=== PATIENT | female | born 1965 | race Caucasian/White ===

== ENCOUNTER → 2017-07-26 20:17 | Outpatient (CLI) | payer MEDICARE, SELFPAY | PROVIDERS: Family Provider Internal Medicine; PCP Internal Medicine; Visit Provider Nurse Practitioner Acute Care | DX: G47.19 Other hypersomnia (principal) | CPT/HCPCS: 95810 ==

== ENCOUNTER → 2017-08-07 10:35 | Outpatient (CLI) | payer MEDICARE, SELFPAY ==
[2017-08-07 11:36] LABS: ALB/GLOB Ratio 0.7 RATIO (0.9-2.4); AST(SGOT) 30 U/L (15-37); Alanine Aminotransfer ALT/SGPT 23 U/L (13-56); Albumin, Serum 3.3 g/dL (3.2-5.0); Alkaline Phosphatase 70 U/L (45-117); Anion Gap 7 (5-15); BUN 11 mg/dL (7-18); BUN/Creat Ratio 18.2 RATIO (10-20); Calcium,Total 9.3 mg/dL (8.5-10.1); Chloride 94 mmol/L (98-107); Cholesterol 180 mg/dL (200); EST Glomerular Filtration Rate 110 mL/min (>60); Est Glom Filt Rate - Afr Amer 133 mL/min (>60); Globulin 4.5 g/dL (2.2-4.2); Glucose 159 mg/dL (74-106); High Density Lipoprotein 34 mg/dL; Magnesium 1.2 mg/dL (1.6-2.6); Protein, Total 7.8 g/dL (6.4-8.2); Sodium Level 130 mmol/L (136-145); Thyroid Stim Hormone (TSH) 2.69 uIU/mL (0.358-3.74); Triglycerides 200 mg/dL; Very Low Density Lipoprotein 40 mg/dL (5-40)
== END ==
PROVIDERS: Family Provider Internal Medicine; PCP Internal Medicine; Visit Provider Internal Medicine Endocrinology, Diabetes & Metabolism
DX: E11.65 Type 2 diabetes mellitus with hyperglycemia (principal)
CPT/HCPCS: 36415; 80053; 80061; 83036; 83735; 84443

== ENCOUNTER → 2017-08-09 22:20 | Outpatient (CLI) | payer MEDICARE, SELFPAY | PROVIDERS: Family Provider Internal Medicine; PCP Internal Medicine; Visit Provider Nurse Practitioner Acute Care | DX: G47.33 Obstructive sleep apnea (adult) (pediatric) (principal) | CPT/HCPCS: 95811 ==

== ENCOUNTER 2017-11-23 13:46 | Inpatient (IN) | payer MEDICARE, SELFPAY ==
[2017-11-23] VITALS (23 sets, daily range): BP systolic 97–129; BP diastolic 38–88; PULSE 80–98; RESP 12–36; TEMP 36.3–36.6; O2SAT 68–100; BMI 29.7; BMI 29.9
--- NOTE | 2017-11-23 13:55 | ED.RN ---
pt placed on nonrebreather to increase o2. 77 on 6 liters nasal cannula. on nonrebreather was able to get o2 level up. dropped back to a 50 venti mask
--- NOTE | 2017-11-23 14:11 | EKG12_ITS ---
Test Reason : SOB Blood Pressure : / mmHG Vent. Rate : 079 BPM Atrial Rate : 079 BPM P-R Int : 174 ms QRS Dur : 098 ms QT Int : 376 ms P-R-T Axes : 065 047 -29 degrees QTc Int : 431 ms Normal sinus rhythm ST & T wave abnormality, consider anterolateral ischemia Abnormal ECG Confirmed by FEI WOODARD ([id number]), editorial manager YAZMIN AYON ([id number]) on 12/04/2017 6:29:25 PM Referred By: NEERAJ/FRANK Confirmed By:FEI WOODARD
[2017-11-23] MEDS: Ipratropium/Albuterol Sulfate 3 ML AMPUL.NEB INHALATION ×2 (14:19→19:10)
[2017-11-23] MEDS: Albuterol 2.5 MG/3 ML VIAL.NEB. INHALATION ×2 (14:19→14:29)
[2017-11-23 14:30] LABS: Absolute Lymphocyte Count 1.42 X10^3/ul (0.83-4.51); Absolute Neutrophil Count 12.2 X10^3/uL (2.0-7.7); Basophil# 0.02 X10^3/uL; Basophil% 0.1 % (0-1); Eosinophil# 0.12 X10^3/uL; Eosinophils% 0.8 % (0-5); Hematocrit 37.9 % (37-47); Hemoglobin 12.3 g/dl (12.0-15.0); Lymphocyte # 1.42 X10^3/ul (4.0); Lymphocyte % 9.7 % (19-41); Mean Corp Hgb Conc 32.5 g/gl (32-36); Mean Corpuscular Hgb 25.6 pg (27.0-32.0); Mean Corpuscular Volume 78.8 fL (81-99); Mean Platelet Vol. 10.5 fl (6.2-12.0); Monocyte# 0.83 X10^3/uL; Monocyte% 5.7 % (0-10); Neutrophil # 12.22 X10^3/uL (2.7-7.7); Neutrophil % 83.3 % (47-70); Platelet Count 175 K/mm3 (150-450); RBC Distribution Width CV 18.6 % (11.6-14.6); RBC Distribution Width SD 53.4 fl (35.1-43.9); Red Blood Count 4.81 M/mm3 (4.2-5.4); White Blood Count 14.7 K/mm3 (4.4-11.0)
--- NOTE | 2017-11-23 14:30 | RAD_ITS ---
STUDY: X-RAY CHEST REASON FOR EXAM: Female, 52 years old. Shortness of breath. Difficulty breathing. TECHNIQUE: Single AP portable view of the chest. COMPARISON: Comparison is made with prior study dated May 01, 2017. FINDINGS: EKG electrodes are seen. There is evidence of diffuse bilateral airspace disease suggestive of pulmonary edema. There is no demonstrated pleural abnormality. Sternal cerclage wires are present from a prior sternotomy. Normal mediastinum and mirna. Normal visualized pulmonary arteries. Normal visualized aortic arch and descending thoracic aorta. Normal visualized thoracic spine. Normal visualized ribs, clavicles, and shoulders. There is no demonstrated abnormality of the visualized soft tissue structures of the upper abdomen. RAD/Chest 1 View (Portable) IMPRESSION: Diffuse bilateral airspace disease suggestive of pulmonary edema. Electronically Signed: Yousuf Vila MD at 15:19 EDT Tel [phone], Service support ,
[2017-11-23 14:31] LABS: POSITIVE COUNT NO; POSITIVE DIFFERENTIAL NO; POSITIVE MORPHOLOGY NO
[2017-11-23 14:39] LABS: D-Dimer Quantitative (DVT/PE) 1.12 FEU/ug/m (0.27-0.49)
--- NOTE | 2017-11-23 14:39 | CT_ITS ---
STUDY: CTA CHEST REASON FOR EXAM: Female, 52 years old. Elevated d-dimer. Elevated white count and increasing shortness of breath. RADIATION DOSAGE (If Supplied By Facility): CTDIvol = ( 19.83 ) mGy, DLP = ( 654.24 ) mGycm TECHNIQUE: The examination was performed with the intravenous administration of 75ml ml of Isovue 370 contrast material. Post-processing of the angiographic images was performed, with multiplanar reformation and 3D reconstruction. Individualized dose optimization techniques were used for this CT. COMPARISON: Comparison is made with prior CT scan of the chest dated February 09, 2017 and prior chest radiograph done earlier in the day. FINDINGS: Normal enhancement of the main pulmonary artery and right and left pulmonary arteries. Normal enhancement of the bilateral peripheral pulmonary arteries. There is no demonstrated pulmonary embolism. Normal thoracic aorta and visualized great vessels. 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 There is no demonstrated aortic dissection. There are calcifications of the coronary arteries. There are visualized mediastinal lymph nodes, which are within normal size limits, and with normal morphology. Normal hilar regions. Normal visualized trachea and bronchi. The lungs are well expanded. Diffuse bilateral alveolar space disease. Increased interstitial markings with areas of confluence this is suggestive of either is bilateral pulmonary edema or pneumonitis. Normal pleura. Normal chest wall structures. There are degenerative changes of thoracic spine. Normal visualized upper abdomen. CT/CTA Chest W/WO Contrast IMPRESSION: Diffuse bilateral airspace disease. There is no evidence of pulmonary embolism. Electronically Signed: Yousuf Vila MD at 15:57 EDT Tel [phone], Service support ,
--- NOTE | 2017-11-23 14:40 | ED.VISSUMM ---
- ER Visit Summary Date of Service: 11/23/17 Chief Complaint: Shortness of breath History of Present Illness: The patient is a 52 F presenting with shortness of breath. She states it started yesterday and worsened gradually throughout the day. She has had temperatures up to 99.6 at home. She has had nonproductive cough. She has nausea with no vomiting. She denies chest pain. She states her daughter has factor V Leiden, no other PE/DVT risk factors. On arrival to the ED she was 68% on room air. Physical Examination: Vitals are stable. Patient is afebrile. Alert no acute distress. HEENT exam is unremarkable. Neck is supple. Lungs are diminished bilaterally with expiratory wheezing bilaterally Heart is regular rate and rhythm. Abdomen is soft nontender nondistended. Extremities are unremarkable. Skin is warm and dry. No focal neurologic deficit. Remainder of exam is unremarkable. Emergency Department Course and Treatment: On arrival to the ED pulse oximetry was 68% on room air. She was put on nonrebreather and transitioned to a Ventimask. She was given albuterol and Atrovent aerosols. She continues to be hypoxic and was put on BiPAP. She had improvement while on BiPAP. CBC showed a white count of 14.7. Chemistry shows sodium 130, potassium 3.3, glucose 171. Troponin is negative. D-dimer is 1.12. Due to elevated d-dimer, CTA chest was obtained and shows diffuse bilateral airspace disease with no PE. Patient is improved on BiPAP. Discussed with Dr. Patterson who will admit the patient. Disposition: Admission Impression: Respiratory failure, pulmonary edema This note was generated with [employer] dictation software. It may contain incorrect words, spelling, and punctuation that were not noted in review of the chart prior to signing ED Disposition - Plan for ED Patient: Chief Complaint: Shortness of Breath Referrals: Sanjuana Mckeon DO [Primary Care Provider] -
[2017-11-23 14:43] LABS: Anion Gap 9 (5-15); BUN 11 mg/dL (7-18); BUN/Creat Ratio 16.2 RATIO (10-20); Calcium,Total 9.4 mg/dL (8.5-10.1); Chloride 95 mmol/L (98-107); Creatinine, Serum 0.68 mg/dL (0.55-1.02); EST Glomerular Filtration Rate 96 mL/min (>60); Est Glom Filt Rate - Afr Amer 116 mL/min (>60); Estimated Creatinine Clearance 86.09 ml/min; Glucose 171 mg/dL (74-106); Potassium 3.3 mmol/L (3.5-5.1); Sodium Level 130 mmol/L (136-145)
[2017-11-23 16:46] LABS: Allen Test POS; Base Excess -2 mmol/L (-2 to +2); Bicarbonate 22.1 mmol/L (22-26); Blood Gas Specimen Type ART; EPAP 8; FI02 70; IPAP 12; PO2 92 mmHG (75-100); RR 12; SITE R Radial; SO2 98 % (95-99); Time Given 1635; Total Carbon Dioxide 23 mmol/L; pCO2 32.7 mmHg (35-45); pH 7.44 (7.35-7.45)
--- NOTE | 2017-11-23 17:15 | PCM.HP.STD ---
Problem List (1) Coronary artery disease Status: Chronic Comment: Status post stents. 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 Neela Crum (7) Cardiomyopathy, ischemic Status: Chronic Comment: 40% EF in 2016 (8) HLD (hyperlipidemia) Status: Chronic History of Present Illness Date of Admission: 11/23/17 Chief Complaint: Shortness of breath. The patient is a 52 year old F with past medical history as mentioned above presented to the medicine because of shortness of breath. Her illness started around 3 days ago with shortness of breath on minimal exertion, progressive, became even at rest since yesterday, aggravated by activity, not relieved by rest, associated with dry cough without sputum production. She denied associated fever or chills. She denied chest pain, palpitation, dizziness or lightheadedness. She denied leg edema, PND or orthopnea. History of sleep apnea and she has been on CPAP at home and she has been compliant with it. She has a history of CAD status post stents and CABG. She had a history of type 2 diabetes mellitus and she has been on insulin, his hemoglobin A1c was 8 on July,. She has a history of ischemic cardiomyopathy and she had 2D echocardiogram in December, that showed ejection fraction 50%. In the emergency room, patient was dyspneic and tachypneic. She was afebrile, blood pressure and heart rate are stable. Reportedly, pulse ox went down to 60% on room air. Her routine blood work is remarkable for leukocytosis, sodium of 130 and potassium 3.3. ABG revealed pH of 7.44, PCO2 of 32 and PO2 of 92. Troponin is negative. EKG revealed sinus rhythm without evidence of acute ischemic changes. Chest x-ray showed bilateral alveolar space disease with probable acute pulmonary edema. D-dimer was elevated for which CTA chest done and revealed no evidence of PE or dissection. She is being admitted for acute hypoxic respiratory failure due to probable acute pulmonary edema, pneumonia or pneumonitis cannot be ruled out. Past Medical History Past Medical History (Chronic Problems): Chronic Problems (Last Updated 11/23/17 @ 17:15 by Kimberly Patterson MD) Coronary artery disease (Chronic) Status post stents. 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 Neela Crum Cardiomyopathy, ischemic (Chronic) 40% EF in 2016 HLD (hyperlipidemia) (Chronic) Diabetic neuropathy (Chronic) Medical History: Medical History (Last Updated 11/23/17 @ 17:15 by Kimberly Patterson MD) Atherosclerosis of coronary artery bypass graft without angina pectoris (Chronic) I25.810 Atherosclerosis of coronary artery of [place] heart without angina pectoris (Chronic) I25.[address] (Chronic) R93.8 Tobacco abuse (Chronic) Z72.0 HTN (hypertension) (Chronic) I10 Depression with anxiety (Chronic) Diabetes mellitus, type II (Chronic) E11.9 Harper disease (Chronic) E27.1 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 BUT, 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 Chronic back pain (Chronic) M54.9, G89.29 History of GI bleed (Chronic) Z87.19 Cardiomyopathy, ischemic (Chronic) I25.5 40% EF in 2016 HLD (hyperlipidemia) (Chronic) E78.5 Diabetic neuropathy (Chronic) E11.40 Allergies Mdvmpaa-Nkx-Ndk Reductase Inhibitor Adverse Reaction (Severe, Verified 11/23/17 13:57) Elevated liver enzymes, also Muscle cramps/pain Home Medications: Ambulatory Orders Medication Instructions Recorded Aspirin 325 mg PO QHS 08/12/14 Ergocalciferol [Vitamin D] 50,000 unit PO FR 08/12/14 Lisinopril [Zestril] 2.5 mg PO QHS 08/12/14 Venlafaxine XR [Effexor Xr] 150 mg PO DAILY 08/12/14 buPROPion XL [Wellbutrin Xl] 300 mg PO DAILY 08/12/14 Pregabalin [Lyrica] 300 mg PO BID 07/24/15 Amitriptyline HCl 25 mg PO BID 12/26/16 Carvedilol 25 mg PO BID 12/26/16 Clopidogrel Bisulfate [Plavix] 75 mg PO DAILY 12/26/16 Eplerenone [Inspra] 25 mg PO DAILY 12/26/16 Gemfibrozil [Lopid] 1,200 mg PO QHS 12/26/16 Insulin Basal Pump (Pt's Own) 0 unit SC UD 12/26/16 [Pump, Basal] Meclizine HCl [Antivert] 25 mg PO TID PRN PRN 12/26/16 Niacin [Niacin ER] 2,000 mg PO QHS 12/26/16 Ondansetron [Zofran Odt] 4 mg PO Q8H PRN PRN 12/26/16 Oxycodone [Oxyir] 10 mg PO Q6H PRN PRN 12/26/16 Perphenazine 4 mg PO BID 12/26/16 Albuterol IH (ProAir) [Proair Hfa] 1 - 2 puff INHALATION Q4H PRN PRN 12/30/16 #1 inhaler levoFLOXacin tablet [Levaquin 750 mg PO DAILY@0600 #2 tab 12/30/16 tablet] magnesium oxide 400 mg tablet 400 mg PO TID tab 10/16/17 Furosemide [Lasix] 40 mg PO BID@1000,1800 11/23/17 Omeprazole 20 mg PO BID 11/23/17 Surgical History: Surgical History (Last Updated 11/23/17 @ 17:15 by Kimberly Patterson MD) S/P CABG x 5 (Chronic) Onset Date: ~11/14/07 Z95.1 HINTON-LAD, SVG-D1, SVG-OM1, SVG-OM 2, SVG-PDA 11/16/2007 @ [facility] per Dr. 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 Denies: Anorexia, Chills, Fever Eyes: Denies: Blurred vision, Double vision, Drainage, Redness HEENT: Denies: Difficulty Hearing, Ear Pain, Eye Pain, Nasal Congestion, Sore Throat Cardiovascular: Denies: Chest Pain, Chest Pressure, Chest Tightness, Heaviness, Light Headedness, Palpitations, Syncope Respiratory: Reports: Cough, Shortness of Breath, Shortness of breath at rest, Shortness of breath upon exertion. Denies: Pleuritic Pain, Sputum production, Wheezing Gastrointestinal: Denies: Abdominal Pain, Constipation, Diarrhea, Nausea, Vomiting Genitourinary: Denies: Dysuria, Frequency, Hematuria Musculoskeletal: Denies: Arm Pain, Back Pain, Foot Pain Skin: Denies: Dryness, Rash Neurological: Denies: Balance problems, Double vision, Change in Speech, Slurred speech, Confusion, Headaches, Incoordination, Numbness Psychiatric: Reports: Anxiety, Depression Endocrine: Denies: Change in Body Habitus, Polydipsia VTE Information - Inpt Only VTE Present on Admission: No VTE Mechan Device Prophylaxis: None VTE Pharm Prophylaxis ordered?: Yes - Physical Exam General: Alert, Oriented x3, Cooperative, - - Moderately short of breath, on BiPAP. HEENT: Atraumatic, PERRLA, EOMI Oral: Moist Mucosa, No Gingival or Mucosal Lesions/ Ulcerations Neck: Supple, No JVD, Negative Carotid Bruits, Trachea Midline, Thyroid Normal Size and Texture Lungs: No wheeze, Diminished, Rales, Rhonchi, Short of Breath, - - Decreased breath sounds bilateral, more at the bases with basal crackles. Cardiovascular: Regular rate, Regular Rhythm, Normal S1, Normal S2, PMI Normal Abdomen: Bowel Sounds Present, Soft, Non Tender, Non-Distended, No Hepato-splenomegaly Extremities: No clubbing, No cyanosis, No edema Skin: No rashes, No breakdown Lymphatic: No Cervical, Supraclavicular, or Inguinal Adenopathy Neurological: Cranial nerves II-XII grossly intact, Motor Exam 5/5 strength throughout Psych/Mental Status: Normal Affect, Appropriate, Alert and oriented to time, place, person, mood and affect Vital Signs Temp Pulse Resp BP Pulse Ox 98 F 84 22 H 112/88 H 96 11/23/17 13:53 11/23/17 16:32 11/23/17 16:32 11/23/17 16:32 11/23/17 16:32 Laboratory Tests Past 24 Hrs 11/23/17 16:42 Specimen Type ART Sample Site R Radial pH 7.44 Bicarbonate Actual 22.1 POC Total CO2 23 Base Excess -2 O2 Saturation 98 O2 % 70 ABG pCO2 32.7 L ABG pO2 92 Marko Test POS Respiration Rate 12 O2 Delivery Device Bi / C PAP EPAP 8 IPAP 12 Blood Gas Notified Whom ED Blood Gas Notified Time 1635 Laboratory Tests 11/23/17 11/23/17 11/23/17 Range/Units 16:42 14:00 14:00 WBC (4.4-11.0) K/mm3 RBC (4.2-5.4) M/mm3 Hgb (12.0-15.0) g/dl Hct (37-47) % MCV (81-99) fL MCH (27.0-32.0) pg MCHC (32-36) g/gl RDW (11.6-14.6) % RDW Differential (35.1-43.9) fl Plt Count (150-450) K/mm3 MPV (6.2-12.0) fl Immature Gran % (Auto) (0.0-0.9) % Neut % (Auto) (47-70) % Lymph % (Auto) (19-41) % [place] % (Auto) (0-10) % Eos % (Auto) (0-5) % Baso % (Auto) (0-1) % Absolute Neuts (auto) (2.0-7.7) X10^3/uL Absolute Lymphs (auto) (0.83-4.51) X10^3/ul Total Counted D-Dimer Quant (PE/DVT) 1.12 H* (0.27-0.49) FEU/ug/m Specimen Type ART Sample Site R Radial pH 7.44 (7.35-7.45) Bicarbonate Actual 22.1 (22-26) mmol/L POC Total CO2 23 mmol/L Base Excess -2 (-2 to +2) mmol/L O2 Saturation 98 (95-99) % O2 % 70 ABG pCO2 32.7 L (35-45) mmHg ABG pO2 92 (75-100) mmHG Marko Test POS Respiration Rate 12 O2 Delivery Device Bi / C PAP EPAP 8 IPAP 12 Blood Gas Notified Whom ED Blood Gas Notified Time 1635 Sodium 130 L (136-145) mmol/L Potassium 3.3 L (3.5-5.1) mmol/L Chloride 95 L (98-107) mmol/L Carbon Dioxide 26.0 (21.0-32.0) mmol/L Anion Gap 9 (5-15) BUN 11 (7-18) mg/dL Creatinine 0.68 (0.55-1.02) mg/dL Estim Creat Clear Calc 86.09 ml/min Est GFR (MDRD) Af Amer 116 (>60) mL/min Est GFR (MDRD) Non-Af 96 (>60) mL/min BUN/Creatinine Ratio 16.2 (10-20) RATIO Glucose 171 H (74-106) mg/dL Calcium 9.4 (8.5-10.1) mg/dL Troponin I < 0.015 (<0.045) ng/mL 11/23/17 Range/Units 14:00 WBC 14.7 H (4.4-11.0) K/mm3 RBC 4.81 (4.2-5.4) M/mm3 Hgb 12.3 (12.0-15.0) g/dl Hct 37.9 (37-47) % MCV 78.8 L (81-99) fL MCH 25.6 L (27.0-32.0) pg MCHC 32.5 (32-36) g/gl RDW 18.6 H (11.6-14.6) % RDW Differential 53.4 H (35.1-43.9) fl Plt Count 175 (150-450) K/mm3 MPV 10.5 (6.2-12.0) fl Immature Gran % (Auto) 0.400 (0.0-0.9) % Neut % (Auto) 83.3 H (47-70) % Lymph % (Auto) 9.7 L (19-41) % [place] % (Auto) 5.7 (0-10) % Eos % (Auto) 0.8 (0-5) % Baso % (Auto) 0.1 (0-1) % Absolute Neuts (auto) 12.2 H (2.0-7.7) X10^3/uL Absolute Lymphs (auto) 1.42 (0.83-4.51) X10^3/ul Total Counted Not Reportable D-Dimer Quant (PE/DVT) (0.27-0.49) FEU/ug/m Specimen Type Sample Site pH (7.35-7.45) Bicarbonate Actual (22-26) mmol/L POC Total CO2 mmol/L Base Excess (-2 to +2) mmol/L O2 Saturation (95-99) % O2 % ABG pCO2 (35-45) mmHg ABG pO2 (75-100) mmHG Marko Test Respiration Rate O2 Delivery Device EPAP IPAP Blood Gas Notified Whom Blood Gas Notified Time Sodium (136-145) mmol/L Potassium (3.5-5.1) mmol/L Chloride (98-107) mmol/L Carbon Dioxide (21.0-32.0) mmol/L Anion Gap (5-15) BUN (7-18) mg/dL Creatinine (0.55-1.02) mg/dL Estim Creat Clear Calc ml/min Est GFR (MDRD) Af Amer (>60) mL/min Est GFR (MDRD) Non-Af (>60) mL/min BUN/Creatinine Ratio (10-20) RATIO Glucose (74-106) mg/dL Calcium (8.5-10.1) mg/dL Troponin I (<0.045) ng/mL Clinical Impression(s) from Imaging Studies Chest X-Ray 11/23/17 14:30 IMPRESSION: Diffuse bilateral airspace disease suggestive of pulmonary edema. Electronically Signed: Yousuf Vila MD at 15:19 EDT Tel [phone], Service support , Chest CTA 11/23/17 14:39 IMPRESSION: Diffuse bilateral airspace disease. There is no evidence of pulmonary embolism. Electronically Signed: Yousuf Vila MD at 15:57 EDT Tel [phone], Service support , Assessment/Plan All Active Problems (Last Updated 11/23/17 @ 17:15 by Kimberly Patterson MD) Chest discomfort (Resolved) Chronic normocytic anemia (Resolved) This is a 52 year-old presented to the emergency room because of shortness of breath and she was found to have bilateral pleural space disease in both lungs consistent with probable acute pulmonary edema complicated by acute hypoxic respiratory failure. #1 acute hypoxic respiratory failure: Probably multifactorial secondary to pulmonary edema, pneumonitis or pneumonia. She does have leukocytosis. Reportedly, pulse ox was 60% on room air. ABG revealed pH of 7.44, PCO2 of 32 and PO2 of 92. Chest x-ray reviewed, revealed bilateral airspace disease consistent with acute pulmonary edema. She does have history of ischemic cardiomyopathy and she has been on diuretics. Also, she has a history of obstructive sleep apnea and she is on CPAP. Plan: Admit to PCU, cardiac monitoring, serial cardiac enzymes, continue BiPAP, start IV Lasix for diuresis, DuoNeb every 6 hours, albuterol as needed, start empiric IV Levaquin, blood culture, urine culture, pulmonology consult, repeat CBC and BMP tomorrow morning, PT OT evaluation and treatment. #2 probable acute pulmonary edema/acute on chronic diastolic and systolic CHF: Echocardiogram from December, revealed ejection fraction of 50%. EKG reviewed, revealed sinus rhythm without evidence of acute changes. Troponin is negative. Plan: Cardiac monitoring, serial cardiac enzymes, 2D echocardiogram, IV Lasix for diuresis, check BNP, continue Coreg and eplerenone and lisinopril. #3 CAD status post stents and CABG: Reviewed, no acute changes, troponin is negative. Continue aspirin, Coreg, Plavix, lisinopril. #4 type 2 diabetes mellitus: ADA diet, Accu-Cheks, insulin sliding scale. #5 hypertension: Blood pressure stable, continue Coreg, eplerenone and lisinopril. #6 hyperlipidemia: Continue niacin. #7 obstructive sleep apnea: She is on CPAP at home. At this time, she is on BiPAP. #8 chronic back pain: Continue OxyIR as needed for pain as well as Lyrica. #9 DVT prophylaxis: Subcu Lovenox. This note was generated with [employer] software. It may contain incorrect words, spelling, and punctuation that were not noted in checking the note before signing. Code Visit Inpatient E&M: 15470 Init Hosp L3
--- NOTE | 2017-11-23 17:23 | HP.PCM_ITS ---
Problem List (1) Coronary artery disease Status: Chronic Comment: Status post stents. 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 Neela Crum (7) Cardiomyopathy, ischemic Status: Chronic Comment: 40% EF in 2016 (8) HLD (hyperlipidemia) Status: Chronic History of Present Illness Date of Admission: 11/23/17 Chief Complaint: Shortness of breath. The patient is a 52 year old F with past medical history as mentioned above presented to the medicine because of shortness of breath. Her illness started around 3 days ago with shortness of breath on minimal exertion, progressive, became even at rest since yesterday, aggravated by activity, not relieved by rest, associated with dry cough without sputum production. She denied associated fever or chills. She denied chest pain, palpitation, dizziness or lightheadedness. She denied leg edema, PND or orthopnea. History of sleep apnea and she has been on CPAP at home and she has been compliant with it. She has a history of CAD status post stents and CABG. She had a history of type 2 diabetes mellitus and she has been on insulin, his hemoglobin A1c was 8 on July,. She has a history of ischemic cardiomyopathy and she had 2D echocardiogram in December, that showed ejection fraction 50%. In the emergency room, patient was dyspneic and tachypneic. She was afebrile, blood pressure and heart rate are stable. Reportedly, pulse ox went down to 60% on room air. Her routine blood work is remarkable for leukocytosis, sodium of 130 and potassium 3.3. ABG revealed pH of 7.44, PCO2 of 32 and PO2 of 92. Troponin is negative. EKG revealed sinus rhythm without evidence of acute ischemic changes. Chest x-ray showed bilateral alveolar space disease with probable acute pulmonary edema. D-dimer was elevated for which CTA chest done and revealed no evidence of PE or dissection. She is being admitted for acute hypoxic respiratory failure due to probable acute pulmonary edema, pneumonia or pneumonitis cannot be ruled out. Past Medical History Past Medical History (Chronic Problems): Chronic Problems (Last Updated 11/23/17 @ 17:15 by Kimberly Patterson MD) Coronary artery disease (Chronic) Status post stents. 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 Neela Crum Cardiomyopathy, ischemic (Chronic) 40% EF in 2016 HLD (hyperlipidemia) (Chronic) Diabetic neuropathy (Chronic) Medical History: Medical History (Last Updated 11/23/17 @ 17:15 by Kimberly Patterson MD) Atherosclerosis of coronary artery bypass graft without angina pectoris (Chronic ) I25.810 Atherosclerosis of coronary artery of [place] heart without angina pectoris ( Chronic) I25.[address] (Chronic) R93.8 Tobacco abuse (Chronic) Z72.0 HTN (hypertension) (Chronic) I10 Depression with anxiety (Chronic) Diabetes mellitus, type II (Chronic) E11.9 Fayette disease (Chronic) E27.1 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, 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 Chronic back pain (Chronic) M54.9, G89.29 History of GI bleed (Chronic) Z87.19 Cardiomyopathy, ischemic (Chronic) I25.5 40% EF in 2016 HLD (hyperlipidemia) (Chronic) E78.5 Diabetic neuropathy (Chronic) E11.40 Allergies Smqhpfy-Tfi-Yhn Reductase Inhibitor Adverse Reaction (Severe, Verified 11/23/17 13:57) Elevated liver enzymes, also Muscle cramps/pain Home Medications: Ambulatory Orders Medication Instructions Recorded Aspirin 325 mg PO QHS 08/12/14 Ergocalciferol [Vitamin D] 50,000 unit PO FR 08/12/14 Lisinopril [Zestril] 2.5 mg PO QHS 08/12/14 Venlafaxine XR [Effexor Xr] 150 mg PO DAILY 08/12/14 buPROPion XL [Wellbutrin Xl] 300 mg PO DAILY 08/12/14 Pregabalin [Lyrica] 300 mg PO BID 07/24/15 Amitriptyline HCl 25 mg PO BID 12/26/16 Carvedilol 25 mg PO BID 12/26/16 Clopidogrel Bisulfate [Plavix] 75 mg PO DAILY 12/26/16 Eplerenone [Inspra] 25 mg PO DAILY 12/26/16 Gemfibrozil [Lopid] 1,200 mg PO QHS 12/26/16 Insulin Basal Pump (Pt's Own) 0 unit SC UD 12/26/16 [Pump, Basal] Meclizine HCl [Antivert] 25 mg PO TID PRN PRN 12/26/16 Niacin [Niacin ER] 2,000 mg PO QHS 12/26/16 Ondansetron [Zofran Odt] 4 mg PO Q8H PRN PRN 12/26/16 Oxycodone [Oxyir] 10 mg PO Q6H PRN PRN 12/26/16 Perphenazine 4 mg PO BID 12/26/16 Albuterol IH (ProAir) [Proair Hfa] 1 - 2 puff INHALATION Q4H PRN PRN 12/30/16 #1 inhaler levoFLOXacin tablet [Levaquin 750 mg PO DAILY@0600 #2 tab 12/30/16 tablet] magnesium oxide 400 mg tablet 400 mg PO TID tab 10/16/17 Furosemide [Lasix] 40 mg PO BID@1000,1800 11/23/17 Omeprazole 20 mg PO BID 11/23/17 Surgical History: Surgical History (Last Updated 11/23/17 @ 17:15 by Kimberly Patterson MD) S/P CABG x 5 (Chronic) Onset Date: ~11/14/07 Z95.1 HINTON-LAD, SVG-D1, SVG-OM1, SVG-OM 2, SVG-PDA 11/16/2007 @ [facility] per Dr. Neela Crum Surgical History: angioplasty, cholecystectomy, coronary bypass surgery Psychiatric History: Anxiety, Depression [employer] History: No pertinent [employer] history Lives: With Family Smoking Status: Current every day smoker Tobacco Use: Cigarettes - *Family History Maternal Family History: Family History (Last Reviewed 10/16/17 @ 10:50 by Izabela Adam) Father Hypertension Mother Hyperlipidemia History Items: Diabetes, Hypertension Paternal Family History: Family History (Last Reviewed 10/16/17 @ 10:50 by Izabela Adam) Father Hypertension Mother Hyperlipidemia History Items: Hypertension Review of Systems Constitutional: Reports: Weakness. Denies: Anorexia, Chills, Fever Eyes: Denies: Blurred vision, Double vision, Drainage, Redness HEENT: Denies: Difficulty Hearing, Ear Pain, Eye Pain, Nasal Congestion, Sore Throat Cardiovascular: Denies: Chest Pain, Chest Pressure, Chest Tightness, Heaviness, Light Headedness, Palpitations, Syncope Respiratory: Reports: Cough, Shortness of Breath, Shortness of breath at rest, Shortness of breath upon exertion. Denies: Pleuritic Pain, Sputum production, Wheezing Gastrointestinal: Denies: Abdominal Pain, Constipation, Diarrhea, Nausea, Vomiting Genitourinary: Denies: Dysuria, Frequency, Hematuria Musculoskeletal: Denies: Arm Pain, Back Pain, Foot Pain Skin: Denies: Dryness, Rash Neurological: Denies: Balance problems, Double vision, Change in Speech, Slurred speech, Confusion, Headaches, Incoordination, Numbness Psychiatric: Reports: Anxiety, Depression Endocrine: Denies: Change in Body Habitus, Polydipsia VTE Information - Inpt Only VTE Present on Admission: No VTE Mechan Device Prophylaxis: None VTE Pharm Prophylaxis ordered?: Yes - Physical Exam General: Alert, Oriented x3, Cooperative, - - Moderately short of breath, on BiPAP. HEENT: Atraumatic, PERRLA, EOMI Oral: Moist Mucosa, No Gingival or Mucosal Lesions/ Ulcerations Neck: Supple, No JVD, Negative Carotid Bruits, Trachea Midline, Thyroid Normal Size and Texture Lungs: No wheeze, Diminished, Rales, Rhonchi, Short of Breath, - - Decreased breath sounds bilateral, more at the bases with basal crackles. Cardiovascular: Regular rate, Regular Rhythm, Normal S1, Normal S2, PMI Normal Abdomen: Bowel Sounds Present, Soft, Non Tender, Non-Distended, No Hepato- splenomegaly Extremities: No clubbing, No cyanosis, No edema Skin: No rashes, No breakdown Lymphatic: No Cervical, Supraclavicular, or Inguinal Adenopathy Neurological: Cranial nerves II-XII grossly intact, Motor Exam 5/5 strength throughout Psych/Mental Status: Normal Affect, Appropriate, Alert and oriented to time, place, person, mood and affect Vital Signs Temp Pulse Resp BP Pulse Ox 98 F 84 22 H 112/88 H 96 11/23/17 13:53 11/23/17 16:32 11/23/17 16:32 11/23/17 16:32 11/23/17 16:32 Laboratory Tests Past 24 Hrs 11/23/17 16:42 Specimen Type ART Sample Site R Radial pH 7.44 Bicarbonate Actual 22.1 POC Total CO2 23 Base Excess -2 O2 Saturation 98 O2 % 70 ABG pCO2 32.7 L ABG pO2 92 Marko Test POS Respiration Rate 12 O2 Delivery Device Bi / C PAP EPAP 8 IPAP 12 Blood Gas Notified Whom ED Blood Gas Notified Time 1635 Laboratory Tests 3 11/23/17 11/23/17 11/23/17 Range/Units 16:42 14:00 14:00 WBC (4.4-11.0) K/mm3 RBC (4.2-5.4) M/mm3 Hgb (12.0-15.0) g/dl Hct (37-47) % MCV (81-99) fL MCH (27.0-32.0) pg MCHC (32-36) g/gl RDW (11.6-14.6) % RDW Differential (35.1-43.9) fl Plt Count (150-450) K/mm3 MPV (6.2-12.0) fl Immature Gran % (Auto) (0.0-0.9) % Neut % (Auto) (47-70) % Lymph % (Auto) (19-41) % Irwin % (Auto) (0-10) % Eos % (Auto) (0-5) % Baso % (Auto) (0-1) % Absolute Neuts (auto) (2.0-7.7) X10^3/uL Absolute Lymphs (auto) (0.83-4.51) X10^3/ul Total Counted D-Dimer Quant (PE/DVT) 1.12 H* (0.27-0.49) FEU/ug/m Specimen Type ART Sample Site R Radial pH 7.44 (7.35-7.45) Bicarbonate Actual 22.1 (22-26) mmol/L POC Total CO2 23 mmol/L Base Excess -2 (-2 to +2) mmol/L O2 Saturation 98 (95-99) % O2 % 70 ABG pCO2 32.7 L (35-45) mmHg ABG pO2 92 (75-100) mmHG Marko Test POS Respiration Rate 12 O2 Delivery Device Bi / C PAP EPAP 8 IPAP 12 Blood Gas Notified Whom ED Blood Gas Notified Time 1635 Sodium 130 L (136-145) mmol/L Potassium 3.3 L (3.5-5.1) mmol/L Chloride 95 L (98-107) mmol/L Carbon Dioxide 26.0 (21.0-32.0) mmol/L Anion Gap 9 (5-15) BUN 11 (7-18) mg/dL Creatinine 0.68 (0.55-1.02) mg/dL Estim Creat Clear Calc 86.09 ml/min Est GFR (MDRD) Af Amer 116 (>60) mL/min Est GFR (MDRD) Non-Af 96 (>60) mL/min BUN/Creatinine Ratio 16.2 (10-20) RATIO Glucose 171 H (74-106) mg/dL Calcium 9.4 (8.5-10.1) mg/dL Troponin I < 0.015 (<0.045) ng/mL 3 11/23/17 Range/Units 14:00 WBC 14.7 H (4.4-11.0) K/mm3 RBC 4.81 (4.2-5.4) M/mm3 Hgb 12.3 (12.0-15.0) g/dl Hct 37.9 (37-47) % MCV 78.8 L (81-99) fL MCH 25.6 L (27.0-32.0) pg MCHC 32.5 (32-36) g/gl RDW 18.6 H (11.6-14.6) % RDW Differential 53.4 H (35.1-43.9) fl Plt Count 175 (150-450) K/mm3 MPV 10.5 (6.2-12.0) fl Immature Gran % (Auto) 0.400 (0.0-0.9) % Neut % (Auto) 83.3 H (47-70) % Lymph % (Auto) 9.7 L (19-41) % Irwin % (Auto) 5.7 (0-10) % Eos % (Auto) 0.8 (0-5) % Baso % (Auto) 0.1 (0-1) % Absolute Neuts (auto) 12.2 H (2.0-7.7) X10^3/uL Absolute Lymphs (auto) 1.42 (0.83-4.51) X10^3/ul Total Counted Not Reportable D-Dimer Quant (PE/DVT) (0.27-0.49) FEU/ug/m Specimen Type Sample Site pH (7.35-7.45) Bicarbonate Actual (22-26) mmol/L POC Total CO2 mmol/L Base Excess (-2 to +2) mmol/L O2 Saturation (95-99) % O2 % ABG pCO2 (35-45) mmHg ABG pO2 (75-100) mmHG Marko Test Respiration Rate O2 Delivery Device EPAP IPAP Blood Gas Notified Whom Blood Gas Notified Time Sodium (136-145) mmol/L Potassium (3.5-5.1) mmol/L Chloride (98-107) mmol/L Carbon Dioxide (21.0-32.0) mmol/L Anion Gap (5-15) BUN (7-18) mg/dL Creatinine (0.55-1.02) mg/dL Estim Creat Clear Calc ml/min Est GFR (MDRD) Af Amer (>60) mL/min Est GFR (MDRD) Non-Af (>60) mL/min BUN/Creatinine Ratio (10-20) RATIO Glucose (74-106) mg/dL Calcium (8.5-10.1) mg/dL Troponin I (<0.045) ng/mL Clinical Impression(s) from Imaging Studies Chest X-Ray 11/23/17 14:30 IMPRESSION: Diffuse bilateral airspace disease suggestive of pulmonary edema. Electronically Signed: Yousuf Vila MD at 15:19 EDT Tel [phone], Service support , Chest CTA 11/23/17 14:39 IMPRESSION: Diffuse bilateral airspace disease. There is no evidence of pulmonary embolism. Electronically Signed: Yousuf Vila MD at 15:57 EDT Tel [phone], Service support , Assessment/Plan All Active Problems (Last Updated 11/23/17 @ 17:15 by Kimberly Patterson MD) Chest discomfort (Resolved) Chronic normocytic anemia (Resolved) This is a 52 year-old presented to the emergency room because of shortness of breath and she was found to have bilateral pleural space disease in both lungs consistent with probable acute pulmonary edema complicated by acute hypoxic respiratory failure. #1 acute hypoxic respiratory failure: Probably multifactorial secondary to pulmonary edema, pneumonitis or pneumonia. She does have leukocytosis. Reportedly, pulse ox was 60% on room air. ABG revealed pH of 7.44, PCO2 of 32 and PO2 of 92. Chest x-ray reviewed, revealed bilateral airspace disease consistent with acute pulmonary edema. She does have history of ischemic cardiomyopathy and she has been on diuretics. Also, she has a history of obstructive sleep apnea and she is on CPAP. Plan: Admit to PCU, cardiac monitoring, serial cardiac enzymes, continue BiPAP, start IV Lasix for diuresis , DuoNeb every 6 hours, albuterol as needed, start empiric IV Levaquin, blood culture, urine culture, pulmonology consult, repeat CBC and BMP tomorrow morning , PT OT evaluation and treatment. #2 probable acute pulmonary edema/acute on chronic diastolic and systolic CHF: Echocardiogram from December, revealed ejection fraction of 50%. EKG reviewed, revealed sinus rhythm without evidence of acute changes. Troponin is negative. Plan: Cardiac monitoring, serial cardiac enzymes, 2D echocardiogram, IV Lasix for diuresis, check BNP, continue Coreg and eplerenone and lisinopril. #3 CAD status post stents and CABG: Reviewed, no acute changes, troponin is negative. Continue aspirin, Coreg, Plavix, lisinopril. #4 type 2 diabetes mellitus: ADA diet, Accu-Cheks, insulin sliding scale. #5 hypertension: Blood pressure stable, continue Coreg, eplerenone and lisinopril. #6 hyperlipidemia: Continue niacin. #7 obstructive sleep apnea: She is on CPAP at home. At this time, she is on BiPAP. #8 chronic back pain: Continue OxyIR as needed for pain as well as Lyrica. #9 DVT prophylaxis: Subcu Lovenox. This note was generated with [employer] dictation software. It may contain incorrect words, spelling, and punctuation that were not noted in checking the note before signing. Code Visit Inpatient E&M: 81427 Init Hosp L3
--- NOTE | 2017-11-23 18:15 | ECHOD_ITS ---
Reason For Study: CHF Procedure This was a 2D Doppler, Color Flow transthoracic echocardiogram. Contrast injection was performed. The study was technically difficult. Exam performed portable in ICU/CCU. Left Ventricle Normal size and thickness. The estimated ejection fraction is 50 %. Normal diastology for age. There are regional wall motion abnormalities as specified. Mid-Anterior : Mildly hypokinetic. Infero-Basal: Mildly hypokinetic. Right Ventricle Normal size and thickness. Normal systolic function. Atria Normal left atrium. Normal right atrium. Normal atrial septum. Mitral Valve The mitral valve is structurally normal. No prolapse or stenosis seen. Tricuspid Valve Normal tricuspid valve. Unable to estimate RV systolic pressure/pulmonary artery pressure due to technically difficult study. Aortic Valve Normal aortic valve. Trisinus/trileaflet aortic valve. Pulmonic Valve Normal pulmonic valve. Trivial pulmonic valve insufficiency. Great Vessels Normal aortic root. Normal arch. Normal inferior vena cava. Inferior vena cava collapse with sniff. Pericardium/Pleural No pericardial effusion. Small left pleural effusion. Medication Diluted definity 2ml given slow IV push to enhance endocardial definition. MMode/2D Measurements & Calculations LVIDd: 4.5 cm IVSd: 1.1 cm Ao root diam: 2.7 cm LVIDs: 3.3 cm LVPWd: 1.0 cm LA dimension: 4.2 cm RVDd: 3.2 cm FS: 25.3 % LAV(MOD-sp2): 52.3 ml LA A4 area: 14.0 cm2 RA A4 area: 11.8 cm2 Doppler Measurements & Calculations MV E max carmelo: 81.6 cm/sec Lat Peak E' Carmelo: 10.0 cm/sec Med Peak E' Carmelo: 4.3 cm/sec MV A max carmelo: 55.1 cm/sec E/E' lat: 8.2 E/E' med: 18.8 MV E/A: 1.5 Ao V2 max: 144.8 cm/sec LV V1 max: 111.0 cm/sec PA V2 max: 145.2 cm/sec Ao max P.4 mmHg LV V1 max P.9 mmHg Interpretation Summary The estimated ejection fraction is 50 %. Normal diastology for age. There are regional wall motion abnormalities as specified. Unable to estimate RV systolic pressure/pulmonary artery pressure due to technically difficult study. Possible small left pleural effusion. Compared to echo report dated 08/13/2014, LV function has improved from 40% to 50%. Ordering Physician: Kimberly Patterson Referring Physician: HIPOLITO PATEL Performed By: Angeli Merino RDCS, RVT
[2017-11-23 18:55] LABS: Bedside Glucose 252 mg/dL (70-110)
[2017-11-23] MEDS: Furosemide 40 MG/4 ML Vial IV (20:38)
[2017-11-23] MEDS: levoFLOXacin IV 750 MG/150 ML BAG 100 MG IV (20:38)
[2017-11-23] MEDS: oxyCODONE 5 MG Tablet 10 MG PO (20:38)
[2017-11-23] MEDS: 0.9% NaCl Peripheral Flush Adult/Peds IV (20:39)
[2017-11-23 20:48] LABS: Magnesium 1.2 mg/dL (1.6-2.6)
[2017-11-23 21:02] LABS: BNP,B-Type NATRIURETIC PEPTIDE 68.8 pg/mL (0-100)
[2017-11-23 21:52] LABS: M R Staph aureus DNA By PCR Negative (Negative); Probe Check PASS; Specimen Processing Control PASS
[2017-11-23] MEDS: Insulin Lispro 100 UNIT/ML INSULN.PEN SC (22:45)
[2017-11-23] MEDS: Gemfibrozil 600 MG Tablet 1200 MG PO (22:46)
[2017-11-23] MEDS: Carvedilol 25 MG Tablet PO (22:46)
[2017-11-23] MEDS: Aspirin 325 MG Tablet PO (22:46)
[2017-11-23] MEDS: Amitriptyline 25 MG Tablet PO (22:46)
[2017-11-23] MEDS: Magnesium Oxide 400 MG Tablet PO (22:46)
[2017-11-23] MEDS: Lisinopril 2.5 MG Tablet PO (22:47)
[2017-11-23] MEDS: Pregabalin 75 MG Capsule 300 MG PO (22:47)
[2017-11-23 23:14] LABS: Bacteria 0 SEEN /hpf (None Seen); Mucous, Urine 0 SEEN /hpf (<or=2+); Red Blood Cells-Urine 0 SEEN /hpf (0-5); White Blood Cells 0 SEEN /hpf (0-5)
[2017-11-23 23:16] LABS: Color, Urine Straw (Yellow); Glucose, Dipstick Normal (Normal); Ketone-Dipstick Negative (Negative); Leukocyte Esterase-Dipstick Negative /ul (Negative); Nitrite-Dipstick Negative (Negative); Occult Blood-Urine Negative /ul (Negative); Protein-Dipstick Negative (Negative); Urine Bilirubin Dipstick Negative (Negative); Urine Clarity Clear (Clear); Urine Urobilinogen Normal (Normal)
[2017-11-23 23:31] LABS: Squamous Epithelial Cells - UA 0-5 SEEN /hpf (5-10)
[2017-11-24] VITALS (37 sets, daily range): BP systolic 73–111; BP diastolic 14–51; PULSE 75–91; RESP 12–33; TEMP 36.1–36.9; O2SAT 85–98
--- NOTE | 2017-11-24 00:15 | CPS ---
FiO2 decreased to 50%
[2017-11-24 00:25] LABS: Bedside Glucose 298 mg/dL (70-110)
[2017-11-24 03:10] LABS: Absolute Lymphocyte Count 1.33 X10^3/ul (0.83-4.51); Basophil# 0.01 X10^3/uL; Basophil% 0.1 % (0-1); Eosinophil# 0.09 X10^3/uL; Eosinophils% 0.7 % (0-5); Hematocrit 32.6 % (37-47); Hemoglobin 10.6 g/dl (12.0-15.0); Lymphocyte # 1.33 X10^3/ul (4.0); Mean Corp Hgb Conc 32.5 g/gl (32-36); Mean Corpuscular Hgb 25.4 pg (27.0-32.0); Mean Corpuscular Volume 78.2 fL (81-99); Mean Platelet Vol. 10.1 fl (6.2-12.0); Monocyte# 0.77 X10^3/uL; Monocyte% 5.8 % (0-10); Neutrophil # 11.03 X10^3/uL (2.7-7.7); Neutrophil % 82.9 % (47-70); Platelet Count 150 K/mm3 (150-450); RBC Distribution Width CV 18.4 % (11.6-14.6); RBC Distribution Width SD 52.4 fl (35.1-43.9); Red Blood Count 4.17 M/mm3 (4.2-5.4); White Blood Count 13.3 K/mm3 (4.4-11.0)
[2017-11-24 03:19] LABS: POSITIVE COUNT NO; POSITIVE DIFFERENTIAL NO; POSITIVE MORPHOLOGY NO
[2017-11-24 03:22] LABS: Anion Gap 12 (5-15); BUN 12 mg/dL (7-18); BUN/Creat Ratio 16.2 RATIO (10-20); Calcium,Total 8.6 mg/dL (8.5-10.1); Chloride 98 mmol/L (98-107); Creatinine, Serum 0.74 mg/dL (0.55-1.02); EST Glomerular Filtration Rate 87 mL/min (>60); Est Glom Filt Rate - Afr Amer 105 mL/min (>60); Estimated Creatinine Clearance 79.11 ml/min; Glucose 236 mg/dL (74-106); Potassium 3.5 mmol/L (3.5-5.1); Sodium Level 136 mmol/L (136-145)
--- NOTE | 2017-11-24 03:31 | CPS ---
decreased FIO2 to 45%
[2017-11-24] MEDS: Magnesium Oxide 400 MG Tablet PO ×3 (05:46→22:21)
[2017-11-24] MEDS: Enoxaparin 40 MG/0.4 ML Syringe SC (05:47)
[2017-11-24] MEDS: 0.9% NaCl Peripheral Flush Adult/Peds IV ×5 (05:47→22:21)
[2017-11-24] MEDS: Ondansetron 4 MG/2 ML Vial IV ×2 (06:38→16:59)
[2017-11-24 06:50] LABS: Bedside Glucose 276 mg/dL (70-110)
[2017-11-24] MEDS: Ipratropium/Albuterol Sulfate 3 ML AMPUL.NEB INHALATION ×3 (06:53→18:52)
--- NOTE | 2017-11-24 07:27 | PCM.CON.CC ---
Problem List (1) Atherosclerosis of coronary artery bypass graft without angina pectoris Status: Chronic Qualifiers: [place] vs. transplanted heart: [place] heart Qualified Code(s): I25.810 - Atherosclerosis of coronary artery bypass graft(s) without angina pectoris (2) Atherosclerosis of coronary artery of [place] heart without angina pectoris Status: Chronic Qualifiers: Coronary Disease-Associated Artery/Lesion type: [place] artery Qualified Code(s): I25.10 - Atherosclerotic heart disease of [place] coronary artery without angina pectoris (3) Tobacco abuse Status: Chronic (4) HTN (hypertension) Status: Chronic Qualifiers: Hypertension type: essential hypertension Qualified Code(s): I10 - Essential (primary) hypertension (5) Depression with anxiety Status: Chronic (6) Diabetes mellitus, type II Status: Chronic (7) Butch disease Status: Chronic Comment: she states she has [place]'s disease BUT, 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 (8) S/P CABG x 5 Status: Chronic Comment: HINTON-LAD, SVG-D1, SVG-OM1, SVG-OM 2, SVG-PDA 11/16/2007 @ [facility] per Dr. Neela Crum (9) HLD (hyperlipidemia) Status: Chronic (10) Diabetic neuropathy Status: Chronic Qualifiers: Diabetes mellitus type: type 2 Reason for Consult Date of Consultation: 11/24/17 Reason for Consultation: Acute hypoxic respiratory failure History of Present Illness: The patient is a 52 year old F, with past medical history listed below, who presented to [facility] on 11/23/2017 secondary to shortness of breath. Patient reports 2-3 days of progressive shortness of breath and a nonproductive cough. Patient has had some nausea with no vomiting. Patient denies any fevers recently. Patient does report some chest heaviness that led her to the emergency room for evaluation. On presentation to the emergency room, patient was noted to be 68% on room air. Patient does not use supplemental oxygen at baseline. Patient was attempted on Ventimask, but ultimately required BiPAP therapy. Patient did have a leukocytosis on presentation, but no hypotension. A CTA of the chest showed no PE, but diffuse bilateral airspace disease. Patient was given Lasix and then admitted to the intensive care unit. After being in the intensive care unit, patient diuresed over 1 L and oxygenation went from 70% to 50%. Patient reports subjective improvement compared to yesterday, but still having shortness of breath. Patient has been developing hypotension over the last 5-6 hours. Patient reports some lightheadedness, but no chest pain, change in vision or other neurologic findings. Patient does report a history of [place]'s disease, but is not on any baseline medications. Patient denies any recent lower extremity swelling. Patient denies any excessive salt intake. Patient does report that she has smoked a significant amount in the past, but takes only albuterol at baseline. Patient does follow with Dr. Fragoso as an outpatient. Past Medical History Past Medical History (Chronic Problems): Chronic Problems (Last Updated 11/23/17 @ 17:15 by Kimberly Patterson MD) Coronary artery disease (Chronic) Status post stents. Atherosclerosis of coronary artery bypass graft without angina pectoris (Chronic) Atherosclerosis of coronary artery of [place] heart without angina pectoris (Chronic) Abnormal chest CT (Chronic) Tobacco abuse (Chronic) HTN (hypertension) (Chronic) Depression with anxiety (Chronic) Diabetes mellitus, type II (Chronic) Butch disease (Chronic) she states she has [place]'s disease BUT, 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 Chronic back pain (Chronic) History of GI bleed (Chronic) S/P CABG x 5 (Chronic ~11/14/07) HINTON-LAD, SVG-D1, SVG-OM1, SVG-OM 2, SVG-PDA 11/16/2007 @ [facility] per Dr. Neela Crum Cardiomyopathy, ischemic (Chronic) 40% EF in 2016 HLD (hyperlipidemia) (Chronic) Diabetic neuropathy (Chronic) Medical History: Medical History (Last Updated 11/23/17 @ 17:15 by Kimberly Patterson MD) Atherosclerosis of coronary artery bypass graft without angina pectoris (Chronic) I25.810 Atherosclerosis of coronary artery of [place] heart without angina pectoris (Chronic) I25.[address] (Chronic) R93.8 Tobacco abuse (Chronic) Z72.0 HTN (hypertension) (Chronic) I10 Depression with anxiety (Chronic) Diabetes mellitus, type II (Chronic) E11.9 [place] disease (Chronic) E27.1 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, 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 Chronic back pain (Chronic) M54.9, G89.29 History of GI bleed (Chronic) Z87.19 Cardiomyopathy, ischemic (Chronic) I25.5 40% EF in 2016 HLD (hyperlipidemia) (Chronic) E78.5 Diabetic neuropathy (Chronic) E11.40 Allergies Sqgdftx-Sqx-Hol Reductase Inhibitor Adverse Reaction (Severe, Verified 11/23/17 13:57) Elevated liver enzymes, also Muscle cramps/pain Home Medications: Ambulatory Orders Medication Instructions Recorded Aspirin 325 mg PO QHS 08/12/14 Ergocalciferol [Vitamin D] 50,000 unit PO FR 08/12/14 Lisinopril [Zestril] 2.5 mg PO QHS 08/12/14 Venlafaxine XR [Effexor Xr] 150 mg PO DAILY 08/12/14 buPROPion XL [Wellbutrin Xl] 300 mg PO DAILY 08/12/14 Pregabalin [Lyrica] 300 mg PO BID 07/24/15 Amitriptyline HCl 25 mg PO BID 12/26/16 Carvedilol 25 mg PO BID 12/26/16 Clopidogrel Bisulfate [Plavix] 75 mg PO DAILY 12/26/16 Eplerenone [Inspra] 25 mg PO DAILY 12/26/16 Gemfibrozil [Lopid] 1,200 mg PO QHS 12/26/16 Insulin Basal Pump (Pt's Own) 0 unit SC UD 12/26/16 [Pump, Basal] Meclizine HCl [Antivert] 25 mg PO TID PRN PRN 12/26/16 Niacin [Niacin ER] 2,000 mg PO QHS 12/26/16 Ondansetron [Zofran Odt] 4 mg PO Q8H PRN PRN 12/26/16 Oxycodone [Oxyir] 10 mg PO Q6H PRN PRN 12/26/16 Perphenazine 4 mg PO BID 12/26/16 Albuterol IH (ProAir) [Proair Hfa] 1 - 2 puff INHALATION Q4H PRN PRN 12/30/16 #1 inhaler levoFLOXacin tablet [Levaquin 750 mg PO DAILY@0600 #2 tab 12/30/16 tablet] magnesium oxide 400 mg tablet 400 mg PO TID tab 10/16/17 Furosemide [Lasix] 40 mg PO BID@1000,1800 11/23/17 Omeprazole 20 mg PO BID 11/23/17 Surgical History: Surgical History (Last Updated 11/23/17 @ 17:15 by Kimberly Patterson MD) S/P CABG x 5 (Chronic) Onset Date: ~11/14/07 Z95.1 HINTON-LAD, SVG-D1, SVG-OM1, SVG-OM 2, SVG-PDA 11/16/2007 @ [facility] per Dr. 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 Objective: Imaging was personally reviewed. CT scan of the chest does show bilateral infiltrates without pulmonary embolism. There are some emphysematous changes noted. Pulmonary function tests from 04/20/2017 showing mild restrictive ventilatory defect with reduction diffusing capacity out of proportion (FVC 65%, FEV1 67%, TLC 77%, DLCO 29%). Last echocardiogram completed in 2014 showed an EF of 40% with mild to moderate segmental systolic dysfunction, left atrial enlargement and mild valvular findings. - Physical Exam General: Alert, Oriented x3, Cooperative, No apparent distress, - - Good BiPAP synchrony. Able to localize to the BiPAP. HEENT: Atraumatic, PERRLA, EOMI, Normocephalic, - - No scleral icterus or injection noted. Oral: Moist Mucosa, No Gingival or Mucosal Lesions/ Ulcerations Neck: Supple, No JVD, No Nodes, Trachea Midline Lungs: No rhonchi, No wheeze, Diminished, Rales - Bilateral bases, - - Expansion. No dullness to percussion. Cardiovascular: Regular rate, Regular Rhythm, Normal S1, Normal S2, No murmurs, No rub noted, No Gallop Abdomen: Bowel Sounds Present, Soft, Non Tender, Non-Distended Extremities: No clubbing, No cyanosis, No edema, Capillary Refill Less than 3 Seconds Skin: No rashes, No breakdown Musculoskeletal: No Tenderness to Palpation of Joints or Extremities, No Muscle Wasting Lymphatic: No Cervical, Supraclavicular, or Inguinal Adenopathy Neurological: Cranial nerves II-XII grossly intact, Neuro grossly intact, Motor Exam 5/5 strength throughout Psych/Mental Status: Alert and oriented to time, place, person, mood and affect Vital Signs Temp Pulse Resp BP Pulse Ox 36.6 C 80 23 H 94/42 L 91 11/24/17 06:00 11/24/17 06:53 11/24/17 06:53 11/24/17 06:00 11/24/17 06:53 Oxygen Delivery Method Venturi Mask Weight: 76.6 kg Body Mass Index (BMI) 29.9 Intake and Output for Last 24 Hours 11/22/17 11/23/17 11/24/17 23:59 23:59 23:59 Intake Total 300 / 300 Output Total 850 / 850 2150 / 2150 Balance -850 / -850 -1850 / -1850 Laboratory Tests Past 24 Hrs 11/23/17 11/23/17 11/23/17 16:42 20:25 20:25 WBC RBC Hgb Hct MCV MCH MCHC RDW RDW Differential Plt Count MPV Immature Gran % (Auto) Neut % (Auto) Lymph % (Auto) [place] % (Auto) Eos % (Auto) Baso % (Auto) Absolute Neuts (auto) Absolute Lymphs (auto) Total Counted Specimen Type ART Sample Site R Radial pH 7.44 Bicarbonate Actual 22.1 POC Total CO2 23 Base Excess -2 O2 Saturation 98 O2 % 70 ABG pCO2 32.7 L ABG pO2 92 Marko Test POS Respiration Rate 12 O2 Delivery Device Bi / C PAP EPAP 8 IPAP 12 Blood Gas Notified Whom ED Blood Gas Notified Time 1635 Sodium Potassium Chloride Carbon Dioxide Anion Gap BUN Creatinine Estim Creat Clear Calc Est GFR (MDRD) Af Amer Est GFR (MDRD) Non-Af BUN/Creatinine Ratio Glucose Calcium Magnesium 1.2 L Troponin I B-Natriuretic Peptide 68.8 Urine Color Urine Clarity Urine pH Ur Specific [place] Urine Protein Urine Glucose (UA) Urine Ketones Urine Occult Blood Urine Nitrite Urine Bilirubin Urine Urobilinogen Ur Leukocyte Esterase Urine RBC Urine WBC Ur Squamous Epith Cells Urine Bacteria Urine Mucus MRSA (PCR) 05/31/18 05/31/18 05/31/18 20:25 20:25 23:00 WBC RBC Hgb Hct MCV MCH MCHC RDW RDW Differential Plt Count MPV Immature Gran % (Auto) Neut % (Auto) Lymph % (Auto) [place] % (Auto) Eos % (Auto) Baso % (Auto) Absolute Neuts (auto) Absolute Lymphs (auto) Total Counted Specimen Type Sample Site pH Bicarbonate Actual POC Total CO2 Base Excess O2 Saturation O2 % ABG pCO2 ABG pO2 Marko Test Respiration Rate O2 Delivery Device EPAP IPAP Blood Gas Notified Whom Blood Gas Notified Time Sodium Potassium Chloride Carbon Dioxide Anion Gap BUN Creatinine Estim Creat Clear Calc Est GFR (MDRD) Af Amer Est GFR (MDRD) Non-Af BUN/Creatinine Ratio Glucose Calcium Magnesium Troponin I < 0.015 B-Natriuretic Peptide Urine Color Straw Urine Clarity Clear Urine pH 7.0 Ur Specific [place] 1.010 Urine Protein Negative Urine Glucose (UA) Normal Urine Ketones Negative Urine Occult Blood Negative Urine Nitrite Negative Urine Bilirubin Negative Urine Urobilinogen Normal Ur Leukocyte Esterase Negative Urine RBC 0 SEEN Urine WBC 0 SEEN Ur Squamous Epith Cells 0-5 SEEN Urine Bacteria 0 SEEN Urine Mucus 0 SEEN MRSA (PCR) Negative 11/23/17 11/24/17 11/24/17 23:50 03:00 03:00 WBC 13.3 H RBC 4.17 L Hgb 10.6 L Hct 32.6 L MCV 78.2 L MCH 25.4 L MCHC 32.5 RDW 18.4 H RDW Differential 52.4 H Plt Count 150 MPV 10.1 Immature Gran % (Auto) 0.500 Neut % (Auto) 82.9 H Lymph % (Auto) 10.0 L [place] % (Auto) 5.8 Eos % (Auto) 0.7 Baso % (Auto) 0.1 Absolute Neuts (auto) 11.0 H Absolute Lymphs (auto) 1.33 Total Counted Not Reportable Specimen Type Sample Site pH Bicarbonate Actual POC Total CO2 Base Excess O2 Saturation O2 % ABG pCO2 ABG pO2 Marko Test Respiration Rate O2 Delivery Device EPAP IPAP Blood Gas Notified Whom Blood Gas Notified Time Sodium 136 Potassium 3.5 Chloride 98 Carbon Dioxide 26.0 Anion Gap 12 BUN 12 Creatinine 0.74 Estim Creat Clear Calc 79.11 Est GFR (MDRD) Af Amer 105 Est GFR (MDRD) Non-Af 87 BUN/Creatinine Ratio 16.2 Glucose 236 H Calcium 8.6 Magnesium Troponin I < 0.015 B-Natriuretic Peptide Urine Color Urine Clarity Urine pH Ur Specific [place] Urine Protein Urine Glucose (UA) Urine Ketones Urine Occult Blood Urine Nitrite Urine Bilirubin Urine Urobilinogen Ur Leukocyte Esterase Urine RBC Urine WBC Ur Squamous Epith Cells Urine Bacteria Urine Mucus MRSA (PCR) 11/24/17 03:00 WBC RBC Hgb Hct MCV MCH MCHC RDW RDW Differential Plt Count MPV Immature Gran % (Auto) Neut % (Auto) Lymph % (Auto) [place] % (Auto) Eos % (Auto) Baso % (Auto) Absolute Neuts (auto) Absolute Lymphs (auto) Total Counted Specimen Type Sample Site pH Bicarbonate Actual POC Total CO2 Base Excess O2 Saturation O2 % ABG pCO2 ABG pO2 Marko Test Respiration Rate O2 Delivery Device EPAP IPAP Blood Gas Notified Whom Blood Gas Notified Time Sodium Potassium Chloride Carbon Dioxide Anion Gap BUN Creatinine Estim Creat Clear Calc Est GFR (MDRD) Af Amer Est GFR (MDRD) Non-Af BUN/Creatinine Ratio Glucose Calcium Magnesium Troponin I < 0.015 B-Natriuretic Peptide Urine Color Urine Clarity Urine pH Ur Specific [place] Urine Protein Urine Glucose (UA) Urine Ketones Urine Occult Blood Urine Nitrite Urine Bilirubin Urine Urobilinogen Ur Leukocyte Esterase Urine RBC Urine WBC Ur Squamous Epith Cells Urine Bacteria Urine Mucus MRSA (PCR) POC Glucose 11/24/17 11/23/17 11/23/17 06:44 22:44 18:49 POC Glucose 276 H 298 H 252 H Clinical Impression(s) from Imaging Studies Chest X-Ray 11/23/17 14:30 IMPRESSION: Diffuse bilateral airspace disease suggestive of pulmonary edema. Electronically Signed: Yousuf Vila MD at 15:19 EDT Tel [phone], Service support , Chest CTA 11/23/17 14:39 IMPRESSION: Diffuse bilateral airspace disease. There is no evidence of pulmonary embolism. Electronically Signed: Yousuf Vila MD at 15:57 EDT Tel [phone], Service support , Assessment/Plan RECOMMENDATIONS: 1. Initiate stress dose steroids immediately 2. Monitor blood sugars closely 3. Agree with diuresis 4. BiPAP breaks as tolerated. Continue BiPAP with sleep 5. Wean oxygen as tolerated. IMPRESSIONS: 1. Acute hypoxic respiratory failure secondary to flash pulmonary edema High clinical suspicion for congestive heart failure leading to respiratory failure. Patient did not have significant prodromal symptoms such as fever, productive cough or reports of wheezing. Patient does have a history of systolic congestive heart failure in the past. Patient responded initially to Lasix therapy with improvement in saturations. No fever overnight. Low clinical suspicion for acute infection at this time. Patient does have some emphysematous changes noted on CT scan. 2. Hypotension secondary to possible addisonian crisis Patient has been progressing in hypotension over the last 4-6 hours. Patient should be placed on stress dose steroids at this time. Will follow blood sugars closely. 3. Acute on chronic combined congestive heart failure Patient with echocardiogram showing EF 40 this 50%. Patient is in normal sinus rhythm at this time. Serial cardiac enzymes are not consistent with a non-ST elevation PA. Echocardiogram has been ordered. Would continue with IV Lasix despite normal BNP. May need to hold lisinopril to allow for blood pressure. 4. Type 2 diabetes mellitus Patient n.p.o. now secondary to respiratory status. Monitor with every 6 blood sugars for now. 5. Obstructive sleep apnea/chronic pain syndrome/hypertension/hyperlipidemia Complicates care, management, recovery and prognosis. Will hold antihypertensives at this time. TIME: 40 minutes of critical care time spent addressing patient's acute hypoxic respiratory failure, hypotension, congestive heart failure, review of all data and collaboration with care team. (5:30 AM to 8 AM) Code Visit 9xxxx: [id number] Critical care first hour
[2017-11-24] MEDS: Hydrocortisone Sod Succinate 100 MG/2 ML Vial IV ×3 (07:42→22:21)
--- NOTE | 2017-11-24 07:46 | CON.PCM_ITS ---
Problem List (1) Atherosclerosis of coronary artery bypass graft without angina pectoris Status: Chronic Qualifiers: [place] vs. transplanted heart: [place] heart Qualified Code(s): I25.810 - Atherosclerosis of coronary artery bypass graft(s) without angina pectoris (2) Atherosclerosis of coronary artery of [place] heart without angina pectoris Status: Chronic Qualifiers: Coronary Disease-Associated Artery/Lesion type: [place] artery Qualified Code(s): I25.10 - Atherosclerotic heart disease of t[place] coronary artery without angina pectoris (3) Tobacco abuse Status: Chronic (4) HTN (hypertension) Status: Chronic Qualifiers: Hypertension type: essential hypertension Qualified Code(s): I10 - Essential (primary) hypertension (5) Depression with anxiety Status: Chronic (6) Diabetes mellitus, type II Status: Chronic (7) Butch disease Status: Chronic Comment: she states she has [place]'s disease BUT, 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 (8) S/P CABG x 5 Status: Chronic Comment: HINTON-LAD, SVG-D1, SVG-OM1, SVG-OM 2, SVG-PDA 2007 @ [facility] per Dr. Neela Crum (9) HLD (hyperlipidemia) Status: Chronic (10) Diabetic neuropathy Status: Chronic Qualifiers: Diabetes mellitus type: type 2 Reason for Consult Date of Consultation: 11/24/17 Reason for Consultation: Acute hypoxic respiratory failure History of Present Illness: The patient is a 52 year old F, with past medical history listed below, who presented to [facility] on 11/23/2017 secondary to shortness of breath. Patient reports 2-3 days of progressive shortness of breath and a nonproductive cough. Patient has had some nausea with no vomiting. Patient denies any fevers recently. Patient does report some chest heaviness that led her to the emergency room for evaluation. On presentation to the emergency room, patient was noted to be 68% on room air. Patient does not use supplemental oxygen at baseline. Patient was attempted on Ventimask, but ultimately required BiPAP therapy. Patient did have a leukocytosis on presentation, but no hypotension. A CTA of the chest showed no PE, but diffuse bilateral airspace disease. Patient was given Lasix and then admitted to the intensive care unit. After being in the intensive care unit, patient diuresed over 1 L and oxygenation went from 70% to 50%. Patient reports subjective improvement compared to yesterday, but still having shortness of breath. Patient has been developing hypotension over the last 5-6 hours. Patient reports some lightheadedness, but no chest pain, change in vision or other neurologic findings. Patient does report a history of U[place]'s disease, but is not on any baseline medications. Patient denies any recent lower extremity swelling. Patient denies any excessive salt intake. Patient does report that she has smoked a significant amount in the past, but takes only albuterol at baseline. Patient does follow with Dr. Fragoso as an outpatient. Past Medical History Past Medical History (Chronic Problems): Chronic Problems (Last Updated 11/23/17 @ 17:15 by Kimberly Patterson MD) Coronary artery disease (Chronic) Status post stents. Atherosclerosis of coronary artery bypass graft without angina pectoris (Chronic ) Atherosclerosis of coronary artery of [place] heart without angina pectoris ( Chronic) Abnormal chest CT (Chronic) Tobacco abuse (Chronic) HTN (hypertension) (Chronic) Depression with anxiety (Chronic) Diabetes mellitus, type II (Chronic) [place] disease (Chronic) 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, 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 Chronic back pain (Chronic) History of GI bleed (Chronic) S/P CABG x 5 (Chronic ~11/14/07) HINTON-LAD, SVG-D1, SVG-OM1, SVG-OM 2, SVG-PDA 11/16/2007 @ [facility] per Dr. Neela Crum Cardiomyopathy, ischemic (Chronic) 40% EF in 2016 HLD (hyperlipidemia) (Chronic) Diabetic neuropathy (Chronic) Medical History: Medical History (Last Updated 11/23/17 @ 17:15 by Kimberly Patterson MD) Atherosclerosis of coronary artery bypass graft without angina pectoris (Chronic ) I25.810 Atherosclerosis of coronary artery of [place] heart without angina pectoris ( Chronic) I25.[address] (Chronic) R93.8 Tobacco abuse (Chronic) Z72.0 HTN (hypertension) (Chronic) I10 Depression with anxiety (Chronic) Diabetes mellitus, type II (Chronic) E11.9 Butch disease (Chronic) E27.1 she states she has [place]'s disease BUT, 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 Chronic back pain (Chronic) M54.9, G89.29 History of GI bleed (Chronic) Z87.19 Cardiomyopathy, ischemic (Chronic) I25.5 40% EF in 2016 HLD (hyperlipidemia) (Chronic) E78.5 Diabetic neuropathy (Chronic) E11.40 Allergies Jxrumjl-Wds-Syx Reductase Inhibitor Adverse Reaction (Severe, Verified 11/23/17 13:57) Elevated liver enzymes, also Muscle cramps/pain Home Medications: Ambulatory Orders Medication Instructions Recorded Aspirin 325 mg PO QHS 08/12/14 Ergocalciferol [Vitamin D] 50,000 unit PO FR 08/12/14 Lisinopril [Zestril] 2.5 mg PO QHS 08/12/14 Venlafaxine XR [Effexor Xr] 150 mg PO DAILY 08/12/14 buPROPion XL [Wellbutrin Xl] 300 mg PO DAILY 08/12/14 Pregabalin [Lyrica] 300 mg PO BID 07/24/15 Amitriptyline HCl 25 mg PO BID 12/26/16 Carvedilol 25 mg PO BID 12/26/16 Clopidogrel Bisulfate [Plavix] 75 mg PO DAILY 12/26/16 Eplerenone [Inspra] 25 mg PO DAILY 12/26/16 Gemfibrozil [Lopid] 1,200 mg PO QHS 12/26/16 Insulin Basal Pump (Pt's Own) 0 unit SC UD 12/26/16 [Pump, Basal] Meclizine HCl [Antivert] 25 mg PO TID PRN PRN 12/26/16 Niacin [Niacin ER] 2,000 mg PO QHS 12/26/16 Ondansetron [Zofran Odt] 4 mg PO Q8H PRN PRN 12/26/16 Oxycodone [Oxyir] 10 mg PO Q6H PRN PRN 12/26/16 Perphenazine 4 mg PO BID 12/26/16 Albuterol IH (ProAir) [Proair Hfa] 1 - 2 puff INHALATION Q4H PRN PRN 12/30/16 #1 inhaler levoFLOXacin tablet [Levaquin 750 mg PO DAILY@0600 #2 tab 12/30/16 tablet] magnesium oxide 400 mg tablet 400 mg PO TID tab 10/16/17 Furosemide [Lasix] 40 mg PO BID@1000,1800 11/23/17 Omeprazole 20 mg PO BID 11/23/17 Surgical History: Surgical History (Last Updated 11/23/17 @ 17:15 by Kimberly Patterson MD) S/P CABG x 5 (Chronic) Onset Date: ~11/14/07 Z95.1 HINTON-LAD, SVG-D1, SVG-OM1, SVG-OM 2, SVG-PDA 11/16/2007 @ [facility] per Dr. Neela Crum Surgical History: angioplasty, cholecystectomy, coronary bypass surgery Psychiatric History: Anxiety, Depression CRISIS THERAPIST History: No pertinent CRISIS THERAPIST history Lives: With Family Smoking Status: Current every day smoker Tobacco Use: Cigarettes - *Family History Maternal Family History: Family History (Last Reviewed 10/16/17 @ 10:50 by Izabela Adam) Father Hypertension Mother Hyperlipidemia History Items: Diabetes, Hypertension Paternal Family History: Family History (Last Reviewed 10/16/17 @ 10:50 by Izabela Adam) Father Hypertension Mother Hyperlipidemia History Items: Hypertension Review of Systems Comment: See HPI, otherwise negative ?10 systems. Objective: Imaging was personally reviewed. CT scan of the chest does show bilateral infiltrates without pulmonary embolism. There are some emphysematous changes noted. Pulmonary function tests from 04/20/2017 showing mild restrictive ventilatory defect with reduction diffusing capacity out of proportion (FVC 65%, FEV1 67%, TLC 77%, DLCO 29%). Last echocardiogram completed in 2014 showed an EF of 40% with mild to moderate segmental systolic dysfunction, left atrial enlargement and mild valvular findings. - Physical Exam General: Alert, Oriented x3, Cooperative, No apparent distress, - - Good BiPAP synchrony. Able to localize to the BiPAP. HEENT: Atraumatic, PERRLA, EOMI, Normocephalic, - - No scleral icterus or injection noted. Oral: Moist Mucosa, No Gingival or Mucosal Lesions/ Ulcerations Neck: Supple, No JVD, No Nodes, Trachea Midline Lungs: No rhonchi, No wheeze, Diminished, Rales - Bilateral bases, - - Expansion. No dullness to percussion. Cardiovascular: Regular rate, Regular Rhythm, Normal S1, Normal S2, No murmurs, No rub noted, No Gallop Abdomen: Bowel Sounds Present, Soft, Non Tender, Non-Distended Extremities: No clubbing, No cyanosis, No edema, Capillary Refill Less than 3 Seconds Skin: No rashes, No breakdown Musculoskeletal: No Tenderness to Palpation of Joints or Extremities, No Muscle Wasting Lymphatic: No Cervical, Supraclavicular, or Inguinal Adenopathy Neurological: Cranial nerves II-XII grossly intact, Neuro grossly intact, Motor Exam 5/5 strength throughout Psych/Mental Status: Alert and oriented to time, place, person, mood and affect Vital Signs Temp Pulse Resp BP Pulse Ox 36.6 C 80 23 H 94/42 L 91 11/24/17 06:00 11/24/17 06:53 11/24/17 06:53 11/24/17 06:00 11/24/17 06:53 Oxygen Delivery Method Venturi Mask Weight: 76.6 kg Body Mass Index (BMI) 29.9 Intake and Output for Last 24 Hours 11/22/17 11/23/17 11/24/17 23:59 23:59 23:59 Intake Total 300 / 300 Output Total 850 / 850 2150 / 2150 Balance -850 / -850 -1850 / -1850 Laboratory Tests Past 24 Hrs 11/23/17 11/23/17 11/23/17 16:42 20:25 20:25 WBC RBC Hgb Hct MCV MCH MCHC RDW RDW Differential Plt Count MPV Immature Gran % (Auto) Neut % (Auto) Lymph % (Auto) [place] % (Auto) Eos % (Auto) Baso % (Auto) Absolute Neuts (auto) Absolute Lymphs (auto) Total Counted Specimen Type ART Sample Site R Radial pH 7.44 Bicarbonate Actual 22.1 POC Total CO2 23 Base Excess -2 O2 Saturation 98 O2 % 70 ABG pCO2 32.7 L ABG pO2 92 Marko Test POS Respiration Rate 12 O2 Delivery Device Bi / C PAP EPAP 8 IPAP 12 Blood Gas Notified Whom ED Blood Gas Notified Time 1635 Sodium Potassium Chloride Carbon Dioxide Anion Gap BUN Creatinine Estim Creat Clear Calc Est GFR (MDRD) Af Amer Est GFR (MDRD) Non-Af BUN/Creatinine Ratio Glucose Calcium Magnesium 1.2 L Troponin I B-Natriuretic Peptide 68.8 Urine Color Urine Clarity Urine pH Ur Specific [place] Urine Protein Urine Glucose (UA) Urine Ketones Urine Occult Blood Urine Nitrite Urine Bilirubin Urine Urobilinogen Ur Leukocyte Esterase Urine RBC Urine WBC Ur Squamous Epith Cells Urine Bacteria Urine Mucus MRSA (PCR) 05/31/18 05/31/18 05/31/18 20:25 20:25 23:00 WBC RBC Hgb Hct MCV MCH MCHC RDW RDW Differential Plt Count MPV Immature Gran % (Auto) Neut % (Auto) Lymph % (Auto) [place] % (Auto) Eos % (Auto) Baso % (Auto) Absolute Neuts (auto) Absolute Lymphs (auto) Total Counted Specimen Type Sample Site pH Bicarbonate Actual POC Total CO2 Base Excess O2 Saturation O2 % ABG pCO2 ABG pO2 Marko Test Respiration Rate O2 Delivery Device EPAP IPAP Blood Gas Notified Whom Blood Gas Notified Time Sodium Potassium Chloride Carbon Dioxide Anion Gap BUN Creatinine Estim Creat Clear Calc Est GFR (MDRD) Af Amer Est GFR (MDRD) Non-Af BUN/Creatinine Ratio Glucose Calcium Magnesium Troponin I < 0.015 B-Natriuretic Peptide Urine Color Straw Urine Clarity Clear Urine pH 7.0 Ur Specific [place] 1.010 Urine Protein Negative Urine Glucose (UA) Normal Urine Ketones Negative Urine Occult Blood Negative Urine Nitrite Negative Urine Bilirubin Negative Urine Urobilinogen Normal Ur Leukocyte Esterase Negative Urine RBC 0 SEEN Urine WBC 0 SEEN Ur Squamous Epith Cells 0-5 SEEN Urine Bacteria 0 SEEN Urine Mucus 0 SEEN MRSA (PCR) Negative 11/23/17 11/24/17 11/24/17 23:50 03:00 03:00 WBC 13.3 H RBC 4.17 L Hgb 10.6 L Hct 32.6 L MCV 78.2 L MCH 25.4 L MCHC 32.5 RDW 18.4 H RDW Differential 52.4 H Plt Count 150 MPV 10.1 Immature Gran % (Auto) 0.500 Neut % (Auto) 82.9 H Lymph % (Auto) 10.0 L [place] % (Auto) 5.8 Eos % (Auto) 0.7 Baso % (Auto) 0.1 Absolute Neuts (auto) 11.0 H Absolute Lymphs (auto) 1.33 Total Counted Not Reportable Specimen Type Sample Site pH Bicarbonate Actual POC Total CO2 Base Excess O2 Saturation O2 % ABG pCO2 ABG pO2 Marko Test Respiration Rate O2 Delivery Device EPAP IPAP Blood Gas Notified Whom Blood Gas Notified Time Sodium 136 Potassium 3.5 Chloride 98 Carbon Dioxide 26.0 Anion Gap 12 BUN 12 Creatinine 0.74 Estim Creat Clear Calc 79.11 Est GFR (MDRD) Af Amer 105 Est GFR (MDRD) Non-Af 87 BUN/Creatinine Ratio 16.2 Glucose 236 H Calcium 8.6 Magnesium Troponin I < 0.015 B-Natriuretic Peptide Urine Color Urine Clarity Urine pH Ur Specific [place] Urine Protein Urine Glucose (UA) Urine Ketones Urine Occult Blood Urine Nitrite Urine Bilirubin Urine Urobilinogen Ur Leukocyte Esterase Urine RBC Urine WBC Ur Squamous Epith Cells Urine Bacteria Urine Mucus MRSA (PCR) 11/24/17 03:00 WBC RBC Hgb Hct MCV MCH MCHC RDW RDW Differential Plt Count MPV Immature Gran % (Auto) Neut % (Auto) Lymph % (Auto) [place] % (Auto) Eos % (Auto) Baso % (Auto) Absolute Neuts (auto) Absolute Lymphs (auto) Total Counted Specimen Type Sample Site pH Bicarbonate Actual POC Total CO2 Base Excess O2 Saturation O2 % ABG pCO2 ABG pO2 Marko Test Respiration Rate O2 Delivery Device EPAP IPAP Blood Gas Notified Whom Blood Gas Notified Time Sodium Potassium Chloride Carbon Dioxide Anion Gap BUN Creatinine Estim Creat Clear Calc Est GFR (MDRD) Af Amer Est GFR (MDRD) Non-Af BUN/Creatinine Ratio Glucose Calcium Magnesium Troponin I < 0.015 B-Natriuretic Peptide Urine Color Urine Clarity Urine pH Ur Specific [place] Urine Protein Urine Glucose (UA) Urine Ketones Urine Occult Blood Urine Nitrite Urine Bilirubin Urine Urobilinogen Ur Leukocyte Esterase Urine RBC Urine WBC Ur Squamous Epith Cells Urine Bacteria Urine Mucus MRSA (PCR) POC Glucose 11/24/17 11/23/17 11/23/17 06:44 22:44 18:49 POC Glucose 276 H 298 H 252 H Clinical Impression(s) from Imaging Studies Chest X-Ray 11/23/17 14:30 IMPRESSION: Diffuse bilateral airspace disease suggestive of pulmonary edema. Electronically Signed: Yousuf Vila MD at 15:19 EDT Tel [phone], Service support , Chest CTA 11/23/17 14:39 IMPRESSION: Diffuse bilateral airspace disease. There is no evidence of pulmonary embolism. Electronically Signed: Yousuf Vila MD at 15:57 EDT Tel [phone], Service support , Assessment/Plan RECOMMENDATIONS: 1. Initiate stress dose steroids immediately 2. Monitor blood sugars closely 3. Agree with diuresis 4. BiPAP breaks as tolerated. Continue BiPAP with sleep 5. Wean oxygen as tolerated. IMPRESSIONS: 1. Acute hypoxic respiratory failure secondary to flash pulmonary edema High clinical suspicion for congestive heart failure leading to respiratory failure. Patient did not have significant prodromal symptoms such as fever, productive cough or reports of wheezing. Patient does have a history of systolic congestive heart failure in the past. Patient responded initially to Lasix therapy with improvement in saturations. No fever overnight. Low clinical suspicion for acute infection at this time. Patient does have some emphysematous changes noted on CT scan. 2. Hypotension secondary to possible addisonian crisis Patient has been progressing in hypotension over the last 4-6 hours. Patient should be placed on stress dose steroids at this time. Will follow blood sugars closely. 3. Acute on chronic combined congestive heart failure Patient with echocardiogram showing EF 40 this 50%. Patient is in normal sinus rhythm at this time. Serial cardiac enzymes are not consistent with a non -ST elevation LA. Echocardiogram has been ordered. Would continue with IV Lasix despite normal BNP. May need to hold lisinopril to allow for blood pressure. 4. Type 2 diabetes mellitus Patient n.p.o. now secondary to respiratory status. Monitor with every 6 blood sugars for now. 5. Obstructive sleep apnea/chronic pain syndrome/hypertension/hyperlipidemia Complicates care, management, recovery and prognosis. Will hold antihypertensives at this time. TIME: 40 minutes of critical care time spent addressing patient's acute hypoxic respiratory failure, hypotension, congestive heart failure, review of all data and collaboration with care team. (5:30 AM to 8 AM) Code Visit [id number]: [id number] Critical care first hour
[2017-11-24] MEDS: Insulin Lispro 100 UNIT/ML INSULN.PEN SC ×4 (09:10→22:23)
[2017-11-24] MEDS: Pantoprazole Sodium 20 MG Tablet PO ×2 (09:12→22:21)
[2017-11-24] MEDS: Clopidogrel Bisulfate 75 MG Tablet PO (09:13)
[2017-11-24] MEDS: buPROPion (XL) 300 MG TABLET.XL PO (09:15)
[2017-11-24] MEDS: Venlafaxine XR 150 MG Capsule PO (09:16)
[2017-11-24] MEDS: Amitriptyline 25 MG Tablet PO ×2 (09:16→22:21)
[2017-11-24] MEDS: Furosemide 40 MG/4 ML Vial IV ×2 (09:16→16:55)
[2017-11-24] MEDS: Pregabalin 75 MG Capsule 300 MG PO ×2 (09:20→22:22)
[2017-11-24] MEDS: levoFLOXacin IV 750 MG/150 ML BAG 100 MG IV (09:20)
[2017-11-24] MEDS: oxyCODONE 5 MG Tablet 10 MG PO ×2 (09:20→16:02)
[2017-11-24 11:11] LABS: Bedside Glucose 413 mg/dL (70-110)
--- NOTE | 2017-11-24 13:18 | CASEMGMT ---
RN CM Assessment Link. DC PLAN: undetermined -Pt unable to participate in dc planning @ this time due to medical condition. Continues in ICU on bipap. PT/OT evaluation deferred. CM will continue to follow and assist with dc planning needs. Asher VILLAGRANN RN ACM
--- NOTE | 2017-11-24 13:43 | CHAPLAIN ---
Type of Pastoral Visit _x__ Initial Visit ___ Follow-up Visit ___ On-call Visit ___ General Patient Visit ___ Spiritual Assessment ___ Family Conference ___ Bereavement ___ Rapid Response ___ Code Blue ___ Other (describe below) Pastoral Care Referral From _x__ Patient ___ Family ___ Nurse ___ Physician ___ Steam Service Inspector ___ District Wire Chief ___ Other (describe below) Sacrament/Intervention ___ Active listening ___ Anointing ___ Nondenominational ___ Bereavement ___ Communion ___ Brenda exploration ___ ___ Life review _x__ Prayer ___ Reconciliation ___ Sacrament of Sick _x__ Supportive presence ___ Wedding ___ Other (describe below) Pastoral Comments
--- NOTE | 2017-11-24 16:10 | PCM.PN.HOSP ---
Subjective: CC: Shortness of breath. Objective: He presented with progressive dyspnea and found to have congestive heart failure, she has improved with IV Lasix. She denies any chest pain, fever, chills or purulent sputum production. Vitals/I&O's: Vital Signs Temp Pulse Resp BP Pulse Ox 97.9 F 75 20 H 90/40 L 93 11/24/17 12:00 11/24/17 15:20 11/24/17 15:20 11/24/17 13:00 11/24/17 15:20 Oxygen Delivery Method Bi-pap Weight: 76.6 kg Body Mass Index (BMI) 29.9 Intake and Output for Last 24 Hours 11/22/17 11/23/17 11/24/17 23:59 23:59 23:59 Intake Total 450 / 450 Output Total 850 / 850 2700 / 2700 Balance -850 / -850 -2250 / -2250 Microbiology Past 72 Hours 11/23/17 23:00 Urine, Catheterized Urine Culture - Preliminary Culture exhibits no growth. Laboratory Results 11/23/17 16:42: Specimen Type ART, Sample Site R Radial, pH 7.44, Bicarbonate Actual 22.1, POC Total CO2 23, Base Excess -2, O2 Saturation 98, O2 % 70, ABG pCO2 32.7 L, ABG pO2 92, Marko Test POS, Respiration Rate 12, O2 Delivery Device Bi / C PAP, EPAP 8, IPAP 12, Blood Gas Notified Whom ED , Blood Gas Notified Time 1635 11/23/17 18:49: POC Glucose 252 H 11/23/17 20:25: Magnesium 1.2 L 11/23/17 20:25: B-Natriuretic Peptide 68.8 11/23/17 20:25: MRSA (PCR) Negative 11/23/17 20:25: Troponin I < 0.015 11/23/17 22:44: POC Glucose 298 H 11/23/17 23:00: Urine Color Straw, Urine Clarity Clear, Urine pH 7.0, Ur Specific [place] 1.010, Urine Protein Negative, Urine Glucose (UA) Normal, Urine Ketones Negative, Urine Occult Blood Negative, Urine Nitrite Negative, Urine Bilirubin Negative, Urine Urobilinogen Normal, Ur Leukocyte Esterase Negative, Urine RBC 0 SEEN, Urine WBC 0 SEEN, Ur Squamous Epith Cells 0-5 SEEN, Urine Bacteria 0 SEEN, Urine Mucus 0 SEEN 11/23/17 23:50: Troponin I < 0.015 11/24/17 03:00: WBC 13.3 H, RBC 4.17 L, Hgb 10.6 L, Hct 32.6 L, MCV 78.2 L, MCH 25.4 L, MCHC 32.5, RDW 18.4 H, RDW Differential 52.4 H, Plt Count 150, MPV 10.1, Immature Gran % (Auto) 0.500, Neut % (Auto) 82.9 H, Lymph % (Auto) 10.0 L, [place] % (Auto) 5.8, Eos % (Auto) 0.7, Baso % (Auto) 0.1, Absolute Neuts (auto) 11.0 H, Absolute Lymphs (auto) 1.33, Total Counted Not Reportable 11/24/17 03:00: Sodium 136, Potassium 3.5, Chloride 98, Carbon Dioxide 26.0, Anion Gap 12, BUN 12, Creatinine 0.74, Estim Creat Clear Calc 79.11, Est GFR (MDRD) Af Amer 105, Est GFR (MDRD) Non-Af 87, BUN/Creatinine Ratio 16.2, Glucose 236 H, Calcium 8.6 11/24/17 03:00: Troponin I < 0.015 11/24/17 06:44: POC Glucose 276 H 11/24/17 11:04: POC Glucose 413 H Current Medications Albuterol Sulfate (Ventolin Aerosols) 2.5 mg INHALATION Q2H PRN PRN PRN Reason: Shortness of breath, wheezing Albuterol/Ipratropium (Duoneb) 3 ml INHALATION Q6H.RT [facility] Last Admin: 11/24/17 13:07 Dose: 3 ml Amitriptyline HCl (Elavil) 25 mg PO BID [facility] Last Admin: 11/24/17 09:16 Dose: 25 mg Aspirin (Aspirin) 325 mg PO QHS [facility] Last Admin: 11/23/17 22:46 Dose: 325 mg Bupropion HCl (Wellbutrin Xl) 300 mg PO DAILY [facility] Last Admin: 11/24/17 09:15 Dose: 300 mg Clopidogrel Bisulfate (Plavix) 75 mg PO DAILY [facility] Last Admin: 11/24/17 09:13 Dose: 75 mg Enoxaparin Sodium (Lovenox) 40 mg SC DAILY@0600 [facility] Last Admin: 11/24/17 05:47 Dose: 40 mg Eplerenone (Inspra) 25 mg PO DAILY [facility] Last Admin: 11/24/17 09:28 Dose: Not Given Furosemide (Lasix) 40 mg IV BID@1000,1800 [facility] Last Admin: 11/24/17 09:16 Dose: 40 mg Gemfibrozil (Lopid) 1,200 mg PO QHS [facility] Last Admin: 11/23/17 22:46 Dose: 1,200 mg Hydrocortisone Sodium Succinate (Solu-Cortef) 100 mg IV Q8 [facility] Last Admin: 11/24/17 14:44 Dose: 100 mg Levofloxacin (Levaquin Iv) 750 mg in 150 mls @ 100 mls/hr IV Q24 [facility] Last Admin: 11/24/17 09:20 Dose: 100 mls/hr Insulin Human Lispro (Humalog Kwikpen (Bkc)) 0 unit SC ACHS [facility] PRN Reason: Protocol Last Admin: 11/24/17 11:35 Dose: 7 u Magnesium Hydroxide (Milk Of Magnesia) 30 ml PO DAILY PRN PRN Reason: Constipation Magnesium Oxide (Mag-Ox 400) 400 mg PO TID [facility] Last Admin: 11/24/17 14:45 Dose: 400 mg Niacin (Niaspan) 2,000 mg PO QHS [facility] Last Admin: 11/23/17 22:46 Dose: 2,000 mg Ondansetron HCl (Zofran) 4 mg IV Q6H PRN PRN PRN Reason: NAUSEA/VOMITING Last Admin: 11/24/17 06:38 Dose: 4 mg Oxycodone HCl (Oxyir) 10 mg PO Q6H PRN PRN PRN Reason: PAIN Last Admin: 11/24/17 16:02 Dose: 10 mg Pantoprazole Sodium (Protonix) 20 mg PO BID [facility] Last Admin: 11/24/17 09:12 Dose: 20 [facility] Admin: 11/24/17 16:04 Dose: 4 mg Potassium Chloride (K-Dur) 20 meq PO BIDCM [facility] Last Admin: 11/24/17 16:03 Dose: 20 meq Pregabalin (Lyrica) 300 mg PO BID [facility] Last Admin: 11/24/17 09:20 Dose: 300 mg Sodium Chloride () 5 - 30 ml IV UD PRN PRN Reason: SALINE FLUSH Last Admin: 11/24/17 07:43 Dose: 10 ml Venlafaxine HCl (Effexor Xr) 150 mg PO DAILY [facility] Last Admin: 11/24/17 09:16 Dose: 150 mg Medical Necessity - Tobacco Use Smoking Status: Current every day smoker Tobacco Use: Cigarettes Assessment/Plan All Active Problems (Last Updated 11/23/17 @ 17:15 by Kimberly Patterson MD) Chest discomfort (Resolved) Chronic normocytic anemia (Resolved) 1 acute hypoxic respiratory failure acute pulmonary edema; we will continue on BiPAP and wean as tolerated. 2 acute pulmonary edema from acute on chronic diastolic and systolic CHF; on IV diuresis. 3 CAD status post stents and CABG; serial cardiac enzymes are normal. 4 type 2 diabetes mellitus; we will continue on current insulin regimen. 5 hypertension; she is on Coreg, eplerenone and lisinopril. 6 hyperlipidemia; she is on Niacin. 7 obstructive sleep apnea; she is currently on BiPAP. 8 chronic back pain syndrome; she is on OxyIR . 9. DVT prophylaxis with Lovenox.
--- NOTE | 2017-11-24 16:13 | PN_ITS ---
Subjective: CC: Shortness of breath. Objective: He presented with progressive dyspnea and found to have congestive heart failure , she has improved with IV Lasix. She denies any chest pain, fever, chills or purulent sputum production. Vitals/I&O's: Vital Signs Temp Pulse Resp BP Pulse Ox 97.9 F 75 20 H 90/40 L 93 11/24/17 12:00 11/24/17 15:20 11/24/17 15:20 11/24/17 13:00 11/24/17 15:20 Oxygen Delivery Method Bi-pap Weight: 76.6 kg Body Mass Index (BMI) 29.9 Intake and Output for Last 24 Hours 11/22/17 11/23/17 11/24/17 23:59 23:59 23:59 Intake Total 450 / 450 Output Total 850 / 850 2700 / 2700 Balance -850 / -850 -2250 / -2250 Microbiology Past 72 Hours 11/23/17 23:00 Urine, Catheterized Urine Culture - Preliminary Culture exhibits no growth. Laboratory Results 11/23/17 16:42: Specimen Type ART, Sample Site R Radial, pH 7.44, Bicarbonate Actual 22.1, POC Total CO2 23, Base Excess -2, O2 Saturation 98, O2 % 70, ABG pCO2 32.7 L, ABG pO2 92, Marko Test POS, Respiration Rate 12, O2 Delivery Device Bi / C PAP, EPAP 8, IPAP 12, Blood Gas Notified Whom ED , Blood Gas Notified Time 1635 11/23/17 18:49: POC Glucose 252 H 11/23/17 20:25: Magnesium 1.2 L 11/23/17 20:25: B-Natriuretic Peptide 68.8 11/23/17 20:25: MRSA (PCR) Negative 11/23/17 20:25: Troponin I < 0.015 11/23/17 22:44: POC Glucose 298 H 11/23/17 23:00: Urine Color Straw, Urine Clarity Clear, Urine pH 7.0, Ur Specific [place] 1.010, Urine Protein Negative, Urine Glucose (UA) Normal, Urine Ketones Negative, Urine Occult Blood Negative, Urine Nitrite Negative, Urine Bilirubin Negative, Urine Urobilinogen Normal, Ur Leukocyte Esterase Negative, Urine RBC 0 SEEN, Urine WBC 0 SEEN, Ur Squamous Epith Cells 0-5 SEEN, Urine Bacteria 0 SEEN, Urine Mucus 0 SEEN 11/23/17 23:50: Troponin I < 0.015 11/24/17 03:00: WBC 13.3 H, RBC 4.17 L, Hgb 10.6 L, Hct 32.6 L, MCV 78.2 L, MCH 25.4 L, MCHC 32.5, RDW 18.4 H, RDW Differential 52.4 H, Plt Count 150, MPV 10.1 , Immature Gran % (Auto) 0.500, Neut % (Auto) 82.9 H, Lymph % (Auto) 10.0 L, Bureau % (Auto) 5.8, Eos % (Auto) 0.7, Baso % (Auto) 0.1, Absolute Neuts (auto) 11.0 H, Absolute Lymphs (auto) 1.33, Total Counted Not Reportable 11/24/17 03:00: Sodium 136, Potassium 3.5, Chloride 98, Carbon Dioxide 26.0, Anion Gap 12, BUN 12, Creatinine 0.74, Estim Creat Clear Calc 79.11, Est GFR ( MDRD) Af Amer 105, Est GFR (MDRD) Non-Af 87, BUN/Creatinine Ratio 16.2, Glucose 236 H, Calcium 8.6 11/24/17 03:00: Troponin I < 0.015 11/24/17 06:44: POC Glucose 276 H 11/24/17 11:04: POC Glucose 413 H Current Medications Albuterol Sulfate (Ventolin Aerosols) 2.5 mg INHALATION Q2H PRN PRN PRN Reason: Shortness of breath, wheezing Albuterol/Ipratropium (Duoneb) 3 ml INHALATION Q6H.RT [facility] Last Admin: 11/24/17 13:07 Dose: 3 ml Amitriptyline HCl (Elavil) 25 mg PO BID [facility] Last Admin: 11/24/17 09:16 Dose: 25 mg Aspirin (Aspirin) 325 mg PO QHS [facility] Last Admin: 11/23/17 22:46 Dose: 325 mg Bupropion HCl (Wellbutrin Xl) 300 mg PO DAILY [facility] Last Admin: 11/24/17 09:15 Dose: 300 mg Clopidogrel Bisulfate (Plavix) 75 mg PO DAILY [facility] Last Admin: 11/24/17 09:13 Dose: 75 mg Enoxaparin Sodium (Lovenox) 40 mg SC DAILY@0600 [facility] Last Admin: 11/24/17 05:47 Dose: 40 mg Eplerenone (Inspra) 25 mg PO DAILY [facility] Last Admin: 11/24/17 09:28 Dose: Not Given Furosemide (Lasix) 40 mg IV BID@1000,1800 [facility] Last Admin: 11/24/17 09:16 Dose: 40 mg Gemfibrozil (Lopid) 1,200 mg PO QHS [facility] Last Admin: 11/23/17 22:46 Dose: 1,200 mg Hydrocortisone Sodium Succinate (Solu-Cortef) 100 mg IV Q8 [facility] Last Admin: 11/24/17 14:44 Dose: 100 mg Levofloxacin (Levaquin Iv) 750 mg in 150 mls @ 100 mls/hr IV Q24 [facility] Last Admin: 11/24/17 09:20 Dose: 100 mls/hr Insulin Human Lispro (Humalog Kwikpen (Bkc)) 0 unit SC ACHS [facility] PRN Reason: Protocol Last Admin: 11/24/17 11:35 Dose: 7 u Magnesium Hydroxide (Milk Of Magnesia) 30 ml PO DAILY PRN PRN Reason: Constipation Magnesium Oxide (Mag-Ox 400) 400 mg PO TID [facility] Last Admin: 11/24/17 14:45 Dose: 400 mg Niacin (Niaspan) 2,000 mg PO QHS [facility] Last Admin: 11/23/17 22:46 Dose: 2,000 mg Ondansetron HCl (Zofran) 4 mg IV Q6H PRN PRN PRN Reason: NAUSEA/VOMITING Last Admin: 11/24/17 06:38 Dose: 4 mg Oxycodone HCl (Oxyir) 10 mg PO Q6H PRN PRN PRN Reason: PAIN Last Admin: 11/24/17 16:02 Dose: 10 mg Pantoprazole Sodium (Protonix) 20 mg PO BID [facility] Last Admin: 11/24/17 09:12 Dose: 20 [facility] Last Admin: 11/24/17 16:04 Dose: 4 mg Potassium Chloride (K-Dur) 20 meq PO BIDCM [facility] Last Admin: 11/24/17 16:03 Dose: 20 meq Pregabalin (Lyrica) 300 mg PO BID [facility] Last Admin: 11/24/17 09:20 Dose: 300 mg Sodium Chloride () 5 - 30 ml IV UD PRN PRN Reason: SALINE FLUSH Last Admin: 11/24/17 07:43 Dose: 10 ml Venlafaxine HCl (Effexor Xr) 150 mg PO DAILY PEG Last Admin: 11/24/17 09:16 Dose: 150 mg Medical Necessity - Tobacco Use Smoking Status: Current every day smoker Tobacco Use: Cigarettes Assessment/Plan All Active Problems (Last Updated 11/23/17 @ 17:15 by Kimberly Patterson MD) Chest discomfort (Resolved) Chronic normocytic anemia (Resolved) 1 acute hypoxic respiratory failure acute pulmonary edema; we will continue on BiPAP and wean as tolerated. 2 acute pulmonary edema from acute on chronic diastolic and systolic CHF; on IV diuresis. 3 CAD status post stents and CABG; serial cardiac enzymes are normal. 4 type 2 diabetes mellitus; we will continue on current insulin regimen. 5 hypertension; she is on Coreg, eplerenone and lisinopril. 6 hyperlipidemia; she is on Niacin. 7 obstructive sleep apnea; she is currently on BiPAP. 8 chronic back pain syndrome; she is on OxyIR . 9. DVT prophylaxis with Lovenox.
[2017-11-24 17:27] LABS: Bedside Glucose 360 mg/dL (70-110)
[2017-11-24] MEDS: Aspirin 325 MG Tablet PO (22:22)
[2017-11-24] MEDS: Gemfibrozil 600 MG Tablet 1200 MG PO (22:22)
[2017-11-24 22:40] LABS: Bedside Glucose 334 mg/dL (70-110)
[2017-11-25] VITALS (42 sets, daily range): BP systolic 88–134; BP diastolic 39–70; PULSE 73–89; RESP 12–27; TEMP 36.2–36.8; O2SAT 83–100
[2017-11-25] MEDS: Ipratropium/Albuterol Sulfate 3 ML AMPUL.NEB INHALATION ×4 (01:27→18:48)
[2017-11-25] MEDS: oxyCODONE 5 MG Tablet 10 MG PO ×3 (03:14→17:04)
[2017-11-25] MEDS: Magnesium Oxide 400 MG Tablet PO ×3 (05:16→22:05)
[2017-11-25] MEDS: 0.9% NaCl Peripheral Flush Adult/Peds IV ×4 (05:16→22:14)
[2017-11-25] MEDS: Enoxaparin 40 MG/0.4 ML Syringe SC (05:16)
[2017-11-25] MEDS: Hydrocortisone Sod Succinate 100 MG/2 ML Vial IV ×3 (05:16→22:08)
[2017-11-25 05:36] LABS: Absolute Lymphocyte Count 1.15 X10^3/ul (0.83-4.51); Absolute Neutrophil Count 13.4 X10^3/uL (2.0-7.7); Basophil# 0.02 X10^3/uL; Basophil% 0.1 % (0-1); Eosinophil# 0.02 X10^3/uL; Eosinophils% 0.1 % (0-5); Hematocrit 31.6 % (37-47); Hemoglobin 10.2 g/dl (12.0-15.0); Lymphocyte # 1.15 X10^3/ul (4.0); Lymphocyte % 7.3 % (19-41); Mean Corp Hgb Conc 32.3 g/gl (32-36); Mean Corpuscular Volume 80.6 fL (81-99); Mean Platelet Vol. 10.8 fl (6.2-12.0); Monocyte# 0.94 X10^3/uL; Monocyte% 5.9 % (0-10); Neutrophil # 13.42 X10^3/uL (2.7-7.7); Neutrophil % 84.8 % (47-70); POSITIVE COUNT NO; POSITIVE DIFFERENTIAL NO; POSITIVE MORPHOLOGY NO; Platelet Count 187 K/mm3 (150-450); RBC Distribution Width CV 18.7 % (11.6-14.6); RBC Distribution Width SD 53.5 fl (35.1-43.9); Red Blood Count 3.92 M/mm3 (4.2-5.4); White Blood Count 15.8 K/mm3 (4.4-11.0)
[2017-11-25 06:03] LABS: Anion Gap 11 (5-15); BUN 31 mg/dL (7-18); BUN/Creat Ratio 22.1 RATIO (10-20); Calcium,Total 8.8 mg/dL (8.5-10.1); Chloride 101 mmol/L (98-107); EST Glomerular Filtration Rate 42 mL/min (>60); Est Glom Filt Rate - Afr Amer 51 mL/min (>60); Estimated Creatinine Clearance 41.82 ml/min; Glucose 380 mg/dL (74-106); Potassium 4.8 mmol/L (3.5-5.1); Sodium Level 137 mmol/L (136-145)
--- NOTE | 2017-11-25 06:46 | PCM.PN.INT ---
Subjective: The patient was seen and examined at the bedside this morning. Events from the last 24 hours have been reviewed. The patient is currently afebrile, hemodynamically stable and maintaining appropriate oxygen saturations on BiPAP 14/10 with an FiO2 requirement of 40%. The patient was diuresed 2.5 L yesterday. Her weight is down accordingly. However, her creatinine increased to 1.4 this morning. Despite the aforementioned, the patient does report interval improvement her breathing quality since being started on BiPAP. 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 The patient relocated to [place] and was seen by a specialist at [facility]. 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 The patient does not utilize supplemental oxygen in her home environment. She does not currently utilize any inhalers. She has an approximate [id number] smoking history and continues to smoke 0.5 packs per day. Objective: The patient's most recent lab work, culture data and imaging studies have all been personally reviewed. Urine cultures and blood cultures have shown no growth to date. Surface echocardiogram completed on November 24 revealed normal LV size and thickness with an ejection fraction of 50%. Pulmonary function testing completed in March 2017 revealed evidence of a mild restrictive ventilatory defect with a disproportionate severe reduction in diffusing capacity. General: Alert, Oriented x3, Cooperative, No apparent distress, - - Currently tolerating BiPAP without issue HEENT: Atraumatic, PERRLA, Normocephalic Oral: No Gingival or Mucosal Lesions/ Ulcerations Neck: Supple, No Nodes, Trachea Midline Lungs: No rhonchi, No wheeze, No rales, Diminished Cardiovascular: Regular rate, Regular Rhythm, Normal S1, Normal S2, No murmurs Abdomen: Bowel Sounds Present, Soft, Non Tender, Non-Distended Extremities: No clubbing, No cyanosis, No edema Skin: No rashes, No breakdown Musculoskeletal: No Tenderness to Palpation of Joints or Extremities Lymphatic: No Cervical, Supraclavicular, or Inguinal Adenopathy Neurological: Neuro grossly intact Psych/Mental Status: Alert and oriented to time, place, person, mood and affect Vital Signs Temp Pulse Resp BP Pulse Ox 98.3 F 82 22 H 100/62 92 11/25/17 06:00 11/25/17 06:11/25/17 06:00 11/25/17 06:00 11/25/17 06:00 Oxygen Delivery Method Bi-pap Weight: 165 lb 9.074 oz Body Mass Index (BMI) 29.9 Intake and Output for Last 24 Hours 11/23/17 11/24/17 11/25/17 23:59 23:59 23:59 Intake Total 570 / 570 360 / 360 Output Total 850 / 850 3100 / 3100 350 / 350 Balance -850 / -850 -2530 / -2530 Labs (Last 48 Hours) 11/23/17 11/23/17 11/23/17 16:42 18:49 20:25 WBC RBC Hgb Hct MCV MCH MCHC RDW RDW Differential Plt Count MPV Immature Gran % (Auto) Neut % (Auto) Lymph % (Auto) Johnson % (Auto) Eos % (Auto) Baso % (Auto) Absolute Neuts (auto) Absolute Lymphs (auto) Total Counted Specimen Type ART Sample Site R Radial pH 7.44 Bicarbonate Actual 22.1 POC Total CO2 23 Base Excess -2 O2 Saturation 98 O2 % 70 ABG pCO2 32.7 L ABG pO2 92 Marko Test POS Respiration Rate 12 O2 Delivery Device Bi / C PAP EPAP 8 IPAP 12 Blood Gas Notified Whom ED Blood Gas Notified Time 1635 Sodium Potassium Chloride Carbon Dioxide Anion Gap BUN Creatinine Estim Creat Clear Calc Est GFR (MDRD) Af Amer Est GFR (MDRD) Non-Af BUN/Creatinine Ratio Glucose Calcium Magnesium 1.2 L Troponin I B-Natriuretic Peptide Urine Color Urine Clarity Urine pH Ur Specific [place] Urine Protein Urine Glucose (UA) Urine Ketones Urine Occult Blood Urine Nitrite Urine Bilirubin Urine Urobilinogen Ur Leukocyte Esterase Urine RBC Urine WBC Ur Squamous Epith Cells Urine Bacteria Urine Mucus MRSA (PCR) POC Glucose 252 H 11/23/17 11/23/17 11/23/17 20:25 20:25 20:25 WBC RBC Hgb Hct MCV MCH MCHC RDW RDW Differential Plt Count MPV Immature Gran % (Auto) Neut % (Auto) Lymph % (Auto) Johnson % (Auto) Eos % (Auto) Baso % (Auto) Absolute Neuts (auto) Absolute Lymphs (auto) Total Counted Specimen Type Sample Site pH Bicarbonate Actual POC Total CO2 Base Excess O2 Saturation O2 % ABG pCO2 ABG pO2 Marko Test Respiration Rate O2 Delivery Device EPAP IPAP Blood Gas Notified Whom Blood Gas Notified Time Sodium Potassium Chloride Carbon Dioxide Anion Gap BUN Creatinine Estim Creat Clear Calc Est GFR (MDRD) Af Amer Est GFR (MDRD) Non-Af BUN/Creatinine Ratio Glucose Calcium Magnesium Troponin I < 0.015 B-Natriuretic Peptide 68.8 Urine Color Urine Clarity Urine pH Ur Specific [place] Urine Protein Urine Glucose (UA) Urine Ketones Urine Occult Blood Urine Nitrite Urine Bilirubin Urine Urobilinogen Ur Leukocyte Esterase Urine RBC Urine WBC Ur Squamous Epith Cells Urine Bacteria Urine Mucus MRSA (PCR) Negative POC Glucose 11/23/17 11/23/17 11/23/17 22:44 23:00 23:50 WBC RBC Hgb Hct MCV MCH MCHC RDW RDW Differential Plt Count MPV Immature Gran % (Auto) Neut % (Auto) Lymph % (Auto) Johnson % (Auto) Eos % (Auto) Baso % (Auto) Absolute Neuts (auto) Absolute Lymphs (auto) Total Counted Specimen Type Sample Site pH Bicarbonate Actual POC Total CO2 Base Excess O2 Saturation O2 % ABG pCO2 ABG pO2 Marko Test Respiration Rate O2 Delivery Device EPA IPAP Blood Gas Notified Whom Blood Gas Notified Time Sodium Potassium Chloride Carbon Dioxide Anion Gap BUN Creatinine Estim Creat Clear Calc Est GFR (MDRD) Af Amer Est GFR (MDRD) Non-Af BUN/Creatinine Ratio Glucose Calcium Magnesium Troponin I < 0.015 B-Natriuretic Peptide Urine Color Straw Urine Clarity Clear Urine pH 7.0 Ur Specific [place] 1.010 Urine Protein Negative Urine Glucose (UA) Normal Urine Ketones Negative Urine Occult Blood Negative Urine Nitrite Negative Urine Bilirubin Negative Urine Urobilinogen Normal Ur Leukocyte Esterase Negative Urine RBC 0 SEEN Urine WBC 0 SEEN Ur Squamous Epith Cells 0-5 SEEN Urine Bacteria 0 SEEN Urine Mucus 0 SEEN MRSA (PCR) POC Glucose 298 H 11/24/17 11/24/17 11/24/17 03:00 03:00 03:00 WBC 13.3 H RBC 4.17 L Hgb 10.6 L Hct 32.6 L MCV 78.2 L MCH 25.4 L MCHC 32.5 RDW 18.4 H RDW Differential 52.4 H Plt Count 150 MPV 10.1 Immature Gran % (Auto) 0.500 Neut % (Auto) 82.9 H Lymph % (Auto) 10.0 L Johnson % (Auto) 5.8 Eos % (Auto) 0.7 Baso % (Auto) 0.1 Absolute Neuts (auto) 11.0 H Absolute Lymphs (auto) 1.33 Total Counted Not Reportable Specimen Type Sample Site pH Bicarbonate Actual POC Total CO2 Base Excess O2 Saturation O2 % ABG pCO2 ABG pO2 Marko Test Respiration Rate O2 Delivery Device EPAP IPAP Blood Gas Notified Whom Blood Gas Notified Time Sodium 136 Potassium 3.5 Chloride 98 Carbon Dioxide 26.0 Anion Gap 12 BUN 12 Creatinine 0.74 Estim Creat Clear Calc 79.11 Est GFR (MDRD) Af Amer 105 Est GFR (MDRD) Non-Af 87 BUN/Creatinine Ratio 16.2 Glucose 236 H Calcium 8.6 Magnesium Troponin I < 0.015 B-Natriuretic Peptide Urine Color Urine Clarity Urine pH Ur Specific [place] Urine Protein Urine Glucose (UA) Urine Ketones Urine Occult Blood Urine Nitrite Urine Bilirubin Urine Urobilinogen Ur Leukocyte Esterase Urine RBC Urine WBC Ur Squamous Epith Cells Urine Bacteria Urine Mucus MRSA (PCR) POC Glucose 11/24/17 11/24/17 11/24/17 06:44 11:04 16:25 WBC RBC Hgb Hct MCV MCH MCHC RDW RDW Differential Plt Count MPV Immature Gran % (Auto) Neut % (Auto) Lymph % (Auto) Johnson % (Auto) Eos % (Auto) Baso % (Auto) Absolute Neuts (auto) Absolute Lymphs (auto) Total Counted Specimen Type Sample Site pH Bicarbonate Actual POC Total CO2 Base Excess O2 Saturation O2 % ABG pCO2 ABG pO2 Marko Test Respiration Rate O2 Delivery Device EPAP IPAP Blood Gas Notified Whom Blood Gas Notified Time Sodium Potassium Chloride Carbon Dioxide Anion Gap BUN Creatinine Estim Creat Clear Calc Est GFR (MDRD) Af Amer Est GFR (MDRD) Non-Af BUN/Creatinine Ratio Glucose Calcium Magnesium Troponin I B-Natriuretic Peptide Urine Color Urine Clarity Urine pH Ur Specific [place] Urine Protein Urine Glucose (UA) Urine Ketones Urine Occult Blood Urine Nitrite Urine Bilirubin Urine Urobilinogen Ur Leukocyte Esterase Urine RBC Urine WBC Ur Squamous Epith Cells Urine Bacteria Urine Mucus MRSA (PCR) POC Glucose 276 H 413 H 360 H 11/24/17 11/25/17 11/25/17 22:19 05:25 05:25 WBC 15.8 H RBC 3.92 L Hgb 10.2 L Hct 31.6 L MCV 80.6 L MCH 26.0 L MCHC 32.3 RDW 18.7 H RDW Differential 53.5 H Plt Count 187 MPV 10.8 Immature Gran % (Auto) 1.800 H Neut % (Auto) 84.8 H Lymph % (Auto) 7.3 L Johnson % (Auto) 5.9 Eos % (Auto) 0.1 Baso % (Auto) 0.1 Absolute Neuts (auto) 13.4 H Absolute Lymphs (auto) 1.15 Total Counted Not Reportable Specimen Type Sample Site pH Bicarbonate Actual POC Total CO2 Base Excess O2 Saturation O2 % ABG pCO2 ABG pO2 Marko Test Respiration Rate O2 Delivery Device EPAP IPAP Blood Gas Notified Whom Blood Gas Notified Time Sodium 137 Potassium 4.8 Chloride 101 Carbon Dioxide 25.0 Anion Gap 11 BUN 31 H Creatinine 1.40 H Estim Creat Clear Calc 41.82 Est GFR (MDRD) Af Amer 51 L Est GFR (MDRD) Non-Af 42 L BUN/Creatinine Ratio 22.1 H Glucose 380 H Calcium 8.8 Magnesium 2.0 Troponin I B-Natriuretic Peptide Urine Color Urine Clarity Urine pH Ur Specific [place] Urine Protein Urine Glucose (UA) Urine Ketones Urine Occult Blood Urine Nitrite Urine Bilirubin Urine Urobilinogen Ur Leukocyte Esterase Urine RBC Urine WBC Ur Squamous Epith Cells Urine Bacteria Urine Mucus MRSA (PCR) POC Glucose 334 H Microbiology 11/23/17 23:00 Urine, Catheterized Urine Culture - Preliminary Culture exhibits no growth. Clinical Impression(s) from Imaging Studies Chest X-Ray 11/23/17 14:30 IMPRESSION: Diffuse bilateral airspace disease suggestive of pulmonary edema. Electronically Signed: Yousuf Vila MD at 15:19 EDT Tel [phone], Service support , Chest CTA 11/23/17 14:39 IMPRESSION: Diffuse bilateral airspace disease. There is no evidence of pulmonary embolism. Electronically Signed: Yousuf Vila MD at 15:57 EDT Tel [phone], Service support , Medical Necessity - Tobacco Use Smoking Status: Current every day smoker Tobacco Use: Cigarettes Assessment/Plan All Active Problems (Last Updated 11/23/17 @ 17:15 by Kimberly Patterson MD) Chest discomfort (Resolved) Chronic normocytic anemia (Resolved) RECOMMENDATIONS: 1. Discontinue Lasix, given interval development of acute kidney injury. 2. Continue antibiotics. 3. Check strep and urine Legionella antigens, along with respiratory viral panel. 4. Increase intensity of sliding-scale coverage. 5. Wean supplemental oxygen to maintain saturations at or above 90%. 6. Obtain repeat plain film chest x-ray 7. Continue appropriate ICU prophylaxis IMPRESSIONS: 1. Acute hypoxemic respiratory failure Upon presentation, the patient was initially thought to be experiencing flash pulmonary edema. However, the patient's BNP was within normal limits. Her last echocardiogram revealed intact systolic function. She was diuresed over 2 L and subsequently developed acute kidney injury. Therefore, the patient's diuretics will be placed on hold. Empiric antibiotics will be continued. Infectious workup will be undertaken. From my perspective, the patient's aerosol treatments can be discontinued, has she has no evidence of an obstructive ventilatory impairment on her PFTs. Wean FiO2 to maintain oxygen saturations at or above 90%. Give patient breaks from BiPAP as tolerated. Obtain repeat plain film chest x-ray this morning. 2. 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 However, this may also have been secondary to active diuresis in the setting of Lasix administration. We will plan to hold diuretics at this time. Continue stress dose steroids today with plans to wean tomorrow, if the patient remains hemodynamically stable. The patient's increasing white blood cell count is also likely a consequence of her steroid use. 3. Obstructive sleep apnea with superimposed central events The patient is currently prescribed nocturnal CPAP therapy with a pressure support of 9 cm of water. 4. Acute kidney injury Likely secondary to prerenal azotemia that developed as a consequent of overdiuresis in the last 24 hours. Diuretics are currently on hold. We will continue to monitor urine output closely. No indication for renal replacement therapy at this time. 5. Tobacco dependence/coronary artery disease status post CABG/hypertension/hyperlipidemia/depression/anxiety Complicates care, management, recovery and prognosis. Continue to hold antihypertensives/nephrotoxic medications. The patient will require physical therapy evaluation once medically stabilized. Smoking cessation is advisable. Nicotine replacement therapy can be offered to the patient while admitted to the hospital. TIME: 35 minutes of critical care time, independent of procedures, was spent addressing the patient's acute hypoxemic respiratory failure, hypotension, obstructive sleep apnea, acute kidney injury, review of all data and collaboration with the care team. ([id number]) Code Visit [id number]: [id number] Critical care first hour
--- NOTE | 2017-11-25 06:56 | PN_ITS ---
Subjective: The patient was seen and examined at the bedside this morning. Events from the last 24 hours have been reviewed. The patient is currently afebrile, hemodynamically stable and maintaining appropriate oxygen saturations on BiPAP 14/10 with an FiO2 requirement of 40%. The patient was diuresed 2.5 L yesterday. Her weight is down accordingly. However, her creatinine increased to 1.4 this morning. Despite the aforementioned, the patient does report interval improvement her breathing quality since being started on BiPAP. 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 The patient relocated to [place] and was seen by a specialist at [facility]. 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 The patient does not utilize supplemental oxygen in her home environment. She does not currently utilize any inhalers. She has an approximate [id number] smoking history and continues to smoke 0.5 packs per day. Objective: The patient's most recent lab work, culture data and imaging studies have all been personally reviewed. Urine cultures and blood cultures have shown no growth to date. Surface echocardiogram completed on November 24 revealed normal LV size and thickness with an ejection fraction of 50%. Pulmonary function testing completed in March 2017 revealed evidence of a mild restrictive ventilatory defect with a disproportionate severe reduction in diffusing capacity. General: Alert, Oriented x3, Cooperative, No apparent distress, - - Currently tolerating BiPAP without issue HEENT: Atraumatic, PERRLA, Normocephalic Oral: No Gingival or Mucosal Lesions/ Ulcerations Neck: Supple, No Nodes, Trachea Midline Lungs: No rhonchi, No wheeze, No rales, Diminished Cardiovascular: Regular rate, Regular Rhythm, Normal S1, Normal S2, No murmurs Abdomen: Bowel Sounds Present, Soft, Non Tender, Non-Distended Extremities: No clubbing, No cyanosis, No edema Skin: No rashes, No breakdown Musculoskeletal: No Tenderness to Palpation of Joints or Extremities Lymphatic: No Cervical, Supraclavicular, or Inguinal Adenopathy Neurological: Neuro grossly intact Psych/Mental Status: Alert and oriented to time, place, person, mood and affect Vital Signs Temp Pulse Resp BP Pulse Ox 98.3 F 82 22 H 100/62 92 11/25/17 06:00 11/25/17 06:11/25/17 06:00 11/25/17 06:00 11/25/17 06:00 Oxygen Delivery Method Bi-pap Weight: 165 lb 9.074 oz Body Mass Index (BMI) 29.9 Intake and Output for Last 24 Hours 11/23/17 11/24/17 11/25/17 23:59 23:59 23:59 Intake Total 570 / 570 360 / 360 Output Total 850 / 850 3100 / 3100 350 / 350 Balance -850 / -850 -2530 / -2530 Labs (Last 48 Hours) 11/23/17 11/23/17 11/23/17 16:42 18:49 20:25 WBC RBC Hgb Hct MCV MCH MCHC RDW RDW Differential Plt Count MPV Immature Gran % (Auto) Neut % (Auto) Lymph % (Auto) [place] % (Auto) Eos % (Auto) Baso % (Auto) Absolute Neuts (auto) Absolute Lymphs (auto) Total Counted Specimen Type ART Sample Site R Radial pH 7.44 Bicarbonate Actual 22.1 POC Total CO2 23 Base Excess -2 O2 Saturation 98 O2 % 70 ABG pCO2 32.7 L ABG pO2 92 Marko Test POS Respiration Rate 12 O2 Delivery Device Bi / C PAP EPAP 8 IPAP 12 Blood Gas Notified Whom ED Blood Gas Notified Time 1635 Sodium Potassium Chloride Carbon Dioxide Anion Gap BUN Creatinine Estim Creat Clear Calc Est GFR (MDRD) Af Amer Est GFR (MDRD) Non-Af BUN/Creatinine Ratio Glucose Calcium Magnesium 1.2 L Troponin I B-Natriuretic Peptide Urine Color Urine Clarity Urine pH Ur Specific [place] Urine Protein Urine Glucose (UA) Urine Ketones Urine Occult Blood Urine Nitrite Urine Bilirubin Urine Urobilinogen Ur Leukocyte Esterase Urine RBC Urine WBC Ur Squamous Epith Cells Urine Bacteria Urine Mucus MRSA (PCR) POC Glucose 252 H 11/23/17 11/23/17 11/23/17 20:25 20:25 20:25 WBC RBC Hgb Hct MCV MCH MCHC RDW RDW Differential Plt Count MPV Immature Gran % (Auto) Neut % (Auto) Lymph % (Auto) [place] % (Auto) Eos % (Auto) Baso % (Auto) Absolute Neuts (auto) Absolute Lymphs (auto) Total Counted Specimen Type Sample Site pH Bicarbonate Actual POC Total CO2 Base Excess O2 Saturation O2 % ABG pCO2 ABG pO2 Marko Test Respiration Rate O2 Delivery Device EPAP IPAP Blood Gas Notified Whom Blood Gas Notified Time Sodium Potassium Chloride Carbon Dioxide Anion Gap BUN Creatinine Estim Creat Clear Calc Est GFR (MDRD) Af Amer Est GFR (MDRD) Non-Af BUN/Creatinine Ratio Glucose Calcium Magnesium Troponin I < 0.015 B-Natriuretic Peptide 68.8 Urine Color Urine Clarity Urine pH Ur Specific [place] Urine Protein Urine Glucose (UA) Urine Ketones Urine Occult Blood Urine Nitrite Urine Bilirubin Urine Urobilinogen Ur Leukocyte Esterase Urine RBC Urine WBC Ur Squamous Epith Cells Urine Bacteria Urine Mucus MRSA (PCR) Negative POC Glucose 11/23/17 11/23/17 11/23/17 22:44 23:00 23:50 WBC RBC Hgb Hct MCV MCH MCHC RDW RDW Differential Plt Count MPV Immature Gran % (Auto) Neut % (Auto) Lymph % (Auto) [place] % (Auto) Eos % (Auto) Baso % (Auto) Absolute Neuts (auto) Absolute Lymphs (auto) Total Counted Specimen Type Sample Site pH Bicarbonate Actual POC Total CO2 Base Excess O2 Saturation O2 % ABG pCO2 ABG pO2 Marko Test Respiration Rate O2 Delivery Device EPA IPAP Blood Gas Notified Whom Blood Gas Notified Time Sodium Potassium Chloride Carbon Dioxide Anion Gap BUN Creatinine Estim Creat Clear Calc Est GFR (MDRD) Af Amer Est GFR (MDRD) Non-Af BUN/Creatinine Ratio Glucose Calcium Magnesium Troponin I < 0.015 B-Natriuretic Peptide Urine Color Straw Urine Clarity Clear Urine pH 7.0 Ur Specific [place] 1.010 Urine Protein Negative Urine Glucose (UA) Normal Urine Ketones Negative Urine Occult Blood Negative Urine Nitrite Negative Urine Bilirubin Negative Urine Urobilinogen Normal Ur Leukocyte Esterase Negative Urine RBC 0 SEEN Urine WBC 0 SEEN Ur Squamous Epith Cells 0-5 SEEN Urine Bacteria 0 SEEN Urine Mucus 0 SEEN MRSA (PCR) POC Glucose 298 H 11/24/17 11/24/17 11/24/17 03:00 03:00 03:00 WBC 13.3 H RBC 4.17 L Hgb 10.6 L Hct 32.6 L MCV 78.2 L MCH 25.4 L MCHC 32.5 RDW 18.4 H RDW Differential 52.4 H Plt Count 150 MPV 10.1 Immature Gran % (Auto) 0.500 Neut % (Auto) 82.9 H Lymph % (Auto) 10.0 L [place] % (Auto) 5.8 Eos % (Auto) 0.7 Baso % (Auto) 0.1 Absolute Neuts (auto) 11.0 H Absolute Lymphs (auto) 1.33 Total Counted Not Reportable Specimen Type Sample Site pH Bicarbonate Actual POC Total CO2 Base Excess O2 Saturation O2 % ABG pCO2 ABG pO2 Marko Test Respiration Rate O2 Delivery Device EPAP IPAP Blood Gas Notified Whom Blood Gas Notified Time Sodium 136 Potassium 3.5 Chloride 98 Carbon Dioxide 26.0 Anion Gap 12 BUN 12 Creatinine 0.74 Estim Creat Clear Calc 79.11 Est GFR (MDRD) Af Amer 105 Est GFR (MDRD) Non-Af 87 BUN/Creatinine Ratio 16.2 Glucose 236 H Calcium 8.6 Magnesium Troponin I < 0.015 B-Natriuretic Peptide Urine Color Urine Clarity Urine pH Ur Specific [place] Urine Protein Urine Glucose (UA) Urine Ketones Urine Occult Blood Urine Nitrite Urine Bilirubin Urine Urobilinogen Ur Leukocyte Esterase Urine RBC Urine WBC Ur Squamous Epith Cells Urine Bacteria Urine Mucus MRSA (PCR) POC Glucose 11/24/17 11/24/17 11/24/17 06:44 11:04 16:25 WBC RBC Hgb Hct MCV MCH MCHC RDW RDW Differential Plt Count MPV Immature Gran % (Auto) Neut % (Auto) Lymph % (Auto) [place] % (Auto) Eos % (Auto) Baso % (Auto) Absolute Neuts (auto) Absolute Lymphs (auto) Total Counted Specimen Type Sample Site pH Bicarbonate Actual POC Total CO2 Base Excess O2 Saturation O2 % ABG pCO2 ABG pO2 Marko Test Respiration Rate O2 Delivery Device EPAP IPAP Blood Gas Notified Whom Blood Gas Notified Time Sodium Potassium Chloride Carbon Dioxide Anion Gap BUN Creatinine Estim Creat Clear Calc Est GFR (MDRD) Af Amer Est GFR (MDRD) Non-Af BUN/Creatinine Ratio Glucose Calcium Magnesium Troponin I B-Natriuretic Peptide Urine Color Urine Clarity Urine pH Ur Specific [place] Urine Protein Urine Glucose (UA) Urine Ketones Urine Occult Blood Urine Nitrite Urine Bilirubin Urine Urobilinogen Ur Leukocyte Esterase Urine RBC Urine WBC Ur Squamous Epith Cells Urine Bacteria Urine Mucus MRSA (PCR) POC Glucose 276 H 413 H 360 H 11/24/17 11/25/17 11/25/17 22:19 05:25 05:25 WBC 15.8 H RBC 3.92 L Hgb 10.2 L Hct 31.6 L MCV 80.6 L MCH 26.0 L MCHC 32.3 RDW 18.7 H RDW Differential 53.5 H Plt Count 187 MPV 10.8 Immature Gran % (Auto) 1.800 H Neut % (Auto) 84.8 H Lymph % (Auto) 7.3 L [place] % (Auto) 5.9 Eos % (Auto) 0.1 Baso % (Auto) 0.1 Absolute Neuts (auto) 13.4 H Absolute Lymphs (auto) 1.15 Total Counted Not Reportable Specimen Type Sample Site pH Bicarbonate Actual POC Total CO2 Base Excess O2 Saturation O2 % ABG pCO2 ABG pO2 Marko Test Respiration Rate O2 Delivery Device EPAP IPAP Blood Gas Notified Whom Blood Gas Notified Time Sodium 137 Potassium 4.8 Chloride 101 Carbon Dioxide 25.0 Anion Gap 11 BUN 31 H Creatinine 1.40 H Estim Creat Clear Calc 41.82 Est GFR (MDRD) Af Amer 51 L Est GFR (MDRD) Non-Af 42 L BUN/Creatinine Ratio 22.1 H Glucose 380 H Calcium 8.8 Magnesium 2.0 Troponin I B-Natriuretic Peptide Urine Color Urine Clarity Urine pH Ur Specific [place] Urine Protein Urine Glucose (UA) Urine Ketones Urine Occult Blood Urine Nitrite Urine Bilirubin Urine Urobilinogen Ur Leukocyte Esterase Urine RBC Urine WBC Ur Squamous Epith Cells Urine Bacteria Urine Mucus MRSA (PCR) POC Glucose 334 H Microbiology 11/23/17 23:00 Urine, Catheterized Urine Culture - Preliminary Culture exhibits no growth. Clinical Impression(s) from Imaging Studies Chest X-Ray 11/23/17 14:30 IMPRESSION: Diffuse bilateral airspace disease suggestive of pulmonary edema. Electronically Signed: Yousuf Vila MD at 15:19 EDT Tel [phone], Service support , Chest CTA 11/23/17 14:39 IMPRESSION: Diffuse bilateral airspace disease. There is no evidence of pulmonary embolism. Electronically Signed: Yousuf Vila MD at 15:57 EDT Tel [phone], Service support , Medical Necessity - Tobacco Use Smoking Status: Current every day smoker Tobacco Use: Cigarettes Assessment/Plan All Active Problems (Last Updated 11/23/17 @ 17:15 by Kimberly Patterson MD) Chest discomfort (Resolved) Chronic normocytic anemia (Resolved) RECOMMENDATIONS: 1. Discontinue Lasix, given interval development of acute kidney injury. 2. Continue antibiotics. 3. Check strep and urine Legionella antigens, along with respiratory viral panel. 4. Increase intensity of sliding-scale coverage. 5. Wean supplemental oxygen to maintain saturations at or above 90%. 6. Obtain repeat plain film chest x-ray 7. Continue appropriate ICU prophylaxis IMPRESSIONS: 1. Acute hypoxemic respiratory failure Upon presentation, the patient was initially thought to be experiencing flash pulmonary edema. However, the patient's BNP was within normal limits. Her last echocardiogram revealed intact systolic function. She was diuresed over 2 L and subsequently developed acute kidney injury. Therefore, the patient's diuretics will be placed on hold. Empiric antibiotics will be continued. Infectious workup will be undertaken. From my perspective, the patient's aerosol treatments can be discontinued, has she has no evidence of an obstructive ventilatory impairment on her PFTs. Wean FiO2 to maintain oxygen saturations at or above 90%. Give patient breaks from BiPAP as tolerated. Obtain repeat plain film chest x-ray this morning. 2. 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 However, this may also have been secondary to active diuresis in the setting of Lasix administration. We will plan to hold diuretics at this time. Continue stress dose steroids today with plans to wean tomorrow, if the patient remains hemodynamically stable. The patient's increasing white blood cell count is also likely a consequence of her steroid use. 3. Obstructive sleep apnea with superimposed central events The patient is currently prescribed nocturnal CPAP therapy with a pressure support of 9 cm of water. 4. Acute kidney injury Likely secondary to prerenal azotemia that developed as a consequent of overdiuresis in the last 24 hours. Diuretics are currently on hold. We will continue to monitor urine output closely. No indication for renal replacement therapy at this time. 5. Tobacco dependence/coronary artery disease status post CABG/hypertension/ hyperlipidemia/depression/anxiety Complicates care, management, recovery and prognosis. Continue to hold antihypertensives/nephrotoxic medications. The patient will require physical therapy evaluation once medically stabilized. Smoking cessation is advisable. Nicotine replacement therapy can be offered to the patient while admitted to the hospital. TIME: 35 minutes of critical care time, independent of procedures, was spent addressing the patient's acute hypoxemic respiratory failure, hypotension, obstructive sleep apnea, acute kidney injury, review of all data and collaboration with the care team. ([id number]) Code Visit 9xxxx: [id number] Critical care first hour
--- NOTE | 2017-11-25 07:10 | RAD_ITS ---
STUDY: X-RAY CHEST REASON FOR EXAM: Female, 52 years old. Shortness of breath, dyspnea TECHNIQUE: Single AP portable view of the chest. COMPARISON: 11/23/2017. FINDINGS: The lungs are expanded. Mild improved aeration with continued pulmonary edema/congestion. There is no demonstrated pleural abnormality. Normal size heart. Normal mediastinum and mirna. Normal visualized pulmonary arteries. Normal visualized aortic arch and descending thoracic aorta. Normal visualized thoracic spine. Normal visualized ribs, clavicles, and shoulders. There is no demonstrated abnormality of the visualized soft tissue structures of the upper abdomen. RAD/Chest 1 View (Portable) IMPRESSION: Mild improved aeration. Mild pulmonary edema/congestion. Electronically Signed: Gareth Streeter DO at 7:50 EDT , Service support ,
[2017-11-25 07:21] LABS: Bedside Glucose 392 mg/dL (70-110)
--- NOTE | 2017-11-25 07:48 | CPS ---
PEP in room, not started, patient on BiPAP
[2017-11-25] MEDS: Insulin Lispro 100 UNIT/ML INSULN.PEN SC ×3 (08:37→22:28)
[2017-11-25] MEDS: Amitriptyline 25 MG Tablet PO ×2 (09:56→22:36)
[2017-11-25] MEDS: Venlafaxine XR 150 MG Capsule PO (09:56)
[2017-11-25] MEDS: buPROPion (XL) 300 MG TABLET.XL PO (09:57)
[2017-11-25] MEDS: Clopidogrel Bisulfate 75 MG Tablet PO (09:57)
[2017-11-25] MEDS: Pantoprazole Sodium 20 MG Tablet PO ×2 (09:58→22:05)
[2017-11-25] MEDS: Pregabalin 75 MG Capsule 300 MG PO ×2 (10:00→22:11)
[2017-11-25] MEDS: levoFLOXacin IV 750 MG/150 ML BAG 100 MG IV (10:00)
--- NOTE | 2017-11-25 11:02 | PCM.PN.HOSP ---
Subjective: Cc: Dyspnea Objective: She reports improved dyspnea since her admission. She is tolerating BiPAP. She denies any chest pain, fever, chills or purulent sputum production. Vitals/I&O's: Vital Signs Temp Pulse Resp BP Pulse Ox 97.3 F L 88 24 H 107/48 L 90 11/25/17 10:00 11/25/17 10:00 11/25/17 10:00 11/25/17 10:00 11/25/17 10:00 Oxygen Flow Rate (L/min) 6 Oxygen Delivery Method Venturi Mask Weight: 75.1 kg Body Mass Index (BMI) 29.9 Intake and Output for Last 24 Hours 11/23/17 11/24/17 11/25/17 23:59 23:59 23:59 Intake Total 570 / 570 360 / 360 Output Total 850 / 850 3100 / 3100 350 / 350 Balance -850 / -850 -2530 / -2530 10 General: Alert, Oriented x3 Oral: Moist Mucosa Neck: Supple, No JVD Lungs: No wheeze Cardiovascular: Regular rate Abdomen: Bowel Sounds Present, Soft, Non Tender Extremities: No edema Microbiology Past 72 Hours 11/25/17 08:25 Urine Catheter - Catheter Streptococcus pneumoniae Antigen (M - Final 11/25/17 08:25 Urine Catheter - Catheter Legionella Antigen - Final 11/23/17 23:00 Urine, Catheterized Urine Culture - Preliminary Culture exhibits no growth. Laboratory Results 11/24/17 11:04: POC Glucose 413 H 11/24/17 16:25: POC Glucose 360 H 11/24/17 22:19: POC Glucose 334 H 11/25/17 05:25: WBC 15.8 H, RBC 3.92 L, Hgb 10.2 L, Hct 31.6 L, MCV 80.6 L, MCH 26.0 L, MCHC 32.3, RDW 18.7 H, RDW Differential 53.5 H, Plt Count 187, MPV 10.8, Immature Gran % (Auto) 1.800 H, Neut % (Auto) 84.8 H, Lymph % (Auto) 7.3 L, [place] % (Auto) 5.9, Eos % (Auto) 0.1, Baso % (Auto) 0.1, Absolute Neuts (auto) 13.4 H, Absolute Lymphs (auto) 1.15, Total Counted Not Reportable 11/25/17 05:25: Sodium 137, Potassium 4.8, Chloride 101, Carbon Dioxide 25.0, Anion Gap 11, BUN 31 H, Creatinine 1.40 H, Estim Creat Clear Calc 41.82, Est GFR (MDRD) Af Amer 51 L, Est GFR (MDRD) Non-Af 42 L, BUN/Creatinine Ratio 22.1 H, Glucose 380 H, Calcium 8.8, Magnesium 2.0 11/25/17 07:17: POC Glucose 392 H Current Medications Albuterol Sulfate (Ventolin Aerosols) 2.5 mg INHALATION Q2H PRN PRN PRN Reason: Shortness of breath, wheezing Albuterol/Ipratropium (Duoneb) 3 ml INHALATION Q6H.RT [facility] Last Admin: 11/25/17 06:47 Dose: 3 ml Amitriptyline HCl (Elavil) 25 mg PO BID [facility] Last Admin: 11/25/17 09:56 Dose: 25 mg Aspirin (Aspirin) 325 mg PO QHS [facility] Last Admin: 11/24/17 22:22 Dose: 325 mg Bupropion HCl (Wellbutrin Xl) 300 mg PO DAILY [facility] Last Admin: 11/25/17 09:57 Dose: 300 mg Clopidogrel Bisulfate (Plavix) 75 mg PO DAILY [facility] Last Admin: 11/25/17 09:57 Dose: 75 mg Enoxaparin Sodium (Lovenox) 40 mg SC DAILY@0600 [facility] Last Admin: 11/25/17 05:16 Dose: 40 mg Eplerenone (Inspra) 25 mg PO DAILY [facility] Last Admin: 11/25/17 09:57 Dose: Not Given Gemfibrozil (Lopid) 1,200 mg PO QHS [facility] Last Admin: 11/24/17 22:22 Dose: 1,200 mg Hydrocortisone Sodium Succinate (Solu-Cortef) 100 mg IV Q8 [facility] Last Admin: 11/25/17 05:16 Dose: 100 mg Levofloxacin (Levaquin Iv) 750 mg in 150 mls @ 100 mls/hr IV Q24 [facility] Last Admin: 11/25/17 10:00 Dose: 100 mls/hr Insulin Human Lispro (Humalog Kwikpen (Bkc)) 0 unit SC ACHS [facility] PRN Reason: Protocol Last Admin: 11/25/17 08:37 Dose: 10 u Magnesium Hydroxide (Milk Of Magnesia) 30 ml PO DAILY PRN PRN Reason: Constipation Magnesium Oxide (Mag-Ox 400) 400 mg PO TID [facility] Last Admin: 11/25/17 05:16 Dose: 400 mg Niacin (Niaspan) 2,000 mg PO QHS [facility] Last Admin: 11/24/17 22:21 Dose: 2,000 mg Ondansetron HCl (Zofran) 4 mg IV Q6H PRN PRN PRN Reason: NAUSEA/VOMITING Last Admin: 11/24/17 16:59 Dose: 4 mg Oxycodone HCl (Oxyir) 10 mg PO Q6H PRN PRN PRN Reason: PAIN Last Admin: 11/25/17 10:43 Dose: 10 mg Pantoprazole Sodium (Protonix) 20 mg PO BID [facility] Last Admin: 11/25/17 09:58 Dose: 20 mg Perphenazine (Perphenazine) 4 mg PO BIDCM [facility] Last Admin: 11/25/17 09:56 Dose: 4 mg [facility] Admin: 11/25/17 09:55 Dose: 20 meq Pregabalin (Lyrica) 300 mg PO BID [facility] Last Admin: 11/25/17 10:00 Dose: 300 mg Sodium Chloride () 5 - 30 ml IV UD PRN PRN Reason: SALINE FLUSH Last Admin: 11/25/17 10:00 Dose: 10 ml Venlafaxine HCl (Effexor Xr) 150 mg PO DAILY [facility] Last Admin: 11/25/17 09:56 Dose: 150 mg Medical Necessity - Tobacco Use Smoking Status: Current every day smoker Tobacco Use: Cigarettes Assessment/Plan All Active Problems (Last Updated 11/23/17 @ 17:15 by Kimberly Patterson MD) Chest discomfort (Resolved) Chronic normocytic anemia (Resolved) 1 acute hypoxic respiratory failure due to acute pulmonary edema; she remains on BiPAP. 2 acute pulmonary edema from acute on chronic diastolic CHF; discontinued due to RAF 3 CAD status post stents and CABG; serial cardiac enzymes are normal. 4 type 2 diabetes mellitus glycemia worsened by steroids, will start her on a long-acting insulin. 5 hypertension; she is on Coreg, eplerenone 6 hyperlipidemia; she is on Niacin. 7 obstructive sleep apnea; she is currently on BiPAP. 8 chronic back pain syndrome; she is on OxyIR . 9. RAF: Prerenal, will back off on potential nephrotoxic agents. 10. DVT prophylaxis with Lovenox. Code Visit Inpatient E&M: 49146 Subs Hosp L2
--- NOTE | 2017-11-25 11:06 | PN_ITS ---
Subjective: Cc: Dyspnea Objective: She reports improved dyspnea since her admission. She is tolerating BiPAP. She denies any chest pain, fever, chills or purulent sputum production. Vitals/I&O's: Vital Signs Temp Pulse Resp BP Pulse Ox 97.3 F L 88 24 H 107/48 L 90 11/25/17 10:00 11/25/17 10:00 11/25/17 10:00 11/25/17 10:00 11/25/17 10:00 Oxygen Flow Rate (L/min) 6 Oxygen Delivery Method Venturi Mask Weight: 75.1 kg Body Mass Index (BMI) 29.9 Intake and Output for Last 24 Hours 11/23/17 11/24/17 11/25/17 23:59 23:59 23:59 Intake Total 570 / 570 360 / 360 Output Total 850 / 850 3100 / 3100 350 / 350 Balance -850 / -850 -2530 / -2530 10 General: Alert, Oriented x3 Oral: Moist Mucosa Neck: Supple, No JVD Lungs: No wheeze Cardiovascular: Regular rate Abdomen: Bowel Sounds Present, Soft, Non Tender Extremities: No edema Microbiology Past 72 Hours 11/25/17 08:25 Urine Catheter - Catheter Streptococcus pneumoniae Antigen ( M - Final 11/25/17 08:25 Urine Catheter - Catheter Legionella Antigen - Final 11/23/17 23:00 Urine, Catheterized Urine Culture - Preliminary Culture exhibits no growth. Laboratory Results 11/24/17 11:04: POC Glucose 413 H 11/24/17 16:25: POC Glucose 360 H 11/24/17 22:19: POC Glucose 334 H 11/25/17 05:25: WBC 15.8 H, RBC 3.92 L, Hgb 10.2 L, Hct 31.6 L, MCV 80.6 L, MCH 26.0 L, MCHC 32.3, RDW 18.7 H, RDW Differential 53.5 H, Plt Count 187, MPV 10.8 , Immature Gran % (Auto) 1.800 H, Neut % (Auto) 84.8 H, Lymph % (Auto) 7.3 L, [place] % (Auto) 5.9, Eos % (Auto) 0.1, Baso % (Auto) 0.1, Absolute Neuts (auto) 13.4 H, Absolute Lymphs (auto) 1.15, Total Counted Not Reportable 11/25/17 05:25: Sodium 137, Potassium 4.8, Chloride 101, Carbon Dioxide 25.0, Anion Gap 11, BUN 31 H, Creatinine 1.40 H, Estim Creat Clear Calc 41.82, Est GFR (MDRD) Af Amer 51 L, Est GFR (MDRD) Non-Af 42 L, BUN/Creatinine Ratio 22.1 H , Glucose 380 H, Calcium 8.8, Magnesium 2.0 11/25/17 07:17: POC Glucose 392 H Current Medications Albuterol Sulfate (Ventolin Aerosols) 2.5 mg INHALATION Q2H PRN PRN PRN Reason: Shortness of breath, wheezing Albuterol/Ipratropium (Duoneb) 3 ml INHALATION Q6H.RT [facility] Last Admin: 11/25/17 06:47 Dose: 3 ml Amitriptyline HCl (Elavil) 25 mg PO BID [facility] Last Admin: 11/25/17 09:56 Dose: 25 mg Aspirin (Aspirin) 325 mg PO QHS [facility] Last Admin: 11/24/17 22:22 Dose: 325 mg Bupropion HCl (Wellbutrin Xl) 300 mg PO DAILY [facility] Last Admin: 11/25/17 09:57 Dose: 300 mg Clopidogrel Bisulfate (Plavix) 75 mg PO DAILY [facility] Last Admin: 11/25/17 09:57 Dose: 75 mg Enoxaparin Sodium (Lovenox) 40 mg SC DAILY@0600 [facility] Last Admin: 11/25/17 05:16 Dose: 40 mg Eplerenone (Inspra) 25 mg PO DAILY [facility] Last Admin: 11/25/17 09:57 Dose: Not Given Gemfibrozil (Lopid) 1,200 mg PO QHS [facility] Last Admin: 11/24/17 22:22 Dose: 1,200 mg Hydrocortisone Sodium Succinate (Solu-Cortef) 100 mg IV Q8 [facility] Last Admin: 11/25/17 05:16 Dose: 100 mg Levofloxacin (Levaquin Iv) 750 mg in 150 mls @ 100 mls/hr IV Q24 [facility] Last Admin: 11/25/17 10:00 Dose: 100 mls/hr Insulin Human Lispro (Humalog Kwikpen (Bkc)) 0 unit SC ACHS [facility] PRN Reason: Protocol Last Admin: 11/25/17 08:37 Dose: 10 u Magnesium Hydroxide (Milk Of Magnesia) 30 ml PO DAILY PRN PRN Reason: Constipation Magnesium Oxide (Mag-Ox 400) 400 mg PO TID [facility] Last Admin: 11/25/17 05:16 Dose: 400 mg Niacin (Niaspan) 2,000 mg PO QHS [facility] Last Admin: 11/24/17 22:21 Dose: 2,000 mg Ondansetron HCl (Zofran) 4 mg IV Q6H PRN PRN PRN Reason: NAUSEA/VOMITING Last Admin: 11/24/17 16:59 Dose: 4 mg Oxycodone HCl (Oxyir) 10 mg PO Q6H PRN PRN PRN Reason: PAIN Last Admin: 11/25/17 10:43 Dose: 10 mg Pantoprazole Sodium (Protonix) 20 mg PO BID [facility] Last Admin: 11/25/17 09:58 Dose: 20 mg Perphenazine (Perphenazine) 4 mg PO BIDCM [facility] Last Admin: 11/25/17 09:56 Dose: 4 mg [facility]assium [facility] Last Admin: 11/25/17 09:55 Dose: 20 meq Pregabalin (Lyrica) 300 mg PO BID [facility] Last Admin: 11/25/17 10:00 Dose: 300 mg Sodium Chloride () 5 - 30 ml IV UD PRN PRN Reason: SALINE FLUSH Last Admin: 11/25/17 10:00 Dose: 10 ml Venlafaxine HCl (Effexor Xr) 150 mg PO DAILY [facility] Last Admin: 11/25/17 09:56 Dose: 150 mg Medical Necessity - Tobacco Use Smoking Status: Current every day smoker Tobacco Use: Cigarettes Assessment/Plan All Active Problems (Last Updated 11/23/17 @ 17:15 by Kimberly Patterson MD) Chest discomfort (Resolved) Chronic normocytic anemia (Resolved) 1 acute hypoxic respiratory failure due to acute pulmonary edema; she remains on BiPAP. 2 acute pulmonary edema from acute on chronic diastolic CHF; discontinued due to RAF 3 CAD status post stents and CABG; serial cardiac enzymes are normal. 4 type 2 diabetes mellitus glycemia worsened by steroids, will start her on a long-acting insulin. 5 hypertension; she is on Coreg, eplerenone 6 hyperlipidemia; she is on Niacin. 7 obstructive sleep apnea; she is currently on BiPAP. 8 chronic back pain syndrome; she is on OxyIR . 9. RAF: Prerenal, will back off on potential nephrotoxic agents. 10. DVT prophylaxis with Lovenox. Code Visit Inpatient E&M: 97643 Subs Hosp L2
[2017-11-25 12:00] LABS: Bedside Glucose > 500 mg/dL (70-110)
[2017-11-25] MEDS: Insulin Lispro 100 UNIT/ML INSULN.PEN 14 UNIT SC (12:24)
--- NOTE | 2017-11-25 14:38 | CPS ---
PEP at bedside, discussed with patient. Did not start on PEP therapy, patient on NRB, sats drop rapidly when off.
[2017-11-25 16:20] LABS: Bedside Glucose 426 mg/dL (70-110)
[2017-11-25] MEDS: Aspirin 325 MG Tablet PO (22:06)
[2017-11-25] MEDS: Gemfibrozil 600 MG Tablet 1200 MG PO (22:07)
[2017-11-25 22:35] LABS: Bedside Glucose 299 mg/dL (70-110)
[2017-11-26] VITALS (36 sets, daily range): BP systolic 89–141; BP diastolic 41–94; PULSE 24–91; RESP 10–82; TEMP 36.4–36.7; O2SAT 89–100
[2017-11-26] MEDS: Ipratropium/Albuterol Sulfate 3 ML AMPUL.NEB INHALATION ×4 (01:28→19:22)
[2017-11-26] MEDS: Ondansetron 4 MG/2 ML Vial IV (05:04)
[2017-11-26] MEDS: Magnesium Oxide 400 MG Tablet PO ×3 (05:04→21:12)
[2017-11-26] MEDS: Enoxaparin 40 MG/0.4 ML Syringe SC (05:04)
[2017-11-26] MEDS: Hydrocortisone Sod Succinate 100 MG/2 ML Vial IV ×3 (05:05→21:12)
[2017-11-26] MEDS: oxyCODONE 5 MG Tablet 10 MG PO ×3 (05:08→17:46)
--- NOTE | 2017-11-26 07:05 | PCM.PN.INT ---
Subjective: The patient was seen and examined at the bedside this morning. Events from the last 24 hours have been reviewed. The patient is currently afebrile, hemodynamically stable and maintaining appropriate oxygen saturations on a nonrebreather. The patient does endorse the presence of a mild degree of pleuritic type chest discomfort. The patient was overall net +389 mL's yesterday. Objective: The patient's most recent lab work, culture data and imaging studies have all been personally reviewed. Urine culture is positive for possible enterococcus. Blood cultures have shown no growth to date. Strep and urine Legionella antigens were both negative. Respiratory viral panel was negative. Surface echocardiogram completed on November 24 revealed normal LV size and thickness with an ejection fraction of 50%. Pulmonary function testing completed in March 2017 revealed evidence of a mild restrictive ventilatory defect with a disproportionate severe reduction in diffusing capacity. General: Alert, Cooperative, No apparent distress HEENT: Atraumatic, PERRLA, Normocephalic Oral: No Gingival or Mucosal Lesions/ Ulcerations Neck: Supple, No Nodes, Trachea Midline Lungs: No rhonchi, No wheeze, No rales, Diminished Cardiovascular: Regular rate, Regular Rhythm, Normal S1, Normal S2, No murmurs Abdomen: Bowel Sounds Present, Soft, Non Tender Extremities: No clubbing, No cyanosis, No edema Skin: No rashes, No breakdown Musculoskeletal: No Tenderness to Palpation of Joints or Extremities Lymphatic: No Cervical, Supraclavicular, or Inguinal Adenopathy Neurological: Neuro grossly intact Psych/Mental Status: Normal Affect, Appropriate Vital Signs Temp Pulse Resp BP Pulse Ox 97.6 F L 82 19 H 125/56 H 94 11/26/17 03:00 11/26/17 06:00 11/26/17 06:00 11/26/17 06:00 11/26/17 06:00 Oxygen Flow Rate (L/min) 10 Oxygen Delivery Method Non-Rebreather Weight: 164 lb 10.965 oz Body Mass Index (BMI) 29.9 Intake and Output for Last 24 Hours 11/24/17 11/25/17 11/26/17 23:59 23:59 23:59 Intake Total 570 / 570 1564 / 1564 525 / 525 Output Total 3100 / 3100 1175 / 1175 900 / 900 Balance -2530 / -2530 389 / 389 -375 / -375 Labs (Last 48 Hours) 11/24/17 11/24/17 11/24/17 11:04 16:25 22:19 WBC RBC Hgb Hct MCV MCH MCHC RDW RDW Differential Plt Count MPV Immature Gran % (Auto) Neut % (Auto) Lymph % (Auto) [place] % (Auto) Eos % (Auto) Baso % (Auto) Absolute Neuts (auto) Absolute Lymphs (auto) Total Counted Sodium Potassium Chloride Carbon Dioxide Anion Gap BUN Creatinine Estim Creat Clear Calc Est GFR (MDRD) Af Amer Est GFR (MDRD) Non-Af BUN/Creatinine Ratio Glucose Calcium Magnesium POC Glucose 413 H 360 H 334 H 11/25/17 11/25/17 11/25/17 05:25 05:25 07:17 WBC 15.8 H RBC 3.92 L Hgb 10.2 L Hct 31.6 L MCV 80.6 L MCH 26.0 L MCHC 32.3 RDW 18.7 H RDW Differential 53.5 H Plt Count 187 MPV 10.8 Immature Gran % (Auto) 1.800 H Neut % (Auto) 84.8 H Lymph % (Auto) 7.3 L [place] % (Auto) 5.9 Eos % (Auto) 0.1 Baso % (Auto) 0.1 Absolute Neuts (auto) 13.4 H Absolute Lymphs (auto) 1.15 Total Counted Not Reportable Sodium 137 Potassium 4.8 Chloride 101 Carbon Dioxide 25.0 Anion Gap 11 BUN 31 H Creatinine 1.40 H Estim Creat Clear Calc 41.82 Est GFR (MDRD) Af Amer 51 L Est GFR (MDRD) Non-Af 42 L BUN/Creatinine Ratio 22.1 H Glucose 380 H Calcium 8.8 Magnesium 2.0 POC Glucose 392 H 11/25/17 11/25/17 11/25/17 11:50 16:04 22:28 WBC RBC Hgb Hct MCV MCH MCHC RDW RDW Differential Plt Count MPV Immature Gran % (Auto) Neut % (Auto) Lymph % (Auto) [place] % (Auto) Eos % (Auto) Baso % (Auto) Absolute Neuts (auto) Absolute Lymphs (auto) Total Counted Sodium Potassium Chloride Carbon Dioxide Anion Gap BUN Creatinine Estim Creat Clear Calc Est GFR (MDRD) Af Amer Est GFR (MDRD) Non-Af BUN/Creatinine Ratio Glucose Calcium Magnesium POC Glucose > 500 H* 426 H 299 H Microbiology 11/25/17 08:50 Mucosa - Nasopharyngeal Respiratory Panel (PCR) - Final 11/23/17 23:00 Urine, Catheterized Urine Culture - Preliminary GPC Poss Enterococcus sp 11/25/17 08:25 Urine Catheter - Catheter Streptococcus pneumoniae Antigen (M - Final 11/25/17 08:25 Urine Catheter - Catheter Legionella Antigen - Final Clinical Impression(s) from Imaging Studies Chest X-Ray 11/23/17 14:30 IMPRESSION: Diffuse bilateral airspace disease suggestive of pulmonary edema. Electronically Signed: Yousuf Vila MD at 15:19 EDT Tel [phone], Service support , Chest CTA 11/23/17 14:39 IMPRESSION: Diffuse bilateral airspace disease. There is no evidence of pulmonary embolism. Electronically Signed: Yousuf Vila MD at 15:57 EDT Tel [phone], Service support , Chest X-Ray 11/25/17 07:10 IMPRESSION: Mild improved aeration. Mild pulmonary edema/congestion. Electronically Signed: Gareth Streeter DO at 7:50 EDT , Service support , Medical Necessity - Tobacco Use Smoking Status: Current every day smoker Tobacco Use: Cigarettes Assessment/Plan All Active Problems (Last Updated 11/23/17 @ 17:15 by Kimberly Patterson MD) Chest discomfort (Resolved) Chronic normocytic anemia (Resolved) RECOMMENDATIONS: 1. Continue antibiotics. 2. Continue sliding scale insulin coverage. 3. Wean supplemental oxygen to maintain saturations at or above 90%. 4. Continue appropriate ICU prophylaxis 5. Start IPPB IMPRESSIONS: 1. Acute hypoxemic respiratory failure Upon presentation, the patient was initially thought to be experiencing flash pulmonary edema. However, the patient's BNP was within normal limits. Her last echocardiogram revealed intact systolic function. She was diuresed over 2 L and subsequently developed acute kidney injury. Therefore, the patient's diuretics were held and her acute kidney injury resolved. She will be continued on empiric antibiotics, pending infectious workup. We will plan to start IPPB today. Wean FiO2 to maintain oxygen saturations at or above 90%. Continue to utilize BiPAP as needed. Encourage incentive spirometer use and mobilize patient as tolerated. 2. Hypotension/questionable history of [place]'s disease The patient was initially placed on stress dose steroids over concerns for adrenal insufficiency. However, this may also have been secondary to active diuresis in the setting of Lasix administration. We will plan to hold diuretics at this time. Continue stress dose steroids today with plans to wean tomorrow, if the patient remains hemodynamically stable. The patient's increasing white blood cell count is also likely a consequence of her steroid use. 3. Obstructive sleep apnea with superimposed central events The patient is currently prescribed nocturnal CPAP therapy with a pressure support of 9 cm of water. 4. Acute kidney injury Resolved. Likely secondary to prerenal azotemia that developed as a consequent of overdiuresis. Diuretics are currently on hold. We will continue to monitor urine output closely. No indication for renal replacement therapy at this time. 5. Tobacco dependence/coronary artery disease status post CABG/hypertension/hyperlipidemia/depression/anxiety Complicates care, management, recovery and prognosis. Continue to hold antihypertensives/nephrotoxic medications. The patient will require physical therapy evaluation once medically stabilized. Smoking cessation is advisable. Nicotine replacement therapy can be offered to the patient while admitted to the hospital. This note was generated with [employer] dictation software. It may contain incorrect words, spelling, and punctuation that were not noted in checking the note before signing. Code Visit Inpatient E&M: 32368 [facility] Hosp L3
--- NOTE | 2017-11-26 07:08 | PN_ITS ---
Subjective: The patient was seen and examined at the bedside this morning. Events from the last 24 hours have been reviewed. The patient is currently afebrile, hemodynamically stable and maintaining appropriate oxygen saturations on a nonrebreather. The patient does endorse the presence of a mild degree of pleuritic type chest discomfort. The patient was overall net +389 mL's yesterday. Objective: The patient's most recent lab work, culture data and imaging studies have all been personally reviewed. Urine culture is positive for possible enterococcus. Blood cultures have shown no growth to date. Strep and urine Legionella antigens were both negative. Respiratory viral panel was negative. Surface echocardiogram completed on November 24 revealed normal LV size and thickness with an ejection fraction of 50%. Pulmonary function testing completed in March 2017 revealed evidence of a mild restrictive ventilatory defect with a disproportionate severe reduction in diffusing capacity. General: Alert, Cooperative, No apparent distress HEENT: Atraumatic, PERRLA, Normocephalic Oral: No Gingival or Mucosal Lesions/ Ulcerations Neck: Supple, No Nodes, Trachea Midline Lungs: No rhonchi, No wheeze, No rales, Diminished Cardiovascular: Regular rate, Regular Rhythm, Normal S1, Normal S2, No murmurs Abdomen: Bowel Sounds Present, Soft, Non Tender Extremities: No clubbing, No cyanosis, No edema Skin: No rashes, No breakdown Musculoskeletal: No Tenderness to Palpation of Joints or Extremities Lymphatic: No Cervical, Supraclavicular, or Inguinal Adenopathy Neurological: Neuro grossly intact Psych/Mental Status: Normal Affect, Appropriate Vital Signs Temp Pulse Resp BP Pulse Ox 97.6 F L 82 19 H 125/56 H 94 11/26/17 03:00 11/26/17 06:00 11/26/17 06:00 11/26/17 06:00 11/26/17 06:00 Oxygen Flow Rate (L/min) 10 Oxygen Delivery Method Non-Rebreather Weight: 164 lb 10.965 oz Body Mass Index (BMI) 29.9 Intake and Output for Last 24 Hours 11/24/17 11/25/17 11/26/17 23:59 23:59 23:59 Intake Total 570 / 570 1564 / 1564 525 / 525 Output Total 3100 / 3100 1175 / 1175 900 / 900 Balance -2530 / -2530 389 / 389 -375 / -375 Labs (Last 48 Hours) 11/24/17 11/24/17 11/24/17 11:04 16:25 22:19 WBC RBC Hgb Hct MCV MCH MCHC RDW RDW Differential Plt Count MPV Immature Gran % (Auto) Neut % (Auto) Lymph % (Auto) [place] % (Auto) Eos % (Auto) Baso % (Auto) Absolute Neuts (auto) Absolute Lymphs (auto) Total Counted Sodium Potassium Chloride Carbon Dioxide Anion Gap BUN Creatinine Estim Creat Clear Calc Est GFR (MDRD) Af Amer Est GFR (MDRD) Non-Af BUN/Creatinine Ratio Glucose Calcium Magnesium POC Glucose 413 H 360 H 334 H 11/25/17 11/25/17 11/25/17 05:25 05:25 07:17 WBC 15.8 H RBC 3.92 L Hgb 10.2 L Hct 31.6 L MCV 80.6 L MCH 26.0 L MCHC 32.3 RDW 18.7 H RDW Differential 53.5 H Plt Count 187 MPV 10.8 Immature Gran % (Auto) 1.800 H Neut % (Auto) 84.8 H Lymph % (Auto) 7.3 L [place] % (Auto) 5.9 Eos % (Auto) 0.1 Baso % (Auto) 0.1 Absolute Neuts (auto) 13.4 H Absolute Lymphs (auto) 1.15 Total Counted Not Reportable Sodium 137 Potassium 4.8 Chloride 101 Carbon Dioxide 25.0 Anion Gap 11 BUN 31 H Creatinine 1.40 H Estim Creat Clear Calc 41.82 Est GFR (MDRD) Af Amer 51 L Est GFR (MDRD) Non-Af 42 L BUN/Creatinine Ratio 22.1 H Glucose 380 H Calcium 8.8 Magnesium 2.0 POC Glucose 392 H 11/25/17 11/25/17 11/25/17 11:50 16:04 22:28 WBC RBC Hgb Hct MCV MCH MCHC RDW RDW Differential Plt Count MPV Immature Gran % (Auto) Neut % (Auto) Lymph % (Auto) [place] % (Auto) Eos % (Auto) Baso % (Auto) Absolute Neuts (auto) Absolute Lymphs (auto) Total Counted Sodium Potassium Chloride Carbon Dioxide Anion Gap BUN Creatinine Estim Creat Clear Calc Est GFR (MDRD) Af Amer Est GFR (MDRD) Non-Af BUN/Creatinine Ratio Glucose Calcium Magnesium POC Glucose > 500 H* 426 H 299 H Microbiology 11/25/17 08:50 Mucosa - Nasopharyngeal Respiratory Panel (PCR) - Final 11/23/17 23:00 Urine, Catheterized Urine Culture - Preliminary GPC Poss Enterococcus sp 11/25/17 08:25 Urine Catheter - Catheter Streptococcus pneumoniae Antigen ( M - Final 11/25/17 08:25 Urine Catheter - Catheter Legionella Antigen - Final Clinical Impression(s) from Imaging Studies Chest X-Ray 11/23/17 14:30 IMPRESSION: Diffuse bilateral airspace disease suggestive of pulmonary edema. Electronically Signed: Yousuf Vila MD at 15:19 EDT Tel [phone], Service support , Chest CTA 11/23/17 14:39 IMPRESSION: Diffuse bilateral airspace disease. There is no evidence of pulmonary embolism. Electronically Signed: Yousuf Vila MD at 15:57 EDT Tel [phone], Service support , Chest X-Ray 11/25/17 07:10 IMPRESSION: Mild improved aeration. Mild pulmonary edema/congestion. Electronically Signed: Gareth Streeter DO at 7:50 EDT , Service support , Medical Necessity - Tobacco Use Smoking Status: Current every day smoker Tobacco Use: Cigarettes Assessment/Plan All Active Problems (Last Updated 11/23/17 @ 17:15 by Kimberly Patterson MD) Chest discomfort (Resolved) Chronic normocytic anemia (Resolved) RECOMMENDATIONS: 1. Continue antibiotics. 2. Continue sliding scale insulin coverage. 3. Wean supplemental oxygen to maintain saturations at or above 90%. 4. Continue appropriate ICU prophylaxis 5. Start IPPB IMPRESSIONS: 1. Acute hypoxemic respiratory failure Upon presentation, the patient was initially thought to be experiencing flash pulmonary edema. However, the patient's BNP was within normal limits. Her last echocardiogram revealed intact systolic function. She was diuresed over 2 L and subsequently developed acute kidney injury. Therefore, the patient's diuretics were held and her acute kidney injury resolved. She will be continued on empiric antibiotics, pending infectious workup. We will plan to start IPPB today. Wean FiO2 to maintain oxygen saturations at or above 90%. Continue to utilize BiPAP as needed. Encourage incentive spirometer use and mobilize patient as tolerated. 2. Hypotension/questionable history of [place]'s disease The patient was initially placed on stress dose steroids over concerns for adrenal insufficiency. However, this may also have been secondary to active diuresis in the setting of Lasix administration. We will plan to hold diuretics at this time. Continue stress dose steroids today with plans to wean tomorrow, if the patient remains hemodynamically stable. The patient's increasing white blood cell count is also likely a consequence of her steroid use. 3. Obstructive sleep apnea with superimposed central events The patient is currently prescribed nocturnal CPAP therapy with a pressure support of 9 cm of water. 4. Acute kidney injury Resolved. Likely secondary to prerenal azotemia that developed as a consequent of overdiuresis. Diuretics are currently on hold. We will continue to monitor urine output closely. No indication for renal replacement therapy at this time. 5. Tobacco dependence/coronary artery disease status post CABG/hypertension/ hyperlipidemia/depression/anxiety Complicates care, management, recovery and prognosis. Continue to hold antihypertensives/nephrotoxic medications. The patient will require physical therapy evaluation once medically stabilized. Smoking cessation is advisable. Nicotine replacement therapy can be offered to the patient while admitted to the hospital. This note was generated with [employer] dictation software. It may contain incorrect words, spelling, and punctuation that were not noted in checking the note before signing. Code Visit Inpatient E&M: 06140 [facility] Hosp L3
[2017-11-26 07:11] LABS: Bedside Glucose 357 mg/dL (70-110)
[2017-11-26 07:45] LABS: Absolute Lymphocyte Count 1.09 X10^3/ul (0.83-4.51); Basophil# 0.02 X10^3/uL; Basophil% 0.2 % (0-1); Eosinophil# 0.07 X10^3/uL; Eosinophils% 0.5 % (0-5); Hematocrit 33.1 % (37-47); Hemoglobin 10.4 g/dl (12.0-15.0); Lymphocyte # 1.09 X10^3/ul (4.0); Lymphocyte % 8.3 % (19-41); Mean Corp Hgb Conc 31.4 g/gl (32-36); Mean Corpuscular Hgb 25.2 pg (27.0-32.0); Mean Corpuscular Volume 80.3 fL (81-99); Monocyte# 0.85 X10^3/uL; Monocyte% 6.4 % (0-10); Neutrophil # 10.98 X10^3/uL (2.7-7.7); Neutrophil % 83.2 % (47-70); Platelet Count 155 K/mm3 (150-450); RBC Distribution Width CV 18.5 % (11.6-14.6); RBC Distribution Width SD 53.9 fl (35.1-43.9); Red Blood Count 4.12 M/mm3 (4.2-5.4); White Blood Count 13.2 K/mm3 (4.4-11.0)
[2017-11-26 07:46] LABS: POSITIVE COUNT NO; POSITIVE DIFFERENTIAL NO; POSITIVE MORPHOLOGY NO
[2017-11-26 07:57] LABS: BUN 23 mg/dL (7-18); Creatinine, Serum 0.83 mg/dL (0.55-1.02); Glucose 356 mg/dL (74-106)
[2017-11-26 07:58] LABS: Anion Gap 10 (5-15); BUN/Creat Ratio 27.7 RATIO (10-20); Calcium,Total 9.4 mg/dL (8.5-10.1); Chloride 101 mmol/L (98-107); EST Glomerular Filtration Rate 76 mL/min (>60); Est Glom Filt Rate - Afr Amer 92 mL/min (>60); Estimated Creatinine Clearance 70.53 ml/min; Potassium 4.5 mmol/L (3.5-5.1); Sodium Level 134 mmol/L (136-145)
[2017-11-26] MEDS: levoFLOXacin IV 750 MG/150 ML BAG 100 MG IV (09:33)
[2017-11-26] MEDS: Insulin Lispro 100 UNIT/ML INSULN.PEN SC ×3 (09:35→17:43)
[2017-11-26] MEDS: Pantoprazole Sodium 20 MG Tablet PO ×2 (09:39→21:12)
[2017-11-26] MEDS: buPROPion (XL) 300 MG TABLET.XL PO (09:40)
[2017-11-26] MEDS: Amitriptyline 25 MG Tablet PO ×2 (09:41→21:12)
[2017-11-26] MEDS: Venlafaxine XR 150 MG Capsule PO (09:41)
[2017-11-26] MEDS: Clopidogrel Bisulfate 75 MG Tablet PO (09:43)
[2017-11-26] MEDS: Pregabalin 75 MG Capsule 300 MG PO ×2 (09:45→21:21)
[2017-11-26] MEDS: Albuterol 2.5 MG/3 ML VIAL.NEB. INHALATION (11:27)
[2017-11-26 11:30] LABS: Bedside Glucose 410 mg/dL (70-110)
--- NOTE | 2017-11-26 12:10 | PCM.PN.HOSP ---
Subjective: Shortness of breath Objective: The patient reports improved breathing she is now on supplemental oxygen per NRB mask. Overall she is feeling much better, she is up in a chair with therapy. He reports no chest pain, fever, chills, dizziness or palpitations. Vitals/I&O's: Vital Signs Temp Pulse Resp BP Pulse Ox 97.9 F 88 18 113/59 L 100 11/26/17 08:00 11/26/17 11:27 11/26/17 11:27 11/26/17 08:00 11/26/17 08:00 Oxygen Flow Rate (L/min) 10 Oxygen Delivery Method Non-Rebreather Weight: 74.7 kg Body Mass Index (BMI) 29.9 Intake and Output for Last 24 Hours 11/24/17 11/25/17 11/26/17 23:59 23:59 23:59 Intake Total 570 / 570 1564 / 1564 525 / 525 Output Total 3100 / 3100 1175 / 1175 900 / 900 Balance -2530 / -2530 389 / 389 -375 / -375 General: Alert, Oriented x3 Oral: Moist Mucosa Neck: Supple Cardiovascular: Regular rate, Normal S1, Normal S2 Abdomen: Bowel Sounds Present, Soft, Non Tender, Non-Distended Extremities: No edema Neurological: Cranial nerves II-XII grossly intact, Neuro grossly intact, Motor Exam 5/5 strength throughout Microbiology Past 72 Hours 11/23/17 23:00 Urine, Catheterized Urine Culture - Preliminary GPC Poss Enterococcus sp Alpha hemolytic organism 11/25/17 08:50 Mucosa - Nasopharyngeal Respiratory Panel (PCR) - Final 11/25/17 08:25 Urine Catheter - Catheter Streptococcus pneumoniae Antigen (M - Final 11/25/17 08:25 Urine Catheter - Catheter Legionella Antigen - Final Laboratory Results 11/25/17 16:04: POC Glucose 426 H 11/25/17 22:28: POC Glucose 299 H 11/26/17 07:06: POC Glucose 357 H 11/26/17 07:35: WBC 13.2 H, RBC 4.12 L, Hgb 10.4 L, Hct 33.1 L, MCV 80.3 L, MCH 25.2 L, MCHC 31.4 L, RDW 18.5 H, RDW Differential 53.9 H, Plt Count 155, MPV 10.0, Immature Gran % (Auto) 1.400 H, Neut % (Auto) 83.2 H, Lymph % (Auto) 8.3 L, Avery % (Auto) 6.4, Eos % (Auto) 0.5, Baso % (Auto) 0.2, Absolute Neuts (auto) 11.0 H, Absolute Lymphs (auto) 1.09, Total Counted Not Reportable 11/26/17 07:35: Sodium 134 L, Potassium 4.5, Chloride 101, Carbon Dioxide 23.0, Anion Gap 10, BUN 23 H, Creatinine 0.83, Estim Creat Clear Calc 70.53, Est GFR (MDRD) Af Amer 92, Est GFR (MDRD) Non-Af 76, BUN/Creatinine Ratio 27.7 H, Glucose 356 H, Calcium 9.4 11/26/17 11:26: POC Glucose 410 H Current Medications Albuterol Sulfate (Ventolin Aerosols) 2.5 mg INHALATION Q2H PRN PRN PRN Reason: Shortness of breath, wheezing Last Admin: 11/26/17 11:27 Dose: 2.5 mg Albuterol/Ipratropium (Duoneb) 3 ml INHALATION Q6H.RT [facility] Last Admin: 11/26/17 06:35 Dose: 3 ml Amitriptyline HCl (Elavil) 25 mg PO BID [facility] Last Admin: 11/26/17 09:41 Dose: 25 mg Aspirin (Aspirin) 325 mg PO QHS [facility] Last Admin: 11/25/17 22:06 Dose: 325 mg Bupropion HCl (Wellbutrin Xl) 300 mg PO DAILY [facility] Last Admin: 11/26/17 09:40 Dose: 300 mg Clopidogrel Bisulfate (Plavix) 75 mg PO DAILY [facility] Last Admin: 11/26/17 09:43 Dose: 75 mg Enoxaparin Sodium (Lovenox) 40 mg SC DAILY@0600 [facility] Last Admin: 11/26/17 05:04 Dose: 40 mg Eplerenone (Inspra) 25 mg PO DAILY [facility] Last Admin: 11/26/17 09:40 Dose: Not Given Gemfibrozil (Lopid) 1,200 mg PO QHS [facility] Last Admin: 11/25/17 22:07 Dose: 1,200 mg Hydrocortisone Sodium Succinate (Solu-Cortef) 100 mg IV Q8 [facility] Last Admin: 11/26/17 05:05 Dose: 100 mg Ampicillin Sodium/Sulbactam (Sodium 3 gm/ Sodium Chloride) 112 mls @ 150 mls/hr IV Q8 [facility] Insulin Detemir (Levemir (Bkc)) 15 units SC QHS [facility] Last Admin: 11/25/17 22:09 Dose: 15 units Insulin Human Lispro (Humalog Kwikpen (Bkc)) 0 unit SC ACHS PEG PRN Reason: Protocol Last Admin: 11/26/17 11:54 Dose: 11 u Magnesium Hydroxide (Milk Of Magnesia) 30 ml PO DAILY PRN PRN Reason: Constipation Magnesium Oxide (Mag-Ox 400) 400 mg PO TID [facility] Last Admin: 11/26/17 05:04 Dose: 400 mg Niacin (Niaspan) 2,000 mg PO QHS [facility] Last Admin: 11/25/17 22:07 Dose: 2,000 mg Ondansetron HCl (Zofran) 4 mg IV Q6H PRN PRN PRN Reason: NAUSEA/VOMITING Last Admin: 11/26/17 05:04 Dose: 4 mg Oxycodone HCl (Oxyir) 10 mg PO Q6H PRN PRN PRN Reason: PAIN Last Admin: 11/26/17 11:53 Dose: 10 mg Pantoprazole Sodium (Protonix) 20 mg PO BID [facility] Last Admin: 11/26/17 09:39 Dose: 20 [facility] Last Admin: 11/26/17 09:39 Dose: 4 mg Potassium Chloride (K-Dur) [facility] Last Admin: 11/26/17 09:35 Dose: 20 meq Pregabalin (Lyrica) 300 mg PO BID [facility] Last Admin: 11/26/17 09:45 Dose: 300 mg Sodium Chloride () 5 - 30 ml IV UD PRN PRN Reason: SALINE FLUSH Last Admin: 11/25/17 22:14 Dose: 10 ml Venlafaxine HCl (Effexor Xr) 150 mg PO DAILY [facility] Last Admin: 11/26/17 09:41 Dose: 150 mg Medical Necessity - Tobacco Use Smoking Status: Current every day smoker Tobacco Use: Cigarettes Assessment/Plan All Active Problems (Last Updated 11/23/17 @ 17:15 by Kimberly Patterson MD) Chest discomfort (Resolved) Chronic normocytic anemia (Resolved) This is a 52 year-old female who presented to the Ed due to progressive dyspnea and was found to have acute hypoxic respiratory failure from bilateral airspace disease consistent with pulmonary edema, she was placed on BiPAP and IV Lasix. She developed prerenal RAF and her diuretic was discontinued. Overall her clinical condition is improving. 1 acute hypoxic respiratory failure due to ? acute pulmonary edema /lower respiratory tract infection; prn BiPAP, supplemental oxygen, we will continue on antibiotics and bronchodilator therapy. 2 CAD status post stents and CABG; serial cardiac enzymes were normal, her echocardiogram on 11/24 showed an EF of 50% with regional wall motion abnormalities, she would benefit from ischemic workup once her pulmonary status improves. 3 questionable history of adrenal insufficiency; the patient is currently on IV hydrocortisone, this will be be weaned down. 4 type 2 diabetes mellitus glycemia worsened by steroids, started on a long-acting insulin will continue on regular insulin sliding scale for glycemic spikes. 5 leukocytosis; infection versus steroids, will check daily CBC 6 Acute cystitis; urine culture is growing enterococcus, she reports urinary symptoms , we will change antibiotic to Unasyn. 7 obstructive sleep apnea; she is prescribed CPAP at home but currently on BiPAP. 8 chronic pain syndrome; she is on OxyIR . 9. RAF; from diuretic therapy, her renal parameters have improved. 10. DVT prophylaxis with Lovenox. Code Visit Inpatient E&M: 40480 [facility] Hosp L3
--- NOTE | 2017-11-26 12:20 | PN_ITS ---
Subjective: Shortness of breath Objective: The patient reports improved breathing she is now on supplemental oxygen per NRB mask. Overall she is feeling much better, she is up in a chair with therapy. He reports no chest pain, fever, chills, dizziness or palpitations. Vitals/I&O's: Vital Signs Temp Pulse Resp BP Pulse Ox 97.9 F 88 18 113/59 L 100 11/26/17 08:00 11/26/17 11:27 11/26/17 11:27 11/26/17 08:00 11/26/17 08:00 Oxygen Flow Rate (L/min) 10 Oxygen Delivery Method Non-Rebreather Weight: 74.7 kg Body Mass Index (BMI) 29.9 Intake and Output for Last 24 Hours 11/24/17 11/25/17 11/26/17 23:59 23:59 23:59 Intake Total 570 / 570 1564 / 1564 525 / 525 Output Total 3100 / 3100 1175 / 1175 900 / 900 Balance -2530 / -2530 389 / 389 -375 / -375 General: Alert, Oriented x3 Oral: Moist Mucosa Neck: Supple Cardiovascular: Regular rate, Normal S1, Normal S2 Abdomen: Bowel Sounds Present, Soft, Non Tender, Non-Distended Extremities: No edema Neurological: Cranial nerves II-XII grossly intact, Neuro grossly intact, Motor Exam 5/5 strength throughout Microbiology Past 72 Hours 11/23/17 23:00 Urine, Catheterized Urine Culture - Preliminary [facility] Poss Enterococcus sp Alpha hemolytic organism 11/25/17 08:50 Mucosa - Nasopharyngeal Respiratory Panel (PCR) - Final 11/25/17 08:25 Urine Catheter - Catheter Streptococcus pneumoniae Antigen ( M - Final 11/25/17 08:25 Urine Catheter - Catheter Legionella Antigen - Final Laboratory Results 11/25/17 16:04: POC Glucose 426 H 11/25/17 22:28: POC Glucose 299 H 11/26/17 07:06: POC Glucose 357 H 11/26/17 07:35: WBC 13.2 H, RBC 4.12 L, Hgb 10.4 L, Hct 33.1 L, MCV 80.3 L, MCH 25.2 L, MCHC 31.4 L, RDW 18.5 H, RDW Differential 53.9 H, Plt Count 155, MPV 10.0, Immature Gran % (Auto) 1.400 H, Neut % (Auto) 83.2 H, Lymph % (Auto) 8.3 L , Summers % (Auto) 6.4, Eos % (Auto) 0.5, Baso % (Auto) 0.2, Absolute Neuts (auto) 11.0 H, Absolute Lymphs (auto) 1.09, Total Counted Not Reportable 11/26/17 07:35: Sodium 134 L, Potassium 4.5, Chloride 101, Carbon Dioxide 23.0, Anion Gap 10, BUN 23 H, Creatinine 0.83, Estim Creat Clear Calc 70.53, Est GFR ( MDRD) Af Amer 92, Est GFR (MDRD) Non-Af 76, BUN/Creatinine Ratio 27.7 H, Glucose 356 H, Calcium 9.4 11/26/17 11:26: POC Glucose 410 H Current Medications Albuterol Sulfate (Ventolin Aerosols) 2.5 mg INHALATION Q2H PRN PRN PRN Reason: Shortness of breath, wheezing Last Admin: 11/26/17 11:27 Dose: 2.5 mg Albuterol/Ipratropium (Duoneb) 3 ml INHALATION Q6H.RT [facility] Last Admin: 11/26/17 06:35 Dose: 3 ml Amitriptyline HCl (Elavil) 25 mg PO BID [facility] Last Admin: 11/26/17 09:41 Dose: 25 mg Aspirin (Aspirin) 325 mg PO QHS [facility] Last Admin: 11/25/17 22:06 Dose: 325 mg Bupropion HCl (Wellbutrin Xl) 300 mg PO DAILY [facility] Last Admin: 11/26/17 09:40 Dose: 300 mg Clopidogrel Bisulfate (Plavix) 75 mg PO DAILY [facility] Last Admin: 11/26/17 09:43 Dose: 75 mg Enoxaparin Sodium (Lovenox) 40 mg SC DAILY@0600 [facility] Last Admin: 11/26/17 05:04 Dose: 40 mg Eplerenone (Inspra) 25 mg PO DAILY [facility] Last Admin: 11/26/17 09:40 Dose: Not Given Gemfibrozil (Lopid) 1,200 mg PO QHS [facility] Last Admin: 11/25/17 22:07 Dose: 1,200 mg Hydrocortisone Sodium Succinate (Solu-Cortef) 100 mg IV Q8 [facility] Last Admin: 11/26/17 05:05 Dose: 100 mg Ampicillin Sodium/Sulbactam (Sodium 3 gm/ Sodium Chloride) 112 mls @ 150 mls/ hr IV Q8 [facility] Insulin Detemir (Levemir (Bkc)) 15 units SC QHS [facility] Last Admin: 11/25/17 22:09 Dose: 15 units Insulin Human Lispro (Humalog Kwikpen (Bkc)) 0 unit SC ACHS PEG PRN Reason: Protocol Last Admin: 11/26/17 11:54 Dose: 11 u Magnesium Hydroxide (Milk Of Magnesia) 30 ml PO DAILY PRN PRN Reason: Constipation Magnesium Oxide (Mag-Ox 400) 400 mg PO TID [facility] Last Admin: 11/26/17 05:04 Dose: 400 mg Niacin (Niaspan) 2,000 mg PO QHS [facility] Last Admin: 11/25/17 22:07 Dose: 2,000 mg Ondansetron HCl (Zofran) 4 mg IV Q6H PRN PRN PRN Reason: NAUSEA/VOMITING Last Admin: 11/26/17 05:04 Dose: 4 mg Oxycodone HCl (Oxyir) 10 mg PO Q6H PRN PRN PRN Reason: PAIN Last Admin: 11/26/17 11:53 Dose: 10 mg Pantoprazole Sodium (Protonix) 20 mg PO BID [facility] Last Admin: 11/26/17 09:39 Dose: 20 [facility] Last Admin: 11/26/17 09:39 Dose: 4 mg Potassium Chloride (K-Dur) [facility] Last Admin: 11/26/17 09:35 Dose: 20 meq Pregabalin (Lyrica) 300 mg PO BID [facility] Last Admin: 11/26/17 09:45 Dose: 300 mg Sodium Chloride () 5 - 30 ml IV UD PRN PRN Reason: SALINE FLUSH Last Admin: 11/25/17 22:14 Dose: 10 ml Venlafaxine HCl (Effexor Xr) 150 mg PO DAILY [facility] Last Admin: 11/26/17 09:41 Dose: 150 mg Medical Necessity - Tobacco Use Smoking Status: Current every day smoker Tobacco Use: Cigarettes Assessment/Plan All Active Problems (Last Updated 11/23/17 @ 17:15 by Kimberly Patterson MD) Chest discomfort (Resolved) Chronic normocytic anemia (Resolved) This is a 52 year-old female who presented to the Ed due to progressive dyspnea and was found to have acute hypoxic respiratory failure from bilateral airspace disease consistent with pulmonary edema, she was placed on BiPAP and IV Lasix. She developed prerenal RAF and her diuretic was discontinued. Overall her clinical condition is improving. 1 acute hypoxic respiratory failure due to ? acute pulmonary edema /lower respiratory tract infection; prn BiPAP, supplemental oxygen, we will continue on antibiotics and bronchodilator therapy. 2 CAD status post stents and CABG; serial cardiac enzymes were normal, her echocardiogram on 11/24 showed an EF of 50% with regional wall motion abnormalities, she would benefit from ischemic workup once her pulmonary status improves. 3 questionable history of adrenal insufficiency; the patient is currently on IV hydrocortisone, this will be be weaned down. 4 type 2 diabetes mellitus glycemia worsened by steroids, started on a long- acting insulin will continue on regular insulin sliding scale for glycemic spikes. 5 leukocytosis; infection versus steroids, will check daily CBC 6 Acute cystitis; urine culture is growing enterococcus, she reports urinary symptoms , we will change antibiotic to Unasyn. 7 obstructive sleep apnea; she is prescribed CPAP at home but currently on BiPAP. 8 chronic pain syndrome; she is on OxyIR . 9. RAF; from diuretic therapy, her renal parameters have improved. 10. DVT prophylaxis with Lovenox. Code Visit Inpatient E&M: [id number] [facility] Hosp L3
[2017-11-26 17:41] LABS: Bedside Glucose 376 mg/dL (70-110)
[2017-11-26] MEDS: Aspirin 325 MG Tablet PO (21:12)
[2017-11-26] MEDS: Gemfibrozil 600 MG Tablet 1200 MG PO (21:12)
[2017-11-26] MEDS: 0.9% NaCl Peripheral Flush Adult/Peds IV (21:19)
[2017-11-26 21:31] LABS: Bedside Glucose > 500 mg/dL (70-110)
[2017-11-26] MEDS: Insulin Lispro 100 UNIT/ML INSULN.PEN 15 UNIT SC (21:46)
[2017-11-27] VITALS (10 sets, daily range): BP systolic 89–133; BP diastolic 31–61; PULSE 73–79; RESP 12–22; TEMP 36.4–36.5; O2SAT 88–98
[2017-11-27] MEDS: Ipratropium/Albuterol Sulfate 3 ML AMPUL.NEB INHALATION (01:04)
--- NOTE | 2017-11-27 01:05 | CPS ---
decreased fio2 to 40% nurse aware
[2017-11-27] MEDS: oxyCODONE 5 MG Tablet 10 MG PO (03:39)
[2017-11-27] MEDS: 0.9% NaCl Peripheral Flush Adult/Peds IV (03:55)
--- NOTE | 2017-11-28 08:15 | RAD_ITS ---
STUDY: X-RAY CHEST REASON FOR EXAM: Female, 52 years old. Respiratory failure. TECHNIQUE: Single frontal view of the chest. COMPARISON: November 25, 2017 FINDINGS: There is low volume inspiration with a diffuse mild interstitial pattern, unchanged. There is no demonstrated pleural abnormality. There is borderline cardiomegaly with sternotomy wires unchanged. Normal mediastinum and minra. Normal visualized pulmonary arteries. Normal visualized aortic arch and descending thoracic aorta. Normal visualized thoracic spine. Normal visualized ribs, clavicles, and shoulders. There is no demonstrated abnormality of the visualized soft tissue structures of the upper abdomen. RAD/Chest 1 View (Portable) IMPRESSION: Stable borderline cardiomegaly with low volume inspiration and diffuse interstitial pattern. No significant new or acute pathology. Electronically Signed: Ede Tomas MD at 11:49 EDT , Service support ,
--- NOTE | 2017-11-29 10:30 | CT_ITS ---
STUDY: CTA CHEST REASON FOR EXAM: Female, 52 years old. Dyspnea RADIATION DOSAGE (If Supplied By Facility): CTDIvol = ( 16.58 ) mGy, DLP = ( 609.01 ) mGycm TECHNIQUE: The examination was performed with the intravenous administration of 75ml ml of Isovue 370 contrast material. Post-processing of the angiographic images was performed, with multiplanar reformation and 3D reconstruction. Individualized dose optimization techniques were used for this CT. COMPARISON: 11/23/2017 FINDINGS: Normal enhancement of the main pulmonary artery and right and left pulmonary arteries. Normal enhancement of the bilateral peripheral pulmonary arteries. There is no demonstrated pulmonary embolism. Normal thoracic aorta and visualized great vessels. There is no demonstrated aortic dissection. Sternal cerclage wires and vascular clips are present from a prior sternotomy and coronary artery bypass graft procedure (CABG). Normal mediastinum. Normal hilar regions. Normal visualized trachea and bronchi. The lungs are well expanded. Diffuse groundglass opacities and airspace opacities are seen in both lungs more prominent in lung bases are worse since the previous study may represent bilateral pneumonia or ARDS. Normal pleura. Normal chest wall structures. There are degenerative changes of thoracic spine. Normal visualized upper abdomen. CT/CTA Chest W/WO Contrast IMPRESSION: No demonstrated pulmonary embolism or arterial dissection. Diffuse groundglass opacities and airspace opacities are seen in both lungs more prominent in lung bases are worse since the previous study may represent bilateral pneumonia or ARDS. Electronically Signed: Pancho Soliz MD at 7:05 EDT Tel , Service support ,
[2017-11-30 11:48] LABS: Glucose 436 mg/dL (74-106)
[2017-11-30 17:04] LABS: Eosinophils% 0.4 % (0-5); Hematocrit 33.6 % (37-47); Hemoglobin 10.7 g/dl (12.0-15.0); Lymphocyte % 7.4 % (19-41); Mean Corp Hgb Conc 31.8 g/gl (32-36); Mean Corpuscular Volume 81.6 fL (81-99); Mean Platelet Vol. 10.6 fl (6.2-12.0); Monocyte% 6.8 % (0-10); Neutrophil % 82.6 % (47-70); POSITIVE COUNT YES; POSITIVE DIFFERENTIAL NO; POSITIVE MORPHOLOGY YES; Platelet Count 157 K/mm3 (150-450); RBC Distribution Width CV 18.7 % (11.6-14.6); RBC Distribution Width SD 53.5 fl (35.1-43.9); Red Blood Count 4.12 M/mm3 (4.2-5.4); White Blood Count 10.9 K/mm3 (4.4-11.0)
[2017-11-30 17:05] LABS: Absolute Lymphocyte Count 0.81 X10^3/ul (0.83-4.51); Basophil# 0.02 X10^3/uL; Basophil% 0.2 % (0-1); Eosinophil# 0.04 X10^3/uL; Lymphocyte # 0.81 X10^3/ul (4.0); Monocyte# 0.74 X10^3/uL; Pathologist Review May foll
--- NOTE | 2017-12-01 10:20 | VDUE_ITS ---
Left Proximal Left jugular vein is spontaneous, widely patent, phasic, with no intraluminal echogenicity noted. Left subclavian vein is spontaneous, widely patent, phasic, with no intraluminal echogenicity noted. Left Arm Left axillary vein is spontaneous, patent, phasic, competent, compressible and demonstrates augmentation. Left brachial vein is compressible. Left cephalic vein is compressible. Left basilic vein is compressible. Left Lower Arm Left radial vein is compressible. Left ulnar vein is compressible. < Interpretation Summary Deep veins of the left upper extremity are patent and compressible segmentally. There is no evidence of deep vein thrombosis. The superficial veins of the left upper extremity, the basilic and cephalic veins, are patent and compressible. There is no evidence of left upper extremity superficial thrombophlebitis involving the veins imaged. Ordering Physician: Riley Fragoso Performed By: Leroy Mike RVT ??? < Interpretation Summary Ordering Physician: Riley Fragoso Performed By: Leroy Mike RVT
[2017-12-02 06:56] LABS: BUN 9 mg/dL (7-18); BUN/Creat Ratio 15.8 RATIO (10-20); Calcium,Total 8.6 mg/dL (8.5-10.1); Creatinine, Serum 0.57 mg/dL (0.55-1.02); EST Glomerular Filtration Rate 118 mL/min (>60); Est Glom Filt Rate - Afr Amer 143 mL/min (>60); Estimated Creatinine Clearance 102.71 ml/min; Glucose 228 mg/dL (74-106); Magnesium 1.5 mg/dL (1.6-2.6)
[2017-12-02 06:57] LABS: Anion Gap 7 (5-15); Chloride 106 mmol/L (98-107); Sodium Level 140 mmol/L (136-145)
[2017-12-02 11:17] LABS: BUN 12 mg/dL (7-18); Creatinine, Serum 0.63 mg/dL (0.55-1.02); EST Glomerular Filtration Rate 105 mL/min (>60); Est Glom Filt Rate - Afr Amer 127 mL/min (>60); Estimated Creatinine Clearance 92.93 ml/min; Glucose 349 mg/dL (74-106)
[2017-12-02 11:18] LABS: CPK Total, Creatine Kinase 18 U/L (26-192); Phosphorus 1.9 mg/dL (2.5-4.9)
[2017-12-02 11:19] LABS: Anion Gap 8 (5-15); Chloride 104 mmol/L (98-107); Sodium Level 139 mmol/L (136-145)
[2017-12-02 11:21] LABS: Glucose 471 mg/dL (74-106)
[2017-12-03 09:11] LABS: Hematocrit 31.9 % (37-47); Hemoglobin 10.3 g/dl (12.0-15.0); Mean Corp Hgb Conc 32.3 g/gl (32-36); Mean Corpuscular Hgb 26.1 pg (27.0-32.0); Mean Corpuscular Volume 80.8 fL (81-99); Mean Platelet Vol. 9.9 fl (6.2-12.0); Platelet Count 184 K/mm3 (150-450); RBC Distribution Width CV 19.3 % (11.6-14.6); Red Blood Count 3.95 M/mm3 (4.2-5.4); Scan Indicated on CBC? Y/N NO; White Blood Count 10.4 K/mm3 (4.4-11.0)
[2017-12-03 18:35] LABS: Magnesium 1.2 mg/dL (1.6-2.6)
[2017-12-04] VITALS (13 sets, daily range): BP systolic 104–121; BP diastolic 50–59; PULSE 78–92; RESP 16–24; TEMP 36.3–36.7; O2SAT 93–99
[2017-12-04 03:49] LABS: Anion Gap 9 (5-15); BUN 9 mg/dL (7-18); BUN/Creat Ratio 19.6 RATIO (10-20); Calcium,Total 8.5 mg/dL (8.5-10.1); Chloride 107 mmol/L (98-107); Creatinine, Serum 0.46 mg/dL (0.55-1.02); EST Glomerular Filtration Rate 151 mL/min (>60); Est Glom Filt Rate - Afr Amer 183 mL/min (>60); Estimated Creatinine Clearance 127.27 ml/min; Glucose 182 mg/dL (74-106); Magnesium 1.6 mg/dL (1.6-2.6); Potassium 4.4 mmol/L (3.5-5.1); Sodium Level 141 mmol/L (136-145)
[2017-12-04 06:15] LABS: Hemoglobin 10.2 g/dl (12.0-15.0); Mean Corp Hgb Conc 31.9 g/gl (32-36); Mean Corpuscular Hgb 26.2 pg (27.0-32.0); Mean Corpuscular Volume 82.1 fL (81-99); Mean Platelet Vol. 10.3 fl (6.2-12.0); Platelet Count 213 K/mm3 (150-450); RBC Distribution Width CV 19.8 % (11.6-14.6); RBC Distribution Width SD 57.7 fl (35.1-43.9)
[2017-12-04 06:43] LABS: Scan Indicated on CBC? Y/N NO
[2017-12-04] MEDS: Magnesium Oxide 400 MG Tablet PO ×3 (06:45→21:33)
[2017-12-04] MEDS: Piperacil/Tazobactam 3.375 GM Q8 PREMIX IV ×3 (06:45→21:28)
[2017-12-04] MEDS: Enoxaparin 40 MG/0.4 ML Syringe SC (06:45)
[2017-12-04 06:56] LABS: Anion Gap 10 (5-15); BUN 6 mg/dL (7-18); BUN/Creat Ratio 12.7 RATIO (10-20); Calcium,Total 8.6 mg/dL (8.5-10.1); Chloride 108 mmol/L (98-107); Creatinine, Serum 0.47 mg/dL (0.55-1.02); EST Glomerular Filtration Rate 146 mL/min (>60); Est Glom Filt Rate - Afr Amer 177 mL/min (>60); Estimated Creatinine Clearance 124.56 ml/min; Glucose 155 mg/dL (74-106); Potassium 4.3 mmol/L (3.5-5.1); Sodium Level 142 mmol/L (136-145)
[2017-12-04] MEDS: Ipratropium/Albuterol Sulfate 3 ML AMPUL.NEB INHALATION ×3 (09:25→19:35)
[2017-12-04] MEDS: Amitriptyline 25 MG Tablet PO ×2 (10:56→21:33)
[2017-12-04] MEDS: oxyCODONE 5 MG Tablet PO ×2 (10:56→17:09)
[2017-12-04] MEDS: Clopidogrel Bisulfate 75 MG Tablet PO (10:57)
[2017-12-04] MEDS: buPROPion (XL) 300 MG TABLET.XL PO (10:57)
[2017-12-04] MEDS: Venlafaxine XR 150 MG Capsule PO (10:57)
[2017-12-04 11:20] LABS: Allen Test POS; Base Excess -2 mmol/L (-2 to +2); Bicarbonate 22.5 mmol/L (22-26); Blood Gas Specimen Type ART; O2 Delivery Device Nasal Can; PO2 53 mmHG (75-100); SITE R Radial; SO2 88 % (95-99); Time Given 820; Total Carbon Dioxide 24 mmol/L; pCO2 35.3 mmHg (35-45); pH 7.41 (7.35-7.45)
[2017-12-04] MEDS: Insulin Lispro 100 UNIT/ML INSULN.PEN SC ×3 (12:26→21:42)
[2017-12-04 12:40] LABS: Bedside Glucose 294 mg/dL (70-110)
--- NOTE | 2017-12-04 12:49 | CHAPLAIN ---
Type of Pastoral Visit ___ Initial Visit _x__ Follow-up Visit ___ On-call Visit ___ General Patient Visit ___ Spiritual Assessment ___ Family Conference ___ Bereavement ___ Rapid Response ___ Code Blue ___ Other (describe below) Pastoral Care Referral From _x__ Patient ___ Family ___ Nurse ___ Physician ___ Entry Level Receptionist ___ Computer Systems Integrator ___ Other (describe below) Sacrament/Intervention _x__ Active listening ___ Anointing ___ Anabaptist ___ Bereavement ___ Communion _x__ Brenda exploration ___ _x__ Life review _x__ Prayer ___ Reconciliation ___ Sacrament of Sick ___ Supportive presence ___ Wedding ___ Other (describe below) Pastoral Comments patient recounts how many times she has come to near and survived; pt considers herself a miracle; pt states that she does not fear nor have these past experiences frightened her due to the brenda she has in God; pt has no new requests but to give thanks to God
--- NOTE | 2017-12-04 12:55 | PCM.PROGNOTE ---
Subjective: Patient was seen and examined. Reports overall breathing quality is better. She just feels fatigued. Denies any cough or sputum production. Still having some dyspnea on exertion. Also complains of some intermittent, mild nausea. Objective: Recent lab and culture data reviewed. No leukocytosis, hemoglobin is stable. Vital signs reviewed, stable. Patient remains afebrile. Clinical Impression(s) from Imaging Studies Chest X-Ray 11/23/17 14:30 IMPRESSION: Diffuse bilateral airspace disease suggestive of pulmonary edema. Electronically Signed: Yousuf Vila MD at 15:19 EDT Tel [phone], Service support , Chest CTA 11/23/17 14:39 IMPRESSION: Diffuse bilateral airspace disease. There is no evidence of pulmonary embolism. Electronically Signed: Yousuf Vila MD at 15:57 EDT Tel [phone], Service support , Chest X-Ray 11/25/17 07:10 IMPRESSION: Mild improved aeration. Mild pulmonary edema/congestion. Electronically Signed: Gareth Streeter DO at 7:50 EDT , Service support , Chest X-Ray 11/28/17 08:15 IMPRESSION: Stable borderline cardiomegaly with low volume inspiration and diffuse interstitial pattern. No significant new or acute pathology. Electronically Signed: Ede Tomas MD at 11:49 EDT , Service support , Chest CTA 11/29/17 10:30 IMPRESSION: No demonstrated pulmonary embolism or arterial dissection. Diffuse groundglass opacities and airspace opacities are seen in both lungs more prominent in lung bases are worse since the previous study may represent bilateral pneumonia or ARDS. Electronically Signed: Pancho Soliz MD at 7:05 EDT Tel , Service support , - Physical Exam General: Alert, Oriented x3, Cooperative, No apparent distress, Well developed, Well nourished, - - Obese HEENT: Atraumatic, Normocephalic Oral: Moist Mucosa, No Gingival or Mucosal Lesions/ Ulcerations Neck: Supple, No JVD, No Nodes, Trachea Midline Lungs: No rhonchi, No wheeze, No rales, Diminished, - - Check expansion, no dullness to percussion Cardiovascular: Regular rate, Regular Rhythm, Normal S1, Normal S2, No murmurs, No rub noted, No Gallop Abdomen: Bowel Sounds Present, Soft, Non Tender, Non-Distended, Passing Flatus, Obese Extremities: No clubbing, No cyanosis, No edema Skin: No rashes, No breakdown Musculoskeletal: No Tenderness to Palpation of Joints or Extremities Lymphatic: No Cervical, Supraclavicular, or Inguinal Adenopathy Neurological: Cranial nerves II-XII grossly intact, Neuro grossly intact, Motor Exam 5/5 strength throughout Psych/Mental Status: Alert and oriented to time, place, person, mood and affect Vital Signs Temp Pulse Resp BP Pulse Ox 98.0 F 88 20 H 120/51 L 96 12/04/17 10:21 12/04/17 10:21 12/04/17 10:21 12/04/17 10:21 12/04/17 10:21 Oxygen Flow Rate (L/min) 8 Oxygen Delivery Method Nasal Cannula Weight: 164 lb 10.965 oz Body Mass Index (BMI) 29.9 Laboratory Tests Past 24 Hrs 11/28/17 11/28/17 11/30/17 04:30 08:25 04:30 WBC RBC Hgb Hct MCV MCH MCHC RDW RDW Differential Plt Count MPV Specimen Type ART Sample Site R Radial pH 7.41 Bicarbonate Actual 22.5 POC Total CO2 24 Base Excess -2 O2 Saturation 88 L ABG pCO2 35.3 ABG pO2 53 L Marko Test POS O2 Delivery Device Nasal Can Liter Flow 12.0 Blood Gas Notified Whom ICU MD Blood Gas Notified Time 820 Sodium 141 Potassium 4.4 Chloride 107 Carbon Dioxide 25.0 Anion Gap 9 BUN 9 Creatinine 0.46 L Estim Creat Clear Calc 127.27 Est GFR (MDRD) Af Amer 183 Est GFR (MDRD) Non-Af 151 BUN/Creatinine Ratio 19.6 Glucose 182 H Calcium 8.5 Phosphorus Magnesium 1.2 L 1.6 Cortisol 12/01/17 12/01/17 12/04/17 05:00 08:30 05:35 WBC 10.0 RBC 3.90 L Hgb 10.2 L Hct 32.0 L MCV 82.1 MCH 26.2 L MCHC 31.9 L RDW 19.8 H RDW Differential 57.7 H Plt Count 213 MPV 10.3 Specimen Type Sample Site pH Bicarbonate Actual POC Total CO2 Base Excess O2 Saturation ABG pCO2 ABG pO2 Marko Test O2 Delivery Device Liter Flow Blood Gas Notified Whom Blood Gas Notified Time Sodium Pending Potassium Pending Chloride Pending Carbon Dioxide Pending Anion Gap Pending BUN Pending Creatinine Pending Estim Creat Clear Calc Est GFR (MDRD) Af Amer Pending Est GFR (MDRD) Non-Af Pending BUN/Creatinine Ratio Pending Glucose Pending Calcium Pending Phosphorus Pending Magnesium Pending Cortisol Pending 12/04/17 05:35 WBC RBC Hgb Hct MCV MCH MCHC RDW RDW Differential Plt Count MPV Specimen Type Sample Site pH Bicarbonate Actual POC Total CO2 Base Excess O2 Saturation ABG pCO2 ABG pO2 Marko Test O2 Delivery Device Liter Flow Blood Gas Notified Whom Blood Gas Notified Time Sodium 142 Potassium 4.3 Chloride 108 H Carbon Dioxide 24.0 Anion Gap 10 BUN 6 L Creatinine 0.47 L Estim Creat Clear Calc 124.56 Est GFR (MDRD) Af Amer 177 Est GFR (MDRD) Non-Af 146 BUN/Creatinine Ratio 12.7 Glucose 155 H Calcium 8.6 Phosphorus Magnesium Cortisol POC Glucose 12/04/17 12:20 POC Glucose 294 H Medical Necessity - Tobacco Use Smoking Status: Current every day smoker Tobacco Use: Cigarettes Assessment/Plan All Active Problems (Last Updated 11/23/17 @ 17:15 by Kimberly Patterson MD) Chest discomfort (Resolved) Chronic normocytic anemia (Resolved) RECOMMENDATIONS 1. Wean oxygen supplementation to keep sats greater than 88%, please try to decrease from 8 L today 2. Encourage incentive spirometer/Acapella 3. Increase activity as tolerated, continue PT 4. Continue aerosols, antibiotics, steroids. Lasix has been discontinued, patient appears to be euvolemic 5. Continue CPAP at night and PRN during the day 6. Ambulatory pulse ox prior to discharge 7. Follow-up in the pulmonary clinic 2 weeks from discharge with [employer] IMPRESSIONS 1. Acute hypoxic respiratory failure secondary to multilobar pneumonia and edema Slowly improving. Continue antibiotics, aerosols. Patient still requiring high flow oxygen at 7-8 L, please continue to wean oxygen supplementation to keep saturations greater than 88%. Patient has been desaturating with activity. Continue aggressive pulmonary toileting and increase activity as tolerated. Patient should also wear her CPAP with all sleep, can utilize as needed if indicated. 2. Type 2 diabetes mellitus Anticipate blood sugars improving after discontinuation of steroids. Continue to adjust insulin as indicated. 3. Tobacco abuse/hypertension/depression/anxiety/chronic back pain/CAD/hyperlipidemia [facility] care, management, recovery, and prognosis. Continue home medications per hospitalist recommendations. Would avoid oversedation. Continue to encourage smoking cessation. This note was generated with [employer] dictation software. It may contain incorrect words, spelling, and punctuation that were not noted in checking the note before signing.
--- NOTE | 2017-12-04 13:10 | PN_ITS ---
Subjective: Patient was seen and examined. Reports overall breathing quality is better. She just feels fatigued. Denies any cough or sputum production. Still having some dyspnea on exertion. Also complains of some intermittent, mild nausea. Objective: Recent lab and culture data reviewed. No leukocytosis, hemoglobin is stable. Vital signs reviewed, stable. Patient remains afebrile. Clinical Impression(s) from Imaging Studies Chest X-Ray 11/23/17 14:30 IMPRESSION: Diffuse bilateral airspace disease suggestive of pulmonary edema. Electronically Signed: Yousuf Vila MD at 15:19 EDT Tel [phone], Service support , Chest CTA 11/23/17 14:39 IMPRESSION: Diffuse bilateral airspace disease. There is no evidence of pulmonary embolism. Electronically Signed: Yousuf Vila MD at 15:57 EDT Tel [phone], Service support , Chest X-Ray 11/25/17 07:10 IMPRESSION: Mild improved aeration. Mild pulmonary edema/congestion. Electronically Signed: Gareth Streeter DO at 7:50 EDT , Service support , Chest X-Ray 11/28/17 08:15 IMPRESSION: Stable borderline cardiomegaly with low volume inspiration and diffuse interstitial pattern. No significant new or acute pathology. Electronically Signed: Ede Tomas MD at 11:49 EDT , Service support , Chest CTA 11/29/17 10:30 IMPRESSION: No demonstrated pulmonary embolism or arterial dissection. Diffuse groundglass opacities and airspace opacities are seen in both lungs more prominent in lung bases are worse since the previous study may represent bilateral pneumonia or ARDS. Electronically Signed: Pancho Soliz MD at 7:05 EDT Tel , Service support , - Physical Exam General: Alert, Oriented x3, Cooperative, No apparent distress, Well developed, Well nourished, - - Obese HEENT: Atraumatic, Normocephalic Oral: Moist Mucosa, No Gingival or Mucosal Lesions/ Ulcerations Neck: Supple, No JVD, No Nodes, Trachea Midline Lungs: No rhonchi, No wheeze, No rales, Diminished, - - Check expansion, no dullness to percussion Cardiovascular: Regular rate, Regular Rhythm, Normal S1, Normal S2, No murmurs, No rub noted, No Gallop Abdomen: Bowel Sounds Present, Soft, Non Tender, Non-Distended, Passing Flatus, Obese Extremities: No clubbing, No cyanosis, No edema Skin: No rashes, No breakdown Musculoskeletal: No Tenderness to Palpation of Joints or Extremities Lymphatic: No Cervical, Supraclavicular, or Inguinal Adenopathy Neurological: Cranial nerves II-XII grossly intact, Neuro grossly intact, Motor Exam 5/5 strength throughout Psych/Mental Status: Alert and oriented to time, place, person, mood and affect Vital Signs Temp Pulse Resp BP Pulse Ox 98.0 F 88 20 H 120/51 L 96 12/04/17 10:21 12/04/17 10:21 12/04/17 10:21 12/04/17 10:21 12/04/17 10:21 Oxygen Flow Rate (L/min) 8 Oxygen Delivery Method Nasal Cannula Weight: 164 lb 10.965 oz Body Mass Index (BMI) 29.9 Laboratory Tests Past 24 Hrs 11/28/17 11/28/17 11/30/17 04:30 08:25 04:30 WBC RBC Hgb Hct MCV MCH MCHC RDW RDW Differential Plt Count MPV Specimen Type ART Sample Site R Radial pH 7.41 Bicarbonate Actual 22.5 POC Total CO2 24 Base Excess -2 O2 Saturation 88 L ABG pCO2 35.3 ABG pO2 53 L Marko Test POS O2 Delivery Device Nasal Can Liter Flow 12.0 Blood Gas Notified Whom ICU MD Blood Gas Notified Time 820 Sodium 141 Potassium 4.4 Chloride 107 Carbon Dioxide 25.0 Anion Gap 9 BUN 9 Creatinine 0.46 L Estim Creat Clear Calc 127.27 Est GFR (MDRD) Af Amer 183 Est GFR (MDRD) Non-Af 151 BUN/Creatinine Ratio 19.6 Glucose 182 H Calcium 8.5 Phosphorus Magnesium 1.2 L 1.6 Cortisol 12/01/17 12/01/17 12/04/17 05:00 08:30 05:35 WBC 10.0 RBC 3.90 L Hgb 10.2 L Hct 32.0 L MCV 82.1 MCH 26.2 L MCHC 31.9 L RDW 19.8 H RDW Differential 57.7 H Plt Count 213 MPV 10.3 Specimen Type Sample Site pH Bicarbonate Actual POC Total CO2 Base Excess O2 Saturation ABG pCO2 ABG pO2 Marko Test O2 Delivery Device Liter Flow Blood Gas Notified Whom Blood Gas Notified Time Sodium Pending Potassium Pending Chloride Pending Carbon Dioxide Pending Anion Gap Pending BUN Pending Creatinine Pending Estim Creat Clear Calc Est GFR (MDRD) Af Amer Pending Est GFR (MDRD) Non-Af Pending BUN/Creatinine Ratio Pending Glucose Pending Calcium Pending Phosphorus Pending Magnesium Pending Cortisol Pending 12/04/17 05:35 WBC RBC Hgb Hct MCV MCH MCHC RDW RDW Differential Plt Count MPV Specimen Type Sample Site pH Bicarbonate Actual POC Total CO2 Base Excess O2 Saturation ABG pCO2 ABG pO2 Marko Test O2 Delivery Device Liter Flow Blood Gas Notified Whom Blood Gas Notified Time Sodium 142 Potassium 4.3 Chloride 108 H Carbon Dioxide 24.0 Anion Gap 10 BUN 6 L Creatinine 0.47 L Estim Creat Clear Calc 124.56 Est GFR (MDRD) Af Amer 177 Est GFR (MDRD) Non-Af 146 BUN/Creatinine Ratio 12.7 Glucose 155 H Calcium 8.6 Phosphorus Magnesium Cortisol POC Glucose 12/04/17 12:20 POC Glucose 294 H Medical Necessity - Tobacco Use Smoking Status: Current every day smoker Tobacco Use: Cigarettes Assessment/Plan All Active Problems (Last Updated 11/23/17 @ 17:15 by Kimberly Patterson MD) Chest discomfort (Resolved) Chronic normocytic anemia (Resolved) RECOMMENDATIONS 1. Wean oxygen supplementation to keep sats greater than 88%, please try to decrease from 8 L today 2. Encourage incentive spirometer/Acapella 3. Increase activity as tolerated, continue PT 4. Continue aerosols, antibiotics, steroids. Lasix has been discontinued, patient appears to be euvolemic 5. Continue CPAP at night and PRN during the day 6. Ambulatory pulse ox prior to discharge 7. Follow-up in the pulmonary clinic 2 weeks from discharge with [employer] IMPRESSIONS 1. Acute hypoxic respiratory failure secondary to multilobar pneumonia and edema Slowly improving. Continue antibiotics, aerosols. Patient still requiring high flow oxygen at 7-8 L, please continue to wean oxygen supplementation to keep saturations greater than 88%. Patient has been desaturating with activity. Continue aggressive pulmonary toileting and increase activity as tolerated. Patient should also wear her CPAP with all sleep, can utilize as needed if indicated. 2. Type 2 diabetes mellitus Anticipate blood sugars improving after discontinuation of steroids. Continue to adjust insulin as indicated. 3. Tobacco abuse/hypertension/depression/anxiety/chronic back pain/CAD/ hyperlipidemia [facility] care, management, recovery, and prognosis. Continue home medications per hospitalist recommendations. Would avoid oversedation. Continue to encourage smoking cessation. This note was generated with [employer] dictation software. It may contain incorrect words, spelling, and punctuation that were not noted in checking the note before signing.
[2017-12-04] MEDS: 0.9% NaCl Peripheral Flush Adult/Peds IV (13:12)
[2017-12-04] MEDS: Pregabalin 75 MG Capsule 300 MG PO ×2 (14:15→21:40)
--- NOTE | 2017-12-04 14:56 | PCM.PROGNOTE ---
<Delphine Howard - Last Filed: 12/04/17 15:15> Subjective: Patient seen and examined. Drowsy this morning. Denies shortness of breath. Denies cough, fever, chills. She has not been out of bed yet this morning. Encouraged getting into chair for breakfast and ambulation throughout today. - Physical Exam General: Oriented x3, Cooperative, - - Drowsy HEENT: Atraumatic, PERRLA, EOMI, Normocephalic Neck: Supple, No JVD, Negative Carotid Bruits Lungs: Clear to auscultation, Diminished Cardiovascular: Regular rate, Regular Rhythm, Normal S1, Normal S2, No murmurs Abdomen: Bowel Sounds Present, Soft, Non Tender, Non-Distended, Obese Extremities: No clubbing, No cyanosis, No edema, Capillary Refill Less than 3 Seconds Skin: No rashes, No breakdown Musculoskeletal: No Tenderness to Palpation of Joints or Extremities Neurological: Cranial nerves II-XII grossly intact, Neuro grossly intact Psych/Mental Status: Normal Affect, Appropriate Vital Signs Temp Pulse Resp BP Pulse Ox 98.0 F 86 20 H 120/51 L 98 12/04/17 10:21 12/04/17 13:38 12/04/17 13:38 12/04/17 10:21 12/04/17 13:14 Oxygen Flow Rate (L/min) 7 Oxygen Delivery Method Nasal Cannula Weight: 74.7 kg Body Mass Index (BMI) 29.9 Laboratory Tests Past 24 Hrs 11/28/17 11/28/17 11/30/17 04:30 08:25 04:30 WBC RBC Hgb Hct MCV MCH MCHC RDW RDW Differential Plt Count MPV Specimen Type ART Sample Site R Radial pH 7.41 Bicarbonate Actual 22.5 POC Total CO2 24 Base Excess -2 O2 Saturation 88 L ABG pCO2 35.3 ABG pO2 53 L Marko Test POS O2 Delivery Device Nasal Can Liter Flow 12.0 Blood Gas Notified Whom ICU Blood Gas Notified Time 820 Sodium 141 Potassium 4.4 Chloride 107 Carbon Dioxide 25.0 Anion Gap 9 BUN 9 Creatinine 0.46 L Estim Creat Clear Calc 127.27 Est GFR (MDRD) Af Amer 183 Est GFR (MDRD) Non-Af 151 BUN/Creatinine Ratio 19.6 Glucose 182 H Calcium 8.5 Phosphorus Magnesium 1.2 L 1.6 Cortisol 12/01/17 12/01/17 12/04/17 05:00 08:30 05:35 WBC 10.0 RBC 3.90 L Hgb 10.2 L Hct 32.0 L MCV 82.1 MCH 26.2 L MCHC 31.9 L RDW 19.8 H RDW Differential 57.7 H Plt Count 213 MPV 10.3 Specimen Type Sample Site pH Bicarbonate Actual POC Total CO2 Base Excess O2 Saturation ABG pCO2 ABG pO2 Marko Test O2 Delivery Device Liter Flow Blood Gas Notified Whom Blood Gas Notified Time Sodium Pending Potassium Pending Chloride Pending Carbon Dioxide Pending Anion Gap Pending BUN Pending Creatinine Pending Estim Creat Clear Calc Est GFR (MDRD) Af Amer Pending Est GFR (MDRD) Non-Af Pending BUN/Creatinine Ratio Pending Glucose Pending Calcium Pending Phosphorus Pending Magnesium Pending Cortisol Pending 12/04/17 05:35 WBC RBC Hgb Hct MCV MCH MCHC RDW RDW Differential Plt Count MPV Specimen Type Sample Site pH Bicarbonate Actual POC Total CO2 Base Excess O2 Saturation ABG pCO2 ABG pO2 Marko Test O2 Delivery Device Liter Flow Blood Gas Notified Whom Blood Gas Notified Time Sodium 142 Potassium 4.3 Chloride 108 H Carbon Dioxide 24.0 Anion Gap 10 BUN 6 L Creatinine 0.47 L Estim Creat Clear Calc 124.56 Est GFR (MDRD) Af Amer 177 Est GFR (MDRD) Non-Af 146 BUN/Creatinine Ratio 12.7 Glucose 155 H Calcium 8.6 Phosphorus Magnesium Cortisol POC Glucose 12/04/17 12:20 POC Glucose 294 H Medical Necessity - Tobacco Use Smoking Status: Current every day smoker Tobacco Use: Cigarettes Assessment/Plan All Active Problems (Last Updated 11/23/17 @ 17:15 by Kimberly Patterson MD) Chest discomfort (Resolved) Chronic normocytic anemia (Resolved) Patient is a 52-year-old female admitted 11/23/2017 due to shortness of breath. She has a history of CAD status post CABG and stents, type 2 diabetes mellitus, ischemic cardiomyopathy, hypertension, hyperlipidemia, Monmouth's disease, depression, anxiety, tobacco abuse, obstructive sleep apnea, chronic back pain. 1. Acute hypoxic respiratory failure-secondary to multilobar pneumonia and acute on chronic diastolic and systolic CHF. Continue IV vancomycin and IV Zosyn. ID following. Antibiotics can be discontinued at discharge per ID. Continue supplemental oxygen to maintain O2 at or above 90%. Encourage ambulation and incentive spirometry. CPAP at bedtime and with naps. 2. Multilobar community-acquired pneumonia-see above. 3. Acute on chronic diastolic CHF-echocardiogram December 2016 showed an ejection fraction of 50%. Repeat echocardiogram this admission shows an EF of 50%. IV Lasix has been discontinued. Continue Coreg, lisinopril, eplerenone. 4. CAD status post CABG and stents-troponin negative, EKG negative. Continue aspirin, Plavix, Coreg, lisinopril. 5. Type 2 diabetes [id number] before meals at bedtime with sliding scale insulin. Patient has insulin pump. 6. Hypertension-stable. 7. Hyperlipidemia- continue statin. 8. Obstructive sleep apnea-continue sleep 9. Chronic back pain-continue oxyir PRN and lyrica. 10. Depression/anxiety-continue home regimen. 12. Tobacco dependence-encourage smoking cessation. DC [id number] pending to TCU. Stable for discharge tomorrow if able to wean oxygen. DVT prophylaxis-Lovenox subcu. This patient was seen by DALJIT Knutson under the supervision of Dr. Gates. <Rod Gates - Last Filed: 12/04/17 16:27> Subjective: Seen and examined. Agree with the above documentation - Physical Exam Lungs: Diminished, - - On 6 L of oxygen Vital Signs Temp Pulse Resp BP Pulse Ox 98.1 F 78 16 121/59 H 99 12/04/17 15:31 12/04/17 15:31 12/04/17 15:31 12/04/17 15:31 12/04/17 15:31 Oxygen Flow Rate (L/min) 7 Oxygen Delivery Method Nasal Cannula Weight: 164 lb 10.965 oz Body Mass Index (BMI) 29.9 Laboratory Tests Past 24 Hrs 11/28/17 11/28/17 11/30/17 04:30 08:25 04:30 WBC RBC Hgb Hct MCV MCH MCHC RDW RDW Differential Plt Count MPV Specimen Type ART Sample Site R Radial pH 7.41 Bicarbonate Actual 22.5 POC Total CO2 24 Base Excess -2 O2 Saturation 88 L ABG pCO2 35.3 ABG pO2 53 L Marko Test POS O2 Delivery Device Nasal Can Liter Flow 12.0 Blood Gas Notified Whom ICU MD Blood Gas Notified Time 820 Sodium 141 Potassium 4.4 Chloride 107 Carbon Dioxide 25.0 Anion Gap 9 BUN 9 Creatinine 0.46 L Estim Creat Clear Calc 127.27 Est GFR (MDRD) Af Amer 183 Est GFR (MDRD) Non-Af 151 BUN/Creatinine Ratio 19.6 Glucose 182 H Calcium 8.5 Phosphorus Magnesium 1.2 L 1.6 Cortisol 11/30/17 12/01/17 12/01/17 08:21 05:00 08:30 WBC RBC Hgb Hct MCV MCH MCHC RDW RDW Differential Plt Count MPV Specimen Type GURJIT Sample Site R Radial pH 7.40 Bicarbonate Actual 21.9 L POC Total CO2 23 Base Excess -3 L O2 Saturation 96 ABG pCO2 35.2 ABG pO2 79 Marko Test NA O2 Delivery Device NRB Mask Liter Flow 15.0 Blood Gas Notified Whom ICU MD Blood Gas Notified Time 820 Sodium Pending Potassium Pending Chloride Pending Carbon Dioxide Pending Anion Gap Pending BUN Pending Creatinine Pending Estim Creat Clear Calc Est GFR (MDRD) Af Amer Pending Est GFR (MDRD) Non-Af Pending BUN/Creatinine Ratio Pending Glucose Pending Calcium Pending Phosphorus Pending Magnesium Pending Cortisol Pending 12/04/17 12/04/17 05:35 05:35 WBC 10.0 RBC 3.90 L Hgb 10.2 L Hct 32.0 L MCV 82.1 MCH 26.2 L MCHC 31.9 L RDW 19.8 H RDW Differential 57.7 H Plt Count 213 MPV 10.3 Specimen Type Sample Site pH Bicarbonate Actual POC Total CO2 Base Excess O2 Saturation ABG pCO2 ABG pO2 Marko Test O2 Delivery Device Liter Flow Blood Gas Notified Whom Blood Gas Notified Time Sodium 142 Potassium 4.3 Chloride 108 H Carbon Dioxide 24.0 Anion Gap 10 BUN 6 L Creatinine 0.47 L Estim Creat Clear Calc 124.56 Est GFR (MDRD) Af Amer 177 Est GFR (MDRD) Non-Af 146 BUN/Creatinine Ratio 12.7 Glucose 155 H Calcium 8.6 Phosphorus Magnesium Cortisol POC Glucose 12/04/17 12:20 POC Glucose 294 H Assessment/Plan This patient was seen in conjunction with SUPERINTENDENT SYSTEM OPERATIONDelphine. I have independently interviewed and examined the patient and reviewed pertinent history, examination findings, laboratory and plan of management. I have reviewed the note and agree with the documented findings with the few additional points. In brief, patient is admitted for acute hypoxic respiratory failure secondary to multifocal/multilobar pneumonia with acute on chronic diastolic and systolic heart failure. ID advised to discontinue antibiotic as she completed antibiotic treatment. Waiting for precertification for discharge to TCU I have discussed my assessment with Delphine BANKS and orders have been reviewed. Code Visit Inpatient E&M: 29780 Subs Hosp L3
[2017-12-04 15:00] LABS: Base Excess -3 mmol/L (-2 to +2); Bicarbonate 21.9 mmol/L (22-26); Blood Gas Specimen Type ALINE; O2 Delivery Device NRB Mask; PO2 79 mmHG (75-100); SITE R Radial; SO2 96 % (95-99); Time Given 820; Total Carbon Dioxide 23 mmol/L; pCO2 35.2 mmHg (35-45)
[2017-12-04 17:13] LABS: Hematocrit 29.1 % (37-47); Hemoglobin 9.3 g/dl (12.0-15.0); Mean Corpuscular Hgb 25.8 pg (27.0-32.0); Mean Corpuscular Volume 80.8 fL (81-99); Platelet Count 146 K/mm3 (150-450); RBC Distribution Width CV 19.5 % (11.6-14.6); RBC Distribution Width SD 56.5 fl (35.1-43.9); Scan Indicated on CBC? Y/N NO; White Blood Count 11.3 K/mm3 (4.4-11.0)
[2017-12-04 17:30] LABS: Bedside Glucose 192 mg/dL (70-110)
[2017-12-04 21:08] LABS: CORTISOL SERUM 20.58 ug/dL (3.09-22.40)
[2017-12-04] MEDS: Aspirin 325 MG Tablet PO (21:33)
[2017-12-04] MEDS: Gemfibrozil 600 MG Tablet 1200 MG PO (21:33)
[2017-12-04] MEDS: Pantoprazole Sodium 20 MG Tablet PO (21:35)
[2017-12-04 22:46] LABS: Anion Gap 7 (5-15); BUN 8 mg/dL (7-18); BUN/Creat Ratio 20.5 RATIO (10-20); Calcium,Total 8.3 mg/dL (8.5-10.1); Chloride 110 mmol/L (98-107); Creatinine, Serum 0.39 mg/dL (0.55-1.02); EST Glomerular Filtration Rate 183 mL/min (>60); Est Glom Filt Rate - Afr Amer 222 mL/min (>60); Estimated Creatinine Clearance 150.11 ml/min; Glucose 82 mg/dL (74-106); Magnesium 1.6 mg/dL (1.6-2.6); Phosphorus 3.1 mg/dL (2.5-4.9); Sodium Level 143 mmol/L (136-145)
[2017-12-04 23:00] LABS: Bedside Glucose 248 mg/dL (70-110)
[2017-12-05] VITALS (7 sets, daily range): BP systolic 118–120; BP diastolic 61–70; PULSE 78–93; RESP 14–18; TEMP 36.3–36.7; O2SAT 89–100
[2017-12-05] MEDS: Ipratropium/Albuterol Sulfate 3 ML AMPUL.NEB INHALATION (01:34)
--- NOTE | 2017-12-05 04:34 | CPS ---
decreased Fio2 to 40%
[2017-12-05] MEDS: Piperacil/Tazobactam 3.375 GM Q8 PREMIX IV (05:09)
[2017-12-05] MEDS: Magnesium Oxide 400 MG Tablet PO (05:11)
[2017-12-05] MEDS: Enoxaparin 40 MG/0.4 ML Syringe SC (05:11)
[2017-12-05] MEDS: oxyCODONE 5 MG Tablet PO ×2 (05:18→11:25)
[2017-12-05 07:00] LABS: Bedside Glucose 302 mg/dL (70-110)
--- NOTE | 2017-12-05 08:18 | PCM.PROGNOTE ---
Patient Problems: Active and Suspected Problems (Last Updated 11/23/17 @ 17:15 by Kimberly Patterson MD) Acute on chronic respiratory failure with hypoxia (Acute) Bilateral pneumonia (Acute) Subjective: The patient was seen and examined. She is sitting up in the chair in no acute distress, reports significant subjective improvement today. Nausea has resolved. She has been weaned from 8 L to2 L per nasal cannula and saturating at 90-91%. Dyspnea has improved. She has been up ambulating in the room and in the halls. Objective: Recent lab and culture data reviewed. VSS, afebrile and hemodynamically stable. Has been weaned to 2L and saturating low 90's. Urine culture showed enterococcus faecalis, alpha hemolytic organism. Blood culture showing no growth in 5 days. Urine strep/Legionella antigens were negative. Viral respiratory panel negative. Echocardiogram 11/24/17: The estimated ejection fraction is 50 %. Normal diastology for age. There are regional wall motion abnormalities as specified. Unable to estimate RVSP due to technically difficult study. Possible small left pleural effusion. Compared to echo report dated 08/13/2014, LV function has improved from 40% to 50%. - Physical Exam General: Alert, Oriented x3, Cooperative, No apparent distress, Well developed, Well nourished HEENT: Atraumatic, Normocephalic Oral: Moist Mucosa Neck: Supple, No Nodes, Trachea Midline Lungs: No rhonchi, No wheeze, No rales, Diminished, - - Symmetric expansion, no dullness to percussion Cardiovascular: Regular rate, Regular Rhythm, Normal S1, Normal S2, No murmurs, No rub noted, No Gallop Abdomen: Bowel Sounds Present, Soft, Non Tender, Non-Distended, Obese Extremities: No clubbing, No cyanosis, No edema Skin: No rashes, No breakdown Musculoskeletal: No Tenderness to Palpation of Joints or Extremities Neurological: Cranial nerves II-XII grossly intact, Neuro grossly intact, Motor Exam 5/5 strength throughout Psych/Mental Status: Alert and oriented to time, place, person, mood and affect Vital Signs Temp Pulse Resp BP Pulse Ox 97.3 F L 85 15 120/70 98 12/05/17 02:20 12/05/17 08:00 12/05/17 04:18 12/05/17 02:20 12/05/17 07:44 Oxygen Flow Rate (L/min) 4 Oxygen Delivery Method Nasal Cannula Weight: 170 lb 10.205 oz Body Mass Index (BMI) 29.9 Intake and Output for Last 24 Hours 12/03/17 12/04/17 12/05/17 23:59 23:59 23:59 Intake Total 2885 / 2885 1072 / 1072 Output Total 1550 / 1550 2150 / 2150 Balance 1335 / 1335 -1078 / -1078 Laboratory Tests Past 24 Hrs 11/28/17 11/30/17 12/01/17 08:25 08:21 05:00 WBC RBC Hgb Hct MCV MCH MCHC RDW RDW Differential Plt Count MPV Specimen Type ART [place] Sample Site R Radial R Radial pH 7.41 7.40 Bicarbonate Actual 22.5 21.9 L POC Total CO2 24 23 Base Excess -2 -3 L O2 Saturation 88 L 96 ABG pCO2 35.3 35.2 ABG pO2 53 L 79 Marko Test POS NA O2 Delivery Device Nasal Can NRB Mask Liter Flow 12.0 15.0 Blood Gas Notified Whom ICU MD ICU MD Blood Gas Notified Time 820 820 Sodium 143 Potassium 4.0 Chloride 110 H Carbon Dioxide 26.0 Anion Gap 7 BUN 8 Creatinine 0.39 L Estim Creat Clear Calc 150.11 Est GFR (MDRD) Af Amer 222 Est GFR (MDRD) Non-Af 183 BUN/Creatinine Ratio 20.5 H Glucose 82 Calcium 8.3 L Phosphorus 3.1 Magnesium 1.6 Cortisol 12/01/17 12/01/17 08:30 Unknown WBC 11.3 H RBC 3.60 L Hgb 9.3 L Hct 29.1 L MCV 80.8 L MCH 25.8 L MCHC 32.0 RDW 19.5 H RDW Differential 56.5 H Plt Count 146 L MPV 10.0 Specimen Type Sample Site pH Bicarbonate Actual POC Total CO2 Base Excess O2 Saturation ABG pCO2 ABG pO2 Marko Test O2 Delivery Device Liter Flow Blood Gas Notified Whom Blood Gas Notified Time Sodium Potassium Chloride Carbon Dioxide Anion Gap BUN Creatinine Estim Creat Clear Calc Est GFR (MDRD) Af Amer Est GFR (MDRD) Non-Af BUN/Creatinine Ratio Glucose Calcium Phosphorus Magnesium Cortisol 20.58 POC Glucose 12/05/17 12/04/17 12/04/17 06:47 21:22 17:08 POC Glucose 302 H 248 H 192 H 12/04/17 12:20 POC Glucose 294 H Medical Necessity - Tobacco Use Smoking Status: Current every day smoker Tobacco Use: Cigarettes Assessment/Plan All Active Problems (Last Updated 11/23/17 @ 17:15 by Kimberly Patterson MD) Acute on chronic respiratory failure with hypoxia (Acute) Bilateral pneumonia (Acute) Chest discomfort (Resolved) Chronic normocytic anemia (Resolved) RECOMMENDATIONS 1. Wean oxygen supplementation to keep saturations greater than 88% 2. Encourage aggressive incentive spirometer/Acapella 3. Increase activity as tolerated, continue PT and encourage ambulation 4. Continue aerosols, antibiotics 5. Continue CPAP at night and PRN during the day 6. Ambulatory pulse ox prior to discharge, ok to discharge patient if saturations can be maintained on 6L or less 7. Follow-up in the pulmonary clinic 2 weeks from discharge with BACK SEWER IMPRESSIONS 1. Acute hypoxic respiratory failure secondary to multilobar pneumonia and edema Slowly improving. Continue antibiotics, aerosols. Weaned 12/05 from 8L to 2L at rest. Continue to wean oxygen supplementation to keep saturations greater than 88%. Patient has been desaturating with activity, will check ambulatory pulse oximetry. Continue aggressive pulmonary toileting and increase activity as tolerated. Patient should also wear her CPAP with all sleep, can utilize as needed if indicated. Likely untreated sleep apnea with desaturations, last sleep study 08/09/17 but issues with noncompliance? 2. Type 2 diabetes mellitus Anticipate blood sugars improving after discontinuation of steroids. Continue to adjust insulin as indicated. 3. Tobacco abuse/hypertension/depression/anxiety/chronic back pain/CAD/hyperlipidemia Complicates care, management, recovery, and prognosis. Continue home medications per hospitalist recommendations. Would avoid oversedation. Continue to encourage smoking cessation. Plan for rehab at TCU upon d/c when medically stable, okay to d/c from pulmonary perspective at this time. This note was generated with [employer] dictation software. It may contain incorrect words, spelling, and punctuation that were not noted in checking the note before signing.
[2017-12-05] MEDS: Insulin Lispro 100 UNIT/ML INSULN.PEN SC ×2 (08:20→11:27)
[2017-12-05] MEDS: buPROPion (XL) 300 MG TABLET.XL PO (08:21)
[2017-12-05] MEDS: Clopidogrel Bisulfate 75 MG Tablet PO (08:22)
[2017-12-05] MEDS: Senna Tablet 1 TABLET PO (08:22)
[2017-12-05] MEDS: Amitriptyline 25 MG Tablet PO (08:23)
[2017-12-05] MEDS: Venlafaxine XR 150 MG Capsule PO (08:23)
--- NOTE | 2017-12-05 08:25 | PN_ITS ---
Patient Problems: Active and Suspected Problems (Last Updated 11/23/17 @ 17:15 by Kimberly Patterson MD) Acute on chronic respiratory failure with hypoxia (Acute) Bilateral pneumonia (Acute) Subjective: The patient was seen and examined. She is sitting up in the chair in no acute distress, reports significant subjective improvement today. Nausea has resolved. She has been weaned from 8 L to2 L per nasal cannula and saturating at 90-91%. Dyspnea has improved. She has been up ambulating in the room and in the halls. Objective: Recent lab and culture data reviewed. VSS, afebrile and hemodynamically stable. Has been weaned to 2L and saturating low 90's. Urine culture showed enterococcus faecalis, alpha hemolytic organism. Blood culture showing no growth in 5 days. Urine strep/Legionella antigens were negative. Viral respiratory panel negative. Echocardiogram 11/24/17: The estimated ejection fraction is 50 %. Normal diastology for age. There are regional wall motion abnormalities as specified. Unable to estimate RVSP due to technically difficult study. Possible small left pleural effusion. Compared to echo report dated 08/13/2014, LV function has improved from 40% to 50 %. - Physical Exam General: Alert, Oriented x3, Cooperative, No apparent distress, Well developed, Well nourished HEENT: Atraumatic, Normocephalic Oral: Moist Mucosa Neck: Supple, No Nodes, Trachea Midline Lungs: No rhonchi, No wheeze, No rales, Diminished, - - Symmetric expansion, no dullness to percussion Cardiovascular: Regular rate, Regular Rhythm, Normal S1, Normal S2, No murmurs, No rub noted, No Gallop Abdomen: Bowel Sounds Present, Soft, Non Tender, Non-Distended, Obese Extremities: No clubbing, No cyanosis, No edema Skin: No rashes, No breakdown Musculoskeletal: No Tenderness to Palpation of Joints or Extremities Neurological: Cranial nerves II-XII grossly intact, Neuro grossly intact, Motor Exam 5/5 strength throughout Psych/Mental Status: Alert and oriented to time, place, person, mood and affect Vital Signs Temp Pulse Resp BP Pulse Ox 97.3 F L 85 15 120/70 98 12/05/17 02:20 12/05/17 08:00 12/05/17 04:18 12/05/17 02:20 12/05/17 07:44 Oxygen Flow Rate (L/min) 4 Oxygen Delivery Method Nasal Cannula Weight: 170 lb 10.205 oz Body Mass Index (BMI) 29.9 Intake and Output for Last 24 Hours 12/03/17 12/04/17 12/05/17 23:59 23:59 23:59 Intake Total 2885 / 2885 1072 / 1072 Output Total 1550 / 1550 2150 / 2150 Balance 1335 / 1335 -1078 / -1078 Laboratory Tests Past 24 Hrs 11/28/17 11/30/17 12/01/17 08:25 08:21 05:00 WBC RBC Hgb Hct MCV MCH MCHC RDW RDW Differential Plt Count MPV Specimen Type ART [place] Sample Site R Radial R Radial pH 7.41 7.40 Bicarbonate Actual 22.5 21.9 L POC Total CO2 24 23 Base Excess -2 -3 L O2 Saturation 88 L 96 ABG pCO2 35.3 35.2 ABG pO2 53 L 79 Marko Test POS NA O2 Delivery Device Nasal Can NRB Mask Liter Flow 12.0 15.0 Blood Gas Notified Whom ICU MD ICU MD Blood Gas Notified Time 820 820 Sodium 143 Potassium 4.0 Chloride 110 H Carbon Dioxide 26.0 Anion Gap 7 BUN 8 Creatinine 0.39 L Estim Creat Clear Calc 150.11 Est GFR (MDRD) Af Amer 222 Est GFR (MDRD) Non-Af 183 BUN/Creatinine Ratio 20.5 H Glucose 82 Calcium 8.3 L Phosphorus 3.1 Magnesium 1.6 Cortisol 12/01/17 12/01/17 08:30 Unknown WBC 11.3 H RBC 3.60 L Hgb 9.3 L Hct 29.1 L MCV 80.8 L MCH 25.8 L MCHC 32.0 RDW 19.5 H RDW Differential 56.5 H Plt Count 146 L MPV 10.0 Specimen Type Sample Site pH Bicarbonate Actual POC Total CO2 Base Excess O2 Saturation ABG pCO2 ABG pO2 Marko Test O2 Delivery Device Liter Flow Blood Gas Notified Whom Blood Gas Notified Time Sodium Potassium Chloride Carbon Dioxide Anion Gap BUN Creatinine Estim Creat Clear Calc Est GFR (MDRD) Af Amer Est GFR (MDRD) Non-Af BUN/Creatinine Ratio Glucose Calcium Phosphorus Magnesium Cortisol 20.58 POC Glucose 12/05/17 12/04/17 12/04/17 06:47 21:22 17:08 POC Glucose 302 H 248 H 192 H 12/04/17 12:20 POC Glucose 294 H Medical Necessity - Tobacco Use Smoking Status: Current every day smoker Tobacco Use: Cigarettes Assessment/Plan All Active Problems (Last Updated 11/23/17 @ 17:15 by Kimberly Patterson MD) Acute on chronic respiratory failure with hypoxia (Acute) Bilateral pneumonia (Acute) Chest discomfort (Resolved) Chronic normocytic anemia (Resolved) RECOMMENDATIONS 1. Wean oxygen supplementation to keep saturations greater than 88% 2. Encourage aggressive incentive spirometer/Acapella 3. Increase activity as tolerated, continue PT and encourage ambulation 4. Continue aerosols, antibiotics 5. Continue CPAP at night and PRN during the day 6. Ambulatory pulse ox prior to discharge, ok to discharge patient if saturations can be maintained on 6L or less 7. Follow-up in the pulmonary clinic 2 weeks from discharge with DESIGN ENGINEERING TECHNICIAN IMPRESSIONS 1. Acute hypoxic respiratory failure secondary to multilobar pneumonia and edema Slowly improving. Continue antibiotics, aerosols. Weaned 12/05 from 8L to 2L at rest. Continue to wean oxygen supplementation to keep saturations greater than 88%. Patient has been desaturating with activity, will check ambulatory pulse oximetry. Continue aggressive pulmonary toileting and increase activity as tolerated. Patient should also wear her CPAP with all sleep, can utilize as needed if indicated. Likely untreated sleep apnea with desaturations, last sleep study 08/09/17 but issues with noncompliance? 2. Type 2 diabetes mellitus Anticipate blood sugars improving after discontinuation of steroids. Continue to adjust insulin as indicated. 3. Tobacco abuse/hypertension/depression/anxiety/chronic back pain/CAD/ hyperlipidemia Complicates care, management, recovery, and prognosis. Continue home medications per hospitalist recommendations. Would avoid oversedation. Continue to encourage smoking cessation. Plan for rehab at TCU upon d/c when medically stable, okay to d/c from pulmonary perspective at this time. This note was generated with [employer] dictation software. It may contain incorrect words, spelling, and punctuation that were not noted in checking the note before signing.
[2017-12-05] MEDS: Pantoprazole Sodium 20 MG Tablet PO (09:00)
[2017-12-05] MEDS: Pregabalin 75 MG Capsule 300 MG PO (10:05)
[2017-12-05 10:12] LABS: Anion Gap 9 (5-15); BUN 7 mg/dL (7-18); BUN/Creat Ratio 14.6 RATIO (10-20); Calcium,Total 8.8 mg/dL (8.5-10.1); Chloride 107 mmol/L (98-107); Creatinine, Serum 0.48 mg/dL (0.55-1.02); EST Glomerular Filtration Rate 144 mL/min (>60); Est Glom Filt Rate - Afr Amer 175 mL/min (>60); Estimated Creatinine Clearance 121.97 ml/min; Glucose 49 mg/dL (74-106); Potassium 3.6 mmol/L (3.5-5.1); Sodium Level 141 mmol/L (136-145)
--- NOTE | 2017-12-05 10:43 | PCM.EXTCARCO ---
- Diet 1800 calorie, ADA diet - Routine Orders/Code Status Enema Type: Fleetz Enema Frequency: Daily PRN Suppository Type: Dulcolax 10mg Suppository Frequency: Daily PRN O2 Liters per Minute: 2-6 O2 Frequency: Continuous Keep PO Greater than or Equal to (%): 90 Routine Lab Work: BMP, - - Q Week Code Status: Full Code - Suggestions for Active Care Change Position every (hours): 2 Times a day to sit in chair: 3 - Therapies Weight Bearing: Full weight bearing Physical Therapy: Eval and Treat Occupational Therapy: Eval and Treat - Allergies/Procedures Done in Hospital Allergies/Adverse Reactions: Allergies Udiwihx-Krz-Dzn Reductase Inhibitor Adverse Reaction (Severe, Verified 11/23/17 13:57) Elevated liver enzymes, also Muscle cramps/pain Procedures: 2-D Echocardiogram - Type of Care/Length of Stay Estimated LOS: Convalescent Care Less Than 30 days Type of Care Needed: Skilled Rehab Potential: Good Prognosis: Good - Additional Orders/Day of Discharge H&P will serve as current which was dated: 11/23/17 Day of Discharge: 12/05/17 - Dietary and Speech Recommendations Dietitian Recommendations/Changes: Suggest diet change to 1800 calorie, carbohydrate-controlled, cardiac, low sodium. - Follow Up Care Primary Care Physician: Sanjuana Mckeon DO [Primary Care Provider] - Please follow up with your Primary Care Physician in: 1 Week Please Follow Up With: Daly Webster NP-C When: 2 Weeks
--- NOTE | 2017-12-05 10:47 | PCM.DC.SUM ---
<Delphine Howard - Last Filed: 12/05/17 11:06> Discharge Date and Diagnosis Date of Admission: 11/23/17 Date of Discharge: 12/05/17 - Primary Discharge Diagnosis Active and Suspected Problems (Last Updated 12/05/17 @ 09:17 by Keyla Kapoor DIRECTOR OF RESPIRATORY THERAPY-C) 1. Acute hypoxic respiratory failure secondary to multilobar community-acquired pneumonia and acute on chronic diastolic CHF 2. Multilobar community-acquired pneumonia 3. Acute on chronic diastolic CHF - Secondary Discharge Diagnosis Chronic Problems (Last Updated 12/05/17 @ 09:17 by Keyla Kapoor DIRECTOR OF RESPIRATORY THERAPY-C) Coronary artery disease (Chronic) Status post stents. Atherosclerosis of coronary artery bypass graft without angina pectoris (Chronic) Atherosclerosis of coronary artery of [place] heart without angina pectoris (Chronic) Abnormal chest CT (Chronic) Tobacco abuse (Chronic) HTN (hypertension) (Chronic) Depression with anxiety (Chronic) Diabetes mellitus, type II (Chronic) [place] disease (Chronic) she states she has [place]'s disease BUT, 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 Chronic back pain (Chronic) History of GI bleed (Chronic) S/P CABG x 5 (Chronic ~11/14/07) HINTON-LAD, SVG-D1, SVG-OM1, SVG-OM 2, SVG-PDA 11/16/2007 @ [facility] per Dr. Neela Crum Cardiomyopathy, ischemic (Chronic) 40% EF in 2016 HLD (hyperlipidemia) (Chronic) Diabetic neuropathy (Chronic) Hospital Course and Treatment Imaging Results: Diagnostic Data Chest X-Ray 11/28/17 08:15 IMPRESSION: Stable borderline cardiomegaly with low volume inspiration and diffuse interstitial pattern. No significant new or acute pathology. Electronically Signed: Ede Tomas MD at 11:49 EDT , Service support , Chest CTA 11/29/17 10:30 IMPRESSION: No demonstrated pulmonary embolism or arterial dissection. Diffuse groundglass opacities and airspace opacities are seen in both lungs more prominent in lung bases are worse since the previous study may represent bilateral pneumonia or ARDS. Electronically Signed: Pancho Soliz MD at 7:05 EDT Tel , Service support , Dr. Mayers- Pulmonary Medicine Dr. Bradley- ID Operations: None Procedures: 2-D Echocardiogram Summary of Care Provided: Patient is a 52-year-old female admitted 11/23/2017 due to shortness of breath. She has a history of CAD status post CABG and stents, type 2 diabetes mellitus, ischemic cardiomyopathy, hypertension, hyperlipidemia, [place]'s disease, depression, anxiety, tobacco abuse, obstructive sleep apnea, chronic back pain. 1. Acute hypoxic respiratory failure-secondary to multilobar pneumonia and acute on chronic diastolic and systolic CHF. Patient received IV vancomycin and IV Zosyn. ID following. Antibiotics can be discontinued at discharge per ID. Continue supplemental oxygen to maintain O2 at or above 90%. Encourage ambulation and incentive spirometry. CPAP at bedtime and with naps. Patient remains on supplemental oxygen. She will need walking pulse ox and possible home supplemental oxygen at time of discharge from TCU. Follow-up with pulmonary medicine in 2 weeks. 2. Multilobar community-acquired pneumonia-see above. 3. Acute on chronic diastolic CHF-echocardiogram December 2016 showed an ejection fraction of 50%. Repeat echocardiogram this admission shows an EF of 50%. IV Lasix has been discontinued. Continue Coreg, lisinopril, eplerenone, and home Lasix regimen. 4. CAD status post CABG and stents-troponin negative, EKG negative. Continue aspirin, Plavix, Coreg, lisinopril. 5. Type 2 diabetes [id number] before meals at bedtime with sliding scale insulin. Patient has insulin pump which she states she is not currently using. Patient is to bring in the supplies and begin using home insulin pump. At that time, Levemir and sliding scale regimen can be discontinued at transitional care unit. 6. Hypertension-stable. 7. Hyperlipidemia- continue statin. 8. Obstructive sleep apnea-continue CPAP 9. Chronic back pain-continue home oxyir PRN and lyrica. 10. Depression/anxiety-continue home regimen. 12. Tobacco dependence-encourage smoking cessation. General: Oriented x3, Cooperative HEENT: Atraumatic, PERRLA, EOMI, Normocephalic Neck: Supple, No JVD, Negative Carotid Bruits Lungs: Clear to auscultation, Diminished Cardiovascular: Regular rate, Regular Rhythm, Normal S1, Normal S2, No murmurs Abdomen: Bowel Sounds Present, Soft, Non Tender, Non-Distended, Obese Extremities: No clubbing, No cyanosis, No edema, Capillary Refill Less than 3 Seconds Skin: No rashes, No breakdown Musculoskeletal: No Tenderness to Palpation of Joints or Extremities Neurological: Cranial nerves II-XII grossly intact, Neuro grossly intact Psych/Mental Status: Normal Affect, Appropriate Patient seen and examined prior to discharge. Physical assessment as noted above. Patient stable for discharge to TCU for further rehab. Follow-up with primary care physician in 1 week and pulmonary medicine in 2 weeks. This patient was seen by DALJIT Knutson under the supervision of Dr. Gatse. Home Medications: Medications to take at Discharge Aspirin 325 mg PO QHS 08/12/14 Ergocalciferol [Vitamin D] 50,000 unit PO FR 08/12/14 Lisinopril [Zestril] 2.5 mg PO QHS 08/12/14 Venlafaxine XR [Effexor Xr] 150 mg PO DAILY 08/12/14 buPROPion XL [Wellbutrin Xl] 300 mg PO DAILY 08/12/14 Pregabalin [Lyrica] 300 mg PO BID 07/24/15 Amitriptyline HCl 25 mg PO BID 12/26/16 Carvedilol 25 mg PO BID 12/26/16 Clopidogrel Bisulfate [Plavix] 75 mg PO DAILY 12/26/16 Eplerenone [Inspra] 25 mg PO DAILY 12/26/16 Gemfibrozil [Lopid] 1,200 mg PO QHS 12/26/16 Meclizine HCl [Antivert] 25 mg PO TID PRN PRN 12/26/16 Niacin [Niacin ER] 2,000 mg PO QHS 12/26/16 Ondansetron [Zofran Odt] 4 mg PO Q8H PRN PRN 12/26/16 Oxycodone [Oxyir] 10 mg PO Q6H PRN PRN 12/26/16 Perphenazine 4 mg PO BID 12/26/16 magnesium oxide 400 mg tablet 400 mg PO TID tab 10/16/17 Furosemide [Lasix] 40 mg PO BID@1000,1800 11/23/17 Omeprazole 20 mg PO BID 11/23/17 Albuterol Aerosols [Ventolin Aerosols] 2.5 mg INHALATION Q2H PRN PRN vial.neb. 12/05/17 Albuterol IH (ProAir) [Proair Hfa (SP)Vent Pts] 1 - 2 puff INHALATION Q4H PRN PRN 12/05/17 Insulin Detemir [Levemir FlexPen] 30 units SC BID 12/05/17 Insulin Lispro [Humalog KwikPen] 0 unit SC ACHS 12/05/17 Ipratropium/Albuterol Sulfate [Duoneb] 3 ml INHALATION Q6H.RT 12/05/17 Potassium Chloride [K-Dur] 20 meq PO DAILY 12/05/17 levoFLOXacin tablet [Levaquin tablet] 750 mg PO DAILY 12/05/17 Primary Care Physician: Sanjuana Mckeon DO [Primary Care Provider] - Please follow up with your Primary Care Physician in: 1 Week Please Follow Up With: Daly Webster NP-C When: 2 Weeks [facility] Minutes spent on discharge:: 35 Patient Condition:: Stable Medical Necessity - Tobacco Use Smoking Status: Current every day smoker Tobacco Use: Cigarettes Meaningful Use Info Meaningful Use Diagnoses (Choose all that apply): CHF - CHF MIKO/ARB ordered at discharge?: Yes Documented LVEF (%): 50 <Rod Gates - Last Filed: 12/05/17 16:23> Discharge Date and Diagnosis - Secondary Discharge Diagnosis Chronic Problems (Last Updated 12/05/17 @ 10:57 by DALJIT Knutson) Coronary artery disease (Chronic) Status post stents. Atherosclerosis of coronary artery bypass graft without angina pectoris (Chronic) Atherosclerosis of coronary artery of [place] heart without angina pectoris (Chronic) Abnormal chest CT (Chronic) Tobacco abuse (Chronic) HTN (hypertension) (Chronic) Depression with anxiety (Chronic) Diabetes mellitus, type II (Chronic) [place] disease (Chronic) 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, 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 Chronic back pain (Chronic) History of GI bleed (Chronic) S/P CABG x 5 (Chronic ~11/14/07) HINTON-LAD, SVG-D1, SVG-OM1, SVG-OM 2, SVG-PDA 11/16/2007 @ [facility] per Dr. Neela Crum Cardiomyopathy, ischemic (Chronic) 40% EF in 2016 HLD (hyperlipidemia) (Chronic) Diabetic neuropathy (Chronic) Hospital Course and Treatment Summary of Care Provided: This patient was seen in conjunction with Delphine BANKS. I have independently interviewed and examined the patient and reviewed pertinent history, examination findings, laboratory and plan of management. I have reviewed the note and agree with the documented findings with the few additional points. In brief, patient is admitted for acute hypoxic respiratory failure secondary to multifocal/multilobar pneumonia with acute on chronic diastolic and systolic heart failure. ID advised to discontinue antibiotic as she completed antibiotic treatment. Discharge medication reconciliation done. Discharge follow-up instructions completed. Discharge note I have discussed my assessment with Delphine BANKS and orders have been reviewed. [] Code Visit Inpatient E&M: 49892 Disch Hosp
--- NOTE | 2017-12-05 10:57 | DS.PCM_ITS ---
<Delphine Howard - Last Filed: 12/05/17 11:06> Discharge Date and Diagnosis Date of Admission: 11/23/17 Date of Discharge: 12/05/17 - Primary Discharge Diagnosis Active and Suspected Problems (Last Updated 12/05/17 @ 09:17 by Keyla Kapoor EYEGLASS FRAMES INSPECTOR-C) 1. Acute hypoxic respiratory failure secondary to multilobar community- acquired pneumonia and acute on chronic diastolic CHF 2. Multilobar community-acquired pneumonia 3. Acute on chronic diastolic CHF - Secondary Discharge Diagnosis Chronic Problems (Last Updated 12/05/17 @ 09:17 by Keyla Kapoor EYEGLASS FRAMES INSPECTOR-C) Coronary artery disease (Chronic) Status post stents. 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 Neela Crum Cardiomyopathy, ischemic (Chronic) 40% EF in 2016 HLD (hyperlipidemia) (Chronic) Diabetic neuropathy (Chronic) Hospital Course and Treatment Imaging Results: Diagnostic Data Chest X-Ray 11/28/17 08:15 IMPRESSION: Stable borderline cardiomegaly with low volume inspiration and diffuse interstitial pattern. No significant new or acute pathology. Electronically Signed: Ede Tomas MD at 11:49 EDT , Service support , Chest CTA 11/29/17 10:30 IMPRESSION: No demonstrated pulmonary embolism or arterial dissection. Diffuse groundglass opacities and airspace opacities are seen in both lungs more prominent in lung bases are worse since the previous study may represent bilateral pneumonia or ARDS. Electronically Signed: Pancho Soliz MD at 7:05 EDT Tel , Service support , Dr. Mayers- Pulmonary Medicine Dr. Bradley- ID Operations: None Procedures: 2-D Echocardiogram Summary of Care Provided: Patient is a 52-year-old female admitted 11/23/2017 due to shortness of breath. She has a history of CAD status post CABG and stents, type 2 diabetes mellitus, ischemic cardiomyopathy, hypertension, hyperlipidemia, [place]'s disease, depression, anxiety, tobacco abuse, obstructive sleep apnea, chronic back pain. 1. Acute hypoxic respiratory failure-secondary to multilobar pneumonia and acute on chronic diastolic and systolic CHF. Patient received IV vancomycin and IV Zosyn. ID following. Antibiotics can be discontinued at discharge per ID. Continue supplemental oxygen to maintain O2 at or above 90%. Encourage ambulation and incentive spirometry. CPAP at bedtime and with naps. Patient remains on supplemental oxygen. She will need walking pulse ox and possible home supplemental oxygen at time of discharge from TCU. Follow-up with pulmonary medicine in 2 weeks. 2. Multilobar community-acquired pneumonia-see above. 3. Acute on chronic diastolic CHF-echocardiogram December 2016 showed an ejection fraction of 50%. Repeat echocardiogram this admission shows an EF of 50%. IV Lasix has been discontinued. Continue Coreg, lisinopril, eplerenone, and home Lasix regimen. 4. CAD status post CABG and stents-troponin negative, EKG negative. Continue aspirin, Plavix, Coreg, lisinopril. 5. Type 2 diabetes [id number] before meals at bedtime with sliding scale insulin. Patient has insulin pump which she states she is not currently using. Patient is to bring in the supplies and begin using home insulin pump. At that time, Levemir and sliding scale regimen can be discontinued at transitional care unit. 6. Hypertension-stable. 7. Hyperlipidemia- continue statin. 8. Obstructive sleep apnea-continue CPAP 9. Chronic back pain-continue home oxyir PRN and lyrica. 10. Depression/anxiety-continue home regimen. 12. Tobacco dependence-encourage smoking cessation. General: Oriented x3, Cooperative HEENT: Atraumatic, PERRLA, EOMI, Normocephalic Neck: Supple, No JVD, Negative Carotid Bruits Lungs: Clear to auscultation, Diminished Cardiovascular: Regular rate, Regular Rhythm, Normal S1, Normal S2, No murmurs Abdomen: Bowel Sounds Present, Soft, Non Tender, Non-Distended, Obese Extremities: No clubbing, No cyanosis, No edema, Capillary Refill Less than 3 Seconds Skin: No rashes, No breakdown Musculoskeletal: No Tenderness to Palpation of Joints or Extremities Neurological: Cranial nerves II-XII grossly intact, Neuro grossly intact Psych/Mental Status: Normal Affect, Appropriate Patient seen and examined prior to discharge. Physical assessment as noted above. Patient stable for discharge to TCU for further rehab. Follow-up with primary care physician in 1 week and pulmonary medicine in 2 weeks. This patient was seen by DALJIT Knutson under the supervision of Dr. Gates. Home Medications: Medications to take at Discharge Aspirin 325 mg PO QHS 08/12/14 Ergocalciferol [Vitamin D] 50,000 unit PO FR 08/12/14 Lisinopril [Zestril] 2.5 mg PO QHS 08/12/14 Venlafaxine XR [Effexor Xr] 150 mg PO DAILY 08/12/14 buPROPion XL [Wellbutrin Xl] 300 mg PO DAILY 08/12/14 Pregabalin [Lyrica] 300 mg PO BID 07/24/15 Amitriptyline HCl 25 mg PO BID 12/26/16 Carvedilol 25 mg PO BID 12/26/16 Clopidogrel Bisulfate [Plavix] 75 mg PO DAILY 12/26/16 Eplerenone [Inspra] 25 mg PO DAILY 12/26/16 Gemfibrozil [Lopid] 1,200 mg PO QHS 12/26/16 Meclizine HCl [Antivert] 25 mg PO TID PRN PRN 12/26/16 Niacin [Niacin ER] 2,000 mg PO QHS 12/26/16 Ondansetron [Zofran Odt] 4 mg PO Q8H PRN PRN 12/26/16 Oxycodone [Oxyir] 10 mg PO Q6H PRN PRN 12/26/16 Perphenazine 4 mg PO BID 12/26/16 magnesium oxide 400 mg tablet 400 mg PO TID tab 10/16/17 Furosemide [Lasix] 40 mg PO BID@1000,1800 11/23/17 Omeprazole 20 mg PO BID 11/23/17 Albuterol Aerosols [Ventolin Aerosols] 2.5 mg INHALATION Q2H PRN PRN vial.neb. 12/05/17 Albuterol IH (ProAir) [Proair Hfa (SP)Vent Pts] 1 - 2 puff INHALATION Q4H PRN PRN 12/05/17 Insulin Detemir [Levemir FlexPen] 30 units SC BID 12/05/17 Insulin Lispro [Humalog KwikPen] 0 unit SC ACHS 12/05/17 Ipratropium/Albuterol Sulfate [Duoneb] 3 ml INHALATION Q6H.RT 12/05/17 Potassium Chloride [K-Dur] 20 meq PO DAILY 12/05/17 levoFLOXacin tablet [Levaquin tablet] 750 mg PO DAILY 12/05/17 Primary Care Physician: Sanjuana Mckeon DO [Primary Care Provider] - Please follow up with your Primary Care Physician in: 1 Week Please Follow Up With: Daly Webster NP-C When: 2 Weeks Disposition: Senior Living facility - TCU Minutes spent on discharge:: 35 Patient Condition:: Stable Medical Necessity - Tobacco Use Smoking Status: Current every day smoker Tobacco Use: Cigarettes Meaningful Use Info Meaningful Use Diagnoses (Choose all that apply): CHF - CHF MIKO/ARB ordered at discharge?: Yes Documented LVEF (%): 50 <Rod Gates - Last Filed: 12/05/17 16:23> Discharge Date and Diagnosis - Secondary Discharge Diagnosis Chronic Problems (Last Updated 12/05/17 @ 10:57 by DALJIT Knutson) Coronary artery disease (Chronic) Status post stents. 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 Neela Crum Cardiomyopathy, ischemic (Chronic) 40% EF in 2016 HLD (hyperlipidemia) (Chronic) Diabetic neuropathy (Chronic) Hospital Course and Treatment Summary of Care Provided: This patient was seen in conjunction with Delphine BAKNS. I have independently interviewed and examined the patient and reviewed pertinent history, examination findings, laboratory and plan of management. I have reviewed the note and agree with the documented findings with the few additional points. In brief, patient is admitted for acute hypoxic respiratory failure secondary to multifocal/multilobar pneumonia with acute on chronic diastolic and systolic heart failure. ID advised to discontinue antibiotic as she completed antibiotic treatment. Discharge medication reconciliation done. Discharge follow-up instructions completed. Discharge note I have discussed my assessment with Delphine BANKS and orders have been reviewed. [] Code Visit Inpatient E&M: [id number] Disch Hosp
--- NOTE | 2017-12-05 11:00 | NURSING ---
pt up to do amb pox check. on 2l at rest pt was 94% but when up to amb desated to 87%. o2 up to 4l and only 88%. up to 6l with exertion and maintains at 89-91% kev cuevas np aware of results. tele roger and dmitriy per new order. pt to go to tcu after lunch.
[2017-12-05 11:45] LABS: Bedside Glucose 364 mg/dL (70-110)
[2017-12-05 14:54] LABS: Anion Gap 9 (5-15); BUN 6 mg/dL (7-18); Calcium,Total 8.7 mg/dL (8.5-10.1); Chloride 106 mmol/L (98-107); EST Glomerular Filtration Rate 137 mL/min (>60); Est Glom Filt Rate - Afr Amer 166 mL/min (>60); Estimated Creatinine Clearance 117.09 ml/min; Glucose 112 mg/dL (74-106); Magnesium 1.5 mg/dL (1.6-2.6); Sodium Level 140 mmol/L (136-145)
[2017-12-05 18:17] LABS: Hematocrit 33.1 % (37-47); Hemoglobin 10.5 g/dl (12.0-15.0); Mean Corp Hgb Conc 31.7 g/gl (32-36); Mean Corpuscular Hgb 25.8 pg (27.0-32.0); Mean Corpuscular Volume 81.3 fL (81-99); Mean Platelet Vol. 10.4 fl (6.2-12.0); Platelet Count 173 K/mm3 (150-450); RBC Distribution Width CV 19.6 % (11.6-14.6); RBC Distribution Width SD 56.5 fl (35.1-43.9); Red Blood Count 4.07 M/mm3 (4.2-5.4); Scan Indicated on CBC? Y/N NO; White Blood Count 13.4 K/mm3 (4.4-11.0)
[2017-12-06 11:23] LABS: Hemoglobin 10.1 g/dl (12.0-15.0); Red Blood Count 3.84 M/mm3 (4.2-5.4); White Blood Count 11.7 K/mm3 (4.4-11.0)
[2017-12-06 11:24] LABS: Eosinophils% 3.8 % (0-5); Hematocrit 31.3 % (37-47); Lymphocyte % 19.8 % (19-41); Mean Corp Hgb Conc 32.3 g/gl (32-36); Mean Corpuscular Hgb 26.3 pg (27.0-32.0); Mean Corpuscular Volume 81.5 fL (81-99); Mean Platelet Vol. 10.9 fl (6.2-12.0); Monocyte% 5.5 % (0-10); Neutrophil % 67.5 % (47-70); POSITIVE COUNT YES; POSITIVE DIFFERENTIAL NO; POSITIVE MORPHOLOGY YES; Platelet Count 158 K/mm3 (150-450); RBC Distribution Width CV 18.6 % (11.6-14.6); RBC Distribution Width SD 53.4 fl (35.1-43.9)
[2017-12-06 11:25] LABS: Absolute Lymphocyte Count 2.33 X10^3/ul (0.83-4.51); Absolute Neutrophil Count 7.9 X10^3/uL (2.0-7.7); Basophil% 0.7 % (0-1)
[2017-12-06 14:29] LABS: BUN 19 mg/dL (7-18); BUN/Creat Ratio 24.7 RATIO (10-20); Calcium,Total 9.3 mg/dL (8.5-10.1); Chloride 98 mmol/L (98-107); Creatinine, Serum 0.77 mg/dL (0.55-1.02); EST Glomerular Filtration Rate 83 mL/min (>60); Est Glom Filt Rate - Afr Amer 101 mL/min (>60); Estimated Creatinine Clearance 76.03 ml/min; Glucose 479 mg/dL (74-106); Potassium 4.4 mmol/L (3.5-5.1); Sodium Level 136 mmol/L (136-145)
[2017-12-06 14:30] LABS: Anion Gap 13 (5-15)
[2017-12-06 19:03] LABS: Hematocrit 32.9 % (37-47); Hemoglobin 10.5 g/dl (12.0-15.0); Mean Corp Hgb Conc 31.9 g/gl (32-36); Mean Corpuscular Hgb 25.9 pg (27.0-32.0); Mean Corpuscular Volume 81.2 fL (81-99); Red Blood Count 4.05 M/mm3 (4.2-5.4); White Blood Count 12.4 K/mm3 (4.4-11.0)
[2017-12-06 19:04] LABS: Absolute Lymphocyte Count 3.21 X10^3/ul (0.83-4.51); Absolute Neutrophil Count 8.2 X10^3/uL (2.0-7.7); Differential Indicated MANUAL DIFF; Lymphocyte 26 % (19-41); Mean Platelet Vol. 10.3 fl (6.2-12.0); Metamyelocyte 1 % (0-1); Monocyte 4 % (0-10); Neutrophil-Band 3 % (0-5); Neutrophil-Segmented 63 % (47-70); POSITIVE COUNT YES; POSITIVE DIFFERENTIAL NO; POSITIVE MORPHOLOGY YES; Platelet Count 142 K/mm3 (150-450); RBC Distribution Width SD 53.9 fl (35.1-43.9)
[2017-12-06 19:05] LABS: Anisocytosis 1+; Eosinophil 3 % (0-5); Platelet Estimate SLT DEC (ADEQ); Platelet Morphology LARGE; Polychromasia 1+
[2017-12-06 19:07] LABS: Total Cells Counted 100 (MANUAL DIFF)
[2017-12-06 19:30] LABS: Basophil% 0.6 % (0-1); Eosinophils% 4.1 % (0-5); Hematocrit 31.8 % (37-47); Hemoglobin 10.1 g/dl (12.0-15.0); Lymphocyte % 12.4 % (19-41); Mean Corp Hgb Conc 31.8 g/gl (32-36); Mean Corpuscular Volume 81.7 fL (81-99); Mean Platelet Vol. 10.6 fl (6.2-12.0); Monocyte% 4.4 % (0-10); Neutrophil % 75.7 % (47-70); POSITIVE COUNT YES; POSITIVE DIFFERENTIAL NO; POSITIVE MORPHOLOGY YES; Platelet Count 155 K/mm3 (150-450); RBC Distribution Width CV 19.4 % (11.6-14.6); RBC Distribution Width SD 55.5 fl (35.1-43.9); Red Blood Count 3.89 M/mm3 (4.2-5.4); White Blood Count 13.7 K/mm3 (4.4-11.0)
[2017-12-06 19:31] LABS: Absolute Neutrophil Count 10.3 X10^3/uL (2.0-7.7); Basophil# 0.08 X10^3/uL; Eosinophil# 0.56 X10^3/uL; Neutrophil # 10.34 X10^3/uL (2.7-7.7)
[2017-12-07 09:47] LABS: Pathologist Review Reviewed
[2017-12-07 09:49] LABS: Pathologist Review Reviewed
[2017-12-07 09:59] LABS: Pathologist Review Reviewed
[2017-12-07 15:37] LABS: Bedside Glucose 193 mg/dL (70-110)
[2017-12-07 17:01] LABS: Bedside Glucose 351 mg/dL (70-110)
[2017-12-07 17:03] LABS: Bedside Glucose 324 mg/dL (70-110)
[2017-12-07 17:04] LABS: Bedside Glucose 376 mg/dL (70-110)
[2017-12-07 17:06] LABS: Bedside Glucose 295 mg/dL (70-110)
[2017-12-08 10:27] LABS: Bedside Glucose 398 mg/dL (70-110)
[2017-12-08 10:30] LABS: Bedside Glucose > 500 mg/dL (70-110)
[2017-12-08 10:31] LABS: Bedside Glucose 415 mg/dL (70-110)
[2017-12-08 10:34] LABS: Bedside Glucose 447 mg/dL (70-110)
[2017-12-08 10:54] LABS: Bedside Glucose 143 mg/dL (70-110)
[2017-12-08 10:56] LABS: Bedside Glucose 286 mg/dL (70-110)
[2017-12-08 10:57] LABS: Bedside Glucose 238 mg/dL (70-110)
[2017-12-08 10:59] LABS: Bedside Glucose 288 mg/dL (70-110)
[2017-12-08 20:42] LABS: Bedside Glucose 183 mg/dL (70-110)
[2017-12-08 20:42] LABS: Bedside Glucose 105 mg/dL (70-110)
[2017-12-08 20:43] LABS: Bedside Glucose 100 mg/dL (70-110)
[2017-12-13 08:51] LABS: Bedside Glucose 211 mg/dL (70-110)
== END 2017-12-05 12:39 | disposition skilled nursing facility (03) | DRG 189 ==
LOC: ED 15:20 → ICU 16:55 → PCU 12-04 10:20
PROVIDERS: Family Medicine; Internal Medicine; Internal Medicine Critical Care Medicine; Admitting Provider Hospitalist; Emergency Provider Emergency Medicine; Family Provider Internal Medicine; PCP Internal Medicine; Visit Provider Internal Medicine
DX: J96.21 Acute and chronic respiratory failure with hypoxia (principal); J18.9 Pneumonia, unspecified organism; I50.43 Acute on chronic combined systolic (congestive) and diastolic (congestive) heart failure; I25.810 Atherosclerosis of coronary artery bypass graft(s) without angina pectoris; N17.9 Acute kidney failure, unspecified; N30.00 Acute cystitis without hematuria; E87.2 Acidosis; Z95.5 Presence of coronary angioplasty implant and graft; I11.0 Hypertensive heart disease with heart failure; E11.40 Type 2 diabetes mellitus with diabetic neuropathy, unspecified; E78.5 Hyperlipidemia, unspecified; M54.9 Dorsalgia, unspecified; G89.4 Chronic pain syndrome; G47.33 Obstructive sleep apnea (adult) (pediatric); Z96.41 Presence of insulin pump (external) (internal); F17.210 Nicotine dependence, cigarettes, uncomplicated; F41.8 Other specified anxiety disorders; I95.9 Hypotension, unspecified; B95.2 Enterococcus as the cause of diseases classified elsewhere; E11.65 Type 2 diabetes mellitus with hyperglycemia
CPT/HCPCS: 36415; 36600; 71045; 71275; 80048; 80202; 81001; 82533; 82550; 82803; 82947; 82962; 83735; 83880; 84100; 84484; 85025; 85027; 85379; 87040; 87077; 87086; 87088; 87186; 87449; 87633; 87641; 93005; 93306; 93971; 94002; 94003; 94640; 94660; 94667; 94668; 97110; 97116; 97162; 97166; 97530; 99285; J7040; Q9957; Q9967; A4216; C8929; J0295; J1940; J2405; J3475

== ENCOUNTER 2017-12-05 12:30 | Inpatient (IN) | payer MEDICARE, SELFPAY ==
[2017-12-05 14:27] VITALS: BP 106/61; PULSE 102; RESP 16; TEMP 36.6; O2SAT 94
--- NOTE | 2017-12-05 14:28 | NURSING ---
Pt admitted to room 15 from PCU via wheelchair. Patient oriented to room and call light system explained.
[2017-12-05 14:30] VITALS: O2SAT 94
[2017-12-05 15:06] VITALS: BMI 27.8
[2017-12-05 15:13] VITALS: BMI 27.8
[2017-12-05 15:45] VITALS: BP 110/59; PULSE 82; RESP 18; TEMP 36.8; O2SAT 93
[2017-12-05] MEDS: oxyCODONE 5 MG Tablet 10 MG PO ×2 (17:26→23:27)
[2017-12-05] MEDS: Amitriptyline 25 MG Tablet PO (17:27)
[2017-12-05] MEDS: Furosemide 40 MG Tablet PO (17:27)
[2017-12-05] MEDS: Carvedilol 25 MG Tablet PO (17:27)
[2017-12-05] MEDS: Pantoprazole Sodium 20 MG Tablet PO (17:28)
[2017-12-05] MEDS: Insulin Lispro 100 UNIT/ML INSULN.PEN SC (17:32)
[2017-12-05] MEDS: Pregabalin 75 MG Capsule 300 MG PO (17:41)
--- NOTE | 2017-12-05 17:47 | PCM.HP.STD ---
Problem List (1) Shortness of breath Status: Acute (2) Acute respiratory failure Status: Acute (3) Community acquired pneumonia Status: Acute (4) Acute on chronic diastolic heart failure Status: Acute (5) Diabetes mellitus Status: Chronic (6) Factor 5 Leiden mutation, heterozygous Status: Chronic (7) Sleep apnea Status: Chronic (8) Depression Status: Chronic (9) Anxiety Status: Chronic (10) Vitamin D deficiency Status: Chronic (11) GERD (gastroesophageal reflux disease) Status: Chronic (12) Coronary artery disease Status: Chronic Comment: Status post stents. 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 The patient is a 52 year old Female with below past medical history presented to [facility] Emergency Department 11/23/2017 with shortness of breath. 11/23/2017 Chest X-ray pulmonary edema. 11/23/2017 CTA chest negative pulmonary embolism, diffuse pulmonary edema. Shortness of breath x 2 days, fever 99.6, dry cough. History of Factor 5 Leiden. Pulsox 68% on RA, Non-rebreather transitioned to venting mask Albuterol, Atrovent aerosols given. BiPAP applied. WBC 14.7, Sodium 130, K 3.3, Glucose 171. D-dimer 1.12, Improved on BiPAP. 11/23/2017 Admit to Hospital. Serial cardiac enzymes, BiPAP. IV Lasix, Duoneb, Albuterol. IV Levaquin after moffett cultures. 11/23/2017 Echo EF 50%. There ARE regional wall abnormalities. 11/24/2017 Dr. Mayers recommended stress dose steroids, Negative for NSTEMI, continue IV Lasix. 11/25/2017 Chest X-ray mild improved aeration, mild pulmonary edema. 11/25/2017 Continue BiPAP, serial cardiac enzymes negative. 11/26/2017 Continue oxygen, PRN BiPAP, continue antibiotics. Enterococcus UTI treated with IV Unasyn. IV Hydrocortisone for Butch's Disease, then taper down. 11/29/2017 CTA chest negative pulmonary embolism, ? bilateral pneumonia or ARDS. 12/04/2017 IV Vancomycin, IV Zosyn for pneumonia, ID recommends stopping antibiotics after discharge. CPAP at bedtime, naps. IV Lasix stopped. 12/05/2017 Admit to TCU for rehabilitation, strengthening, prior to discharge home with family. Past Medical History Past Medical History (Chronic Problems): Chronic Problems (Last Updated 12/05/17 @ 10:57 by STEW KnutsonC) Diabetes mellitus (Chronic) Factor 5 Leiden mutation, heterozygous (Chronic) Sleep apnea (Chronic) Depression (Chronic) Anxiety (Chronic) Vitamin D deficiency (Chronic) GERD (gastroesophageal reflux disease) (Chronic) Coronary artery disease (Chronic) Status post stents. 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 BUT, 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 Chronic back pain (Chronic) M54.9, G89.29 History of GI bleed (Chronic) Z87.19 Cardiomyopathy, ischemic (Chronic) I25.5 40% EF in 2016 HLD (hyperlipidemia) (Chronic) E78.5 Diabetic neuropathy (Chronic) E11.40 Allergies Padczxo-Lez-Lyw Reductase Inhibitor Adverse Reaction (Severe, Verified 11/23/17 13:57) Elevated liver enzymes, also Muscle cramps/pain Home Medications: Ambulatory Orders Medication Instructions Recorded Aspirin 325 mg PO QHS 08/12/14 Ergocalciferol [Vitamin D] 50,000 unit PO FR 08/12/14 Lisinopril [Zestril] 2.5 mg PO QHS 08/12/14 Venlafaxine XR [Effexor Xr] 150 mg PO DAILY 08/12/14 buPROPion XL [Wellbutrin Xl] 300 mg PO DAILY 08/12/14 Pregabalin [Lyrica] 300 mg PO BID 07/24/15 Amitriptyline HCl 25 mg PO BID 12/26/16 Carvedilol 25 mg PO BID 12/26/16 Clopidogrel Bisulfate [Plavix] 75 mg PO DAILY 12/26/16 Eplerenone [Inspra] 25 mg PO DAILY 12/26/16 Gemfibrozil [Lopid] 1,200 mg PO QHS 12/26/16 Meclizine HCl [Antivert] 25 mg PO TID PRN PRN 12/26/16 Niacin [Niacin ER] 2,000 mg PO QHS 12/26/16 Ondansetron [Zofran Odt] 4 mg PO Q8H PRN PRN 12/26/16 Oxycodone [Oxyir] 10 mg PO Q6H PRN PRN 12/26/16 Perphenazine 4 mg PO BID 12/26/16 magnesium oxide 400 mg tablet 400 mg PO TID tab 10/16/17 Furosemide [Lasix] 40 mg PO BID@1000,1800 11/23/17 Omeprazole 20 mg PO BID 11/23/17 Albuterol Aerosols [Ventolin 2.5 mg INHALATION Q2H PRN PRN 12/05/17 Aerosols] vial.neb. Albuterol IH (ProAir) [Proair Hfa 1 - 2 puff INHALATION Q4H PRN PRN 12/05/17 (SP)Vent Pts] Insulin Detemir [Levemir FlexPen] 30 units SC BID 12/05/17 Insulin Lispro [Humalog KwikPen] 0 unit SC ACHS 12/05/17 Ipratropium/Albuterol Sulfate 3 ml INHALATION Q6H.RT 12/05/17 [Duoneb] Potassium Chloride [K-Dur] 20 meq PO DAILY 12/05/17 levoFLOXacin tablet [Levaquin 750 mg PO DAILY 12/05/17 tablet] Surgical History: Surgical History (Last Updated 11/23/17 @ 17:15 by Kimberly Patterson MD) S/P CABG x 5 (Chronic) Onset Date: ~11/14/07 Z95.1 HINTON-LAD, SVG-D1, SVG-OM1, SVG-OM 2, SVG-PDA 11/16/2007 @ [facility] per Dr. Neela Crum Surgical History: angioplasty, cholecystectomy, coronary bypass surgery - x 5. 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 Denies: Chills, Fever, Weight Change HEENT: Denies: Head Aches, Sinus Congestion, Sinus Drainage Cardiovascular: Denies: Chest Pain, Palpitations Respiratory: Denies: Cough, Shortness of breath at rest, Sputum production Gastrointestinal: Denies: Abdominal Pain, Nausea, Vomiting Genitourinary: Denies: Dysuria Musculoskeletal: Denies: Joint Pain, Joint Tenderness Skin: Denies: Rash, Wounds Neurological: Denies: Numbness, Tingling, Focal weakness Psychiatric: Denies: Anxiety, Depression, Homicidal Ideations, Suicidal Ideations Hematologic/ Lymphatic: Denies: Easy Bruising, Easy Bleeding VTE Information - Inpt Only VTE Present on Admission: No VTE Mechan Device Prophylaxis: Knee High VICENTE Hose VTE Pharm Prophylaxis ordered?: Yes Patient Problems: Active and Suspected Problems (Last Updated 12/05/17 @ 10:57 by Delphine Howard NP-Syed) Shortness of breath (Acute) Acute respiratory failure (Acute) Community acquired pneumonia (Acute) Acute on chronic diastolic heart failure (Acute) - Physical Exam General: Alert, Oriented x3, Cooperative HEENT: Atraumatic, PERRLA, EOMI, Normocephalic Neck: Supple, No JVD, Negative Carotid Bruits Lungs: Normal air movement, Rhonchi - Few. Cardiovascular: Regular rate, No murmurs Abdomen: Bowel Sounds Present, Soft, Non Tender Extremities: No edema, Capillary Refill Less than 3 Seconds Skin: No rashes, No breakdown Musculoskeletal: No Tenderness to Palpation of Joints or Extremities Neurological: Cranial nerves II-XII grossly intact Psych/Mental Status: Normal Affect, Appropriate Vital Signs Temp Pulse Resp BP Pulse Ox 98.3 F 82 18 110/59 L 93 12/05/17 15:45 12/05/17 15:45 12/05/17 15:45 12/05/17 15:45 12/05/17 15:45 Oxygen Flow Rate (L/min) 2 Oxygen Delivery Method Nasal Cannula Weight: 75.8 kg Body Mass Index (BMI) 27.8 Finger Stick Blood Glucose 417 Assessment/Plan All Active Problems (Last Updated 12/05/17 @ 10:57 by Delphine Howard NP-C) Shortness of breath (Acute) Acute respiratory failure (Acute) Community acquired pneumonia (Acute) Acute on chronic diastolic heart failure (Acute) Bilateral pneumonia (Acute) Acute on chronic respiratory failure with hypoxia (Acute) Chest discomfort (Resolved) Chronic normocytic anemia (Resolved) 52 year old female with below past medical history hospitalized for acute respiratory failure secondary to community acquired pneumonia, acute on chronic diastolic heart failure, complicated by Enterococcus urinary tract infection, Austin's disease, admitted to TCU with debility, here for rehabilitation, strengthening, prior to discharge home with family. Debility - PT/OT. Pain - Tylenol 1000MG Q8H PRN mild pain, Oxycodone 10MG Q6H PRN severe pain. Bowel - Miralax 17GM daily, Senna/colace 2 tablets BID, Dulcolax 10MG PO daily PRN. Pneumonia vaccination - Administer Prevnar 13 and/or Pneumovax 23 as necessary. DVT prophylaxis - Lovenox 40MG SC daily. COPD - Albuterol 2.5MG Q2H PRN, Duoneb 3ML Q6H. Depression/Anxiety - Elavil 25MG twice daily, Venlafaxine XR 150MG daily, Wellbutrin XL 300MG daily, Perphenazine 4MG BID. Coronary Artery Disease - Coreg 25MG BID, Lisinopril 2.5MG QHS, Plavix 75MG daily, Aspirin 325MG daily. Acute on chronic diastolic heart failure - Coreg 25MG BID, Lisinopril 2.5MG QHS, Inspra 25MG daily, Lasix 40MG BID. Vitamin D deficiency - D2 50,000 units per week. Hyperlipidemia - Lopid 1200MG QHS, Niaspan 2000MG QHS. Diabetes Mellitus II - Levemir 30 units BID, Lisinopril 2.5MG QHS. Community acquired pneumonia/Urinary tract infection - Levaquin 750MG daily thru 12/07/2017. Hypomagnesemia - Mag Oxide 400MG TID. Dizziness - Meclizine 25MG TID PRN. Nausea - Zofran 4MG Q8H PRN. GERD - Pantoprazole 20MG BID. Hypokalemia - K-Dur 20MEQdaily. Neuropathic pain - Lyrica 300MG BID.
--- NOTE | 2017-12-05 17:58 | HP.PCM_ITS ---
Problem List (1) Shortness of breath Status: Acute (2) Acute respiratory failure Status: Acute (3) Community acquired pneumonia Status: Acute (4) Acute on chronic diastolic heart failure Status: Acute (5) Diabetes mellitus Status: Chronic (6) Factor 5 Leiden mutation, heterozygous Status: Chronic (7) Sleep apnea Status: Chronic (8) Depression Status: Chronic (9) Anxiety Status: Chronic (10) Vitamin D deficiency Status: Chronic (11) GERD (gastroesophageal reflux disease) Status: Chronic (12) Coronary artery disease Status: Chronic Comment: Status post stents. 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 The patient is a 52 year old Female with below past medical history presented to [facility] Emergency Department 11/23/2017 with shortness of breath. 11/23/2017 Chest X-ray pulmonary edema. 11/23/2017 CTA chest negative pulmonary embolism, diffuse pulmonary edema. Shortness of breath x 2 days, fever 99.6, dry cough. History of Factor 5 Leiden. Pulsox 68% on RA, Non-rebreather transitioned to venting mask Albuterol, Atrovent aerosols given. BiPAP applied. WBC 14.7, Sodium 130, K 3.3, Glucose 171. D-dimer 1.12, Improved on BiPAP. 11/23/2017 Admit to Hospital. Serial cardiac enzymes, BiPAP. IV Lasix, Duoneb, Albuterol. IV Levaquin after moffett cultures. 11/23/2017 Echo EF 50%. There ARE regional wall abnormalities. 11/24/2017 Dr. Mayers recommended stress dose steroids, Negative for NSTEMI, continue IV Lasix. 11/25/2017 Chest X-ray mild improved aeration, mild pulmonary edema. 11/25/2017 Continue BiPAP, serial cardiac enzymes negative. 11/26/2017 Continue oxygen, PRN BiPAP, continue antibiotics. Enterococcus UTI treated with IV Unasyn. IV Hydrocortisone for Butch's Disease, then taper down. 11/29/2017 CTA chest negative pulmonary embolism, ? bilateral pneumonia or ARDS. 12/04/2017 IV Vancomycin, IV Zosyn for pneumonia, ID recommends stopping antibiotics after discharge. CPAP at bedtime, naps. IV Lasix stopped. 12/05/2017 Admit to TCU for rehabilitation, strengthening, prior to discharge home with family. Past Medical History Past Medical History (Chronic Problems): Chronic Problems (Last Updated 12/05/17 @ 10:57 by STEW KnutsonC) Diabetes mellitus (Chronic) Factor 5 Leiden mutation, heterozygous (Chronic) Sleep apnea (Chronic) Depression (Chronic) Anxiety (Chronic) Vitamin D deficiency (Chronic) GERD (gastroesophageal reflux disease) (Chronic) Coronary artery disease (Chronic) Status post stents. 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, 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 Chronic back pain (Chronic) M54.9, G89.29 History of GI bleed (Chronic) Z87.19 Cardiomyopathy, ischemic (Chronic) I25.5 40% EF in 2016 HLD (hyperlipidemia) (Chronic) E78.5 Diabetic neuropathy (Chronic) E11.40 Allergies Usfudgi-Tha-Cju Reductase Inhibitor Adverse Reaction (Severe, Verified 11/23/17 13:57) Elevated liver enzymes, also Muscle cramps/pain Home Medications: Ambulatory Orders Medication Instructions Recorded Aspirin 325 mg PO QHS 08/12/14 Ergocalciferol [Vitamin D] 50,000 unit PO FR 08/12/14 Lisinopril [Zestril] 2.5 mg PO QHS 08/12/14 Venlafaxine XR [Effexor Xr] 150 mg PO DAILY 08/12/14 buPROPion XL [Wellbutrin Xl] 300 mg PO DAILY 08/12/14 Pregabalin [Lyrica] 300 mg PO BID 07/24/15 Amitriptyline HCl 25 mg PO BID 12/26/16 Carvedilol 25 mg PO BID 12/26/16 Clopidogrel Bisulfate [Plavix] 75 mg PO DAILY 12/26/16 Eplerenone [Inspra] 25 mg PO DAILY 12/26/16 Gemfibrozil [Lopid] 1,200 mg PO QHS 12/26/16 Meclizine HCl [Antivert] 25 mg PO TID PRN PRN 12/26/16 Niacin [Niacin ER] 2,000 mg PO QHS 12/26/16 Ondansetron [Zofran Odt] 4 mg PO Q8H PRN PRN 12/26/16 Oxycodone [Oxyir] 10 mg PO Q6H PRN PRN 12/26/16 Perphenazine 4 mg PO BID 12/26/16 magnesium oxide 400 mg tablet 400 mg PO TID tab 10/16/17 Furosemide [Lasix] 40 mg PO BID@1000,1800 11/23/17 Omeprazole 20 mg PO BID 11/23/17 Albuterol Aerosols [Ventolin 2.5 mg INHALATION Q2H PRN PRN 12/05/17 Aerosols] vial.neb. Albuterol IH (ProAir) [Proair Hfa 1 - 2 puff INHALATION Q4H PRN PRN 12/05/17 (SP)Vent Pts] Insulin Detemir [Levemir FlexPen] 30 units SC BID 12/05/17 Insulin Lispro [Humalog KwikPen] 0 unit SC ACHS 12/05/17 Ipratropium/Albuterol Sulfate 3 ml INHALATION Q6H.RT 12/05/17 [Duoneb] Potassium Chloride [K-Dur] 20 meq PO DAILY 12/05/17 levoFLOXacin tablet [Levaquin 750 mg PO DAILY 12/05/17 tablet] Surgical History: Surgical History (Last Updated 11/23/17 @ 17:15 by Kimberly Patterson MD) S/P CABG x 5 (Chronic) Onset Date: ~11/14/07 Z95.1 HINTON-LAD, SVG-D1, SVG-OM1, SVG-OM 2, SVG-PDA 11/16/2007 @ [facility] per Dr. Neela Crum Surgical History: angioplasty, cholecystectomy, coronary bypass surgery - x 5. 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 Denies: Chills, Fever, Weight Change HEENT: Denies: Head Aches, Sinus Congestion, Sinus Drainage Cardiovascular: Denies: Chest Pain, Palpitations Respiratory: Denies: Cough, Shortness of breath at rest, Sputum production Gastrointestinal: Denies: Abdominal Pain, Nausea, Vomiting Genitourinary: Denies: Dysuria Musculoskeletal: Denies: Joint Pain, Joint Tenderness Skin: Denies: Rash, Wounds Neurological: Denies: Numbness, Tingling, Focal weakness Psychiatric: Denies: Anxiety, Depression, Homicidal Ideations, Suicidal Ideations Hematologic/ Lymphatic: Denies: Easy Bruising, Easy Bleeding VTE Information - Inpt Only VTE Present on Admission: No VTE Mechan Device Prophylaxis: Knee High VICENTE Hose VTE Pharm Prophylaxis ordered?: Yes Patient Problems: Active and Suspected Problems (Last Updated 12/05/17 @ 10:57 by Delphine Howard NP-C) Shortness of breath (Acute) Acute respiratory failure (Acute) Community acquired pneumonia (Acute) Acute on chronic diastolic heart failure (Acute) - Physical Exam General: Alert, Oriented x3, Cooperative HEENT: Atraumatic, PERRLA, EOMI, Normocephalic Neck: Supple, No JVD, Negative Carotid Bruits Lungs: Normal air movement, Rhonchi - Few. Cardiovascular: Regular rate, No murmurs Abdomen: Bowel Sounds Present, Soft, Non Tender Extremities: No edema, Capillary Refill Less than 3 Seconds Skin: No rashes, No breakdown Musculoskeletal: No Tenderness to Palpation of Joints or Extremities Neurological: Cranial nerves II-XII grossly intact Psych/Mental Status: Normal Affect, Appropriate Vital Signs Temp Pulse Resp BP Pulse Ox 98.3 F 82 18 110/59 L 93 12/05/17 15:45 12/05/17 15:45 12/05/17 15:45 12/05/17 15:45 12/05/17 15:45 Oxygen Flow Rate (L/min) 2 Oxygen Delivery Method Nasal Cannula Weight: 75.8 kg Body Mass Index (BMI) 27.8 Finger Stick Blood Glucose 417 Assessment/Plan All Active Problems (Last Updated 12/05/17 @ 10:57 by Delphine Howard NP-C) Shortness of breath (Acute) Acute respiratory failure (Acute) Community acquired pneumonia (Acute) Acute on chronic diastolic heart failure (Acute) Bilateral pneumonia (Acute) Acute on chronic respiratory failure with hypoxia (Acute) Chest discomfort (Resolved) Chronic normocytic anemia (Resolved) 52 year old female with below past medical history hospitalized for acute respiratory failure secondary to community acquired pneumonia, acute on chronic diastolic heart failure, complicated by Enterococcus urinary tract infection, Alba's disease, admitted to TCU with debility, here for rehabilitation, strengthening, prior to discharge home with family. * Debility - PT/OT. * Pain - Tylenol 1000MG Q8H PRN mild pain, Oxycodone 10MG Q6H PRN severe pain. * Bowel - Miralax 17GM daily, Senna/colace 2 tablets BID, Dulcolax 10MG PO daily PRN. * Pneumonia vaccination - Administer Prevnar 13 and/or Pneumovax 23 as necessary. * DVT prophylaxis - Lovenox 40MG SC daily. * COPD - Albuterol 2.5MG Q2H PRN, Duoneb 3ML Q6H. * Depression/Anxiety - Elavil 25MG twice daily, Venlafaxine XR 150MG daily, Wellbutrin XL 300MG daily, Perphenazine 4MG BID. * Coronary Artery Disease - Coreg 25MG BID, Lisinopril 2.5MG QHS, Plavix 75MG daily, Aspirin 325MG daily. * Acute on chronic diastolic heart failure - Coreg 25MG BID, Lisinopril 2.5MG QHS, Inspra 25MG daily, Lasix 40MG BID. * Vitamin D deficiency - D2 50,000 units per week. * Hyperlipidemia - Lopid 1200MG QHS, Niaspan 2000MG QHS. * Diabetes Mellitus II - Levemir 30 units BID, Lisinopril 2.5MG QHS. * Community acquired pneumonia/Urinary tract infection - Levaquin 750MG daily thru 12/07/2017. * Hypomagnesemia - Mag Oxide 400MG TID. * Dizziness - Meclizine 25MG TID PRN. * Nausea - Zofran 4MG Q8H PRN. * GERD - Pantoprazole 20MG BID. * Hypokalemia - K-Dur 20MEQdaily. * Neuropathic pain - Lyrica 300MG BID.
[2017-12-05 19:25] VITALS: O2SAT 94
[2017-12-05] MEDS: Magnesium Oxide 400 MG Tablet PO (21:17)
[2017-12-05] MEDS: Lisinopril 2.5 MG Tablet PO (21:17)
[2017-12-05] MEDS: Gemfibrozil 600 MG Tablet 1200 MG PO (21:17)
[2017-12-05] MEDS: Aspirin 325 MG Tablet PO (21:17)
[2017-12-05 21:26] LABS: Bedside Glucose 265 mg/dL (70-110)
[2017-12-06 00:45] VITALS: O2SAT 95
[2017-12-06 05:55] VITALS: BP 102/57; PULSE 73
[2017-12-06] MEDS: Magnesium Oxide 400 MG Tablet PO ×3 (05:57→20:14)
[2017-12-06] MEDS: Pantoprazole Sodium 20 MG Tablet PO ×2 (05:57→18:17)
[2017-12-06] MEDS: Clopidogrel Bisulfate 75 MG Tablet PO (05:58)
[2017-12-06] MEDS: buPROPion (XL) 300 MG TABLET.XL PO (05:59)
[2017-12-06] MEDS: Venlafaxine XR 150 MG Capsule PO (05:59)
[2017-12-06] MEDS: Carvedilol 25 MG Tablet PO ×2 (05:59→18:18)
[2017-12-06] MEDS: Furosemide 40 MG Tablet PO ×2 (05:59→15:21)
[2017-12-06] MEDS: levoFLOXacin 750 MG Tablet PO (05:59)
[2017-12-06] MEDS: Amitriptyline 25 MG Tablet PO ×2 (05:59→18:19)
[2017-12-06] MEDS: oxyCODONE 5 MG Tablet 10 MG PO ×3 (06:02→20:05)
[2017-12-06] MEDS: Enoxaparin 40 MG/0.4 ML Syringe SC (06:04)
[2017-12-06 06:40] LABS: Absolute Lymphocyte Count 2.81 X10^3/ul (0.83-4.51); Absolute Neutrophil Count 5.9 X10^3/uL (2.0-7.7); Basophil# 0.13 X10^3/uL; Basophil% 1.3 % (0-1); Eosinophil# 0.35 X10^3/uL; Eosinophils% 3.4 % (0-5); Hematocrit 33.6 % (37-47); Hemoglobin 10.6 g/dl (12.0-15.0); Lymphocyte # 2.81 X10^3/ul (4.0); Lymphocyte % 27.6 % (19-41); Mean Corp Hgb Conc 31.5 g/gl (32-36); Mean Corpuscular Hgb 25.7 pg (27.0-32.0); Mean Corpuscular Volume 81.4 fL (81-99); Mean Platelet Vol. 10.1 fl (6.2-12.0); Monocyte# 0.72 X10^3/uL; Monocyte% 7.1 % (0-10); Neutrophil # 5.91 X10^3/uL (2.7-7.7); Platelet Count 261 K/mm3 (150-450); RBC Distribution Width CV 18.7 % (11.6-14.6); RBC Distribution Width SD 55.8 fl (35.1-43.9); Red Blood Count 4.13 M/mm3 (4.2-5.4); White Blood Count 10.2 K/mm3 (4.4-11.0)
[2017-12-06 06:45] LABS: POSITIVE DIFFERENTIAL NO
[2017-12-06 06:46] LABS: Differential Indicated SCAN CRITERIA MET; POSITIVE COUNT YES; POSITIVE MORPHOLOGY YES
[2017-12-06 06:58] LABS: Differential Comment SCANNED
[2017-12-06 06:59] LABS: Anion Gap 8 (5-15); BUN 8 mg/dL (7-18); BUN/Creat Ratio 13.1 RATIO (10-20); Calcium,Total 9.1 mg/dL (8.5-10.1); Chloride 102 mmol/L (98-107); Creatinine, Serum 0.61 mg/dL (0.55-1.02); EST Glomerular Filtration Rate 109 mL/min (>60); Est Glom Filt Rate - Afr Amer 132 mL/min (>60); Glucose 117 mg/dL (74-106); Potassium 3.7 mmol/L (3.5-5.1); Sodium Level 139 mmol/L (136-145)
[2017-12-06 07:11] LABS: Bedside Glucose 139 mg/dL (70-110)
[2017-12-06 08:05] VITALS: O2SAT 94
[2017-12-06] MEDS: Pregabalin 75 MG Capsule 300 MG PO ×2 (08:30→22:09)
[2017-12-06] MEDS: Acetaminophen 500 MG Tablet 1000 MG PO (08:32)
[2017-12-06] MEDS: Eplerenone 25 MG Tablet PO (11:27)
[2017-12-06] MEDS: Tuberculin,Purif.prot.deriv. 50 TU/ML Vial 5 ML ID (11:27)
[2017-12-06 11:50] LABS: Bedside Glucose 274 mg/dL (70-110)
[2017-12-06 13:54] LABS: Pathologist Review Reviewed
[2017-12-06 15:55] VITALS: BP 101/49; PULSE 76; RESP 20; TEMP 36.3; O2SAT 91
[2017-12-06 16:10] LABS: Bedside Glucose 33 mg/dL (70-110)
--- NOTE | 2017-12-06 16:10 | NURSING ---
Addendum entered by Lucila Palomo 12/06/17 17:55: resident informed of changes to Levimir. States she does not take additional insulin at home as her pump gives her a basal and a bolus infusion. Dr London mcmanus and Levimir. Dc'd. Original Note: Addendum entered by Lucila Palomo 12/06/17 16:31: Orders to decreased Levimir to 20 units BID. Original Note: Addendum entered by Lucila Palomo 12/06/17 16:30: Blood sugar recheck 15 min after snack given and has come up to 42. Resident states she is feeling better. Dr London mcmanus. Will continue to monitor. Original Note: Resident has insulin pump. Checks blood sugar on home accucheck and it reads 44. Talking and asympomatic. checked on our accucheck and 33. Snack given. Blood glucose ordered STAT. Will continue to monitor. Resident alert now and eating snack.
[2017-12-06 16:25] LABS: Bedside Glucose 42 mg/dL (70-110)
[2017-12-06 16:41] LABS: Bedside Glucose 60 mg/dL (70-110)
[2017-12-06 17:06] LABS: Bedside Glucose 77 mg/dL (70-110)
[2017-12-06 17:13] LABS: Glucose 49 mg/dL (74-106)
--- NOTE | 2017-12-06 17:54 | NURSING ---
Unable to urinate. Bladder scan for 737 ml. Resident later able to urinate 1000 ml later after sitting for awhile. Dr Callahan aware. Orders to bladder scan prn.
[2017-12-06 18:30] LABS: Bedside Glucose 272 mg/dL (70-110)
[2017-12-06] MEDS: Gemfibrozil 600 MG Tablet 1200 MG PO (20:13)
[2017-12-06] MEDS: Aspirin 325 MG Tablet PO (20:15)
[2017-12-06] MEDS: Lisinopril 2.5 MG Tablet PO (20:15)
[2017-12-06 21:20] LABS: Bedside Glucose 173 mg/dL (70-110)
[2017-12-07] MEDS: oxyCODONE 5 MG Tablet 10 MG PO ×3 (06:09→18:53)
[2017-12-07] MEDS: Furosemide 40 MG Tablet PO ×2 (06:10→12:48)
[2017-12-07] MEDS: Amitriptyline 25 MG Tablet PO ×2 (06:10→17:51)
[2017-12-07] MEDS: Eplerenone 25 MG Tablet PO (06:10)
[2017-12-07] MEDS: buPROPion (XL) 300 MG TABLET.XL PO (06:10)
[2017-12-07] MEDS: Clopidogrel Bisulfate 75 MG Tablet PO (06:10)
[2017-12-07] MEDS: Venlafaxine XR 150 MG Capsule PO (06:11)
[2017-12-07] MEDS: levoFLOXacin 750 MG Tablet PO (06:11)
[2017-12-07] MEDS: Pantoprazole Sodium 20 MG Tablet PO ×2 (06:11→17:52)
[2017-12-07] MEDS: Carvedilol 25 MG Tablet PO ×2 (06:12→17:51)
[2017-12-07] MEDS: Magnesium Oxide 400 MG Tablet PO ×3 (06:20→21:35)
[2017-12-07] MEDS: Enoxaparin 40 MG/0.4 ML Syringe SC (06:23)
[2017-12-07 06:56] LABS: Bedside Glucose 70 mg/dL (70-110)
--- NOTE | 2017-12-07 06:59 | NURSING ---
resident BS 79 given applesauce and orange juice at this per resident request.
[2017-12-07 07:29] VITALS: O2SAT 90
--- NOTE | 2017-12-07 09:20 | NURSING ---
pt still at therapy
[2017-12-07] MEDS: Pregabalin 75 MG Capsule 300 MG PO ×2 (10:05→21:37)
[2017-12-07] MEDS: Acetaminophen 500 MG Tablet 1000 MG PO (10:10)
[2017-12-07 11:20] LABS: Bedside Glucose 219 mg/dL (70-110)
[2017-12-07] MEDS: Insulin Bolus Pump SC ×3 (12:46→21:22)
--- NOTE | 2017-12-07 15:09 | CHAPLAIN ---
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
[2017-12-07 15:20] VITALS: BP 94/56; PULSE 82; RESP 18; TEMP 36.9; O2SAT 98
[2017-12-07 16:55] LABS: Bedside Glucose 185 mg/dL (70-110)
[2017-12-07 20:46] LABS: Bedside Glucose 296 mg/dL (70-110)
[2017-12-07] MEDS: Lisinopril 2.5 MG Tablet PO (21:35)
[2017-12-07] MEDS: Gemfibrozil 600 MG Tablet 1200 MG PO (21:36)
[2017-12-07] MEDS: Aspirin 325 MG Tablet PO (21:39)
--- NOTE | 2017-12-07 21:40 | NURSING ---
Pt BS 280 pump administered 9.3 unit by insulin pump. This note was in the room when pt took BS and insulin administering 9.3 units.
[2017-12-08] MEDS: Venlafaxine XR 150 MG Capsule PO (05:58)
[2017-12-08] MEDS: Clopidogrel Bisulfate 75 MG Tablet PO (05:59)
[2017-12-08] MEDS: Furosemide 40 MG Tablet PO ×2 (05:59→11:44)
[2017-12-08] MEDS: Eplerenone 25 MG Tablet PO (05:59)
[2017-12-08] MEDS: buPROPion (XL) 300 MG TABLET.XL PO (06:00)
[2017-12-08] MEDS: Carvedilol 25 MG Tablet PO (06:00)
[2017-12-08] MEDS: Amitriptyline 25 MG Tablet PO ×2 (06:00→17:34)
[2017-12-08] MEDS: Pantoprazole Sodium 20 MG Tablet PO ×2 (06:00→17:33)
[2017-12-08] MEDS: Magnesium Oxide 400 MG Tablet PO ×3 (06:00→21:14)
[2017-12-08] MEDS: oxyCODONE 5 MG Tablet 10 MG PO ×3 (06:08→22:25)
[2017-12-08] MEDS: Enoxaparin 40 MG/0.4 ML Syringe SC (06:13)
--- NOTE | 2017-12-08 06:19 | NURSING ---
Pt BS135 checked with pump require no insulin per resident
[2017-12-08 06:34] VITALS: PULSE 84; RESP 18; O2SAT 96
[2017-12-08 06:57] VITALS: O2SAT 91
[2017-12-08] MEDS: Pregabalin 75 MG Capsule 300 MG PO ×2 (08:25→21:13)
[2017-12-08] MEDS: Insulin Bolus Pump SC ×2 (11:44→17:33)
--- NOTE | 2017-12-08 13:33 | NURSING ---
PT REPORTS FIRM TENDER KNOT TO RT POST FA,SL PINK/RED IN COLOR. NEW ORDER FOR WARM COMPRESS QSHIFT AND MONITOR.
[2017-12-08 15:34] VITALS: BP 91/45; PULSE 82; RESP 18; TEMP 35.9; O2SAT 91
--- NOTE | 2017-12-08 17:38 | NURSING ---
WARM COMPRESS APPLIED TO RIGHT POSTERIOR FOREARM AT THIS TIME.
[2017-12-08] MEDS: Aspirin 325 MG Tablet PO (21:14)
[2017-12-08] MEDS: Gemfibrozil 600 MG Tablet 1200 MG PO (21:14)
[2017-12-08] MEDS: Lisinopril 2.5 MG Tablet PO (21:15)
[2017-12-09 06:28] VITALS: BP 145/78; PULSE 84
[2017-12-09] MEDS: Venlafaxine XR 150 MG Capsule PO (06:30)
[2017-12-09] MEDS: Amitriptyline 25 MG Tablet PO ×2 (06:30→17:23)
[2017-12-09] MEDS: Furosemide 40 MG Tablet PO ×2 (06:31→14:12)
[2017-12-09] MEDS: Carvedilol 25 MG Tablet PO ×2 (06:31→17:22)
[2017-12-09] MEDS: Pantoprazole Sodium 20 MG Tablet PO ×2 (06:31→17:25)
[2017-12-09] MEDS: Magnesium Oxide 400 MG Tablet PO ×3 (06:31→21:52)
[2017-12-09] MEDS: Eplerenone 25 MG Tablet PO (06:32)
[2017-12-09] MEDS: Clopidogrel Bisulfate 75 MG Tablet PO (06:32)
[2017-12-09] MEDS: buPROPion (XL) 300 MG TABLET.XL PO (06:32)
[2017-12-09] MEDS: oxyCODONE 5 MG Tablet 10 MG PO ×3 (06:34→18:50)
[2017-12-09] MEDS: Insulin Bolus Pump SC ×4 (06:37→21:53)
[2017-12-09] MEDS: Enoxaparin 40 MG/0.4 ML Syringe SC (06:38)
[2017-12-09 07:40] VITALS: O2SAT 95; O2SAT 98
[2017-12-09] MEDS: Acetaminophen 500 MG Tablet 1000 MG PO (08:16)
[2017-12-09] MEDS: Pregabalin 75 MG Capsule 300 MG PO ×2 (11:20→21:55)
--- NOTE | 2017-12-09 11:24 | NURSING ---
Per therapy department, patient lowered to 1L of oxygen during therapy session, oxygen stayed between 90-94% on 1L, patient taken off oxygen during ambulation, oxygen between 89-90%. Patient denies any SOB or dizziness during oxygen decrease trial. Patient left on 1L, at 95% during rest. Will continue to monitor. Patient has a small red area on the left elbow from pushing up to get out of the bed, given elbow protector to prevent skin breakdown.
--- NOTE | 2017-12-09 12:12 | NURSING ---
Pt did self blood sugar check of 205. Received 7.6 units via pump
[2017-12-09 15:43] VITALS: BP 97/47; PULSE 78; RESP 18; TEMP 36.3; O2SAT 97
--- NOTE | 2017-12-09 18:32 | NURSING ---
Weaned pt to 1L NC from 2L. Checked pulse ox while pt was ambulating to bathroom with a reading of 84% Placed pt back on 2L NC. Reassessed 10 minutes later with a pulse ox reading of 97% on 2L. Will keep pt on 2L
[2017-12-09] MEDS: Gemfibrozil 600 MG Tablet 1200 MG PO (21:52)
[2017-12-09] MEDS: Aspirin 325 MG Tablet PO (21:52)
[2017-12-09] MEDS: Lisinopril 2.5 MG Tablet PO (21:54)
[2017-12-10] MEDS: oxyCODONE 5 MG Tablet 10 MG PO ×3 (03:53→17:45)
[2017-12-10 04:52] VITALS: BP 85/46; PULSE 77
[2017-12-10] MEDS: Furosemide 40 MG Tablet PO ×2 (04:54→13:23)
[2017-12-10] MEDS: Amitriptyline 25 MG Tablet PO ×2 (04:54→16:57)
[2017-12-10] MEDS: Carvedilol 25 MG Tablet PO ×2 (04:54→16:58)
[2017-12-10] MEDS: Clopidogrel Bisulfate 75 MG Tablet PO (04:55)
[2017-12-10] MEDS: Eplerenone 25 MG Tablet PO (04:55)
[2017-12-10] MEDS: Magnesium Oxide 400 MG Tablet PO ×3 (04:55→20:48)
[2017-12-10] MEDS: Venlafaxine XR 150 MG Capsule PO (04:55)
[2017-12-10] MEDS: Enoxaparin 40 MG/0.4 ML Syringe SC (04:56)
[2017-12-10] MEDS: Pantoprazole Sodium 20 MG Tablet PO ×2 (04:56→16:58)
[2017-12-10] MEDS: buPROPion (XL) 300 MG TABLET.XL PO (04:56)
[2017-12-10 08:05] VITALS: O2SAT 93; O2SAT 98
[2017-12-10] MEDS: Pregabalin 75 MG Capsule 300 MG PO ×2 (08:52→20:48)
[2017-12-10] MEDS: Insulin Bolus Pump SC ×4 (08:53→20:51)
[2017-12-10 15:15] VITALS: BP 103/53; PULSE 82; RESP 18; TEMP 530.7; TEMP 987.3; O2SAT 92
[2017-12-10 17:15] VITALS: PULSE 76; RESP 18; O2SAT 95
[2017-12-10] MEDS: Lisinopril 2.5 MG Tablet PO (20:48)
[2017-12-10] MEDS: Gemfibrozil 600 MG Tablet 1200 MG PO (20:48)
[2017-12-10] MEDS: Aspirin 325 MG Tablet PO (20:48)
[2017-12-11] MEDS: Clopidogrel Bisulfate 75 MG Tablet PO (05:45)
[2017-12-11] MEDS: Magnesium Oxide 400 MG Tablet PO ×3 (05:45→20:42)
[2017-12-11] MEDS: Furosemide 40 MG Tablet PO ×2 (05:45→12:34)
[2017-12-11] MEDS: Venlafaxine XR 150 MG Capsule PO (05:45)
[2017-12-11] MEDS: Pantoprazole Sodium 20 MG Tablet PO ×2 (05:45→16:43)
[2017-12-11] MEDS: Eplerenone 25 MG Tablet PO (05:45)
[2017-12-11] MEDS: Carvedilol 25 MG Tablet PO ×2 (05:46→16:43)
[2017-12-11] MEDS: Enoxaparin 40 MG/0.4 ML Syringe SC (05:46)
[2017-12-11] MEDS: buPROPion (XL) 300 MG TABLET.XL PO (05:46)
[2017-12-11] MEDS: Amitriptyline 25 MG Tablet PO ×2 (05:46→16:43)
[2017-12-11] MEDS: Insulin Bolus Pump SC ×4 (07:49→20:46)
[2017-12-11] MEDS: Pregabalin 75 MG Capsule 300 MG PO ×2 (07:49→20:41)
--- NOTE | 2017-12-11 10:24 | NURSING ---
WARM COMPRESS APPLIED TO RAISED AREA ON RIGHT POSTERIOR FOREARM. ALSO, LEFT ELBOW PROTECTOR IN PLACE.
[2017-12-11 10:50] VITALS: O2SAT 95
--- NOTE | 2017-12-11 12:59 | PHA.CONS_ITS ---
<Jeff Conn D - Last Filed: 12/11/17 14:32> Progress Note - Pharmacy Subjective: TCU Admission Objective: Allergies Lquwmbb-Aiz-Gyg Reductase Inhibitor Adverse Reaction (Severe, Verified 11/23/17 13:57) Elevated liver enzymes, also Muscle cramps/pain Current Medications Generic Name Dose Route Start Last Admin Trade Name Freq PRN Reason Stop Dose Admin Acetaminophen 1,000 mg 12/05/17 18:23 12/09/17 08:16 Tylenol PO 1,000 mg Q8H PRN PRN Administration MILD PAIN (1-3/10) Albuterol Sulfate 2.5 mg 12/05/17 14:42 Ventolin Aerosols INHALATION Q2H PRN PRN Shortness of breath, wheezing Amitriptyline HCl 25 mg 12/05/17 18:00 12/11/17 05:46 Elavil PO 25 mg BID PEG Administration Aspirin 325 mg 12/05/17 22:00 12/10/17 20:48 Aspirin PO 325 mg QHS PEG Administration Bisacodyl 10 mg 12/05/17 14:48 Dulcolax PO DAILY PRN Constipation Bupropion HCl 300 mg 12/06/17 06:00 12/11/17 05:46 Wellbutrin Xl PO 300 mg DAILY PEG Administration Carvedilol 25 mg 12/05/17 18:00 12/11/17 05:46 Coreg PO 25 mg BID PEG Administration Clopidogrel Bisulfate 75 mg 12/06/17 06:00 12/11/17 05:45 Plavix PO 75 mg DAILY PEG Administration Dextrose 0 gm 12/06/17 16:21 D50w Syringe IV X1 PRN Hypoglycemia Protocol Enoxaparin Sodium 40 mg 12/06/17 06:00 12/11/17 05:46 Lovenox SC 40 mg DAILY PEG Administration Eplerenone 25 mg 12/06/17 10:00 12/11/17 05:45 Inspra PO 25 mg DAILY PEG Administration Ergocalciferol 50,000 unit 12/08/17 10:00 12/08/17 08:22 Vitamin D PO 50,000 unit Fr@1000 PEG Administration Furosemide 40 mg 12/06/17 06:00 12/11/17 05:45 Lasix PO 40 mg BID@0600,1400 PEG Administration Gemfibrozil 1,200 mg 12/05/17 22:00 12/10/17 20:48 Lopid PO 1,200 mg QHS PEG Administration Glucagon 1 mg 12/06/17 16:21 IM .X1 PRN Hypoglycemia Insulin Aspart 0 unit 12/06/17 17:00 12/11/17 11:36 Pump, Bolus SC 13.2 unit 0800,1200,1700,2200 PEG Administration Lisinopril 2.5 mg 12/05/17 22:00 12/10/17 20:48 Zestril PO 2.5 mg QHS PEG Administration Magnesium Oxide 400 mg 12/05/17 22:00 12/11/17 05:45 Mag-Ox 400 PO 400 mg TID PEG Administration Meclizine HCl 25 mg 12/05/17 14:42 Antivert PO TID PRN PRN DIZZINESS Niacin 2,000 mg 12/05/17 22:00 12/10/17 20:49 Niaspan PO 2,000 mg QHS PEG Administration Ondansetron HCl 4 mg 12/05/17 14:42 Zofran Odt PO Q8H PRN PRN NAUSEA Oxycodone HCl 10 mg 12/05/17 14:42 12/10/17 17:45 Oxyir PO 10 mg Q6H PRN PRN Administration PAIN Pantoprazole Sodium 20 mg 12/05/17 18:00 12/11/17 05:45 Protonix PO 20 mg BID PEG Administration Perphenazine 4 mg 12/05/17 18:00 12/11/17 05:45 Perphenazine PO 4 mg BID PEG Administration Polyethylene Glycol 17 gm 12/06/17 06:00 12/11/17 05:46 Miralax PO Not Given DAILY [facility] Potassium Chloride 20 meq 12/06/17 08:00 12/11/17 07:48 K-Dur PO 20 meq DAILY@0800 PEG Administration Pregabalin 300 mg 12/06/17 08:00 12/11/17 07:49 Lyrica PO 300 mg BID@0800,2100 [facility] Administration Senna/Docusate Sodium 2 tablet 12/06/17 06:00 12/11/17 05:46 Senokot-S, Faina-Colace PO Not Given BID PEG Tuberculin PPD 5 tu 12/13/17 10:00 Tubersol, Aplisol, Ppd ID 12/13/17 10:01 X1 ONE Venlafaxine HCl 150 mg 12/06/17 06:00 12/11/17 05:45 Effexor Xr PO 150 mg DAILY PEG Administration Problem List (Last Updated 12/05/17 @ 10:57 by DALJIT Knutson) Shortness of breath (Acute) Acute respiratory failure (Acute) Community acquired pneumonia (Acute) Acute on chronic diastolic heart failure (Acute) Diabetes mellitus (Chronic) Factor 5 Leiden mutation, heterozygous (Chronic) Sleep apnea (Chronic) Depression (Chronic) Anxiety (Chronic) Vitamin D deficiency (Chronic) GERD (gastroesophageal reflux disease) (Chronic) Vital Signs Temp Pulse Resp BP Pulse Ox 987.3 F H 76 18 103/53 L 95 12/10/17 15:15 12/10/17 17:15 12/10/17 17:15 12/10/17 15:15 12/11/17 10:50 Oxygen Flow Rate (L/min) 2 Oxygen Delivery Method Nasal Cannula Weight: 75.8 kg Body Mass Index (BMI) 27.8 Finger Stick Blood Glucose 417 Sodium 139 mmol/L (136-145) 12/06/17 05:10 Potassium 3.7 mmol/L (3.5-5.1) 12/06/17 05:10 Chloride 102 mmol/L (98-107) 12/06/17 05:10 Carbon Dioxide 29.0 mmol/L (21.0-32.0) 12/06/17 05:10 Anion Gap 8 (5-15) 12/06/17 05:10 BUN 8 mg/dL (7-18) 12/06/17 05:10 Creatinine 0.61 mg/dL (0.55-1.02) 12/06/17 05:10 Est GFR (MDRD) Af Amer 132 mL/min (>60) 12/06/17 05:10 Est GFR (MDRD) Non-Af 109 mL/min (>60) 12/06/17 05:10 BUN/Creatinine Ratio 13.1 RATIO (10-20) 12/06/17 05:10 Glucose 49 mg/dL (74-106) L 12/06/17 16:38 Assessment/Plan: 1) Pain APAP for mild pain, oxycodone for pain, pregabalin. Continue to monitor prn medication use, daily pain scores. * Please adjust instructions for oxycodone, currently overlapping with APAP. 2) CAD/CHF ASA, carvedilol, lisinopril, clopidogrel, eplerenone, furosemide. Continue to monitor BP/HR, renal function, electrolytes, s/s chest pain. 3) HLD Gemfibrozil, niacin. Continue to monitor lipids. 4) GI Pantoprazole twice daily, ondansetron prn. Continue to monitor prn medication use, for s/s GI distress. 5) Nutrition Ergocalciferol, KCL, MgOx. Continue to monitor electrolytes. 6) DVT PPx Enoxaparin daily. Continue to monitor for s/s bleeding/clot. 7) DM2 Insulin pump. Continue to monitor BGT, s/s hyper/hypoglycemia. Psychotropic Medications: 8) Depression/Anxiety Bupropion, venlafaxine, amitriptyline twice daily, perphenazine twice daily. Hepatic enzymes wnl. Continue to monitor hepatic enzymes, s/s depression, agitation, sweating, fever. Unnecessary Medications: None Bowel Regimen: 9) Senna/s, PEG, prn bisacodyl. Continue to monitor prn medication use, for constipation/diarrhea. Date of Note:: 12/11/17 - Provider Comments Provider responsibility: Provider responsible to enter orders to implement recommendations <Christopher Callahan Chi - Last Filed: 12/11/17 18:03> Progress Note - Pharmacy Subjective: [] Objective: Allergies Yrvqerg-Oyq-Ftu Reductase Inhibitor Adverse Reaction (Severe, Verified 11/23/17 13:57) Elevated liver enzymes, also Muscle cramps/pain Current Medications Generic Name Dose Route Start Last Admin Trade Name Freq PRN Reason Stop Dose Admin Acetaminophen 1,000 mg 12/05/17 18:23 12/09/17 08:16 Tylenol PO 1,000 mg Q8H PRN PRN Administration MILD PAIN (1-3/10) Albuterol Sulfate 2.5 mg 12/05/17 14:42 Ventolin Aerosols INHALATION Q2H PRN PRN Shortness of breath, wheezing Amitriptyline HCl 25 mg 12/05/17 18:00 12/11/17 16:43 Elavil PO 25 mg BID PEG Administration Aspirin 325 mg 12/05/17 22:00 12/10/17 20:48 Aspirin PO 325 mg QHS PEG Administration Bisacodyl 10 mg 12/05/17 14:48 Dulcolax PO DAILY PRN Constipation Bupropion HCl 300 mg 12/06/17 06:00 12/11/17 05:46 Wellbutrin Xl PO 300 mg DAILY PEG Administration Carvedilol 25 mg 12/05/17 18:00 12/11/17 16:43 Coreg PO 25 mg BID PEG Administration Clopidogrel Bisulfate 75 mg 12/06/17 06:00 12/11/17 05:45 Plavix PO 75 mg DAILY PEG Administration Dextrose 0 gm 12/06/17 16:21 D50w Syringe IV X1 PRN Hypoglycemia Protocol Enoxaparin Sodium 40 mg 12/06/17 06:00 12/11/17 05:46 Lovenox SC 40 mg DAILY PEG Administration Eplerenone 25 mg 12/06/17 10:00 12/11/17 05:45 Inspra PO 25 mg DAILY PEG Administration Ergocalciferol 50,000 unit 12/08/17 10:00 12/08/17 08:22 Vitamin D PO 50,000 unit Fr@1000 PEG Administration Furosemide 40 mg 12/06/17 06:00 12/11/17 12:34 Lasix PO 40 mg BID@0600,1400 PEG Administration Gemfibrozil 1,200 mg 12/05/17 22:00 12/10/17 20:48 Lopid PO 1,200 mg QHS PEG Administration Glucagon 1 mg 12/06/17 16:21 IM .X1 PRN Hypoglycemia Insulin Aspart 0 unit 12/06/17 17:00 12/11/17 17:11 Pump, Bolus SC 14.4 unit 0800,1200,1700,2200 PEG Administration Lisinopril 2.5 mg 12/05/17 22:00 12/10/17 20:48 Zestril PO 2.5 mg QHS PEG Administration Magnesium Oxide 400 mg 12/05/17 22:00 12/11/17 12:34 Mag-Ox 400 PO 400 mg TID PEG Administration Meclizine HCl 25 mg 12/05/17 14:42 Antivert PO TID PRN PRN DIZZINESS Niacin 2,000 mg 12/05/17 22:00 12/10/17 20:49 Niaspan PO 2,000 mg QHS PEG Administration Ondansetron HCl 4 mg 12/05/17 14:42 Zofran Odt PO Q8H PRN PRN NAUSEA Oxycodone HCl 10 mg 12/05/17 14:42 12/11/17 14:27 Oxyir PO 10 mg Q6H PRN PRN Administration PAIN Pantoprazole Sodium 20 mg 12/05/17 18:00 12/11/17 16:43 Protonix PO 20 mg BID PEG Administration Perphenazine 4 mg 12/05/17 18:00 12/11/17 16:43 Perphenazine PO 4 mg BID PEG Administration Polyethylene Glycol 17 gm 12/06/17 06:00 12/11/17 05:46 Miralax PO Not Given DAILY PEG Potassium Chloride 20 meq 12/06/17 08:00 12/11/17 07:48 K-Dur PO 20 meq DAILY@0800 PEG Administration Pregabalin 300 mg 12/06/17 08:00 12/11/17 07:49 Lyrica PO 300 mg BID@0800,2100 PEG Administration Senna/Docusate Sodium 2 tablet 12/06/17 06:00 12/11/17 16:43 Senokot-S, Faina-Colace PO Not Given BID PEG Tuberculin PPD 5 tu 12/13/17 10:00 Tubersol, Aplisol, Ppd ID 12/13/17 10:01 X1 ONE Venlafaxine HCl 150 mg 12/06/17 06:00 12/11/17 05:45 Effexor Xr PO 150 mg DAILY PEG Administration Problem List (Last Updated 12/05/17 @ 10:57 by Delphine Howard NP-C) Shortness of breath (Acute) Acute respiratory failure (Acute) Community acquired pneumonia (Acute) Acute on chronic diastolic heart failure (Acute) Diabetes mellitus (Chronic) Factor 5 Leiden mutation, heterozygous (Chronic) Sleep apnea (Chronic) Depression (Chronic) Anxiety (Chronic) Vitamin D deficiency (Chronic) GERD (gastroesophageal reflux disease) (Chronic) Vital Signs Temp Pulse Resp BP Pulse Ox 98.1 F 82 20 H 105/51 L 92 12/11/17 15:15 12/11/17 15:15 12/11/17 15:15 12/11/17 15:15 12/11/17 15:15 Oxygen Flow Rate (L/min) 2 Oxygen Delivery Method Nasal Cannula Weight: 75.8 kg Body Mass Index (BMI) 27.8 Finger Stick Blood Glucose 417 Sodium 139 mmol/L (136-145) 12/06/17 05:10 Potassium 3.7 mmol/L (3.5-5.1) 12/06/17 05:10 Chloride 102 mmol/L (98-107) 12/06/17 05:10 Carbon Dioxide 29.0 mmol/L (21.0-32.0) 12/06/17 05:10 Anion Gap 8 (5-15) 12/06/17 05:10 BUN 8 mg/dL (7-18) 12/06/17 05:10 Creatinine 0.61 mg/dL (0.55-1.02) 12/06/17 05:10 Est GFR (MDRD) Af Amer 132 mL/min (>60) 12/06/17 05:10 Est GFR (MDRD) Non-Af 109 mL/min (>60) 12/06/17 05:10 BUN/Creatinine Ratio 13.1 RATIO (10-20) 12/06/17 05:10 Glucose 49 mg/dL (74-106) L 12/06/17 16:38 Assessment/Plan: Psychotropic Medications: Unnecessary Medications: Bowel Regimen: - Provider Comments Provider responsibility: Provider responsible to enter orders to implement recommendations Provider Comments to Recommendations by Pharmacy: Agree
--- NOTE | 2017-12-11 13:50 | CASEMGMT ---
Brief interview for mental status (BIMS) and resident mood interview (PHQ-9) completed on this day. BIMS score 15. PHQ-9 score 07/22
--- NOTE | 2017-12-11 13:50 | CASEMGMT ---
Social Work Spoke with resident in room. Resident requesting for discharge date to be set for 12/13/17, staff/team agreeable to discharge date of 12/13/17. Resident plans to discharge home with daughter. Resident reporting to have a walker and home oxygen already set up within the home. Resident declining to have any continued therapy at this time. Resident daughter, Delphine to provide transportation home for resident at time of discharge. Delphine aware of discharge date and is agreeable to plan per telephone call this high school social studies tutor had with Delphine. Support given. Proposed discharge date: 12/13/17 PLAN: Discharge home with daughter. Edita SALTER, DIRECTOR HEALTH
[2017-12-11] MEDS: oxyCODONE 5 MG Tablet 10 MG PO ×2 (14:27→21:43)
[2017-12-11 15:15] VITALS: BP 105/51; PULSE 82; RESP 20; TEMP 36.7; O2SAT 92
[2017-12-11] MEDS: Lisinopril 2.5 MG Tablet PO (20:41)
[2017-12-11] MEDS: Aspirin 325 MG Tablet PO (20:42)
[2017-12-11] MEDS: Gemfibrozil 600 MG Tablet 1200 MG PO (20:42)
[2017-12-11 21:11] LABS: Bedside Glucose 300 mg/dL (70-110)
--- NOTE | 2017-12-11 21:33 | PCM.DC ---
- Discharge Diagnoses Current Active Problems: Current Active and Chronic Problems (Last Updated 12/05/17 @ 10:57 by DALJIT Knutson) Shortness of breath (Acute) Acute respiratory failure (Acute) Community acquired pneumonia (Acute) Acute on chronic diastolic heart failure (Acute) Diabetes mellitus (Chronic) Factor 5 Leiden mutation, heterozygous (Chronic) Sleep apnea (Chronic) Depression (Chronic) Anxiety (Chronic) Vitamin D deficiency (Chronic) GERD (gastroesophageal reflux disease) (Chronic) You will use the following diet at home:: No restrictions, Regular Your food should be the consistency of: Regular Your liquids should be the consistency of: Regular/Thin Discharge Activity: Return to Normal Activity, May Shower, Use Walker Weight Bearing Status: Weight bearing as tolerated Call your doctor if you observe: Fever of 101 or Higher, Inability to urinate, Inability to have a bowel movement, Shortness of breath, Chest pain, Uncontrolled pain Allergies/Adverse Reactions: Allergies Behstht-Atj-Zgz Reductase Inhibitor Adverse Reaction (Severe, Verified 11/23/17 13:57) Elevated liver enzymes, also Muscle cramps/pain Medications to take at Discharge Aspirin 325 mg PO QHS 08/12/14 Ergocalciferol [Vitamin D] 50,000 unit PO FR 08/12/14 Lisinopril [Zestril] 2.5 mg PO QHS 08/12/14 Venlafaxine XR [Effexor Xr] 150 mg PO DAILY 08/12/14 buPROPion XL [Wellbutrin Xl] 300 mg PO DAILY 08/12/14 Pregabalin [Lyrica] 300 mg PO BID 07/24/15 Amitriptyline HCl 25 mg PO BID 12/26/16 Carvedilol 25 mg PO BID 12/26/16 Clopidogrel Bisulfate [Plavix] 75 mg PO DAILY 12/26/16 Eplerenone [Inspra] 25 mg PO DAILY 12/26/16 Gemfibrozil [Lopid] 1,200 mg PO QHS 12/26/16 Meclizine HCl [Antivert] 25 mg PO TID PRN PRN 12/26/16 Niacin [Niacin ER] 2,000 mg PO QHS 12/26/16 Ondansetron [Zofran Odt] 4 mg PO Q8H PRN PRN 12/26/16 Oxycodone [Oxyir] 10 mg PO Q6H PRN PRN 12/26/16 Perphenazine 4 mg PO BID 12/26/16 magnesium oxide 400 mg tablet 400 mg PO TID tab 10/16/17 Furosemide [Lasix] 40 mg PO BID@1000,1800 11/23/17 Omeprazole 20 mg PO BID 11/23/17 Albuterol IH (ProAir) [Proair Hfa] 1 - 2 puff INHALATION Q4H PRN PRN 12/05/17 Acetaminophen [Tylenol] 1,000 mg PO Q8H PRN PRN tablet 12/11/17 Potassium Chloride [K-Dur] 20 meq PO DAILY #30 tab 12/11/17 The following prescriptions were given: Potassium Chloride [K-Dur] 20 meq PO DAILY #30 tab Primary Care Physician: Sanjuana Mckeon DO [Primary Care Provider] - Please follow up with your Primary Care Physician in: 1 week. Please Follow Up With: Malachi Kauffman/ Pulmonary When: 2 weeks Proposed Discharge Date: 12/13/17
--- NOTE | 2017-12-11 21:37 | DS.PCM_ITS ---
Discharge Date and Diagnosis - Problem List Patient Problems: Active and Suspected Problems (Last Updated 12/05/17 @ 10:57 by DALJIT Knutson) Shortness of breath (Acute) Acute respiratory failure (Acute) Community acquired pneumonia (Acute) Acute on chronic diastolic heart failure (Acute) Date of Admission: 12/05/17 Date of Discharge: 12/13/17 - Primary Discharge Diagnosis Active and Suspected Problems (Last Updated 12/05/17 @ 10:57 by DALJIT Knutson) Shortness of breath (Acute) Acute respiratory failure (Acute) Community acquired pneumonia (Acute) Acute on chronic diastolic heart failure (Acute) - Secondary Discharge Diagnosis Chronic Problems (Last Updated 12/05/17 @ 10:57 by DALJIT Knutson) Diabetes mellitus (Chronic) Factor 5 Leiden mutation, heterozygous (Chronic) Sleep apnea (Chronic) Depression (Chronic) Anxiety (Chronic) Vitamin D deficiency (Chronic) GERD (gastroesophageal reflux disease) (Chronic) Coronary artery disease (Chronic) Status post stents. 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 Neela Crum Cardiomyopathy, ischemic (Chronic) 40% EF in 2016 HLD (hyperlipidemia) (Chronic) Diabetic neuropathy (Chronic) Hospital Course and Treatment Imaging Results: 12/05/17 14:55 Diet: Cardiac: Carb-Controlled Diet Comments: 1500 calorie, low sodium Labs (Last 48 Hours) 12/11/17 20:59 POC Glucose 300 H Operations: None Procedures: None Summary of Care Provided: The patient is a 52 year old Female with below past medical history hospitalized for acute respiratory failure secondary to community acquired pneumonia, acute on chronic diastolic heart failure, complicated by Enterococcus urinary tract infection, Davenport's disease, admitted to TCU with debility, here for rehabilitation, strengthening, prior to discharge home with family. Discharge home with daughter. Discharge Diet: No Restrictions Discharge Activity: Return to Normal Activity, May Shower, Use Walker Weight Bearing Status: Weight bearing as tolerated Call your doctor if you observe: Fever of 101 or Higher, Inability to urinate, Inability to have a bowel movement, Shortness of breath, Chest pain, Uncontrolled pain Home Medications: Medications to take at Discharge Aspirin 325 mg PO QHS 08/12/14 Ergocalciferol [Vitamin D] 50,000 unit PO FR 08/12/14 Lisinopril [Zestril] 2.5 mg PO QHS 08/12/14 Venlafaxine XR [Effexor Xr] 150 mg PO DAILY 08/12/14 buPROPion XL [Wellbutrin Xl] 300 mg PO DAILY 08/12/14 Pregabalin [Lyrica] 300 mg PO BID 07/24/15 Amitriptyline HCl 25 mg PO BID 12/26/16 Carvedilol 25 mg PO BID 12/26/16 Clopidogrel Bisulfate [Plavix] 75 mg PO DAILY 12/26/16 Eplerenone [Inspra] 25 mg PO DAILY 12/26/16 Gemfibrozil [Lopid] 1,200 mg PO QHS 12/26/16 Meclizine HCl [Antivert] 25 mg PO TID PRN PRN 12/26/16 Niacin [Niacin ER] 2,000 mg PO QHS 12/26/16 Ondansetron [Zofran Odt] 4 mg PO Q8H PRN PRN 12/26/16 Oxycodone [Oxyir] 10 mg PO Q6H PRN PRN 12/26/16 Perphenazine 4 mg PO BID 12/26/16 magnesium oxide 400 mg tablet 400 mg PO TID tab 10/16/17 Furosemide [Lasix] 40 mg PO BID@1000,1800 11/23/17 Omeprazole 20 mg PO BID 11/23/17 Albuterol IH (ProAir) [Proair Hfa] 1 - 2 puff INHALATION Q4H PRN PRN 12/05/17 Acetaminophen [Tylenol] 1,000 mg PO Q8H PRN PRN tablet 12/11/17 Potassium Chloride [K-Dur] 20 meq PO DAILY #30 tab 12/11/17 Following Prescrptions Were Given to Patient: Potassium Chloride [K-Dur] 20 meq PO DAILY #30 tab Primary Care Physician: Sanjuana Mckeon DO [Primary Care Provider] - Please follow up with your Primary Care Physician in: 1 week. Please Follow Up With: Malachi Kauffman/ Pulmonary When: 2 weeks Disposition: Home Minutes spent on discharge:: 30 Patient Condition:: Stable Medical Necessity - Tobacco Use Smoking Status: Current every day smoker Tobacco Use: Cigarettes Meaningful Use Info Meaningful Use Diagnoses (Choose all that apply): None applicable
[2017-12-12] MEDS: Carvedilol 25 MG Tablet PO ×2 (04:44→17:32)
[2017-12-12] MEDS: Venlafaxine XR 150 MG Capsule PO (04:44)
[2017-12-12] MEDS: Furosemide 40 MG Tablet PO ×2 (04:44→14:05)
[2017-12-12] MEDS: Magnesium Oxide 400 MG Tablet PO ×3 (04:44→21:23)
[2017-12-12] MEDS: Eplerenone 25 MG Tablet PO (04:44)
[2017-12-12] MEDS: Enoxaparin 40 MG/0.4 ML Syringe SC (04:45)
[2017-12-12] MEDS: Clopidogrel Bisulfate 75 MG Tablet PO (04:45)
[2017-12-12] MEDS: Amitriptyline 25 MG Tablet PO ×2 (04:45→17:32)
[2017-12-12] MEDS: Pantoprazole Sodium 20 MG Tablet PO ×2 (04:45→17:32)
[2017-12-12] MEDS: buPROPion (XL) 300 MG TABLET.XL PO (04:45)
[2017-12-12] MEDS: oxyCODONE 5 MG Tablet 10 MG PO ×3 (04:50→17:37)
[2017-12-12] MEDS: Pregabalin 75 MG Capsule 300 MG PO ×2 (07:28→21:24)
--- NOTE | 2017-12-12 09:25 | CASEMGMT ---
Insurance Clinical information faxed. Pending continued stay approval. Auth#[id number] Edita SALTER, RAIL TRACTOR OPERATOR
[2017-12-12] MEDS: Insulin Bolus Pump SC ×2 (11:41→17:30)
[2017-12-12 13:25] VITALS: O2SAT 90
[2017-12-12] MEDS: Acetaminophen 500 MG Tablet 1000 MG PO (14:20)
[2017-12-12 16:00] VITALS: BP 113/60; PULSE 83; RESP 20; TEMP 36.3; O2SAT 96
[2017-12-12] MEDS: Lisinopril 2.5 MG Tablet PO (21:23)
[2017-12-12] MEDS: Gemfibrozil 600 MG Tablet 1200 MG PO (21:23)
[2017-12-12] MEDS: Aspirin 325 MG Tablet PO (21:24)
[2017-12-13] MEDS: Venlafaxine XR 150 MG Capsule PO (05:06)
[2017-12-13] MEDS: Eplerenone 25 MG Tablet PO (05:06)
[2017-12-13] MEDS: Clopidogrel Bisulfate 75 MG Tablet PO (05:06)
[2017-12-13] MEDS: Furosemide 40 MG Tablet PO (05:06)
[2017-12-13] MEDS: buPROPion (XL) 300 MG TABLET.XL PO (05:06)
[2017-12-13] MEDS: Pantoprazole Sodium 20 MG Tablet PO (05:06)
[2017-12-13] MEDS: Magnesium Oxide 400 MG Tablet PO (05:06)
[2017-12-13] MEDS: Amitriptyline 25 MG Tablet PO (05:07)
[2017-12-13] MEDS: Carvedilol 25 MG Tablet PO (05:07)
[2017-12-13 06:33] LABS: Anion Gap 9 (5-15); BUN 15 mg/dL (7-18); BUN/Creat Ratio 18.1 RATIO (10-20); Chloride 95 mmol/L (98-107); Creatinine, Serum 0.83 mg/dL (0.55-1.02); EST Glomerular Filtration Rate 76 mL/min (>60); Est Glom Filt Rate - Afr Amer 92 mL/min (>60); Estimated Creatinine Clearance 70.53 ml/min; Glucose 128 mg/dL (74-106); Potassium 3.4 mmol/L (3.5-5.1); Sodium Level 135 mmol/L (136-145)
[2017-12-13 06:37] LABS: Differential Indicated MANUAL DIFF; Hemoglobin 10.9 g/dl (12.0-15.0); Mean Corp Hgb Conc 32.1 g/gl (32-36); Mean Corpuscular Hgb 26.1 pg (27.0-32.0); Mean Corpuscular Volume 81.3 fL (81-99); Mean Platelet Vol. 10.4 fl (6.2-12.0); POSITIVE COUNT YES; POSITIVE DIFFERENTIAL NO; POSITIVE MORPHOLOGY YES; Platelet Count 261 K/mm3 (150-450); RBC Distribution Width CV 18.6 % (11.6-14.6); RBC Distribution Width SD 54.5 fl (35.1-43.9); Red Blood Count 4.18 M/mm3 (4.2-5.4)
[2017-12-13 07:12] LABS: Eosinophil 5 % (0-5); Lymphocyte 37 % (19-41); Monocyte 9 % (0-10); Neutrophil-Band 3 % (0-5); Neutrophil-Segmented 46 % (47-70); Total Cells Counted 100 (MANUAL DIFF)
[2017-12-13 07:15] LABS: Anisocytosis 1+; Hypochromasia 1+; Polychromasia 1+
[2017-12-13 07:16] LABS: Platelet Estimate ADEQUATE (ADEQ)
[2017-12-13 07:18] LABS: Platelet Morphology LARGE
[2017-12-13 07:21] LABS: Absolute Lymphocyte Count 2.96 X10^3/ul (0.83-4.51); Absolute Neutrophil Count 3.9 X10^3/uL (2.0-7.7)
[2017-12-13] MEDS: Insulin Bolus Pump SC (08:00)
[2017-12-13 08:20] VITALS: O2SAT 96
--- NOTE | 2017-12-13 08:37 | NURSING ---
Dr. Callahan reviewed AM labs, NNO
--- NOTE | 2017-12-13 08:37 | NURSING ---
Dr. Callahan aware of pt worried about nonpitting edema to bilateral feet, not a new finding per nursing staff, this nurse discussed with pt about wearing compression stockings or MIKO wraps and keeping BLE elevated as much at possible, pt verbalized understanding.
[2017-12-13] MEDS: Pregabalin 75 MG Capsule 300 MG PO (08:39)
--- NOTE | 2017-12-13 09:12 | NURSING ---
Pt stating she will make her own FU appt with Dr. Mckeon
[2017-12-13 09:53] LABS: Pathologist Review Reviewed
[2017-12-13] MEDS: oxyCODONE 5 MG Tablet 10 MG PO (10:09)
--- NOTE | 2017-12-13 10:35 | CASEMGMT ---
Plan of care meeting held. Resident present as well as resident family. Resident plans to discharge home today, 12/13/17. Resident plans to discharge home with daughter. Resident reporting no further needs at this time. Resident family is providing transportation home for resident at this time. Support given. Proposed discharge date: 12/13/17 PLAN: Discharge home with daughter. Edita SALTER, DELIVERY OF SHOPPING NEWS
[2017-12-13 11:25] VITALS: BP 108/64; PULSE 80; RESP 22; TEMP 36.7; O2SAT 98
--- NOTE | 2017-12-14 08:23 | CASEMGMT ---
Insurance Notified insurance of resident discharge on 12/13/17 to home with daughter. Auth#[id number] Edita SALTER, AIR DEFENSE ARTILLERY SENIOR SERGEANT
--- NOTE | 2017-12-18 11:37 | MDS.RN ---
Information for the mds was obtained from review of the clinical record, interview of resident, staff,and direct observation of residents care.
== END 2017-12-13 11:27 | disposition home or self-care (01) | DRG 947 ==
PROVIDERS: Admitting Provider Family Medicine Geriatric Medicine; Family Provider Internal Medicine; PCP Internal Medicine; Visit Provider Family Medicine Geriatric Medicine
DX: R53.81 Other malaise (principal); J96.21 Acute and chronic respiratory failure with hypoxia; I50.33 Acute on chronic diastolic (congestive) heart failure; J18.9 Pneumonia, unspecified organism; D68.51 Activated protein C resistance; N39.0 Urinary tract infection, site not specified; E27.1 Primary adrenocortical insufficiency; I11.0 Hypertensive heart disease with heart failure; E11.40 Type 2 diabetes mellitus with diabetic neuropathy, unspecified; E78.5 Hyperlipidemia, unspecified; K21.9 Gastro-esophageal reflux disease without esophagitis; I25.10 Atherosclerotic heart disease of native coronary artery without angina pectoris; F41.8 Other specified anxiety disorders; G89.29 Other chronic pain; F17.210 Nicotine dependence, cigarettes, uncomplicated; E87.6 Hypokalemia; E55.9 Vitamin D deficiency, unspecified; J44.9 Chronic obstructive pulmonary disease, unspecified; B95.2 Enterococcus as the cause of diseases classified elsewhere; Z95.1 Presence of aortocoronary bypass graft
CPT/HCPCS: 36415; 80048; 82947; 82962; 85025; 97110; 97116; 97162; 97166; 97530; 97535; 97802; 99406

== ENCOUNTER → 2018-01-04 10:54 | Outpatient (CLI) | payer MEDICARE, SELFPAY ==
[2018-01-04 11:32] VITALS: PULSE 67; PULSE 82; PULSE 83; PULSE 85; PULSE 86; PULSE 87; O2SAT 90; O2SAT 91; O2SAT 92; O2SAT 93; O2SAT 97; O2SAT 98
--- NOTE | 2018-01-04 12:48 | WT_ITS ---
PSN 6 Minute Walk Test - 6 Minute Walk Test 6 Minute Walk Test: 6 Minute Walk Test PSN:6-Minute Walk Test Start: 01/04/18 11: 32 Freq: Status: Active Protocol: [id number].6MINW Document 01/04/18 11:32 SMB (Rec: 01/04/18 11:36 SMB [id number]) 6 Minute Walk Test Date Performed 01/04/18 Time Performed 11:06 Height 5 ft 4 in Weight: 74.389 kg Weight in Pounds 164.[address]: Daly Webster Assistive device used: Cane Pre-test Oxygen Flow Rate (L/min) (L/min) 2 Oxygen Delivery Method Nasal Cannula Pulse Ox (%) 97 Pulse Rate (60-100 beats/min) 67 Dyspnea Phil Scale (0-10) 0 Exertion Phil Scale (6-20) 11 1st minute Oxygen Flow Rate (L/min) (L/min) 2 Oxygen Delivery Method Nasal Cannula Pulse Ox (%) 98 Pulse Rate (60-100 beats/min) 82 2nd minute Oxygen Flow Rate (L/min) (L/min) 2 Oxygen Delivery Method Nasal Cannula Pulse Ox (%) 98 Pulse Rate (60-100 beats/min) 83 3rd minute Oxygen Flow Rate (L/min) (L/min) 2 Oxygen Delivery Method Nasal Cannula Pulse Ox (%) 93 Pulse Rate (60-100 beats/min) 85 4th minute Oxygen Flow Rate (L/min) (L/min) 2 Oxygen Delivery Method Nasal Cannula Pulse Ox (%) 92 Pulse Rate (60-100 beats/min) 86 5th minute Oxygen Flow Rate (L/min) (L/min) 2 Oxygen Delivery Method Nasal Cannula Pulse Ox (%) 90 Pulse Rate (60-100 beats/min) 85 6th minute Oxygen Flow Rate (L/min) (L/min) 2 Oxygen Delivery Method Nasal Cannula Pulse Ox (%) 91 Pulse Rate (60-100 beats/min) 87 Reported Symptoms Increased Work of Breathing Post-test Oxygen Flow Rate (L/min) (L/min) 2 Oxygen Delivery Method Nasal Cannula Pulse Ox (%) 98 Pulse Rate (60-100 beats/min) 83 Dyspnea Phil Scale (0-10) 2 Exertion Phil Scale (6-20) 14 Reported Symptoms Increased Work of Breathing Full Laps Walked 5 Partial Lap, Number of Tiles Walked 38 Total Distance Walked (ft) 333 - Interpretation Interpretation: The patient was able to ambulate only 333 feet over the course of 6 minutes on 2 L nasal cannula with the assistance of a cane. The patient did experience significant desaturation from baseline of 97% to as low as 90%. No significant tachycardia was noted during testing. These findings are consistent with a respiratory limitation exercise tolerance. - Recommendations Recommendations: Patient should be wearing 2 L nasal cannula at all times.
== END ==
PROVIDERS: Family Provider Internal Medicine; PCP Internal Medicine; Visit Provider Nurse Practitioner Acute Care
DX: R06.02 Shortness of breath (principal)
CPT/HCPCS: 94618

== ENCOUNTER → 2018-01-08 07:01 | Outpatient (CLI) | payer MEDICARE, SELFPAY ==
--- NOTE | 2018-01-08 13:24 | PFT ---
INTRODUCTION: The patient is a 52-year-old female that presents for pulmonary function testing secondary to a diagnosis of shortness of breath. Respiratory therapy reports good patient effort. Bronchodilators were used during testing. INTERPRETATION: Forced expiration spirometry demonstrates no evidence of a large airways obstructive ventilatory defect. There was no significant response to aerosolized bronchodilators. Spirograms are of good quality and plateau normally. Body plethysmography was performed and reveals a decreased TLC to 3.08 L, 62% of predicted, indicative of a moderate restrictive ventilatory impairment. The remainder of the lung volumes are symmetrically reduced. Diffusing capacity by single breath CO is severely reduced at 31% of predicted. When compared to previous pulmonary function studies dated March 2017, there has been a 22% reduction in the patient's TLC, with stability in DLCO. IMPRESSION: These pulmonary function studies demonstrate the presence of a moderate restrictive ventilatory impairment with a disproportionate severe reduction in diffusing capacity. There is been worsening restriction since PFTs were last completed in 2016. Dedicated chest imaging can be obtained for further evaluation, if clinically indicated.
== END ==
PROVIDERS: Family Provider Internal Medicine; PCP Internal Medicine; Visit Provider Nurse Practitioner Acute Care
DX: R06.02 Shortness of breath (principal)
CPT/HCPCS: 94060; 94726; 94729

== ENCOUNTER → 2018-02-12 12:49 | Outpatient (CLI) | payer MEDICARE, SELFPAY | PROVIDERS: Family Provider Internal Medicine; PCP Internal Medicine; Visit Provider Internal Medicine Critical Care Medicine | DX: J98.4 Other disorders of lung (principal) | CPT/HCPCS: 71250 ==

== ENCOUNTER → 2018-02-14 10:21 | Outpatient (CLI) | payer MEDICARE, SELFPAY ==
[2018-02-14 11:37] LABS: Hemoglobin A1c 8.2 % (4.2-6.3)
[2018-02-14 11:56] LABS: ALB/GLOB Ratio 0.8 RATIO (0.9-2.4); AST(SGOT) 37 U/L (15-37); Alanine Aminotransfer ALT/SGPT 29 U/L (13-56); Albumin, Serum 3.4 g/dL (3.2-5.0); Alkaline Phosphatase 65 U/L (45-117); Anion Gap 13 (5-15); BUN 17 mg/dL (7-18); BUN/Creat Ratio 20.5 RATIO (10-20); Chloride 89 mmol/L (98-107); Creatinine, Serum 0.83 mg/dL (0.55-1.02); EST Glomerular Filtration Rate 76 mL/min (>60); Est Glom Filt Rate - Afr Amer 93 mL/min (>60); Globulin 4.3 g/dL (2.2-4.2); Glucose 226 mg/dL (74-106); Potassium 4.1 mmol/L (3.5-5.1); Protein, Total 7.7 g/dL (6.4-8.2); Sodium Level 131 mmol/L (136-145); Thyroid Stim Hormone (TSH) 1.16 uIU/mL (0.358-3.74)
== END ==
PROVIDERS: Family Provider Internal Medicine; PCP Internal Medicine; Visit Provider Internal Medicine Endocrinology, Diabetes & Metabolism
DX: E87.1 Hypo-osmolality and hyponatremia (principal); E11.65 Type 2 diabetes mellitus with hyperglycemia
CPT/HCPCS: 36415; 80053; 83036; 84443

== ENCOUNTER 2018-04-02 08:48 | Observation (INO) | payer MEDICARE, SELFPAY ==
[2018-04-02] VITALS (11 sets, daily range): BP systolic 106–123; BP diastolic 49–90; PULSE 79–89; RESP 14–18; TEMP 36.7–37.4; O2SAT 88–99; BMI 30.3; BMI 29.3
--- NOTE | 2018-04-02 08:55 | RAD_ITS ---
STUDY: X-RAY CHEST REASON FOR EXAM: Female, 52 years old. Weakness. Fall. TECHNIQUE: AP upright portable view. COMPARISON: 11/28/2017. FINDINGS: The lungs are clear and expanded. There is no demonstrated pleural abnormality. Normal size heart. Median sternotomy from prior CABG procedure. Normal mediastinum and mirna. Normal visualized pulmonary arteries. Normal visualized aortic arch and descending thoracic aorta. Normal visualized thoracic spine. Normal visualized ribs, clavicles, and shoulders. There is no demonstrated abnormality of the visualized soft tissue structures of the upper abdomen. RAD/Chest 1 View (Portable) IMPRESSION: 1. No acute cardiopulmonary pathology. 2. Interval improvement of mild pulmonary vascular congestion when compared to 11/28/2017. Electronically Signed: Marko Barron MD at 9:14 EDT , Service support ,
--- NOTE | 2018-04-02 08:56 | EKG12_ITS ---
Test Reason : Blood Pressure : / mmHG Vent. Rate : 090 BPM Atrial Rate : 090 BPM P-R Int : 166 ms QRS Dur : 106 ms QT Int : 370 ms P-R-T Axes : 042 029 026 degrees QTc Int : 452 ms Normal sinus rhythm ST & T wave abnormality, consider inferior ischemia ST & T wave abnormality, consider anterolateral ischemia Abnormal ECG Confirmed by BRANDYN GUERRA, REGGIE ([id number]), sports editor YAZMIN AYON ([id number]) on 04/05/2018 1:44:09 PM Referred By: LEEANNA Confirmed By:REGGIE AHUMADA MD
--- NOTE | 2018-04-02 09:08 | ED.DCSUM_ITS ---
- ER Visit Summary Date of Service: 04/02/18 Chief Complaint: Weakness History of Present Illness: The patient is a 52 F who has chronic weakness, however it was worse today. She slid out of her chair. She did not hit her head or has any injuries she has no pain, she has no shortness of breath nausea vomiting diarrhea she just feels more weak. She has no focal weakness just generalized weakness. Physical Examination: Not appear in acute distress. Does not appear toxic, she does appear chronically ill. Dry mucous membranes, no obvious facial deformity No pale conjunctiva No C spine tenderness supple neck. Regular rate and rhythm without any obvious murmurs Course lungs bilaterally speaking in full sentences without any obvious respiratory distress Abdomen soft and nontender no guarding or rebound Moves all extremities without any difficulty or pain. No edema. Skin does not show any obvious rashes or lesions, no trauma. Alert oriented ?3 with no gross focal deficit. NIH stroke scale is 0. Emergency Department Course and Treatment: She has an unremarkable ED workup, however when I try to ambulate her she could not even get out of the bed. I discussed with case management, as well as the patient and family patient would like to be placed in an ECF however at this time she cannot go home. Pending authorization I will observe her in the hospital. Disposition: [Admit stable condition] Impression: [Generalized weakness] This note was generated with [employer] dictation software. It may contain incorrect words, spelling, and punctuation that were not noted in review of the chart prior to signing ED Disposition - Plan for ED Patient: Chief Complaint: Fall Referrals: Sanjuana Mckeon DO [Primary Care Provider] -
[2018-04-02 09:20] LABS: Bedside Glucose 147 mg/dL (70-110)
[2018-04-02 09:31] LABS: Absolute Lymphocyte Count 1.06 X10^3/ul (0.83-4.51); Absolute Neutrophil Count 9.7 X10^3/uL (2.0-7.7); Basophil# 0.02 X10^3/uL; Basophil% 0.2 % (0-1); Eosinophil# 0.04 X10^3/uL; Eosinophils% 0.3 % (0-5); Hematocrit 33.4 % (37-47); Hemoglobin 11.3 g/dl (12.0-15.0); Lymphocyte # 1.06 X10^3/ul (4.0); Lymphocyte % 9.2 % (19-41); Mean Corp Hgb Conc 33.8 g/gl (32-36); Mean Corpuscular Volume 79.9 fL (81-99); Mean Platelet Vol. 10.7 fl (6.2-12.0); Monocyte# 0.61 X10^3/uL; Monocyte% 5.3 % (0-10); Neutrophil % 84.1 % (47-70); Platelet Count 171 K/mm3 (150-450); RBC Distribution Width CV 16.9 % (11.6-14.6); RBC Distribution Width SD 48.5 fl (35.1-43.9); Red Blood Count 4.18 M/mm3 (4.2-5.4); White Blood Count 11.5 K/mm3 (4.4-11.0)
[2018-04-02 09:32] LABS: POSITIVE COUNT NO; POSITIVE DIFFERENTIAL NO; POSITIVE MORPHOLOGY NO
[2018-04-02 09:46] LABS: ALB/GLOB Ratio 0.7 RATIO (0.9-2.4); AST(SGOT) 51 U/L (15-37); Alanine Aminotransfer ALT/SGPT 39 U/L (13-56); Albumin, Serum 2.9 g/dL (3.2-5.0); Alkaline Phosphatase 74 U/L (45-117); Anion Gap 8 (5-15); BUN 17 mg/dL (7-18); BUN/Creat Ratio 20.5 RATIO (10-20); Calcium,Total 8.3 mg/dL (8.5-10.1); Chloride 97 mmol/L (98-107); Creatinine, Serum 0.83 mg/dL (0.55-1.02); EST Glomerular Filtration Rate 76 mL/min (>60); Est Glom Filt Rate - Afr Amer 92 mL/min (>60); Estimated Creatinine Clearance 67.69 ml/min; Globulin 3.9 g/dL (2.2-4.2); Glucose 140 mg/dL (74-106); Potassium 3.4 mmol/L (3.5-5.1); Protein, Total 6.8 g/dL (6.4-8.2); Sodium Level 132 mmol/L (136-145)
--- NOTE | 2018-04-02 10:13 | ED.RN ---
CALL DAUGHTER AMALIA WITH ANY UPDATES [phone]. PT LIVES WITH DAUGHTER.
[2018-04-02 10:36] LABS: Color, Urine Yellow (Yellow); Glucose, Dipstick Normal (Normal); Ketone-Dipstick Negative (Negative); Leukocyte Esterase-Dipstick Negative /ul (Negative); Nitrite-Dipstick Negative (Negative); Occult Blood-Urine Negative /ul (Negative); Protein-Dipstick Negative (Negative); Specific Gravity, Urine 1.005 (1.002-1.030); Urine Bilirubin Dipstick Negative (Negative); Urine Clarity Sl. Cloudy (Clear); Urine Urobilinogen Normal (Normal)
--- NOTE | 2018-04-02 11:28 | CM.ED ---
Social Work Note Referral from Dr. Frederick d/t increased weakness and possible placement needs. Face to face with the pt to discuss discharge plan. Introduced self and role at [facility]. The pt presents with pleasant affect as evidenced by smiling and willingness to participate in assessment. She is accompanied by a male friend. Pt states she has had increased weakness. At her baseline she uses either a walker or cane for ambulation and also has a w/c. She states that she recently has not been able to get out of bed on her own or do transfers due to the weakness. She has been to TCU in the past and expressed interest in returning. Inform that SW does not know that they have availability presently, but that SW left a message with the help desk coordinator to verify. Inquire if they do not have a bed, if the pt would be willing to go elsewhere, and she states yes. Discuss that she will need a pre-cert and will likely be brought in under observation while we await this and she gets PT/OT evaluations. Provide with a list of in network facilities in the event that TCU cannot accept. Updated ED physician, and will pass information along to the inpatient social media marketing manager. Plan: SNF pending acceptance and pre-cert. Delphine Headley, RENAL SOCIAL WORKER, DIRECTOR OF ACCOUNTS PAYABLE
--- NOTE | 2018-04-02 11:51 | PCM.HP.STD ---
Problem List (1) FTT (failure to thrive) in adult Status: Acute (2) SOB (shortness of breath) on exertion Status: Chronic (3) Diabetes mellitus Status: Chronic Qualifiers: Diabetes mellitus type: type 2 (4) Factor 5 Leiden mutation, heterozygous Status: Chronic (5) Sleep apnea Status: Chronic Qualifiers: Sleep apnea type: obstructive Qualified Code(s): G47.33 - Obstructive sleep apnea (adult) (pediatric) Comment: CPAP 9 cm water (6) Depression Status: Chronic (7) Anxiety Status: Chronic (8) Vitamin D deficiency Status: Chronic (9) GERD (gastroesophageal reflux disease) Status: Chronic (10) Coronary artery disease Status: Chronic Comment: Status post stents. 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 transplanted heart: [place] heart Qualified Code(s): I25.810 - Atherosclerosis of coronary artery bypass graft(s) without angina pectoris (12) Atherosclerosis of coronary artery of [place] heart without angina pectoris Status: Chronic Qualifiers: Coronary Disease-Associated Artery/Lesion type: [place] artery Qualified Code(s): I25.10 - Atherosclerotic heart disease of [place] coronary artery without angina pectoris (13) Abnormal chest CT Status: Chronic (14) Tobacco abuse Status: Chronic (15) HTN (hypertension) Status: Chronic Qualifiers: (16) Depression with anxiety Status: Chronic (17) Diabetes mellitus, type II Status: Chronic (18) 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 Neela Crum (22) Cardiomyopathy, ischemic Status: Chronic Comment: 40% EF in 2016 (23) HLD (hyperlipidemia) Status: Chronic (24) Diabetic neuropathy Status: Chronic Qualifiers: Diabetes mellitus type: type 2 History of Present Illness Date of Admission: 04/02/18 Chief Complaint: Generalized weakness The patient is a 52 year old F 52-year-old lady with multiple comorbidities including CAD status post CABG, diabetes mellitus type 2 dyslipidemia hypertension who presents with progressive generalized weakness patient has apparently had multiple admissions. She reports progressive generalized weakness over the past couple of weeks multiple falls. Patient presented to the emergency department and assessment of adult failure to thrive was made patient to be admitted for inpatient assessment with consultation to case management regarding disposition Past Medical History Past Medical History (Chronic Problems): Chronic Problems (Last Reviewed 04/02/18 @ 14:39 by Kevin Barnes MD) SOB (shortness of breath) on exertion (Chronic) Diabetes mellitus (Chronic) Factor 5 Leiden mutation, heterozygous (Chronic) Sleep apnea (Chronic) CPAP 9 cm water Depression (Chronic) Anxiety (Chronic) Vitamin D deficiency (Chronic) GERD (gastroesophageal reflux disease) (Chronic) Coronary artery disease (Chronic) Status post stents. 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, 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 Chronic back pain (Chronic) M54.9, G89.29 History of GI bleed (Chronic) Z87.19 Cardiomyopathy, ischemic (Chronic) I25.5 40% EF in 2016 HLD (hyperlipidemia) (Chronic) E78.5 Diabetic neuropathy (Chronic) E11.40 Allergies Kicelgs-Rnm-Jwm Reductase Inhibitor Adverse Reaction (Severe, Verified 03/29/18 08:01) Elevated liver enzymes, also Muscle cramps/pain Home Medications: Ambulatory Orders Medication Instructions Recorded Aspirin 325 mg PO QHS 08/12/14 Ergocalciferol [Vitamin D] 50,000 unit PO FR 08/12/14 Lisinopril [Zestril] 2.5 mg PO QHS 08/12/14 Venlafaxine XR [Effexor Xr] 150 mg PO DAILY 08/12/14 buPROPion XL [Wellbutrin Xl] 300 mg PO DAILY 08/12/14 Pregabalin [Lyrica] 300 mg PO BID 07/24/15 Amitriptyline HCl 25 mg PO BID 12/26/16 Clopidogrel Bisulfate [Plavix] 75 mg PO DAILY 12/26/16 Eplerenone [Inspra] 25 mg PO DAILY 12/26/16 Gemfibrozil [Lopid] 1,200 mg PO QHS 12/26/16 Meclizine HCl [Antivert] 25 mg PO TID PRN PRN 12/26/16 Niacin [Niacin ER] 2,000 mg PO QHS 12/26/16 Ondansetron [Zofran Odt] 4 mg PO Q8H PRN PRN 12/26/16 Oxycodone [Oxyir] 10 mg PO Q6H PRN PRN 12/26/16 Perphenazine 4 mg PO BID 12/26/16 magnesium oxide 400 mg (241.3 mg 400 mg PO TID tab 10/16/17 magnesium) tablet Albuterol IH (ProAir) [Proair Hfa] 1 - 2 puff INHALATION Q4H PRN PRN 12/05/17 Acetaminophen [Tylenol] 1,000 mg PO Q8H PRN PRN tab 12/11/17 Potassium Chloride [K-Dur] 20 meq PO DAILY #30 tab 12/11/17 furosemide 40 mg tablet 40 mg PO BID@1000,1800 #180 tab 01/19/18 carvedilol 25 mg tablet 25 mg PO BID #180 tab 02/12/18 dulaglutide 0.75 mg/0.5 mL 0.75 mg SC QWEEK 03/29/18 subcutaneous pen injector Dulaglutide [Trulicity] 0.75 mg SQ QWEEK 04/02/18 Insulin Aspart [Novolog Flexpen 0 units SC DAILY 04/02/18 ([facility])] Omeprazole 20 mg PO BID 04/02/18 Surgical History: Surgical History (Last Reviewed 04/02/18 @ 14:39 by Kevin Barnes MD) S/P CABG x 5 (Chronic) Onset Date: ~11/14/07 Z95.1 HINTON-LAD, SVG-D1, SVG-OM1, SVG-OM 2, SVG-PDA 11/16/2007 @ [facility] per Dr. Neela Crum Surgical History: angioplasty, cholecystectomy, coronary bypass surgery - x 5. Psychiatric History: Anxiety, Depression ACUPUNCTURE PHYSICIAN History: No pertinent ACUPUNCTURE PHYSICIAN history Smoking Status: Former smoker - *Family History Maternal Family History: Family History (Last Reviewed 04/02/18 @ 14:39 by Kevin Barnes MD) Father Hypertension Mother Hyperlipidemia History Items: Diabetes, Hypertension Paternal Family History: Family History (Last Reviewed 04/02/18 @ 14:39 by Kevin Barnes MD) Father Hypertension Mother Hyperlipidemia History Items: Hypertension Review of Systems Constitutional: Reports: Weakness, Fatigue HEENT: Denies: Head Aches, Sinus Congestion, Sinus Drainage Cardiovascular: Denies: Chest Pain, Orthopnea, Palpitations, Paroxysmal Noc. Dyspnea Respiratory: Denies: Cough, Shortness of breath at rest, Shortness of breath upon exertion, Sputum production Gastrointestinal: Denies: Abdominal Pain, Hematemesis, Hematochezia, Nausea, Melena, Vomiting Genitourinary: Denies: Dysuria, Frequency, Hematuria, Urgency Musculoskeletal: Denies: Joint Pain, Joint Tenderness Skin: Denies: Rash Neurological: Denies: Focal weakness, Numbness, Tingling Psychiatric: Denies: Homicidal Ideations, Suicidal Ideations Hematologic/ Lymphatic: Denies: Easy Bruising, Easy Bleeding VTE Information - Inpt Only VTE Present on Admission: No VTE Mechan Device Prophylaxis: Knee High VICENTE Hose VTE Pharm Prophylaxis ordered?: Yes Patient Problems: Active and Suspected Problems (Last Reviewed 04/02/18 @ 14:39 by Kevin Barnes MD) FTT (failure to thrive) in adult (Acute) Objective: GENERAL: cooperative HEENT: Atraumatic; EYES; Anicteric, NECK; supple, normal thyroid, RESPIRATORY: Diminished to auscultation bilaterally, CARDIOVASCULAR: Regular S1 S2, GI: soft, non-tender, normoactive bowel sounds, : No Renal angle tenderness; EXTREMITIES: No edema, no clubbing, no cyanosis. MUSCULOSKELTAL: No Joint Tenderness; NEURO: Awake; no lateralizing signs. SKIN: Bruises left upper PSYCH; Normal affect - Physical Exam Vital Signs Temp Pulse Resp BP Pulse Ox 98.1 F 89 17 106/90 H 97 04/02/18 08:50 04/02/18 09:21 04/02/18 09:21 04/02/18 09:21 04/02/18 09:21 Oxygen Delivery Method Room Air Weight: 80.1 kg Body Mass Index (BMI) 30.3 Finger Stick Blood Glucose 417 Laboratory Tests Past 24 Hrs 04/02/18 04/02/18 04/02/18 09:10 09:10 10:30 WBC 11.5 H RBC 4.18 L Hgb 11.3 L Hct 33.4 L MCV 79.9 L MCH 27.0 MCHC 33.8 RDW 16.9 H RDW Differential 48.5 H Plt Count 171 MPV 10.7 Immature Gran % (Auto) 0.900 Neut % (Auto) 84.1 H Lymph % (Auto) 9.2 L [place] % (Auto) 5.3 Eos % (Auto) 0.3 Baso % (Auto) 0.2 Absolute Neuts (auto) 9.7 H Absolute Lymphs (auto) 1.06 Total Counted Not Reportable Sodium 132 L Potassium 3.4 L Chloride 97 L Carbon Dioxide 27.0 Anion Gap 8 BUN 17 Creatinine 0.83 Estim Creat Clear Calc 67.69 Est GFR (MDRD) Af Amer 92 Est GFR (MDRD) Non-Af 76 BUN/Creatinine Ratio 20.5 H Glucose 140 H Calcium 8.3 L Total Bilirubin 0.50 AST 51 H ALT 39 Alkaline Phosphatase 74 Troponin I < 0.015 Total Protein 6.8 Albumin 2.9 L Globulin 3.9 Albumin/Globulin Ratio 0.7 L Urine Color Yellow Urine Clarity Sl. Cloudy Urine pH 7.0 Ur Specific [place] 1.005 Urine Protein Negative Urine Glucose (UA) Normal Urine Ketones Negative Urine Occult Blood Negative Urine Nitrite Negative Urine Bilirubin Negative Urine Urobilinogen Normal Ur Leukocyte Esterase Negative POC Glucose 04/02/18 09:03 POC Glucose 147 H Assessment/Plan All Active Problems (Last Reviewed 04/02/18 @ 14:39 by Kevin Barnes MD) FTT (failure to thrive) in adult (Acute) Shortness of breath (Resolved) Acute respiratory failure (Resolved) Community acquired pneumonia (Resolved) Acute on chronic diastolic heart failure (Resolved) Bilateral pneumonia (Resolved) Acute on chronic respiratory failure with hypoxia (Resolved) Chest discomfort (Resolved) Chronic normocytic anemia (Resolved) Patient is a 52-year-old lady presented with progressive generalized weakness 1. Adult failure to thrive: Patient has been admitted to regular nursing floor requested for PT OT eval and manager social responsibility to assist with disposition 2. Chronic diastolic congestive heart failure; compensated yet 3. CAD with previous CABG 4. Diabetes mellitus type II: uncontrolled, home regimen continued in addition placed on Accu-Cheks a.c. and at bedtime and covered with sliding scale insulin 5. Hypertension-blood pressure controlled, home medications continued with dose adjustment as needed 6. Dyslipidemia-patient is on statin therapy, continued at home dose 7. Depression and anxiety: Restarted, continued home therapy. 8. Chronic back pain 9. DVT prophylaxis: SCDs, lovenox. Clinical Impression(s) from Imaging Studies Chest X-Ray 04/02/18 08:55 IMPRESSION: 1. No acute cardiopulmonary pathology. 2. Interval improvement of mild pulmonary vascular congestion when compared to 11/28/2017. Electronically Signed: Marko Barron MD at 9:14 EDT , Service support , Active Medications Al Hydroxide/Mg Hydroxide (Mylanta Ii) 30 ml PO Q6H PRN PRN PRN Reason: Gastric burning Albuterol Sulfate (Ventolin Aerosols) 2.5 mg INHALATION Q2H PRN PRN PRN Reason: SHORTNESS OF BREATH Amitriptyline HCl (Elavil) 25 mg PO BID PEG Aspirin (Aspirin) 325 mg PO QHS PEG Bupropion HCl (Wellbutrin Xl) 300 mg PO DAILY PEG Carvedilol (Coreg) 25 mg PO BID PEG Clopidogrel Bisulfate (Plavix) 75 mg PO DAILY [facility] Dextrose (D50w Syringe) 0 gm IV X1 PRN; Protocol PRN Reason: Hypoglycemia Docusate Sodium (Colace) 100 mg PO BID PEG Enoxaparin Sodium (Lovenox) 40 mg SC DAILY@1000 PEG Eplerenone (Inspra) 25 mg PO DAILY [facility] Ergocalciferol (Vitamin D) 50,000 unit PO FR PEG Famotidine (Pepcid) 20 mg PO BID PEG Furosemide (Lasix) 40 mg PO BID@1000,1800 PEG Gemfibrozil (Lopid) 1,200 mg PO QHS [facility] Glucagon () 1 mg IM .X1 PRN PRN Reason: Hypoglycemia Guaifenesin (Mucinex) 1,200 mg PO BID [facility] Insulin Glargine (Lantus (Bkc)) 10 units SC BREAKFAST [facility] Insulin Human Lispro (Humalog Kwikpen (Bkc)) 0 unit SQ ACHS PEG; Protocol Lisinopril (Zestril) 2.5 mg PO QHS [facility] Magnesium Hydroxide (Milk Of Magnesia) 30 ml PO DAILY PRN PRN PRN Reason: Constipation Magnesium Oxide (Mag-Ox 400) 400 mg PO TID [facility] Niacin (Niaspan) 2,000 mg PO QHS [facility] Nutritional Formula (Lactose Free) (Glucerna Shake) 120 ml PO 4X/DAY [facility] Ondansetron HCl (Zofran Odt) 4 mg PO Q8H PRN PRN PRN Reason: NAUSEA Oxycodone HCl (Oxyir) 10 mg PO Q6H PRN PRN PRN Reason: PAIN Pantoprazole Sodium (Protonix) 20 mg PO BID [facility] Perphenazine (Perphenazine) 4 mg PO BID [facility] Potassium Chloride (K-Dur) 20 meq PO DAILY [facility] Pregabalin (Lyrica) 300 mg PO BID [facility] Psyllium Hydrophilic Mucilloid (Metamucil) 1 packet PO DAILY PRN PRN PRN Reason: CONSTIPATION Sodium Chloride () 5 - 30 ml IV UD PRN PRN Reason: SALINE FLUSH Venlafaxine HCl (Effexor Xr) 150 mg PO DAILY [facility] Zolpidem Tartrate (Ambien (Generic)) 5 mg PO QHS PRN PRN PRN Reason: INSOMNIA Code Visit OBSV E&M: 60746 Initial observation care L3
[2018-04-02 14:15] LABS: Bedside Glucose 121 mg/dL (70-110)
[2018-04-02] MEDS: Furosemide 40 MG Tablet PO (16:26)
[2018-04-02] MEDS: Magnesium Oxide 400 MG Tablet PO ×2 (16:26→22:35)
[2018-04-02] MEDS: Glucerna Shake 120 ML LIQUID PO (16:28)
[2018-04-02] MEDS: oxyCODONE 5 MG Tablet 10 MG PO (16:30)
[2018-04-02 17:00] LABS: Bedside Glucose 115 mg/dL (70-110)
[2018-04-02] MEDS: Insulin Lispro 100 UNIT/ML INSULN.PEN SQ (21:17)
[2018-04-02 21:31] LABS: Bedside Glucose 309 mg/dL (70-110)
[2018-04-02] MEDS: Docusate Sodium 100 MG Capsule PO (22:30)
[2018-04-02] MEDS: Famotidine 20 MG Tablet PO (22:30)
[2018-04-02] MEDS: Aspirin 325 MG Tablet PO (22:30)
[2018-04-02] MEDS: Carvedilol 25 MG Tablet PO (22:30)
[2018-04-02] MEDS: guaiFENesin 1,200 MG Tablet 1200 MG PO (22:30)
[2018-04-02] MEDS: Lisinopril 2.5 MG Tablet PO (22:35)
[2018-04-02] MEDS: Amitriptyline 25 MG Tablet PO (22:35)
[2018-04-02] MEDS: Pantoprazole Sodium 20 MG Tablet PO (22:35)
[2018-04-02] MEDS: Gemfibrozil 600 MG Tablet 1200 MG PO (22:35)
[2018-04-02] MEDS: Pregabalin 75 MG Capsule 300 MG PO (22:37)
[2018-04-03] VITALS (11 sets, daily range): BP systolic 81–104; BP diastolic 41–70; PULSE 65–79; RESP 16–18; TEMP 36–36.9; O2SAT 94–98
[2018-04-03] MEDS: Magnesium Oxide 400 MG Tablet PO ×3 (05:49→21:46)
[2018-04-03] MEDS: 0.9% NaCl Peripheral Flush Adult/Peds IV (05:51)
[2018-04-03 06:10] LABS: Anion Gap 8 (5-15); BUN 14 mg/dL (7-18); BUN/Creat Ratio 20.6 RATIO (10-20); Calcium,Total 8.3 mg/dL (8.5-10.1); Chloride 105 mmol/L (98-107); Creatinine, Serum 0.68 mg/dL (0.55-1.02); EST Glomerular Filtration Rate 96 mL/min (>60); Est Glom Filt Rate - Afr Amer 116 mL/min (>60); Estimated Creatinine Clearance 82.62 ml/min; Glucose 245 mg/dL (74-106); Potassium 3.7 mmol/L (3.5-5.1); Sodium Level 139 mmol/L (136-145)
[2018-04-03] MEDS: Insulin Lispro 100 UNIT/ML INSULN.PEN SQ ×4 (07:32→21:48)
--- NOTE | 2018-04-03 07:35 | PN_ITS ---
Patient Problems: Active and Suspected Problems (Last Reviewed 04/02/18 @ 14:39 by Kevin Barnes MD) FTT (failure to thrive) in adult (Acute) Subjective: Patient seen, blood pressure relatively low this a.m. with systolic in the 80s held her morning antihypertensive medications. Ordered a random cortisol level Objective: GENERAL: cooperative HEENT: Atraumatic; EYES; Anicteric, NECK; supple, normal thyroid, RESPIRATORY: Diminished to auscultation bilaterally, CARDIOVASCULAR: Regular S1 S2, GI: soft, non-tender, normoactive bowel sounds, : No Renal angle tenderness; EXTREMITIES: No edema, no clubbing, no cyanosis. MUSCULOSKELETAL: No Joint Tenderness; NEURO: Awake; no lateralizing signs. SKIN: Bruises left upper PSYCH; Normal affect Vitals/I&O's: Vital Signs Temp Pulse Resp BP Pulse Ox 98.4 F 65 18 104/70 98 04/03/18 02:10 04/03/18 03:59 04/03/18 02:10 04/03/18 02:10 04/03/18 02:10 Oxygen Flow Rate (L/min) 2 Oxygen Delivery Method Nasal Cannula Weight: 75.6 kg Body Mass Index (BMI) 29.3 Finger Stick Blood Glucose 417 Intake and Output for Last 24 Hours 04/01/18 04/02/18 04/03/18 23:59 23:59 23:59 Intake Total 500 / 500 100 / 100 Output Total 1800 / 1800 2550 / 2550 Balance -1300 / -1300 -2450 / -2450 Laboratory Results 04/02/18 09:03: POC Glucose 147 H 04/02/18 09:10: WBC 11.5 H, RBC 4.18 L, Hgb 11.3 L, Hct 33.4 L, MCV 79.9 L, MCH 27.0, MCHC 33.8, RDW 16.9 H, RDW Differential 48.5 H, Plt Count 171, MPV 10.7, Immature Gran % (Auto) 0.900, Neut % (Auto) 84.1 H, Lymph % (Auto) 9.2 L, [place] % (Auto) 5.3, Eos % (Auto) 0.3, Baso % (Auto) 0.2, Absolute Neuts (auto) 9.7 H, Absolute Lymphs (auto) 1.06, Total Counted Not Reportable 04/02/18 09:10: Sodium 132 L, Potassium 3.4 L, Chloride 97 L, Carbon Dioxide 27.0, Anion Gap 8, BUN 17, Creatinine 0.83, Estim Creat Clear Calc 67.69, Est GFR (MDRD) Af Amer 92, Est GFR (MDRD) Non-Af 76, BUN/Creatinine Ratio 20.5 H, Glucose 140 H, Calcium 8.3 L, Total Bilirubin 0.50, AST 51 H, ALT 39, Alkaline Phosphatase 74, Troponin I < 0.015, Total Protein 6.8, Albumin 2.9 L, Globulin 3.9, Albumin/Globulin Ratio 0.7 L 04/02/18 10:30: Urine Color Yellow, Urine Clarity Sl. Cloudy, Urine pH 7.0, Ur Specific [place] 1.005, Urine Protein Negative, Urine Glucose (UA) Normal, Urine Ketones Negative, Urine Occult Blood Negative, Urine Nitrite Negative, Urine Bilirubin Negative, Urine Urobilinogen Normal, Ur Leukocyte Esterase Negative 04/02/18 14:06: POC Glucose 121 H 04/02/18 16:11: POC Glucose 115 H 04/02/18 21:14: POC Glucose 309 H 04/03/18 05:24: Sodium 139, Potassium 3.7, Chloride 105, Carbon Dioxide 26.0, Anion Gap 8, BUN 14, Creatinine 0.68, Estim Creat Clear Calc 82.62, Est GFR (MDRD) Af Amer 116, Est GFR (MDRD) Non-Af 96, BUN/Creatinine Ratio 20.6 H, Glucose 245 H, Calcium 8.3 L Current Medications Al Hydroxide/Mg Hydroxide (Mylanta Ii) 30 ml PO Q6H PRN PRN PRN Reason: Gastric burning Albuterol Sulfate (Ventolin Aerosols) 2.5 mg INHALATION Q2H PRN PRN PRN Reason: SHORTNESS OF BREATH Amitriptyline HCl (Elavil) 25 mg PO BID [facility] Last Admin: 04/02/18 22:35 Dose: 25 mg Aspirin (Aspirin) 325 mg PO QHS [facility] Last Admin: 04/02/18 22:30 Dose: 325 mg Bupropion HCl (Wellbutrin Xl) 300 mg PO DAILY [facility] Carvedilol (Coreg) 25 mg PO BID [facility] Last Admin: 04/02/18 22:30 Dose: 25 mg Clopidogrel Bisulfate (Plavix) 75 mg PO DAILY [facility] Dextrose (D50w Syringe) 0 gm IV X1 PRN; Protocol PRN Reason: Hypoglycemia Docusate Sodium (Colace) 100 mg PO BID [facility] Last Admin: 04/02/18 22:30 Dose: 100 mg Enoxaparin Sodium (Lovenox) 40 mg SC DAILY@1000 PEG Eplerenone (Inspra) 25 mg PO DAILY [facility] Ergocalciferol (Vitamin D) 50,000 unit PO FR [facility] Famotidine (Pepcid) 20 mg PO BID [facility] Last Admin: 04/02/18 22:30 Dose: 20 mg Furosemide (Lasix) 40 mg PO BID@1000,1800 [facility] Last Admin: 04/02/18 16:26 Dose: 40 mg Gemfibrozil (Lopid) 1,200 mg PO QHS [facility] Last Admin: 04/02/18 22:35 Dose: 1,200 mg Glucagon () 1 mg IM .X1 PRN PRN Reason: Hypoglycemia Guaifenesin (Mucinex) 1,200 mg PO BID [facility] Last Admin: 04/02/18 22:30 Dose: 1,200 mg Insulin Glargine (Lantus (Bkc)) 10 units SC BREAKFAST [facility] Last Admin: 04/03/18 07:31 Dose: 10 u Insulin Human Lispro (Humalog Kwikpen (Bk)) 0 unit SQ ACHS [facility]; Protocol Last Admin: 04/03/18 07:32 Dose: 6 u Lisinopril (Zestril) 2.5 mg PO QHS [facility] Last Admin: 04/02/18 22:35 Dose: 2.5 mg Magnesium Hydroxide (Milk Of Magnesia) 30 ml PO DAILY PRN PRN PRN Reason: Constipation Magnesium Oxide (Mag-Ox 400) 400 mg PO TID [facility] Last Admin: 04/03/18 05:49 Dose: 400 mg Niacin (Niaspan) 2,000 mg PO QHS [facility] Last Admin: 04/02/18 22:35 Dose: 2,000 mg Nutritional Formula (Lactose Free) (Glucerna Shake) 120 ml PO 4X/DAY [facility] Last Admin: 04/02/18 22:33 Dose: Not Given Ondansetron HCl (Zofran Odt) 4 mg PO Q8H PRN PRN PRN Reason: NAUSEA Oxycodone HCl (Oxyir) 10 mg PO Q6H PRN PRN PRN Reason: PAIN Last Admin: 04/02/18 16:30 Dose: 10 mg Pantoprazole Sodium (Protonix) 20 mg PO BID [facility] Last Admin: 04/02/18 22:35 Dose: 20 mg Perphenazine (Perphenazine) 4 mg PO BID [facility] Last Admin: 04/02/18 22:30 Dose: 4 mg Potassium Chloride (K-Dur) 20 meq PO DAILY [facility] Pregabalin (Lyrica) 300 mg PO BID [facility] Last Admin: 04/02/18 22:37 Dose: 300 mg Psyllium Hydrophilic Mucilloid (Metamucil) 1 packet PO DAILY PRN PRN PRN Reason: CONSTIPATION Sodium Chloride () 5 - 30 ml IV UD PRN PRN Reason: SALINE FLUSH Last Admin: 04/03/18 05:51 Dose: 10 ml Venlafaxine HCl (Effexor Xr) 150 mg PO DAILY [facility] Zolpidem Tartrate (Ambien (Generic)) 5 mg PO QHS PRN PRN PRN Reason: INSOMNIA Medical Necessity - Tobacco Use Smoking Status: Former smoker Assessment/Plan All Active Problems (Last Reviewed 04/02/18 @ 14:39 by Kevin Barnes MD) FTT (failure to thrive) in adult (Acute) Shortness of breath (Resolved) Acute respiratory failure (Resolved) Community acquired pneumonia (Resolved) Acute on chronic diastolic heart failure (Resolved) Bilateral pneumonia (Resolved) Acute on chronic respiratory failure with hypoxia (Resolved) Chest discomfort (Resolved) Chronic normocytic anemia (Resolved) Patient is a 52-year-old lady presented with progressive generalized weakness 1. Adult failure to thrive: Patient has been admitted to regular nursing floor requested for PT OT eval and social media content manager to assist with disposition 2. Chronic diastolic congestive heart failure; compensated yet 3. CAD with previous CABG 4. Diabetes mellitus type II: uncontrolled, home regimen continued in addition placed on Accu-Cheks a.c. and at bedtime and covered with sliding scale insulin 5. Hypertension-blood pressure medications held this morning in view of relatively low blood pressure 6. Dyslipidemia-patient is on statin therapy, continued at home dose 7. Depression and anxiety: Restarted, continued home therapy. 8. Chronic back pain 9. DVT prophylaxis: SCDs, lovenox. Clinical Impression(s) from Imaging Studies Chest X-Ray 04/02/18 08:55 IMPRESSION: 1. No acute cardiopulmonary pathology. 2. Interval improvement of mild pulmonary vascular congestion when compared to 11/28/2017. Electronically Signed: Marko Barron MD at 9:14 EDT , Service support , Code Visit Inpatient E&M: 39347 Subs Hosp L3 OBSV E&M: [id number] Observ/hosp same date L3
[2018-04-03 07:41] LABS: Bedside Glucose 278 mg/dL (70-110)
[2018-04-03] MEDS: Pantoprazole Sodium 20 MG Tablet PO ×2 (11:05→21:47)
[2018-04-03] MEDS: Docusate Sodium 100 MG Capsule PO ×2 (11:05→21:46)
[2018-04-03] MEDS: Clopidogrel Bisulfate 75 MG Tablet PO (11:06)
[2018-04-03] MEDS: Famotidine 20 MG Tablet PO ×2 (11:06→21:47)
[2018-04-03] MEDS: Amitriptyline 25 MG Tablet PO ×2 (11:06→21:46)
[2018-04-03] MEDS: guaiFENesin 1,200 MG Tablet 1200 MG PO ×2 (11:06→21:45)
[2018-04-03] MEDS: buPROPion (XL) 300 MG TABLET.XL PO (11:06)
[2018-04-03] MEDS: Pregabalin 75 MG Capsule 300 MG PO ×2 (11:06→21:50)
[2018-04-03] MEDS: Venlafaxine XR 150 MG Capsule PO (11:06)
[2018-04-03] MEDS: Enoxaparin 40 MG/0.4 ML Syringe SC (11:07)
--- NOTE | 2018-04-03 11:39 | CASEMGMT ---
Social Work Note KAITLYN spoke with Zehra in TCU earlier today who confirmed she didn't have beds available on TCU. SW in to update pt of this. Pt states that she is ok with this worker sending referral to any SNF in [place], [place] as she prefers to remain in [place]. KAITLYN checked SNF in network with pt's insurance and no facilities are listed as being in network with pt's insurance in [place]. KAITLYN placed a call to Brinda at [facility] at [place] to see if she would be willing to attempt one time contract with [facility]. Brinda states she is willing and to fax referral. KAITLYN faxed referral to Brinda at [facility] at [place]. PT/OT has been ordered for pt but not available at this time. KAITLYN will fax updated PT/OT notes when available. KAITLYN received call from Zehra in TCU stating a bed has opened up on TCU for tomorrow and she is able to accept pt and will submit for pre-cert. Plan: TCU pending pre-cert Carmen Lazaro DEAF INTERPRETER, DAY CAMP UNIT LEADER
[2018-04-03] MEDS: oxyCODONE 5 MG Tablet 10 MG PO ×2 (12:43→19:27)
[2018-04-03 12:51] LABS: Bedside Glucose 311 mg/dL (70-110)
--- NOTE | 2018-04-03 14:22 | CHAPLAIN ---
Type of Pastoral Visit _x__ Initial Visit ___ Follow-up Visit ___ On-call Visit ___ General Patient Visit ___ Spiritual Assessment ___ Family Conference ___ Bereavement ___ Rapid Response ___ Code Blue ___ Other (describe below) Pastoral Care Referral From _x__ Patient ___ Family ___ Nurse ___ Physician ___ Lease Administration Analyst ___ Polymerization Kettle Operator ___ Other (describe below) Sacrament/Intervention _x__ Active listening ___ Anointing ___ Scientology ___ Bereavement ___ Communion _x__ Brenda exploration ___ _x__ Life review _x__ Prayer ___ Reconciliation ___ Sacrament of Sick ___ Supportive presence ___ Wedding ___ Other (describe below) Pastoral Comments patient had requested a Bible to RN; brought Bible along to visit and patient showed great interest and appreciation for gift; male friend of pt was with her in room; pt was eating lunch but asked this dish room worker to stay and visit; pt open to emotional and spiritual support including prayer
[2018-04-03] MEDS: Glucerna Shake 120 ML LIQUID PO ×3 (14:43→21:45)
--- NOTE | 2018-04-03 15:33 | CASEMGMT ---
Social Work Note SW received call from Zehra in TCU that pre-cert has been obtained and she has pt on the list for discharge to TCU tomorrow. KAITLYN updated pt of this. Pt had male friend in the room at this time and pt gave this worker permission to speak to her in front of guests. Plan: TCU when medically cleared Carmen Lazaro LICENSED OCCUPATIONAL THERAPY ASSISTANT, BARREL CHARRER HELPER
[2018-04-03 17:20] LABS: Bedside Glucose 371 mg/dL (70-110)
[2018-04-03] MEDS: Gemfibrozil 600 MG Tablet 1200 MG PO (21:47)
[2018-04-03] MEDS: Aspirin 325 MG Tablet PO (21:48)
[2018-04-03 22:01] LABS: Bedside Glucose 297 mg/dL (70-110)
[2018-04-04 00:08] VITALS: PULSE 77
[2018-04-04 01:54] VITALS: BP 125/46; PULSE 79; RESP 16; TEMP 37.3; O2SAT 94
[2018-04-04] MEDS: 0.9% NaCl Peripheral Flush Adult/Peds IV (01:59)
[2018-04-04] MEDS: oxyCODONE 5 MG Tablet 10 MG PO ×2 (01:59→11:16)
[2018-04-04 04:13] VITALS: PULSE 77
[2018-04-04] MEDS: Magnesium Oxide 400 MG Tablet PO (05:45)
[2018-04-04 07:54] VITALS: BP 99/52; PULSE 76; RESP 16; TEMP 37.1; O2SAT 95
--- NOTE | 2018-04-04 07:54 | PCM.TXEXTCAR ---
- Diet 04/02/18 12:57 Diet: Calorie Controlled Dietary Modifications:: Mechanical Soft Diet Is pt able to select menu?: Yes How many daily calories?: 1800 calorie - Wound(s) R elbow Wound Type: Abrasion BLE Wound Type: Abrasion - Therapies Physical Therapy: Eval and Treat Occupational Therapy: Eval and Treat - Problem/Diagnosis (1) FTT (failure to thrive) in adult Status: Acute Current Visit: Yes (2) SOB (shortness of breath) on exertion Status: Chronic Current Visit: No (3) Diabetes mellitus Status: Chronic Current Visit: No (4) Factor 5 Leiden mutation, heterozygous Status: Chronic Current Visit: No (5) Sleep apnea Status: Chronic Comment: CPAP 9 cm water Current Visit: No (6) Depression Status: Chronic Current Visit: No (7) Anxiety Status: Chronic Current Visit: No (8) Vitamin D deficiency Status: Chronic Current Visit: No (9) GERD (gastroesophageal reflux disease) Status: Chronic Current Visit: No (10) Coronary artery disease Status: Chronic Comment: Status post stents. 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 Neela Crum Current Visit: No (22) Cardiomyopathy, ischemic Status: Chronic Comment: 40% EF in 2016 Current Visit: No (23) HLD (hyperlipidemia) Status: Chronic Current Visit: No (24) Diabetic neuropathy Status: Chronic Current Visit: No - Allergies/Procedures Done in Hospital Allergies/Adverse Reactions: Allergies Yfsacoj-Vmp-Vam Reductase Inhibitor Adverse Reaction (Severe, Verified 03/29/18 08:01) Elevated liver enzymes, also Muscle cramps/pain - Type of Care/Length of Stay Estimated LOS: Convalescent Care Less Than 30 days Type of Care Needed: Skilled Rehab Potential: Good Prognosis: Good - Additional Orders/Day of Discharge Day of Discharge: 04/04/18 - Dietary and Speech Recommendations Dietitian Recommendations/Changes: Rec diet change to 1800 [facility]. Please make pt SELECT diet - Follow Up Care Primary Care Physician: Sanjuana Mckeon DO [Primary Care Provider] -
--- NOTE | 2018-04-04 07:55 | PCM.DC.SUM ---
Discharge Date and Diagnosis - Problem List Patient Problems: Active and Suspected Problems (Last Reviewed 04/02/18 @ 14:39 by Kevin Barnes MD) FTT (failure to thrive) in adult (Acute) Date of Admission: 04/02/18 Date of Discharge: 04/04/18 - Primary Discharge Diagnosis Active and Suspected Problems (Last Reviewed 04/02/18 @ 14:39 by Kevin Barnes MD) FTT (failure to thrive) in adult (Acute) - Secondary Discharge Diagnosis Chronic Problems (Last Reviewed 04/02/18 @ 14:39 by Kevin Barnes MD) SOB (shortness of breath) on exertion (Chronic) Diabetes mellitus (Chronic) Factor 5 Leiden mutation, heterozygous (Chronic) Sleep apnea (Chronic) CPAP 9 cm water Depression (Chronic) Anxiety (Chronic) Vitamin D deficiency (Chronic) GERD (gastroesophageal reflux disease) (Chronic) Coronary artery disease (Chronic) Status post stents. 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 Neela Crum Cardiomyopathy, ischemic (Chronic) 40% EF in 2016 HLD (hyperlipidemia) (Chronic) Diabetic neuropathy (Chronic) Hospital Course and Treatment Imaging Results: Clinical Impression(s) from Imaging Studies Chest X-Ray 04/02/18 08:55 IMPRESSION: 1. No acute cardiopulmonary pathology. 2. Interval improvement of mild pulmonary vascular congestion when compared to 11/28/2017. Electronically Signed: Marko Barron MD at 9:14 EDT , Service support , Operations: None Summary of Care Provided: Patient is a 52-year-old lady presented with progressive generalized weakness 1. Adult failure to thrive: Patient has been admitted to regular nursing floor requested for PT OT eval and nursing home social worker to assist with disposition 2. Chronic diastolic congestive heart failure; compensated yet 3. CAD with previous CABG 4. Diabetes mellitus type II: uncontrolled, home regimen continued in addition placed on Accu-Cheks a.c. and at bedtime and covered with sliding scale insulin 5. Hypertension-patient blood pressure was relatively low during her hospital stay blood pressure medications were adjusted prior to discharge 6. Dyslipidemia-patient is on niacin as well as gemfibrozil, continued at home dose 7. Depression and anxiety: Restarted, continued home therapy. 8. Chronic back pain 9. DVT prophylaxis: SCDs, lovenox. Patient Problems: Active and Suspected Problems (Last Reviewed 04/02/18 @ 14:39 by Kevin Barnes MD) FTT (failure to thrive) in adult (Acute) - Physical Exam General: Oriented x3 HEENT: Atraumatic Cardiovascular: Regular rate Neurological: Neuro grossly intact Psych/Mental Status: Normal Affect Vital Signs Temp Pulse Resp BP Pulse Ox 99.2 F H 77 16 125/46 H 94 04/04/18 01:54 04/04/18 04:13 04/04/18 01:54 04/04/18 01:54 04/04/18 01:54 Oxygen Flow Rate (L/min) 2 Oxygen Delivery Method Room Air Weight: 74.1 kg Body Mass Index (BMI) 29.3 Finger Stick Blood Glucose 417 Intake and Output for Last 24 Hours 04/02/18 04/03/18 04/04/18 23:59 23:59 23:59 Intake Total 500 / 500 1490 / 1490 600 / 600 Output Total 1800 / 1800 4600 / 4600 1250 / 1250 Balance -1300 / -1300 -3110 / -3110 -650 / -650 Laboratory Tests Past 24 Hrs 04/03/18 08:40 Cortisol 29.30 H POC Glucose 04/03/18 04/03/18 04/03/18 21:44 17:17 11:26 POC Glucose 297 H 371 H 311 H Discharge Diet: No Restrictions, 1800 Calorie Control Diet Discharge Activity: Return to Normal Activity Home Medications: Medications to take at Discharge Aspirin 325 mg PO QHS 08/12/14 Ergocalciferol [Vitamin D] 50,000 unit PO FR 08/12/14 Lisinopril [Zestril] 2.5 mg PO QHS 08/12/14 Venlafaxine XR [Effexor Xr] 150 mg PO DAILY 08/12/14 buPROPion XL [Wellbutrin Xl] 300 mg PO DAILY 08/12/14 Pregabalin [Lyrica] 300 mg PO BID 07/24/15 Amitriptyline HCl 25 mg PO BID 12/26/16 Clopidogrel Bisulfate [Plavix] 75 mg PO DAILY 12/26/16 Eplerenone [Inspra] 25 mg PO DAILY 12/26/16 Gemfibrozil [Lopid] 1,200 mg PO QHS 12/26/16 Meclizine HCl [Antivert] 25 mg PO TID PRN PRN 12/26/16 Niacin [Niacin ER] 2,000 mg PO QHS 12/26/16 Ondansetron [Zofran Odt] 4 mg PO Q8H PRN PRN 12/26/16 Perphenazine 4 mg PO BID 12/26/16 magnesium oxide 400 mg (241.3 mg magnesium) tablet 400 mg PO TID tab 10/16/17 Albuterol IH (ProAir) [Proair Hfa] 1 - 2 puff INHALATION Q4H PRN PRN 12/05/17 Acetaminophen [Tylenol] 1,000 mg PO Q8H PRN PRN tab 12/11/17 Potassium Chloride [K-Dur] 20 meq PO DAILY #30 tab 12/11/17 dulaglutide 0.75 mg/0.5 mL subcutaneous pen injector 0.75 mg SC QWEEK 03/29/18 Dulaglutide [Trulicity] 0.75 mg SQ QWEEK 04/02/18 Insulin Aspart [Novolog Flexpen] 0 units SC DAILY 04/02/18 Omeprazole 20 mg PO BID 04/02/18 Carvedilol 12.5 mg PO BID #180 tab 04/04/18 Furosemide [Lasix] 20 mg PO BID@1000,1800 #180 tab 04/04/18 Oxycodone [Oxyir] 10 mg PO Q6H PRN PRN 3 Days #10 tab 04/04/18 Following Prescrptions Were Given to Patient: Oxycodone [Oxyir] 10 mg PO Q6H PRN PRN 3 Days #10 tab PRN Reason: Pain Primary Care Physician: Sanjuana Mckeon DO [Primary Care Provider] - Disposition: Custodial facility Minutes spent on discharge:: 35 Patient Condition:: Stable Medical Necessity - Tobacco Use Smoking Status: Former smoker Meaningful Use Info Meaningful Use Diagnoses (Choose all that apply): None applicable Code Visit OBSV E&M: 03403 Observation care discharge
[2018-04-04] MEDS: Insulin Lispro 100 UNIT/ML INSULN.PEN SQ ×2 (09:47→14:16)
--- NOTE | 2018-04-04 09:55 | CASEMGMT ---
Addendum entered by Carito Moreno 04/04/18 09:59: SW spoke w/pt in room, confirmed plan to go to TCU today, pt in agreement. No further needs identified at this time. ROSALEE Frankel, AIRCRAFT AIR CONDITIONING MECHANIC Original Note: All paperwork completed for pt to go to TCU today. SW faxed discharge instructions to TCU, message left for Zehra in TCU. No further needs, precert attained yesterday, pt to TCU today. ROSALEE Frankel, AIRCRAFT AIR CONDITIONING MECHANIC
[2018-04-04 09:56] LABS: Bedside Glucose 288 mg/dL (70-110)
--- NOTE | 2018-04-04 10:01 | CASEMGMT ---
RN CARLOS NOTE: To room to talk with pt. Pt sitting up on edge of bed, eating breakfast. Reviewed RAPP form with pt and questions answered. Pt signed form. Copy made and placed on chart. Original given to pt. Jessica CHAU RN CM
--- NOTE | 2018-04-04 10:22 | CASEMGMT ---
As per stock fitter assessment, POA/LW papers on the chart. SW checked, the papers are not in the echart or paper chart. SW spoke w/pt, explained that the POA/LW papers are not on file here. SW asked pt to ask her daughter to bring in the papers when able, and they can copy the forms in TCU and place them in the chart. Pt states understanding. ROSALEE Frankel, LOCKER ROOM CLERK
[2018-04-04] MEDS: Clopidogrel Bisulfate 75 MG Tablet PO (11:05)
[2018-04-04] MEDS: Famotidine 20 MG Tablet PO (11:06)
[2018-04-04] MEDS: Pregabalin 75 MG Capsule 300 MG PO (11:06)
[2018-04-04] MEDS: Amitriptyline 25 MG Tablet PO (11:06)
[2018-04-04] MEDS: guaiFENesin 1,200 MG Tablet 1200 MG PO (11:06)
[2018-04-04] MEDS: buPROPion (XL) 300 MG TABLET.XL PO (11:06)
[2018-04-04] MEDS: Pantoprazole Sodium 20 MG Tablet PO (11:06)
[2018-04-04] MEDS: Enoxaparin 40 MG/0.4 ML Syringe SC (11:07)
[2018-04-04] MEDS: Venlafaxine XR 150 MG Capsule PO (11:07)
[2018-04-04] MEDS: Docusate Sodium 100 MG Capsule PO (11:07)
[2018-04-04] MEDS: Glucerna Shake 120 ML LIQUID PO (11:16)
[2018-04-04 13:50] LABS: Bedside Glucose 422 mg/dL (70-110)
== END 2018-04-04 14:21 | disposition skilled nursing facility (03) ==
LOC: ED 09:18 → MS2 12:37
PROVIDERS: Admitting Provider Internal Medicine; Emergency Provider Emergency Medicine; Family Provider Internal Medicine; PCP Internal Medicine; Visit Provider Internal Medicine
DX: R62.7 Adult failure to thrive (principal); R06.02 Shortness of breath; D68.51 Activated protein C resistance; I25.10 Atherosclerotic heart disease of native coronary artery without angina pectoris; F41.8 Other specified anxiety disorders; E27.1 Primary adrenocortical insufficiency; E78.5 Hyperlipidemia, unspecified; I25.5 Ischemic cardiomyopathy; I11.0 Hypertensive heart disease with heart failure; I50.32 Chronic diastolic (congestive) heart failure; E11.65 Type 2 diabetes mellitus with hyperglycemia; E11.40 Type 2 diabetes mellitus with diabetic neuropathy, unspecified; J96.11 Chronic respiratory failure with hypoxia; E55.9 Vitamin D deficiency, unspecified; K21.9 Gastro-esophageal reflux disease without esophagitis; G89.29 Other chronic pain; G47.33 Obstructive sleep apnea (adult) (pediatric); M54.9 Dorsalgia, unspecified; Z95.1 Presence of aortocoronary bypass graft; Z79.82 Long term (current) use of aspirin; Z79.4 Long term (current) use of insulin; Z87.891 Personal history of nicotine dependence
CPT/HCPCS: 36415; 71045; 80048; 80053; 81002; 82533; 82962; 84484; 85025; 93005; 96360; 96361; 96372; 97162; 97165; 97802; 97803; 99218; 99251; 99285; J7040; A4216; G0378; G0463

== ENCOUNTER 2018-04-04 14:25 | Inpatient (IN) | payer MEDICARE, SELFPAY ==
[2018-04-04 14:35] VITALS: BP 129/68; PULSE 86; RESP 18; TEMP 36.6; O2SAT 94; BMI 24.3
[2018-04-04 17:10] LABS: Bedside Glucose 384 mg/dL (70-110)
[2018-04-04] MEDS: Pregabalin 75 MG Capsule 300 MG PO (17:13)
[2018-04-04] MEDS: Pantoprazole Sodium 20 MG Tablet PO (17:13)
[2018-04-04] MEDS: Amitriptyline 25 MG Tablet PO (17:14)
[2018-04-04] MEDS: Carvedilol 12.5 MG Tablet PO (17:14)
[2018-04-04] MEDS: Furosemide 20 MG Tablet PO (17:14)
[2018-04-04] MEDS: oxyCODONE 5 MG Tablet 10 MG PO (17:17)
[2018-04-04] MEDS: Insulin Lispro 100 UNIT/ML INSULN.PEN SC ×2 (17:19→21:04)
[2018-04-04] MEDS: Magnesium Oxide 400 MG Tablet PO (20:55)
[2018-04-04] MEDS: Aspirin 325 MG Tablet PO (20:55)
[2018-04-04] MEDS: Gemfibrozil 600 MG Tablet 1200 MG PO (20:55)
[2018-04-04 20:56] LABS: Bedside Glucose 240 mg/dL (70-110)
[2018-04-04] MEDS: Lisinopril 2.5 MG Tablet PO (20:56)
--- NOTE | 2018-04-04 21:02 | PCM.HP.STD ---
Problem List (1) Weakness Status: Acute (2) FTT (failure to thrive) in adult Status: Acute (3) Diabetes mellitus Status: Chronic (4) Factor 5 Leiden mutation, heterozygous Status: Chronic (5) Sleep apnea Status: Chronic Qualifiers: Comment: CPAP 9 cm water (6) Depression Status: Chronic (7) Anxiety Status: Chronic (8) Vitamin D deficiency Status: Chronic (9) GERD (gastroesophageal reflux disease) Status: Chronic (10) Coronary artery disease Status: Chronic Comment: Status post stents. 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 The patient is a 52 year old Female with below past medical history presented to [facility] Emergency Department with weakness. Slid out of chair. Evaluation in ED negative. Patient unable to walk. 04/02/2018 Admit to Hospital. PT/OT for correction placement. 04/04/2018 Admit to TCU with debility, here for rehabilitation, strengthening, prior to discharge home with daughter. Past Medical History Past Medical History (Chronic Problems): Chronic Problems (Last Reviewed 04/02/18 @ 14:39 by Kevin Barnes MD) SOB (shortness of breath) on exertion (Chronic) Diabetes mellitus (Chronic) Factor 5 Leiden mutation, heterozygous (Chronic) Sleep apnea (Chronic) CPAP 9 cm water Depression (Chronic) Anxiety (Chronic) Vitamin D deficiency (Chronic) GERD (gastroesophageal reflux disease) (Chronic) Coronary artery disease (Chronic) Status post stents. Atherosclerosis of coronary artery bypass graft without angina pectoris (Chronic) Atherosclerosis of coronary artery of [place] heart without angina pectoris (Chronic) Abnormal chest CT (Chronic) Tobacco abuse (Chronic) HTN (hypertension) (Chronic) Depression with anxiety (Chronic) Diabetes mellitus, type II (Chronic) Butch disease (Chronic) she states she has [place]'s disease BUT, 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 Chronic back pain (Chronic) History of GI bleed (Chronic) S/P CABG x 5 (Chronic ~11/14/07) HINTON-LAD, SVG-D1, SVG-OM1, SVG-OM 2, SVG-PDA 11/16/2007 @ [facility] per Dr. Neela Crum Cardiomyopathy, ischemic (Chronic) 40% EF in 2016 HLD (hyperlipidemia) (Chronic) Diabetic neuropathy (Chronic) Medical History: Medical History (Last Reviewed 04/02/18 @ 14:39 by Kevin Barnes MD) Atherosclerosis of coronary artery bypass graft without angina pectoris (Chronic) I25.810 Atherosclerosis of coronary artery of [place] heart without angina pectoris (Chronic) I25.[address] (Chronic) R93.8 Tobacco abuse (Chronic) Z72.0 HTN (hypertension) (Chronic) I10 Depression with anxiety (Chronic) Diabetes mellitus, type II (Chronic) E11.9 [place] disease (Chronic) E27.1 she states she has D[place]che[place]'s disease BUT, 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 Chronic back pain (Chronic) M54.9, G89.29 History of GI bleed (Chronic) Z87.19 Cardiomyopathy, ischemic (Chronic) I25.5 40% EF in 2015 HLD (hyperlipidemia) (Chronic) E78.5 Diabetic neuropathy (Chronic) E11.40 Allergies Cikrzxi-Zsc-Nwa Reductase Inhibitor Adverse Reaction (Severe, Verified 03/29/18 08:01) Elevated liver enzymes, also Muscle cramps/pain Home Medications: Ambulatory Orders Medication Instructions Recorded Aspirin 325 mg PO QHS 08/12/14 Ergocalciferol [Vitamin D] 50,000 unit PO FR 08/12/14 Lisinopril [Zestril] 2.5 mg PO QHS 08/12/14 Venlafaxine XR [Effexor Xr] 150 mg PO DAILY 08/12/14 buPROPion XL [Wellbutrin Xl] 300 mg PO DAILY 08/12/14 Pregabalin [Lyrica] 300 mg PO BID 07/24/15 Amitriptyline HCl 25 mg PO BID 12/26/16 Clopidogrel Bisulfate [Plavix] 75 mg PO DAILY 12/26/16 Eplerenone [Inspra] 25 mg PO DAILY 12/26/16 Gemfibrozil [Lopid] 1,200 mg PO QHS 12/26/16 Meclizine HCl [Antivert] 25 mg PO TID PRN PRN 12/26/16 Niacin [Niacin ER] 2,000 mg PO QHS 12/26/16 Ondansetron [Zofran Odt] 4 mg PO Q8H PRN PRN 12/26/16 Perphenazine 4 mg PO BID 12/26/16 magnesium oxide 400 mg (241.3 mg 400 mg PO TID tab 10/16/17 magnesium) tablet Albuterol IH (ProAir) [Proair Hfa] 1 - 2 puff INHALATION Q4H PRN PRN 12/05/17 Acetaminophen [Tylenol] 1,000 mg PO Q8H PRN PRN tab 12/11/17 Potassium Chloride [K-Dur] 20 meq PO DAILY #30 tab 12/11/17 dulaglutide 0.75 mg/0.5 mL 0.75 mg SC QWEEK 03/29/18 subcutaneous pen injector Dulaglutide [Trulicity] 0.75 mg SQ QWEEK 04/02/18 Insulin Aspart [Novolog Flexpen] 0 units SC DAILY 04/02/18 Omeprazole 20 mg PO BID 04/02/18 Carvedilol 12.5 mg PO BID #180 tab 04/04/18 Furosemide [Lasix] 20 mg PO BID@1000,1800 #180 tab 04/04/18 Oxycodone [Oxyir] 10 mg PO Q6H PRN PRN 3 Days #10 tab 04/04/18 Surgical History: Surgical History (Last Reviewed 04/02/18 @ 14:39 by Kevin Barnes MD) S/P CABG x 5 (Chronic) Onset Date: ~11/14/07 Z95.1 HINTON-LAD, SVG-D1, SVG-OM1, SVG-OM 2, SVG-PDA 11/16/2007 @ [facility] per Dr. Neela Crum Surgical History: angioplasty, cholecystectomy, coronary bypass surgery - x 5. 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 Smoking Status: Former smoker Tobacco Use: Non-smoker Alcohol: None Drugs: None - *Family History Maternal Family History: Family History (Last Reviewed 04/02/18 @ 14:39 by Kevin Barnes MD) Father Hypertension Mother Hyperlipidemia History Items: Diabetes, Hypertension Paternal Family History: Family History (Last Reviewed 04/02/18 @ 14:39 by Kevin Barnes MD) Father Hypertension Mother Hyperlipidemia History Items: Hypertension Review of Systems Constitutional: Reports: Weakness. Denies: Chills, Fever, Weight Change HEENT: Denies: Head Aches, Sinus Congestion, Sinus Drainage Cardiovascular: Denies: Chest Pain, Palpitations Respiratory: Denies: Cough, Shortness of breath at rest, Sputum production Gastrointestinal: Denies: Abdominal Pain, Nausea, Vomiting Genitourinary: Denies: Dysuria Musculoskeletal: Denies: Joint Pain, Joint Tenderness Skin: Denies: Rash, Wounds Neurological: Denies: Numbness, Tingling, Focal weakness Psychiatric: Denies: Anxiety, Depression, Homicidal Ideations, Suicidal Ideations Hematologic/ Lymphatic: Denies: Easy Bruising, Easy Bleeding VTE Information - Inpt Only VTE Present on Admission: No VTE Mechan Device Prophylaxis: Knee High VICENTE Hose VTE Pharm Prophylaxis ordered?: Yes Patient Problems: Active and Suspected Problems (Last Reviewed 04/02/18 @ 14:39 by Kevin Barnes MD) Weakness (Acute) - Physical Exam General: Alert, Oriented x3, Cooperative HEENT: Atraumatic, PERRLA, EOMI, Normocephalic Neck: Supple, No JVD, Negative Carotid Bruits Lungs: Clear to auscultation, Normal air movement Cardiovascular: Regular rate, No murmurs Abdomen: Bowel Sounds Present, Soft, Non Tender Extremities: No edema, Capillary Refill Less than 3 Seconds Skin: No rashes, No breakdown Musculoskeletal: No Tenderness to Palpation of Joints or Extremities Neurological: Cranial nerves II-XII grossly intact Psych/Mental Status: Normal Affect, Appropriate Vital Signs Temp Pulse Resp BP Pulse Ox 97.8 F 86 18 129/68 H 94 04/04/18 14:35 04/04/18 14:35 04/04/18 14:35 04/04/18 14:35 04/04/18 14:35 Oxygen Delivery Method Room Air Weight: 64.4 kg Body Mass Index (BMI) 24.3 Finger Stick Blood Glucose 417 POC Glucose 04/04/18 04/04/18 20:49 17:06 POC Glucose 240 H 384 H Assessment/Plan All Active Problems (Last Reviewed 04/02/18 @ 14:39 by Kevin Barnes MD) FTT (failure to thrive) in adult (Acute) Weakness (Acute) Shortness of breath (Resolved) Acute respiratory failure (Resolved) Community acquired pneumonia (Resolved) Acute on chronic diastolic heart failure (Resolved) Bilateral pneumonia (Resolved) Acute on chronic respiratory failure with hypoxia (Resolved) Chest discomfort (Resolved) Chronic normocytic anemia (Resolved) 52 year old female with below past medical history hospitalized for weakness, failure to thrive, admitted to TCU with debility, here for rehabilitation, strengthening, prior to discharge home with family. Debility - PT/OT. Pain - Tylenol 1000MG Q8H PRN mild pain. Bowel - Miralax 17GM daily, Senna/colace 1 tablet BID, Dulcolax 10MG PO daily PRN. Pneumonia vaccination - Administer Prevnar 13 and/or Pneumovax 23 as necessary. DVT prophylaxis - Lovenox 40MG SC daily. Shortness of breath - Proair 1-2 puffs Q4H PRN. Coronary Artery Disease - Coreg 12.5MG BID, Plavix 75MG daily, Aspirin 81MG QHS. Skin irritation - Eucerin Intensive repair TID bilateral lower extremities. Vitamin D deficiency - D2 50,000 units per week. Chronic systolic heart failure - Coreg 12.5MG BID, Aldactone 25MG daily, Lisinopril 2.5MG QHS, Lasix 20MG BID. Hypomagnesemia - Magnesium Oxide 400MG TID. GERD - Pantoprazole 40MG daily. Hypokalemia - K-Dur 20MEQ daily. Urinary retention - Bladder scan, straight cath as needed. Depression - Venlafaxine XR 150MG daily. Diabetes Mellitus II - Lantus 10 units BID, monitor blood sugars. Polypharmacy - Taper off Elavil, Taper off Bupropion, Stop Lopid, stop Meclizine, stop Niaspan, stop Zofran, Stop Oxycodone, Taper off Perphenazine, Taper off Lyrica.
--- NOTE | 2018-04-04 21:06 | HP.PCM_ITS ---
Problem List (1) Weakness Status: Acute (2) FTT (failure to thrive) in adult Status: Acute (3) Diabetes mellitus Status: Chronic (4) Factor 5 Leiden mutation, heterozygous Status: Chronic (5) Sleep apnea Status: Chronic Qualifiers: Comment: CPAP 9 cm water (6) Depression Status: Chronic (7) Anxiety Status: Chronic (8) Vitamin D deficiency Status: Chronic (9) GERD (gastroesophageal reflux disease) Status: Chronic (10) Coronary artery disease Status: Chronic Comment: Status post stents. 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 The patient is a 52 year old Female with below past medical history presented to [facility] Emergency Department with weakness. Slid out of chair. Evaluation in ED negative. Patient unable to walk. 04/02/2018 Admit to Hospital. PT/OT for custodial placement. 04/04/2018 Admit to TCU with debility, here for rehabilitation, strengthening, prior to discharge home with daughter. Past Medical History Past Medical History (Chronic Problems): Chronic Problems (Last Reviewed 04/02/18 @ 14:39 by Kevin Barnes MD) SOB (shortness of breath) on exertion (Chronic) Diabetes mellitus (Chronic) Factor 5 Leiden mutation, heterozygous (Chronic) Sleep apnea (Chronic) CPAP 9 cm water Depression (Chronic) Anxiety (Chronic) Vitamin D deficiency (Chronic) GERD (gastroesophageal reflux disease) (Chronic) Coronary artery disease (Chronic) Status post stents. 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 per Dr. Neela Crum Cardiomyopathy, ischemic (Chronic) 40% EF in 2016 HLD (hyperlipidemia) (Chronic) Diabetic neuropathy (Chronic) Medical History: Medical History (Last Reviewed 04/02/18 @ 14:39 by Kevin Barnes MD) Atherosclerosis of coronary artery bypass graft without angina pectoris (Chronic) I25.810 Atherosclerosis of coronary artery of [place] heart without angina pectoris (Chronic) I25.[address] (Chronic) R93.8 Tobacco abuse (Chronic) Z72.0 HTN (hypertension) (Chronic) I10 Depression with anxiety (Chronic) Diabetes mellitus, type II (Chronic) E11.9 [place] disease (Chronic) E27.1 she states she has [place]'s disease BUT, 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 Chronic back pain (Chronic) M54.9, G89.29 History of GI bleed (Chronic) Z87.19 Cardiomyopathy, ischemic (Chronic) I25.5 40% EF in 2015 HLD (hyperlipidemia) (Chronic) E78.5 Diabetic neuropathy (Chronic) E11.40 Allergies Rlsiikz-Pfp-Snu Reductase Inhibitor Adverse Reaction (Severe, Verified 03/29/18 08:01) Elevated liver enzymes, also Muscle cramps/pain Home Medications: Ambulatory Orders Medication Instructions Recorded Aspirin 325 mg PO QHS 08/12/14 Ergocalciferol [Vitamin D] 50,000 unit PO FR 08/12/14 Lisinopril [Zestril] 2.5 mg PO QHS 08/12/14 Venlafaxine XR [Effexor Xr] 150 mg PO DAILY 08/12/14 buPROPion XL [Wellbutrin Xl] 300 mg PO DAILY 08/12/14 Pregabalin [Lyrica] 300 mg PO BID 07/24/15 Amitriptyline HCl 25 mg PO BID 12/26/16 Clopidogrel Bisulfate [Plavix] 75 mg PO DAILY 12/26/16 Eplerenone [Inspra] 25 mg PO DAILY 12/26/16 Gemfibrozil [Lopid] 1,200 mg PO QHS 12/26/16 Meclizine HCl [Antivert] 25 mg PO TID PRN PRN 12/26/16 Niacin [Niacin ER] 2,000 mg PO QHS 12/26/16 Ondansetron [Zofran Odt] 4 mg PO Q8H PRN PRN 12/26/16 Perphenazine 4 mg PO BID 12/26/16 magnesium oxide 400 mg (241.3 mg 400 mg PO TID tab 10/16/17 magnesium) tablet Albuterol IH (ProAir) [Proair Hfa] 1 - 2 puff INHALATION Q4H PRN PRN 12/05/17 Acetaminophen [Tylenol] 1,000 mg PO Q8H PRN PRN tab 12/11/17 Potassium Chloride [K-Dur] 20 meq PO DAILY #30 tab 12/11/17 dulaglutide 0.75 mg/0.5 mL 0.75 mg SC QWEEK 03/29/18 subcutaneous pen injector Dulaglutide [Trulicity] 0.75 mg SQ QWEEK 04/02/18 Insulin Aspart [Novolog Flexpen] 0 units SC DAILY 04/02/18 Omeprazole 20 mg PO BID 04/02/18 Carvedilol 12.5 mg PO BID #180 tab 04/04/18 Furosemide [Lasix] 20 mg PO BID@1000,1800 #180 tab 04/04/18 Oxycodone [Oxyir] 10 mg PO Q6H PRN PRN 3 Days #10 tab 04/04/18 Surgical History: Surgical History (Last Reviewed 04/02/18 @ 14:39 by Kevin Barnes MD) S/P CABG x 5 (Chronic) Onset Date: ~11/14/07 Z95.1 HINTON-LAD, SVG-D1, SVG-OM1, SVG-OM 2, SVG-PDA 11/16/[address] [facility] per Dr. Neela Crum Surgical History: angioplasty, cholecystectomy, coronary bypass surgery - x 5. Psychiatric History: Anxiety, Depression MAST MAKER History: No pertinent MAST MAKER history Lives: With Family - Daughter. Smoking Status: Former smoker Tobacco Use: Non-smoker Alcohol: None Drugs: None - *Family History Maternal Family History: Family History (Last Reviewed 04/02/18 @ 14:39 by Kevin Barnes MD) Father Hypertension Mother Hyperlipidemia History Items: Diabetes, Hypertension Paternal Family History: Family History (Last Reviewed 04/02/18 @ 14:39 by Kevin Barnes MD) Father Hypertension Mother Hyperlipidemia History Items: Hypertension Review of Systems Constitutional: Reports: Weakness. Denies: Chills, Fever, Weight Change HEENT: Denies: Head Aches, Sinus Congestion, Sinus Drainage Cardiovascular: Denies: Chest Pain, Palpitations Respiratory: Denies: Cough, Shortness of breath at rest, Sputum production Gastrointestinal: Denies: Abdominal Pain, Nausea, Vomiting Genitourinary: Denies: Dysuria Musculoskeletal: Denies: Joint Pain, Joint Tenderness Skin: Denies: Rash, Wounds Neurological: Denies: Numbness, Tingling, Focal weakness Psychiatric: Denies: Anxiety, Depression, Homicidal Ideations, Suicidal Ideations Hematologic/ Lymphatic: Denies: Easy Bruising, Easy Bleeding VTE Information - Inpt Only VTE Present on Admission: No VTE Mechan Device Prophylaxis: Knee High VICENTE Hose VTE Pharm Prophylaxis ordered?: Yes Patient Problems: Active and Suspected Problems (Last Reviewed 04/02/18 @ 14:39 by Kevin Barnes MD) Weakness (Acute) - Physical Exam General: Alert, Oriented x3, Cooperative HEENT: Atraumatic, PERRLA, EOMI, Normocephalic Neck: Supple, No JVD, Negative Carotid Bruits Lungs: Clear to auscultation, Normal air movement Cardiovascular: Regular rate, No murmurs Abdomen: Bowel Sounds Present, Soft, Non Tender Extremities: No edema, Capillary Refill Less than 3 Seconds Skin: No rashes, No breakdown Musculoskeletal: No Tenderness to Palpation of Joints or Extremities Neurological: Cranial nerves II-XII grossly intact Psych/Mental Status: Normal Affect, Appropriate Vital Signs Temp Pulse Resp BP Pulse Ox 97.8 F 86 18 129/68 H 94 04/04/18 14:35 04/04/18 14:35 04/04/18 14:35 04/04/18 14:35 04/04/18 14:35 Oxygen Delivery Method Room Air Weight: 64.4 kg Body Mass Index (BMI) 24.3 Finger Stick Blood Glucose 417 POC Glucose 04/04/18 04/04/18 20:49 17:06 POC Glucose 240 H 384 H Assessment/Plan All Active Problems (Last Reviewed 04/02/18 @ 14:39 by Kevin Barnes MD) FTT (failure to thrive) in adult (Acute) Weakness (Acute) Shortness of breath (Resolved) Acute respiratory failure (Resolved) Community acquired pneumonia (Resolved) Acute on chronic diastolic heart failure (Resolved) Bilateral pneumonia (Resolved) Acute on chronic respiratory failure with hypoxia (Resolved) Chest discomfort (Resolved) Chronic normocytic anemia (Resolved) 52 year old female with below past medical history hospitalized for weakness, failure to thrive, admitted to TCU with debility, here for rehabilitation, strengthening, prior to discharge home with family. * Debility - PT/OT. * Pain - Tylenol 1000MG Q8H PRN mild pain. * Bowel - Miralax 17GM daily, Senna/colace 1 tablet BID, Dulcolax 10MG PO daily PRN. * Pneumonia vaccination - Administer Prevnar 13 and/or Pneumovax 23 as n ecessary. * DVT prophylaxis - Lovenox 40MG SC daily. * Shortness of breath - Proair 1-2 puffs Q4H PRN. * Coronary Artery Disease - Coreg 12.5MG BID, Plavix 75MG daily, Aspirin 81MG QHS. * Skin irritation - Eucerin Intensive repair TID bilateral lower extremities. * Vitamin D deficiency - D2 50,000 units per week. * Chronic systolic heart failure - Coreg 12.5MG BID, Aldactone 25MG daily, Lisinopril 2.5MG QHS, Lasix 20MG BID. * Hypomagnesemia - Magnesium Oxide 400MG TID. * GERD - Pantoprazole 40MG daily. * Hypokalemia - K-Dur 20MEQ daily. * Urinary retention - Bladder scan, straight cath as needed. * Depression - Venlafaxine XR 150MG daily. * Diabetes Mellitus II - Lantus 10 units BID, monitor blood sugars. * Polypharmacy - Taper off Elavil, Taper off Bupropion, Stop Lopid, stop Meclizine, stop Niaspan, stop Zofran, Stop Oxycodone, Taper off Perphenazine, Taper off Lyrica.
[2018-04-05 05:54] LABS: Absolute Lymphocyte Count 2.07 X10^3/ul (0.83-4.51); Absolute Neutrophil Count 4.6 X10^3/uL (2.0-7.7); Basophil# 0.03 X10^3/uL; Basophil% 0.4 % (0-1); Eosinophil# 0.18 X10^3/uL; Eosinophils% 2.4 % (0-5); Hematocrit 32.7 % (37-47); Lymphocyte # 2.07 X10^3/ul (4.0); Lymphocyte % 27.7 % (19-41); Mean Corp Hgb Conc 33.6 g/gl (32-36); Mean Corpuscular Hgb 27.4 pg (27.0-32.0); Mean Corpuscular Volume 81.3 fL (81-99); Mean Platelet Vol. 9.9 fl (6.2-12.0); Monocyte% 6.7 % (0-10); Neutrophil % 61.7 % (47-70); Platelet Count 151 K/mm3 (150-450); RBC Distribution Width CV 16.8 % (11.6-14.6); RBC Distribution Width SD 49.2 fl (35.1-43.9); Red Blood Count 4.02 M/mm3 (4.2-5.4); White Blood Count 7.5 K/mm3 (4.4-11.0)
[2018-04-05 05:55] LABS: POSITIVE COUNT NO; POSITIVE DIFFERENTIAL NO; POSITIVE MORPHOLOGY NO
[2018-04-05 06:11] LABS: Anion Gap 9 (5-15); BUN 12 mg/dL (7-18); BUN/Creat Ratio 15.7 RATIO (10-20); Calcium,Total 8.5 mg/dL (8.5-10.1); Chloride 102 mmol/L (98-107); Creatinine, Serum 0.76 mg/dL (0.55-1.02); EST Glomerular Filtration Rate 84 mL/min (>60); Est Glom Filt Rate - Afr Amer 102 mL/min (>60); Estimated Creatinine Clearance 73.92 ml/min; Glucose 192 mg/dL (74-106); Potassium 4.3 mmol/L (3.5-5.1); Sodium Level 137 mmol/L (136-145)
[2018-04-05] MEDS: Pregabalin 75 MG Capsule 150 MG PO ×2 (06:20→17:37)
[2018-04-05] MEDS: Carvedilol 12.5 MG Tablet PO ×2 (06:21→17:36)
[2018-04-05] MEDS: Venlafaxine XR 150 MG Capsule PO (06:21)
[2018-04-05] MEDS: Magnesium Oxide 400 MG Tablet PO ×3 (06:21→20:29)
[2018-04-05] MEDS: Spironolactone 25 MG Tablet PO (06:21)
[2018-04-05] MEDS: Polyethylene Glycol 3350 17 GM PACKET PO (06:22)
[2018-04-05] MEDS: Clopidogrel Bisulfate 75 MG Tablet PO (06:23)
[2018-04-05] MEDS: Pantoprazole Sodium 40 MG Tablet PO (06:24)
[2018-04-05] MEDS: Senna/Docusate Sodium 1 Tablet PO ×2 (06:25→17:37)
[2018-04-05] MEDS: Enoxaparin 40 MG/0.4 ML Syringe SC (06:26)
[2018-04-05 07:11] LABS: Bedside Glucose 275 mg/dL (70-110)
[2018-04-05] MEDS: Acetaminophen 500 MG Tablet 1000 MG PO ×2 (08:06→20:35)
[2018-04-05] MEDS: buPROPion (XL) 150 MG TABLET.XL PO (08:08)
--- NOTE | 2018-04-05 09:10 | NURSING ---
Pt bladder scanned for 725, when this nurse went in to straight cath Pt refused stating that she would try to void again later, she was to tired. This nurse stressed the importance of emptying the bladder and the need to possibly place a izaguirre catheter due to her urinary retention. Mary Jo DE LEÓN aware
--- NOTE | 2018-04-05 09:22 | NURSING ---
Addendum entered by Mary Jo De 04/05/18 09:30: Dr Callahan notified, new order for one liter bolus NS, give 5 units novolog x1. monitor. Will start IV. Original Note: This nurse notified by DIESEL MECHANIC APPRENTICE that PT is lethargic and not able to ambulate and not communicating. This nurse and Mar yJo RN into access. Pt sitting at side of bed with max assist from therapy. Pt unable to sit up without assistance, Pt not opening her eyes and appears to be sleeping. Pt not arousable. Pt blood sugar 368. Pt hr 68, BP 78/46 and o2 sat 96% on RA. Mary Jo RN to notify DR. Callahan
[2018-04-05 09:26] LABS: Bedside Glucose 386 mg/dL (70-110)
--- NOTE | 2018-04-05 09:28 | EKG12_ITS ---
Test Reason : ALTERED Blood Pressure : / mmHG Vent. Rate : 078 BPM Atrial Rate : 078 BPM P-R Int : 158 ms QRS Dur : 104 ms QT Int : 406 ms P-R-T Axes : 054 035 072 degrees QTc Int : 462 ms Normal sinus rhythm Prolonged QT Abnormal ECG When compared with ECG of 02-APR-2018 08:58, MANUAL COMPARISON REQUIRED, DATA IS UNCONFIRMED Confirmed by YUMIKO GUERRA, SUJIT ([id number]), food editor YAZMIN AYON ([id number]) on 04/09/2018 4:09:10 PM Referred By: Christopher Callahan Confirmed By:SUJIT CALDERON MD
[2018-04-05 09:38] VITALS: BP 78/46; PULSE 78; RESP 16; TEMP 36.6; O2SAT 96
[2018-04-05 09:45] VITALS: O2SAT 93
[2018-04-05 10:00] VITALS: PULSE 78; RESP 14; O2SAT 92
[2018-04-05] MEDS: Insulin Lispro 100 UNIT/ML INSULN.PEN SC (10:28)
[2018-04-05] MEDS: 0.9% Normal Saline 1,000 ML 999 ML IV (10:28)
[2018-04-05 10:38] VITALS: BP 90/57; PULSE 78
--- NOTE | 2018-04-05 10:55 | NURSING ---
Dr. Callahan notified again pt continues to to be obtunded at this time, minimal responsiveness. Made aware that pt had visitor just prior to incident, new order narcan. noted arousal after administration, pt requiring home cpap to maintain O2 sats, breathing shallow. Sent to ER per Dr. Callahan.
[2018-04-05] MEDS: Naloxone 2 MG/2 ML Syringe 1 MG IV (11:03)
--- NOTE | 2018-04-05 11:17 | NURSING ---
Addendum entered by Delphine Vance 04/05/18 11:35: Pt remains unresponsive at this time, straight cath for 1100 while bolus infusing Original Note: Dr Callahan notified, new order to send pt to ER for evaluation.
[2018-04-05 11:30] LABS: Bedside Glucose 391 mg/dL (70-110)
[2018-04-05 11:33] VITALS: BP 116/78; PULSE 68; RESP 14; O2SAT 96
[2018-04-05 16:00] VITALS: BP 132/69; PULSE 81; RESP 20; TEMP 36.9; O2SAT 94
[2018-04-05 17:15] LABS: Bedside Glucose 310 mg/dL (70-110)
[2018-04-05] MEDS: Tuberculin,Purif.prot.deriv. 50 TU/ML Vial 5 ML ID (17:36)
[2018-04-05] MEDS: Furosemide 20 MG Tablet PO (17:37)
[2018-04-05 20:16] LABS: Bedside Glucose 439 mg/dL (70-110)
[2018-04-05] MEDS: Amitriptyline 25 MG Tablet PO (20:29)
[2018-04-05] MEDS: Aspirin 81 MG TAB.CHEW PO (20:29)
[2018-04-05] MEDS: Lisinopril 2.5 MG Tablet PO (20:29)
[2018-04-05] MEDS: Insulin Lispro 100 UNIT/ML INSULN.PEN 10 UNIT SC (20:43)
[2018-04-05 22:36] LABS: Bedside Glucose 401 mg/dL (70-110)
[2018-04-06 02:21] LABS: Bedside Glucose 363 mg/dL (70-110)
[2018-04-06] MEDS: Enoxaparin 40 MG/0.4 ML Syringe SC (05:34)
[2018-04-06] MEDS: Carvedilol 12.5 MG Tablet PO ×2 (05:37→17:02)
[2018-04-06] MEDS: Senna/Docusate Sodium 1 Tablet PO ×2 (05:38→17:02)
[2018-04-06] MEDS: Pregabalin 75 MG Capsule 150 MG PO ×2 (05:38→17:02)
[2018-04-06] MEDS: Spironolactone 25 MG Tablet PO (05:38)
[2018-04-06] MEDS: buPROPion (XL) 150 MG TABLET.XL PO (05:38)
[2018-04-06] MEDS: Clopidogrel Bisulfate 75 MG Tablet PO (05:40)
[2018-04-06] MEDS: Magnesium Oxide 400 MG Tablet PO ×3 (05:40→21:10)
[2018-04-06] MEDS: Venlafaxine XR 150 MG Capsule PO (05:43)
[2018-04-06] MEDS: Pantoprazole Sodium 40 MG Tablet PO (05:48)
[2018-04-06 06:50] LABS: Bedside Glucose 304 mg/dL (70-110)
--- NOTE | 2018-04-06 07:27 | NURSING ---
Pt urine has a froy color and cloudy to it. Encourage pt to drink more fluids.
[2018-04-06 07:29] VITALS: PULSE 76; RESP 16; O2SAT 95
[2018-04-06] MEDS: Furosemide 20 MG Tablet PO ×2 (08:06→17:02)
--- NOTE | 2018-04-06 10:16 | CASEMGMT ---
Social Work Therapy reporting that resident has questions in regards to community supports. This group social worker meeting with resident in room. Resident reporting to be alone during the week days and to be concerned about having someone to check in on resident. This group social worker broaching topic of PASSPORT services, medical alert system and [facility]. Resident is open to referrals being made for PASSPORT services as well as the [facility]. Resident reporting to have tried the hospital medical alert system in the past and that it did not work. Resident planning to purchase other medical alert system and declining for this group social worker to provide resident with list of medical alert systems. Support given. Referral made to PASSPORT services as well as the [facility]. Will continue to follow. Edita HOLLOWAYW, MEDICAL STAFF DIRECTOR
[2018-04-06] MEDS: Acetaminophen 500 MG Tablet 1000 MG PO (11:53)
[2018-04-06 12:01] LABS: Bedside Glucose 113 mg/dL (70-110)
--- NOTE | 2018-04-06 12:05 | NURSING ---
Pt called out and this nurse answered. Pt insulin pump stating her blood glucose is low or below 65. This nurse gave Pt some orange juice and a small piece of chocolate.
--- NOTE | 2018-04-06 13:26 | PCM.PN.RX ---
<RigovirginiaginoJeff D - Last Filed: 04/06/18 13:26> Progress Note - Pharmacy Subjective: TCU Admission Objective: Allergies Ydidflf-Lbr-Gsn Reductase Inhibitor Adverse Reaction (Severe, Verified 03/29/18 08:01) Elevated liver enzymes, also Muscle cramps/pain Current Medications Generic Name Dose Route Start Last Admin Trade Name Freq PRN Reason Stop Dose Admin Acetaminophen 1,000 mg 04/04/18 21:30 04/06/18 11:53 Tylenol PO 1,000 mg Q6H PRN PRN Administration MILD PAIN (1-310) Albuterol Sulfate 2 puff 04/04/18 21:30 Ventolin Hfa (Sp) INHALATION Q4H PRN PRN SOB &/OR WHEEZING Amitriptyline HCl 25 mg 04/05/18 22:00 04/05/18 20:29 Elavil PO 25 mg QHS PEG Administration Aspirin 81 mg 04/05/18 22:00 04/05/18 20:29 Aspirin, Baby PO 81 mg QHS PEG Administration Bisacodyl 10 mg 04/04/18 21:32 Dulcolax PO DAILY PRN Constipation Bupropion HCl 75 mg 04/09/18 06:00 Wellbutrin Tablets PO 04/14/18 18:01 BID PEG Bupropion HCl 150 mg 04/05/18 08:30 04/06/18 05:38 Wellbutrin Xl PO 04/08/18 06:01 150 mg DAILY PEG Administration Carvedilol 12.5 mg 04/04/18 18:00 04/06/18 05:37 Coreg PO 12.5 mg BID PEG Administration Clopidogrel Bisulfate 75 mg 04/05/18 06:00 04/06/18 05:40 Plavix PO 75 mg DAILY PEG Administration Emollient Ointment 1 applic 04/04/18 22:00 04/06/18 13:19 Eucerin Intensive Repair TOPICAL 1 applicatio TID [facility] Administration Protocol Enoxaparin Sodium 40 mg 04/05/18 06:00 04/06/18 05:34 Lovenox SC 40 mg DAILY@0600 PEG Administration Ergocalciferol 50,000 unit 04/06/18 06:00 04/06/18 05:38 Vitamin D PO 50,000 unit FR PEG Administration Furosemide 20 mg 04/04/18 18:00 04/06/18 08:06 Lasix PO 20 mg BID@1000,1800 PEG Administration Insulin Glargine 20 units 04/06/18 18:00 Lantus ([facility]) SC BID PEG Insulin Human Lispro 13 unit 04/06/18 11:45 04/06/18 11:37 Humalog Kwikpen ([facility]) SC Not Given TIDAC PEG Lisinopril 2.5 mg 04/04/18 22:00 04/05/18 20:29 Zestril PO 2.5 mg QHS PEG Administration Magnesium Oxide 400 mg 04/04/18 22:00 04/06/18 13:18 Mag-Ox 400 PO 400 mg TID PEG Administration Pantoprazole Sodium 40 mg 04/05/18 06:00 04/06/18 05:48 Protonix PO 40 mg DAILY PEG Administration Perphenazine 2 mg 04/11/18 06:00 Perphenazine PO 04/16/18 06:01 DAILY PEG Perphenazine 4 mg 04/05/18 06:00 04/06/18 05:39 Perphenazine PO 04/10/18 06:01 4 mg DAILY PEG Administration Polyethylene Glycol 17 gm 04/05/18 06:00 04/06/18 05:39 Miralax PO Not Given DAILY PEG Potassium Chloride 20 meq 04/05/18 08:00 04/06/18 08:06 K-Dur PO 20 meq DAILYCM PEG Administration Pregabalin 75 mg 04/11/18 06:00 Lyrica PO 04/16/18 06:01 BID PEG Pregabalin 150 mg 04/05/18 06:00 04/06/18 05:38 Lyrica PO 04/10/18 06:01 150 mg BID PEG Administration Pregabalin 75 mg 04/17/18 06:00 Lyrica PO 04/22/18 06:01 DAILY [facility] Senna/Docusate Sodium 1 tablet 04/05/18 06:00 04/06/18 05:38 Senokot-S, Faina-Colace PO 1 tablet BID PEG Administration Spironolactone 25 mg 04/05/18 06:00 04/06/18 05:38 Aldactone PO 25 mg DAILY PEG Administration Tuberculin PPD 5 tu 04/12/18 10:00 Tubersol, Aplisol, Ppd ID 04/12/18 10:01 X1 ONE Venlafaxine HCl 150 mg 04/05/18 06:00 04/06/18 05:43 Effexor Xr PO 150 mg DAILY PEG Administration Problem List (Last Reviewed 04/02/18 @ 14:39 by Kevin Barens MD) Weakness (Acute) Vital Signs Temp Pulse Resp BP Pulse Ox 98.4 F 76 16 132/69 H 95 04/05/18 16:00 04/06/18 07:29 04/06/18 07:29 04/05/18 16:00 04/06/18 07:29 Oxygen Flow Rate (L/min) 2 Oxygen Delivery Method Room Air Weight: 64.4 kg Body Mass Index (BMI) 24.3 Finger Stick Blood Glucose 417 Sodium 137 mmol/L (136-145) 04/05/18 05:20 Potassium 4.3 mmol/L (3.5-5.1) 04/05/18 05:20 Chloride 102 mmol/L (98-107) 04/05/18 05:20 Carbon Dioxide 26.0 mmol/L (21.0-32.0) 04/05/18 05:20 Anion Gap 9 (5-15) 04/05/18 05:20 BUN 12 mg/dL (7-18) 04/05/18 05:20 Creatinine 0.76 mg/dL (0.55-1.02) 04/05/18 05:20 Est GFR (MDRD) Af Amer 102 mL/min (>60) 04/05/18 05:20 Est GFR (MDRD) Non-Af 84 mL/min (>60) 04/05/18 05:20 BUN/Creatinine Ratio 15.7 RATIO (10-20) 04/05/18 05:20 Glucose 192 mg/dL (74-106) H 04/05/18 05:20 Assessment/Plan: 1) Pain APAP for mild pain, pregabalin tapering doses. Continue to monitor daily pain scores, prn medication use. 2) CAD/CHF ASA, carvedilol, clopidogrel, furosemide/KCL, spironolactone, lisinopril. Continue to monitor BP/HR, renal function, electrolytes, for chest pain. 3) DM2 Insulin glargine BID, lispro with meals. Continue to monitor BGT, s/s hyper/hypoglycemia. 4) DVT PPx Enoxaparin daily. Continue to monitor s/s bleeding/clot. 5) GI Pantoprazole daily. Continue to monitor s/s GI distress. 6) Nutrition Ines Mendez. Continue to monitor clinically. Psychotropic Medications: 7) Depression Bupropion tapering doses, amitriptyline at HS, venlafaxine XL. Continue to monitor s/s depression, s/s serotonin syndrome such as sweating, agitation, unresolved fever. Unnecessary Medications: None Bowel Regimen: 8) Senna/s, PEG, prn bisacodyl. Continue to monitor prn medication use, for constipation/diarrhea. Date of Note:: 04/06/18 - Provider Comments Provider responsibility: Provider responsible to enter orders to implement recommendations <Christopher Callahan Chi - Last Filed: 04/06/18 14:33> Progress Note - Pharmacy Subjective: [] Objective: Allergies Mtaqbhs-Hjh-Zhp Reductase Inhibitor Adverse Reaction (Severe, Verified 03/29/18 08:01) Elevated liver enzymes, also Muscle cramps/pain Current Medications Generic Name Dose Route Start Last Admin Trade Name Freq PRN Reason Stop Dose Admin Acetaminophen 1,000 mg 04/04/18 21:30 04/06/18 11:53 Tylenol PO 1,000 mg Q6H PRN PRN Administration MILD PAIN (1-3/10) Albuterol Sulfate 2 puff 04/04/18 21:30 Ventolin Hfa (Sp) INHALATION Q4H PRN PRN SOB &/OR WHEEZING Amitriptyline HCl 25 mg 04/05/18 22:00 04/05/18 20:29 Elavil PO 25 mg QHS PEG Administration Aspirin 81 mg 04/05/18 22:00 04/05/18 20:29 Aspirin, Baby PO 81 mg QHS PEG Administration Bisacodyl 10 mg 04/04/18 21:32 Dulcolax PO DAILY PRN Constipation Bupropion HCl 75 mg 04/09/18 06:00 Wellbutrin Tablets PO 04/14/18 18:01 BID PEG Bupropion HCl 150 mg 04/05/18 08:30 04/06/18 05:38 Wellbutrin Xl PO 04/08/18 06:01 150 mg DAILY PEG Administration Carvedilol 12.5 mg 04/04/18 18:00 04/06/18 05:37 Coreg PO 12.5 mg BID PEG Administration Clopidogrel Bisulfate 75 mg 04/05/18 06:00 04/06/18 05:40 Plavix PO 75 mg DAILY PEG Administration Emollient Ointment 1 applic 04/04/18 22:00 04/06/18 13:19 Eucerin Intensive Repair TOPICAL 1 applicatio TID PEG Administration Protocol Enoxaparin Sodium 40 mg 04/05/18 06:00 04/06/18 05:34 Lovenox SC 40 mg DAILY@0600 [facility] Administration Ergocalciferol 50,000 unit 04/06/18 06:00 04/06/18 05:38 Vitamin D PO 50,000 unit FR [facility] Administration Furosemide 20 mg 04/04/18 18:00 04/06/18 08:06 Lasix PO 20 mg BID@1000,1800 [facility] Administration Insulin Glargine 20 units 04/06/18 18:00 Lantus ([facility]) SC BID [facility] Insulin Human Lispro 13 unit 04/06/18 11:45 04/06/18 11:37 Humalog Kwikpen ([facility]) SC Not Given TIDAC [facility] Lisinopril 2.5 mg 04/04/18 22:00 04/05/18 20:29 Zestril PO 2.5 mg QHS [facility] Administration Magnesium Oxide 400 mg 04/04/18 22:00 04/06/18 13:18 Mag-Ox 400 PO 400 mg TID [facility] Administration Pantoprazole Sodium 40 mg 04/05/18 06:00 04/06/18 05:48 Protonix PO 40 mg DAILY [facility] Administration Perphenazine 2 mg 04/11/18 06:00 Perphenazine PO 04/16/18 06:01 DAILY [facility] Perphenazine 4 mg 04/05/18 06:00 04/06/18 05:39 Perphenazine PO 04/10/18 06:01 4 mg DAILY [facility] Administration Polyethylene Glycol 17 gm 04/05/18 06:00 04/06/18 05:39 Miralax PO Not Given DAILY [facility] Potassium Chloride 20 meq 04/05/18 08:00 04/06/18 08:06 K-Dur PO 20 meq DAILYCM [facility] Administration Pregabalin 75 mg 04/11/18 06:00 Lyrica PO 04/16/18 06:01 BID [facility] Pregabalin 150 mg 04/05/18 06:00 04/06/18 05:38 Lyrica PO 04/10/18 06:01 150 mg BID PEG Administration Pregabalin 75 mg 04/17/18 06:00 Lyrica PO 04/22/18 06:01 DAILY PEG Senna/Docusate Sodium 1 tablet 04/05/18 06:00 04/06/18 05:38 Senokot-S, Faina-Colace PO 1 tablet BID PEG Administration Spironolactone 25 mg 04/05/18 06:00 04/06/18 05:38 Aldactone PO 25 mg DAILY PEG Administration Tuberculin PPD 5 tu 04/12/18 10:00 Tubersol, Aplisol, Ppd ID 04/12/18 10:01 X1 ONE Venlafaxine HCl 150 mg 04/05/18 06:00 04/06/18 05:43 Effexor Xr PO 150 mg DAILY PEG Administration Problem List (Last Reviewed 04/02/18 @ 14:39 by Kevin Barnes MD) Weakness (Acute) Vital Signs Temp Pulse Resp BP Pulse Ox 98.4 F 76 16 132/69 H 95 04/05/18 16:00 04/06/18 07:29 04/06/18 07:29 04/05/18 16:00 04/06/18 07:29 Oxygen Flow Rate (L/min) 2 Oxygen Delivery Method Room Air Weight: 73.624 kg Body Mass Index (BMI) 24.3 Finger Stick Blood Glucose 417 Sodium 137 mmol/L (136-145) 04/05/18 05:20 Potassium 4.3 mmol/L (3.5-5.1) 04/05/18 05:20 Chloride 102 mmol/L (98-107) 04/05/18 05:20 Carbon Dioxide 26.0 mmol/L (21.0-32.0) 04/05/18 05:20 Anion Gap 9 (5-15) 04/05/18 05:20 BUN 12 mg/dL (7-18) 04/05/18 05:20 Creatinine 0.76 mg/dL (0.55-1.02) 04/05/18 05:20 Est GFR (MDRD) Af Amer 102 mL/min (>60) 04/05/18 05:20 Est GFR (MDRD) Non-Af 84 mL/min (>60) 04/05/18 05:20 BUN/Creatinine Ratio 15.7 RATIO (10-20) 04/05/18 05:20 Glucose 192 mg/dL (74-106) H 04/05/18 05:20 Assessment/Plan: Psychotropic Medications: Unnecessary Medications: Bowel Regimen: - Provider Comments Provider responsibility: Provider responsible to enter orders to implement recommendations Provider Comments to Recommendations by Pharmacy: Agree
--- NOTE | 2018-04-06 13:37 | PHA.CONS_ITS ---
<RigovirginiaginoJeff D - Last Filed: 04/06/18 13:26> Progress Note - Pharmacy Subjective: TCU Admission Objective: Allergies Skcqlkr-Dpt-Xfc Reductase Inhibitor Adverse Reaction (Severe, Verified 03/29/18 08:01) Elevated liver enzymes, also Muscle cramps/pain Current Medications Generic Name Dose Route Start Last Admin Trade Name Freq PRN Reason Stop Dose Admin Acetaminophen 1,000 mg 04/04/18 21:30 04/06/18 11:53 Tylenol PO 1,000 mg Q6H PRN PRN Administration MILD PAIN (1-310) Albuterol Sulfate 2 puff 04/04/18 21:30 Ventolin Hfa (Sp) INHALATION Q4H PRN PRN SOB &/OR WHEEZING Amitriptyline HCl 25 mg 04/05/18 22:00 04/05/18 20:29 Elavil PO 25 mg QHS PEG Administration Aspirin 81 mg 04/05/18 22:00 04/05/18 20:29 Aspirin, Baby PO 81 mg QHS PEG Administration Bisacodyl 10 mg 04/04/18 21:32 Dulcolax PO DAILY PRN Constipation Bupropion HCl 75 mg 04/09/18 06:00 Wellbutrin Tablets PO 04/14/18 18:01 BID PEG Bupropion HCl 150 mg 04/05/18 08:30 04/06/18 05:38 Wellbutrin Xl PO 04/08/18 06:01 150 mg DAILY PEG Administration Carvedilol 12.5 mg 04/04/18 18:00 04/06/18 05:37 Coreg PO 12.5 mg BID PEG Administration Clopidogrel Bisulfate 75 mg 04/05/18 06:00 04/06/18 05:40 Plavix PO 75 mg DAILY PEG Administration Emollient Ointment 1 applic 04/04/18 22:00 04/06/18 13:19 Eucerin Intensive Repair TOPICAL 1 applicatio TID [facility] Administration Protocol Enoxaparin Sodium 40 mg 04/05/18 06:00 04/06/18 05:34 Lovenox SC 40 mg DAILY@0600 PEG Administration Ergocalciferol 50,000 unit 04/06/18 06:00 04/06/18 05:38 Vitamin D PO 50,000 unit FR PEG Administration Furosemide 20 mg 04/04/18 18:00 04/06/18 08:06 Lasix PO 20 mg BID@1000,1800 PEG Administration Insulin Glargine 20 units 04/06/18 18:00 Lantus ([facility]) SC BID PEG Insulin Human Lispro 13 unit 04/06/18 11:45 04/06/18 11:37 Humalog Kwikpen ([facility]) SC Not Given TIDAC PEG Lisinopril 2.5 mg 04/04/18 22:00 04/05/18 20:29 Zestril PO 2.5 mg QHS PEG Administration Magnesium Oxide 400 mg 04/04/18 22:00 04/06/18 13:18 Mag-Ox 400 PO 400 mg TID PEG Administration Pantoprazole Sodium 40 mg 04/05/18 06:00 04/06/18 05:48 Protonix PO 40 mg DAILY PEG Administration Perphenazine 2 mg 04/11/18 06:00 Perphenazine PO 04/16/18 06:01 DAILY PEG Perphenazine 4 mg 04/05/18 06:00 04/06/18 05:39 Perphenazine PO 04/10/18 06:01 4 mg DAILY PEG Administration Polyethylene Glycol 17 gm 04/05/18 06:00 04/06/18 05:39 Miralax PO Not Given DAILY PEG Potassium Chloride 20 meq 04/05/18 08:00 04/06/18 08:06 K-Dur PO 20 meq DAILYCM PEG Administration Pregabalin 75 mg 04/11/18 06:00 Lyrica PO 04/16/18 06:01 BID PEG Pregabalin 150 mg 04/05/18 06:00 04/06/18 05:38 Lyrica PO 04/10/18 06:01 150 mg BID PEG Administration Pregabalin 75 mg 04/17/18 06:00 Lyrica PO 04/22/18 06:01 DAILY [facility] Senna/Docusate Sodium 1 tablet 04/05/18 06:00 04/06/18 05:38 Senokot-S, Faina-Colace PO 1 tablet BID PEG Administration Spironolactone 25 mg 04/05/18 06:00 04/06/18 05:38 Aldactone PO 25 mg DAILY PEG Administration Tuberculin PPD 5 tu 04/12/18 10:00 Tubersol, Aplisol, Ppd ID 04/12/18 10:01 X1 ONE Venlafaxine HCl 150 mg 04/05/18 06:00 04/06/18 05:43 Effexor Xr PO 150 mg DAILY PEG Administration Problem List (Last Reviewed 04/02/18 @ 14:39 by Kevin Barnes MD) Weakness (Acute) Vital Signs Temp Pulse Resp BP Pulse Ox 98.4 F 76 16 132/69 H 95 04/05/18 16:00 04/06/18 07:29 04/06/18 07:29 04/05/18 16:00 04/06/18 07:29 Oxygen Flow Rate (L/min) 2 Oxygen Delivery Method Room Air Weight: 64.4 kg Body Mass Index (BMI) 24.3 Finger Stick Blood Glucose 417 Sodium 137 mmol/L (136-145) 04/05/18 05:20 Potassium 4.3 mmol/L (3.5-5.1) 04/05/18 05:20 Chloride 102 mmol/L (98-107) 04/05/18 05:20 Carbon Dioxide 26.0 mmol/L (21.0-32.0) 04/05/18 05:20 Anion Gap 9 (5-15) 04/05/18 05:20 BUN 12 mg/dL (7-18) 04/05/18 05:20 Creatinine 0.76 mg/dL (0.55-1.02) 04/05/18 05:20 Est GFR (MDRD) Af Amer 102 mL/min (>60) 04/05/18 05:20 Est GFR (MDRD) Non-Af 84 mL/min (>60) 04/05/18 05:20 BUN/Creatinine Ratio 15.7 RATIO (10-20) 04/05/18 05:20 Glucose 192 mg/dL (74-106) H 04/05/18 05:20 Assessment/Plan: 1) Pain APAP for mild pain, pregabalin tapering doses. Continue to monitor daily pain scores, prn medication use. 2) CAD/CHF ASA, carvedilol, clopidogrel, furosemide/KCL, spironolactone, lisinopril. Continue to monitor BP/HR, renal function, electrolytes, for chest pain. 3) DM2 Insulin glargine BID, lispro with meals. Continue to monitor BGT, s/s hyper/hypoglycemia. 4) DVT PPx Enoxaparin daily. Continue to monitor s/s bleeding/clot. 5) GI Pantoprazole daily. Continue to monitor s/s GI distress. 6) Nutrition Ines Mendez. Continue to monitor clinically. Psychotropic Medications: 7) Depression Bupropion tapering doses, amitriptyline at HS, venlafaxine XL. Continue to monitor s/s depression, s/s serotonin syndrome such as sweating, agitation, unresolved fever. Unnecessary Medications: None Bowel Regimen: 8) Senna/s, PEG, prn bisacodyl. Continue to monitor prn medication use, for constipation/diarrhea. Date of Note:: 04/06/18 - Provider Comments Provider responsibility: Provider responsible to enter orders to implement recommendations <Christopher Callahan Chi - Last Filed: 04/06/18 14:33> Progress Note - Pharmacy Subjective: [] Objective: Allergies Nowxvyk-Ctu-Opq Reductase Inhibitor Adverse Reaction (Severe, Verified 03/29/18 08:01) Elevated liver enzymes, also Muscle cramps/pain Current Medications Generic Name Dose Route Start Last Admin Trade Name Freq PRN Reason Stop Dose Admin Acetaminophen 1,000 mg 04/04/18 21:30 04/06/18 11:53 Tylenol PO 1,000 mg Q6H PRN PRN Administration MILD PAIN (1-3/10) Albuterol Sulfate 2 puff 04/04/18 21:30 Ventolin Hfa (Sp) INHALATION Q4H PRN PRN SOB &/OR WHEEZING Amitriptyline HCl 25 mg 04/05/18 22:00 04/05/18 20:29 Elavil PO 25 mg QHS PEG Administration Aspirin 81 mg 04/05/18 22:00 04/05/18 20:29 Aspirin, Baby PO 81 mg QHS PEG Administration Bisacodyl 10 mg 04/04/18 21:32 Dulcolax PO DAILY PRN Constipation Bupropion HCl 75 mg 04/09/18 06:00 Wellbutrin Tablets PO 04/14/18 18:01 BID PEG Bupropion HCl 150 mg 04/05/18 08:30 04/06/18 05:38 Wellbutrin Xl PO 04/08/18 06:01 150 mg DAILY PEG Administration Carvedilol 12.5 mg 04/04/18 18:00 04/06/18 05:37 Coreg PO 12.5 mg BID PEG Administration Clopidogrel Bisulfate 75 mg 04/05/18 06:00 04/06/18 05:40 Plavix PO 75 mg DAILY PEG Administration Emollient Ointment 1 applic 04/04/18 22:00 04/06/18 13:19 Eucerin Intensive Repair TOPICAL 1 applicatio TID PEG Administration Protocol Enoxaparin Sodium 40 mg 04/05/18 06:00 04/06/18 05:34 Lovenox SC 40 mg DAILY@0600 [facility] Administration Ergocalciferol 50,000 unit 04/06/18 06:00 04/06/18 05:38 Vitamin D PO 50,000 unit FR [facility] Administration Furosemide 20 mg 04/04/18 18:00 04/06/18 08:06 Lasix PO 20 mg BID@1000,1800 [facility] Administration Insulin Glargine 20 units 04/06/18 18:00 Lantus ([facility]) SC BID [facility] Insulin Human Lispro 13 unit 04/06/18 11:45 04/06/18 11:37 Humalog Kwikpen ([facility]) SC Not Given TIDAC [facility] Lisinopril 2.5 mg 04/04/18 22:00 04/05/18 20:29 Zestril PO 2.5 mg QHS [facility] Administration Magnesium Oxide 400 mg 04/04/18 22:00 04/06/18 13:18 Mag-Ox 400 PO 400 mg TID [facility] Administration Pantoprazole Sodium 40 mg 04/05/18 06:00 04/06/18 05:48 Protonix PO 40 mg DAILY [facility] Administration Perphenazine 2 mg 04/11/18 06:00 Perphenazine PO 04/16/18 06:01 DAILY [facility] Perphenazine 4 mg 04/05/18 06:00 04/06/18 05:39 Perphenazine PO 04/10/18 06:01 4 mg DAILY [facility] Administration Polyethylene Glycol 17 gm 04/05/18 06:00 04/06/18 05:39 Miralax PO Not Given DAILY [facility] Potassium Chloride 20 meq 04/05/18 08:00 04/06/18 08:06 K-Dur PO 20 meq DAILYCM [facility] Administration Pregabalin 75 mg 04/11/18 06:00 Lyrica PO 04/16/18 06:01 BID [facility] Pregabalin 150 mg 04/05/18 06:00 04/06/18 05:38 Lyrica PO 04/10/18 06:01 150 mg BID PEG Administration Pregabalin 75 mg 04/17/18 06:00 Lyrica PO 04/22/18 06:01 DAILY PEG Senna/Docusate Sodium 1 tablet 04/05/18 06:00 04/06/18 05:38 Senokot-S, Faina-Colace PO 1 tablet BID PEG Administration Spironolactone 25 mg 04/05/18 06:00 04/06/18 05:38 Aldactone PO 25 mg DAILY PEG Administration Tuberculin PPD 5 tu 04/12/18 10:00 Tubersol, Aplisol, Ppd ID 04/12/18 10:01 X1 ONE Venlafaxine HCl 150 mg 04/05/18 06:00 04/06/18 05:43 Effexor Xr PO 150 mg DAILY PEG Administration Problem List (Last Reviewed 04/02/18 @ 14:39 by Kevin Barnes MD) Weakness (Acute) Vital Signs Temp Pulse Resp BP Pulse Ox 98.4 F 76 16 132/69 H 95 04/05/18 16:00 04/06/18 07:29 04/06/18 07:29 04/05/18 16:00 04/06/18 07:29 Oxygen Flow Rate (L/min) 2 Oxygen Delivery Method Room Air Weight: 73.624 kg Body Mass Index (BMI) 24.3 Finger Stick Blood Glucose 417 Sodium 137 mmol/L (136-145) 04/05/18 05:20 Potassium 4.3 mmol/L (3.5-5.1) 04/05/18 05:20 Chloride 102 mmol/L (98-107) 04/05/18 05:20 Carbon Dioxide 26.0 mmol/L (21.0-32.0) 04/05/18 05:20 Anion Gap 9 (5-15) 04/05/18 05:20 BUN 12 mg/dL (7-18) 04/05/18 05:20 Creatinine 0.76 mg/dL (0.55-1.02) 04/05/18 05:20 Est GFR (MDRD) Af Amer 102 mL/min (>60) 04/05/18 05:20 Est GFR (MDRD) Non-Af 84 mL/min (>60) 04/05/18 05:20 BUN/Creatinine Ratio 15.7 RATIO (10-20) 04/05/18 05:20 Glucose 192 mg/dL (74-106) H 04/05/18 05:20 Assessment/Plan: Psychotropic Medications: Unnecessary Medications: Bowel Regimen: - Provider Comments Provider responsibility: Provider responsible to enter orders to implement recommendations Provider Comments to Recommendations by Pharmacy: Agree
[2018-04-06 15:25] VITALS: BP 124/69; PULSE 73; RESP 16; TEMP 36.4; O2SAT 99
--- NOTE | 2018-04-06 16:50 | NURSING ---
DR RAWLS AWARE OF PT WANTING TO USE HER OWN PUMP. NEW ORDER TO D/C HUMALOG AND LANTUS ORDERS. WILL CONTINUE TO FOLLOW.
[2018-04-06 16:52] LABS: Bedside Glucose 43 mg/dL (70-110)
[2018-04-06 17:10] LABS: Bedside Glucose 65 mg/dL (70-110)
[2018-04-06 17:31] LABS: Bedside Glucose 92 mg/dL (70-110)
[2018-04-06] MEDS: Lisinopril 2.5 MG Tablet PO (21:10)
[2018-04-06] MEDS: Aspirin 81 MG TAB.CHEW PO (21:11)
[2018-04-06] MEDS: Amitriptyline 25 MG Tablet PO (21:12)
[2018-04-06 21:26] LABS: Bedside Glucose 148 mg/dL (70-110)
--- NOTE | 2018-04-06 21:29 | NURSING ---
Pt voided 650 dark yellow urine with foul odor, noted also by pt. Denied any other s/x UTI and stated she is able to recognize when she may have one. Bladder scanned after for 14ml. Pt voiced her concern with a possible catheter and does not want one. Explained orders to pt who was appeared relieved. Encouraged fluids, offered fresh water and juice. Pt stated she prefers to drink diet coke. Pt educated on healthy choices and importance of staying hydrated. Voiced understanding. RN aware, continuing to monitor.
[2018-04-07] MEDS: Acetaminophen 500 MG Tablet 1000 MG PO ×2 (00:17→18:22)
[2018-04-07 04:01] LABS: Bedside Glucose 38 mg/dL (70-110)
--- NOTE | 2018-04-07 04:12 | NURSING ---
CRIMINAL JUSTICE PROFESSOR alerted staff members that pt insulin pump was reading low. Blood glucose was obtained and blood sugar 38. Pt A&Ox3 but states she feel shaky. OJ and cookies were provided. Stat lab work ordered.This nurse encouraged pt this was the second low blood sugar since having her own pump in place. Pt stating her pump is set up for her diet at home and she has been eating healthier since arriving at the hospital. Pt in agreement with staff that removing her pump and switching back to SC insulin. Will update Dr. Callahan.
[2018-04-07 04:26] LABS: Bedside Glucose 70 mg/dL (70-110)
[2018-04-07 04:45] LABS: Bedside Glucose 113 mg/dL (70-110)
[2018-04-07 04:53] LABS: Glucose 88 mg/dL (74-106)
[2018-04-07] MEDS: Spironolactone 25 MG Tablet PO (05:05)
[2018-04-07] MEDS: Carvedilol 12.5 MG Tablet PO ×2 (05:06→17:49)
[2018-04-07] MEDS: Pantoprazole Sodium 40 MG Tablet PO (05:06)
[2018-04-07] MEDS: Magnesium Oxide 400 MG Tablet PO ×3 (05:07→21:29)
[2018-04-07] MEDS: Enoxaparin 40 MG/0.4 ML Syringe SC (05:07)
[2018-04-07] MEDS: Clopidogrel Bisulfate 75 MG Tablet PO (05:08)
[2018-04-07] MEDS: Venlafaxine XR 150 MG Capsule PO (05:08)
[2018-04-07] MEDS: Senna/Docusate Sodium 1 Tablet PO ×2 (05:09→17:49)
[2018-04-07] MEDS: buPROPion (XL) 150 MG TABLET.XL PO (05:09)
[2018-04-07] MEDS: Pregabalin 75 MG Capsule 150 MG PO ×2 (05:15→17:50)
[2018-04-07 07:11] LABS: Bedside Glucose 191 mg/dL (70-110)
[2018-04-07] MEDS: Furosemide 20 MG Tablet PO ×2 (07:58→13:31)
[2018-04-07 11:27] LABS: Bedside Glucose 265 mg/dL (70-110)
[2018-04-07] MEDS: Insulin Lispro 100 UNIT/ML INSULN.PEN 13 UNIT SC ×2 (11:52→17:45)
--- NOTE | 2018-04-07 11:57 | NURSING ---
IV FLUSHED. NO S/S OF INFECTION OR REDNESS. PT TOLERATED WELL.
[2018-04-07 15:34] VITALS: BP 118/71; PULSE 76; RESP 18; TEMP 36.7; O2SAT 97
[2018-04-07 17:00] LABS: Bedside Glucose 218 mg/dL (70-110)
[2018-04-07 18:37] VITALS: PULSE 88; RESP 18; O2SAT 99
[2018-04-07 21:16] LABS: Bedside Glucose 246 mg/dL (70-110)
[2018-04-07] MEDS: Aspirin 81 MG TAB.CHEW PO (21:32)
[2018-04-07] MEDS: Lisinopril 2.5 MG Tablet PO (21:32)
[2018-04-07] MEDS: Amitriptyline 25 MG Tablet PO (21:33)
[2018-04-08 03:41] LABS: Bedside Glucose 272 mg/dL (70-110)
[2018-04-08] MEDS: buPROPion (XL) 150 MG TABLET.XL PO (05:30)
[2018-04-08] MEDS: Carvedilol 12.5 MG Tablet PO ×2 (05:31→18:56)
[2018-04-08] MEDS: Clopidogrel Bisulfate 75 MG Tablet PO (05:31)
[2018-04-08] MEDS: Magnesium Oxide 400 MG Tablet PO ×3 (05:31→20:59)
[2018-04-08] MEDS: Pantoprazole Sodium 40 MG Tablet PO (05:32)
[2018-04-08] MEDS: Furosemide 20 MG Tablet PO ×2 (05:32→13:32)
[2018-04-08] MEDS: Venlafaxine XR 150 MG Capsule PO (05:32)
[2018-04-08] MEDS: Enoxaparin 40 MG/0.4 ML Syringe SC (05:33)
[2018-04-08] MEDS: Spironolactone 25 MG Tablet PO (05:35)
[2018-04-08] MEDS: Pregabalin 75 MG Capsule 150 MG PO ×2 (05:38→18:57)
--- NOTE | 2018-04-08 07:00 | NURSING ---
Pt IV flushed no s/sx of infection, and patent. No concerns voiced at this time.
[2018-04-08 07:06] LABS: Bedside Glucose 271 mg/dL (70-110)
[2018-04-08] MEDS: Insulin Lispro 100 UNIT/ML INSULN.PEN 13 UNIT SC ×2 (07:51→11:35)
[2018-04-08 09:24] VITALS: PULSE 83; RESP 18; O2SAT 99
[2018-04-08 10:46] LABS: Bedside Glucose 323 mg/dL (70-110)
[2018-04-08] MEDS: Acetaminophen 500 MG Tablet 1000 MG PO ×2 (12:39→18:55)
--- NOTE | 2018-04-08 16:59 | NURSING ---
PT COMPLAINED OF FREEZING,DIZZINESS AND HAS A TEMP OF 100.2 ORAL. TYLENOL GIVEN. REPORTED TO GENET MONTERO
[2018-04-08 17:03] VITALS: TEMP 37.9
[2018-04-08 17:10] LABS: Bedside Glucose 220 mg/dL (70-110)
[2018-04-08 18:48] VITALS: TEMP 38.9
[2018-04-08 19:29] LABS: Mucous, Urine 0 SEEN /hpf (<or=2+)
[2018-04-08 19:31] LABS: Color, Urine Yellow (Yellow); Glucose, Dipstick Normal (Normal); Ketone-Dipstick Negative (Negative); Leukocyte Esterase-Dipstick 500 /ul (Negative); Nitrite-Dipstick Negative (Negative); Occult Blood-Urine 250 /ul (Negative); Protein-Dipstick 15 mg/dl (Negative); Urine Bilirubin Dipstick Negative (Negative); Urine Clarity Cloudy (Clear); Urine Urobilinogen Normal (Normal); Urine pH 6.5 (5.0 - 8.0)
[2018-04-08 19:57] LABS: Bacteria 4+ /hpf (None Seen); Red Blood Cells-Urine 5-10 SEEN /hpf (0-5); Squamous Epithelial Cells - UA 0-5 SEEN /hpf (5-10); White Blood Cells 10-25 SEEN /hpf (0-5)
[2018-04-08] MEDS: Amitriptyline 25 MG Tablet PO (20:58)
[2018-04-08] MEDS: Aspirin 81 MG TAB.CHEW PO (20:58)
[2018-04-08] MEDS: Lisinopril 2.5 MG Tablet PO (20:59)
[2018-04-08 21:25] LABS: Bedside Glucose 238 mg/dL (70-110)
--- NOTE | 2018-04-08 22:38 | NURSING ---
Dr. Callahan notified of Urine Culture, new orders given.
[2018-04-08] MEDS: Ciprofloxacin 500 MG Tablet PO (23:04)
--- NOTE | 2018-04-08 23:08 | NURSING ---
CIPRO STARTED FOR UTI. PATIENT REFUSING BIPAP TONIGHT. I DON'T NEED IT. WILL CONT TO MONITOR.
[2018-04-09 02:16] LABS: Bedside Glucose 253 mg/dL (70-110)
[2018-04-09] MEDS: Acetaminophen 500 MG Tablet 1000 MG PO ×3 (03:59→16:52)
[2018-04-09] MEDS: Spironolactone 25 MG Tablet PO (04:00)
[2018-04-09] MEDS: Carvedilol 12.5 MG Tablet PO ×2 (04:00→16:51)
[2018-04-09] MEDS: Clopidogrel Bisulfate 75 MG Tablet PO (04:01)
[2018-04-09] MEDS: Senna/Docusate Sodium 1 Tablet PO (04:01)
[2018-04-09] MEDS: Ciprofloxacin 500 MG Tablet PO ×2 (04:01→16:51)
[2018-04-09] MEDS: Furosemide 20 MG Tablet PO ×2 (04:01→13:16)
[2018-04-09] MEDS: Venlafaxine XR 150 MG Capsule PO (04:02)
[2018-04-09] MEDS: Pantoprazole Sodium 40 MG Tablet PO (04:03)
[2018-04-09] MEDS: buPROPion 75 MG Tablet PO ×2 (04:04→16:52)
[2018-04-09] MEDS: Magnesium Oxide 400 MG Tablet PO ×3 (04:04→20:40)
--- NOTE | 2018-04-09 04:40 | NURSING ---
UNABLE TO URINATE ON TOILET. BLADDER SCAN WAS 672. HAMMER CATH INSERTED PER ORDER. WILL CONT TO MONITOR., BOTH GENET BAILEY AND GENET FELDER AWARE.
[2018-04-09] MEDS: Pregabalin 75 MG Capsule 150 MG PO ×2 (06:35→16:51)
[2018-04-09] MEDS: Enoxaparin 40 MG/0.4 ML Syringe SC (06:39)
[2018-04-09 07:01] LABS: Bedside Glucose 240 mg/dL (70-110)
[2018-04-09] MEDS: Insulin Lispro 100 UNIT/ML INSULN.PEN 13 UNIT SC ×3 (08:31→18:08)
[2018-04-09 10:00] VITALS: PULSE 71; RESP 16; O2SAT 96
[2018-04-09 11:20] LABS: Bedside Glucose 293 mg/dL (70-110)
--- NOTE | 2018-04-09 15:19 | CASEMGMT ---
Brief interview for mental status (BIMS) and resident mood interview (PHQ-9) completed on this day. BIMS score 14/15. PHQ-9 score 11/19
[2018-04-09 15:41] VITALS: BP 96/35; PULSE 68; RESP 16; TEMP 36.5; O2SAT 99
[2018-04-09 16:55] LABS: Bedside Glucose 225 mg/dL (70-110)
[2018-04-09] MEDS: Lisinopril 2.5 MG Tablet PO (20:40)
[2018-04-09] MEDS: Amitriptyline 25 MG Tablet PO (20:40)
[2018-04-09] MEDS: Aspirin 81 MG TAB.CHEW PO (20:40)
[2018-04-09 21:21] LABS: Bedside Glucose 172 mg/dL (70-110)
[2018-04-10] MEDS: Acetaminophen 500 MG Tablet 1000 MG PO ×4 (00:12→20:23)
[2018-04-10 03:30] LABS: Bedside Glucose 203 mg/dL (70-110)
[2018-04-10] MEDS: buPROPion 75 MG Tablet PO ×2 (05:54→18:33)
[2018-04-10] MEDS: Clopidogrel Bisulfate 75 MG Tablet PO (05:54)
[2018-04-10] MEDS: Carvedilol 12.5 MG Tablet PO ×2 (05:54→18:33)
[2018-04-10] MEDS: Ciprofloxacin 500 MG Tablet PO ×2 (05:54→18:33)
[2018-04-10] MEDS: Pantoprazole Sodium 40 MG Tablet PO (05:54)
[2018-04-10] MEDS: Magnesium Oxide 400 MG Tablet PO ×3 (05:54→20:26)
[2018-04-10] MEDS: Furosemide 20 MG Tablet PO ×2 (05:54→13:27)
[2018-04-10] MEDS: Pregabalin 75 MG Capsule 150 MG PO (05:58)
[2018-04-10] MEDS: Venlafaxine XR 150 MG Capsule PO (05:59)
[2018-04-10] MEDS: Enoxaparin 40 MG/0.4 ML Syringe SC (06:00)
[2018-04-10] MEDS: Spironolactone 25 MG Tablet PO (06:37)
[2018-04-10 06:55] LABS: Bedside Glucose 210 mg/dL (70-110)
[2018-04-10] MEDS: Insulin Lispro 100 UNIT/ML INSULN.PEN 13 UNIT SC ×2 (07:47→11:53)
[2018-04-10 11:50] LABS: Bedside Glucose 293 mg/dL (70-110)
[2018-04-10 16:00] VITALS: BP 105/49; PULSE 65; RESP 16; TEMP 36.8; O2SAT 99
[2018-04-10 17:10] LABS: Bedside Glucose 182 mg/dL (70-110)
[2018-04-10 18:39] VITALS: BP 127/72; PULSE 68
[2018-04-10] MEDS: Amitriptyline 25 MG Tablet PO (20:26)
[2018-04-10] MEDS: Lisinopril 2.5 MG Tablet PO (20:26)
[2018-04-10] MEDS: Aspirin 81 MG TAB.CHEW PO (20:27)
[2018-04-10 21:21] LABS: Bedside Glucose 119 mg/dL (70-110)
[2018-04-10 21:39] VITALS: PULSE 74; RESP 16
--- NOTE | 2018-04-11 00:02 | NURSING ---
Pt asked if she received her lyrica the afternoon i looked at the MARS and it shows that she received the medication. She states that she is restlessness and would like something for it. RN aware.
[2018-04-11] MEDS: Pregabalin 75 MG Capsule PO ×3 (04:29→16:56)
[2018-04-11] MEDS: Carvedilol 12.5 MG Tablet PO ×2 (04:30→16:55)
[2018-04-11] MEDS: Clopidogrel Bisulfate 75 MG Tablet PO (04:30)
[2018-04-11] MEDS: Venlafaxine XR 150 MG Capsule PO (04:30)
[2018-04-11] MEDS: Furosemide 20 MG Tablet PO ×2 (04:30→14:12)
[2018-04-11] MEDS: buPROPion 75 MG Tablet PO ×2 (04:30→17:00)
[2018-04-11] MEDS: Ciprofloxacin 500 MG Tablet PO ×2 (04:31→16:56)
[2018-04-11] MEDS: Spironolactone 25 MG Tablet PO (04:31)
[2018-04-11] MEDS: Enoxaparin 40 MG/0.4 ML Syringe SC (04:32)
[2018-04-11 04:41] LABS: Bedside Glucose 222 mg/dL (70-110)
[2018-04-11 05:56] LABS: Absolute Lymphocyte Count 0.93 X10^3/ul (0.83-4.51); Absolute Neutrophil Count 2.4 X10^3/uL (2.0-7.7); Anion Gap 11 (5-15); BUN 12 mg/dL (7-18); BUN/Creat Ratio 17.3 RATIO (10-20); Basophil# 0.02 X10^3/uL; Basophil% 0.5 % (0-1); Chloride 98 mmol/L (98-107); Creatinine, Serum 0.69 mg/dL (0.55-1.02); EST Glomerular Filtration Rate 94 mL/min (>60); Eosinophil# 0.05 X10^3/uL; Eosinophils% 1.3 % (0-5); Est Glom Filt Rate - Afr Amer 114 mL/min (>60); Estimated Creatinine Clearance 81.42 ml/min; Glucose 209 mg/dL (74-106); Hematocrit 31.5 % (37-47); Hemoglobin 10.5 g/dl (12.0-15.0); Lymphocyte # 0.93 X10^3/ul (4.0); Lymphocyte % 23.3 % (19-41); Mean Corp Hgb Conc 33.3 g/gl (32-36); Mean Corpuscular Hgb 27.2 pg (27.0-32.0); Mean Corpuscular Volume 81.6 fL (81-99); Mean Platelet Vol. 11.1 fl (6.2-12.0); Monocyte# 0.52 X10^3/uL; Neutrophil # 2.43 X10^3/uL (2.7-7.7); Neutrophil % 60.9 % (47-70); Platelet Count 177 K/mm3 (150-450); Potassium 4.1 mmol/L (3.5-5.1); RBC Distribution Width SD 47.1 fl (35.1-43.9); Red Blood Count 3.86 M/mm3 (4.2-5.4); Sodium Level 133 mmol/L (136-145)
[2018-04-11 06:16] LABS: POSITIVE COUNT NO; POSITIVE DIFFERENTIAL NO; POSITIVE MORPHOLOGY NO
[2018-04-11 06:41] LABS: Bedside Glucose 221 mg/dL (70-110)
[2018-04-11] MEDS: Pantoprazole Sodium 40 MG Tablet PO (06:47)
[2018-04-11] MEDS: Magnesium Oxide 400 MG Tablet PO ×3 (06:48→20:35)
[2018-04-11] MEDS: Acetaminophen 500 MG Tablet 1000 MG PO ×3 (06:51→22:58)
[2018-04-11] MEDS: Insulin Lispro 100 UNIT/ML INSULN.PEN 13 UNIT SC ×3 (09:21→16:56)
--- NOTE | 2018-04-11 10:30 | CASEMGMT ---
Plan of care meeting held. Resident present as well as resident daughter (daughter present via conference call). Resident plans to discharge to home with daughter at time of discharge. Resident with an insurance update due on this day and aware that continued stay approval is not guaranteed. No discharge date set at this time. Resident to continue with further care and treatment on the Transitional Care Unit. Support given. Will continue to follow. Edita SALTER, SOCIAL WELFARE CLERK
[2018-04-11 11:41] LABS: Bedside Glucose 309 mg/dL (70-110)
--- NOTE | 2018-04-11 13:44 | CASEMGMT ---
Insurance Clinical information faxed, pending continued stay approval at this time. Auth#[id number] Edita SALTER, PSYCHIATRIC NURSE PRACTITIONER
[2018-04-11 15:48] VITALS: BP 111/62; PULSE 64; RESP 14; TEMP 37.2; O2SAT 98
--- NOTE | 2018-04-11 16:21 | NURSING ---
Pt izaguirre removed by this nurse at this time, blood tinged urine with sediment noted in tubing and izaguirre bag. Removed without difficulty. Pt urine very strong and foul smelling. Will cont to monitor. Mary Jo DE LEÓN aware
[2018-04-11 16:51] LABS: Bedside Glucose 286 mg/dL (70-110)
--- NOTE | 2018-04-11 16:55 | CASEMGMT ---
Insurance Continued stay denied with last cover day being 04/13/18 and resident to discharge on or financial responsibility to begin on 04/14/18. Auth#[id number] Edita SALTER, BUS OPERATOR
--- NOTE | 2018-04-11 16:58 | CASEMGMT ---
Social Work Spoke with resident and resident daughter. This social economist communicating that continued stay has been denied with last cover day begin 04/13/18 and resident to discharge or financial responsibility to begin on 04/14/18. Resident is agreeable to discharge date of 04/14/18 and plans to discharge to home with daughter. This social economist communicating that physical therapy is recommending for resident to continue with services within the home. Resident is agreeable to recommendation and requesting for home health services to be set up through [facility] ([facility]). Resident reporting to have all needed durable medical equipment already set up within the home. Resident daughter plans to provide transportation home for resident at time of discharge. Support given. [facility] This social economist making referral for physical therapy. Order to be completed. Proposed discharge date: 04/14/18 PLAN: Discharge to home with daughter and home health services. Edita SALTER, SUPERVISOR RECEIVING AND PROCESSING
--- NOTE | 2018-04-11 20:03 | PCM.DC ---
- Discharge Diagnoses Current Active Problems: Current Active and Chronic Problems (Last Reviewed 04/02/18 @ 14:39 by Kevin Barnes MD) Weakness (Acute) You will use the following diet at home:: No restrictions, Regular Your food should be the consistency of: Regular Your liquids should be the consistency of: Regular/Thin Discharge Activity: Return to Normal Activity, May Shower, Use Walker Weight Bearing Status: Weight bearing as tolerated Call your doctor if you observe: Fever of 101 or Higher, Inability to urinate, Inability to have a bowel movement, Shortness of breath, Chest pain, Uncontrolled pain Allergies/Adverse Reactions: Allergies Zrnibpk-Pbl-Nxm Reductase Inhibitor Adverse Reaction (Severe, Verified 03/29/18 08:01) Elevated liver enzymes, also Muscle cramps/pain Medications to take at Discharge Ergocalciferol [Vitamin D] 50,000 unit PO FR 08/12/14 Lisinopril [Zestril] 2.5 mg PO QHS 08/12/14 Venlafaxine XR [Effexor Xr] 150 mg PO DAILY 08/12/14 Clopidogrel Bisulfate [Plavix] 75 mg PO DAILY 12/26/16 magnesium oxide 400 mg (241.3 mg magnesium) tablet 400 mg PO TID tab 10/16/17 Albuterol IH (ProAir) [Proair Hfa] 1 - 2 puff INHALATION Q4H PRN PRN 12/05/17 Acetaminophen [Tylenol] 1,000 mg PO Q8H PRN PRN tab 12/11/17 Insulin Aspart [Novolog Flexpen] 0 units SC DAILY 04/02/18 Omeprazole 20 mg PO BID 04/02/18 Carvedilol 12.5 mg PO BID #180 tab 04/04/18 Furosemide [Lasix] 20 mg PO BID@1000,1800 #180 tab 04/04/18 Aspirin [Aspirin, Baby] 81 mg PO QHS tab.chew 04/11/18 Potassium Chloride [K-Dur] 20 meq PO DAILY #30 tab 04/11/18 Pregabalin [Lyrica] 75 mg PO BID #10 cap 04/11/18 Pregabalin [Lyrica] 75 mg PO DAILY #5 cap 04/11/18 Spironolactone [Aldactone] 25 mg PO DAILY #30 tablet 04/11/18 buPROPion tablets [Wellbutrin tablets] 75 mg PO BID #30 tablet 04/11/18 The following prescriptions were given: Potassium Chloride [K-Dur] 20 meq PO DAILY #30 tab Pregabalin [Lyrica] 75 mg PO DAILY #5 cap Spironolactone [Aldactone] 25 mg PO DAILY #30 tablet buPROPion tablets [Wellbutrin tablets] 75 mg PO BID #30 tablet Pregabalin [Lyrica] 75 mg PO BID #10 cap Primary Care Physician: Christopher Callahan Chi, MD [COURTESY STAFF PHYSICIAN] - Please follow up with your Primary Care Physician in: 1 week. Test Results: Test results from this visit will be discussed in further detail at your follow-up appointment, if applicable. Proposed Discharge Date: 04/14/18
--- NOTE | 2018-04-11 20:06 | DCINST_ITS ---
- Discharge Diagnoses Current Active Problems: Current Active and Chronic Problems (Last Reviewed 04/02/18 @ 14:39 by Kevin Barnes MD) Weakness (Acute) You will use the following diet at home:: No restrictions, Regular Your food should be the consistency of: Regular Your liquids should be the consistency of: Regular/Thin Discharge Activity: Return to Normal Activity, May Shower, Use Walker Weight Bearing Status: Weight bearing as tolerated Call your doctor if you observe: Fever of 101 or Higher, Inability to urinate, Inability to have a bowel movement, Shortness of breath, Chest pain, U ncontrolled pain Allergies/Adverse Reactions: Allergies Hpkqzsp-Bdj-Rbz Reductase Inhibitor Adverse Reaction (Severe, Verified 03/29/18 08:01) Elevated liver enzymes, also Muscle cramps/pain Medications to take at Discharge Ergocalciferol [Vitamin D] 50,000 unit PO FR 08/12/14 Lisinopril [Zestril] 2.5 mg PO QHS 08/12/14 Venlafaxine XR [Effexor Xr] 150 mg PO DAILY 08/12/14 Clopidogrel Bisulfate [Plavix] 75 mg PO DAILY 12/26/16 magnesium oxide 400 mg (241.3 mg magnesium) tablet 400 mg PO TID tab 10/16/17 Albuterol IH (ProAir) [Proair Hfa] 1 - 2 puff INHALATION Q4H PRN PRN 12/05/17 Acetaminophen [Tylenol] 1,000 mg PO Q8H PRN PRN tab 12/11/17 Insulin Aspart [Novolog Flexpen] 0 units SC DAILY 04/02/18 Omeprazole 20 mg PO BID 04/02/18 Carvedilol 12.5 mg PO BID #180 tab 04/04/18 Furosemide [Lasix] 20 mg PO BID@1000,1800 #180 tab 04/04/18 Aspirin [Aspirin, Baby] 81 mg PO QHS tab.chew 04/11/18 Potassium Chloride [K-Dur] 20 meq PO DAILY #30 tab 04/11/18 Pregabalin [Lyrica] 75 mg PO BID #10 cap 04/11/18 Pregabalin [Lyrica] 75 mg PO DAILY #5 cap 04/11/18 Spironolactone [Aldactone] 25 mg PO DAILY #30 tablet 04/11/18 buPROPion tablets [Wellbutrin tablets] 75 mg PO BID #30 tablet 04/11/18 The following prescriptions were given: Potassium Chloride [K-Dur] 20 meq PO DAILY #30 tab Pregabalin [Lyrica] 75 mg PO DAILY #5 cap Spironolactone [Aldactone] 25 mg PO DAILY #30 tablet buPROPion tablets [Wellbutrin tablets] 75 mg PO BID #30 tablet Pregabalin [Lyrica] 75 mg PO BID #10 cap Primary Care Physician: Christopher Callahan Chi, MD [COURTESY STAFF PHYSICIAN] - Please follow up with your Primary Care Physician in: 1 week. Test Results: Test results from this visit will be discussed in further detail at your follow- up appointment, if applicable. Proposed Discharge Date: 04/14/18
--- NOTE | 2018-04-11 20:06 | PCM.DC.SUM ---
Discharge Date and Diagnosis - Problem List Patient Problems: Active and Suspected Problems (Last Reviewed 04/02/18 @ 14:39 by Kevin Barnes MD) Weakness (Acute) Date of Admission: 04/04/18 Date of Discharge: 04/14/18 - Primary Discharge Diagnosis Active and Suspected Problems (Last Reviewed 04/02/18 @ 14:39 by Kevin Barnes MD) Weakness (Acute) - Secondary Discharge Diagnosis Chronic Problems (Last Reviewed 04/02/18 @ 14:39 by Kevin Barnes MD) SOB (shortness of breath) on exertion (Chronic) Diabetes mellitus (Chronic) Factor 5 Leiden mutation, heterozygous (Chronic) Sleep apnea (Chronic) CPAP 9 cm water Depression (Chronic) Anxiety (Chronic) Vitamin D deficiency (Chronic) GERD (gastroesophageal reflux disease) (Chronic) Coronary artery disease (Chronic) Status post stents. 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 Neela Crum Cardiomyopathy, ischemic (Chronic) 40% EF in 2016 HLD (hyperlipidemia) (Chronic) Diabetic neuropathy (Chronic) Hospital Course and Treatment Imaging Results: 04/04/18 16:11 Diet: Cardiac: Calorie-Controlled Food consistency:: Mechanical Soft/Ground Liquid Consistency:: Regular/Thin Dietary Modifications:: Mechanical Soft Diet Is pt able to select menu?: Yes How many daily calories?: 1800 calorie Labs (Last 48 Hours) 04/09/18 04/10/18 04/10/18 21:18 03:25 06:14 WBC RBC Hgb Hct MCV MCH MCHC RDW RDW Differential Plt Count MPV Immature Gran % (Auto) Neut % (Auto) Lymph % (Auto) [place] % (Auto) Eos % (Auto) Baso % (Auto) Absolute Neuts (auto) Absolute Lymphs (auto) Total Counted Sodium Potassium Chloride Carbon Dioxide Anion Gap BUN Creatinine Estim Creat Clear Calc Est GFR (MDRD) Af Amer Est GFR (MDRD) Non-Af BUN/Creatinine Ratio Glucose Calcium POC Glucose 172 H 203 H 210 H 04/10/18 04/10/18 04/10/18 11:40 16:45 21:10 WBC RBC Hgb Hct MCV MCH MCHC RDW RDW Differential Plt Count MPV Immature Gran % (Auto) Neut % (Auto) Lymph % (Auto) [place] % (Auto) Eos % (Auto) Baso % (Auto) Absolute Neuts (auto) Absolute Lymphs (auto) Total Counted Sodium Potassium Chloride Carbon Dioxide Anion Gap BUN Creatinine Estim Creat Clear Calc Est GFR (MDRD) Af Amer Est GFR (MDRD) Non-Af BUN/Creatinine Ratio Glucose Calcium POC Glucose 293 H 182 H 119 H 04/11/18 04/11/18 04/11/18 04:28 05:15 05:15 WBC 4.0 L RBC 3.86 L Hgb 10.5 L Hct 31.5 L MCV 81.6 MCH 27.2 MCHC 33.3 RDW 16.0 H RDW Differential 47.1 H Plt Count 177 MPV 11.1 Immature Gran % (Auto) 1.000 H Neut % (Auto) 60.9 Lymph % (Auto) 23.3 [place] % (Auto) 13.0 H Eos % (Auto) 1.3 Baso % (Auto) 0.5 Absolute Neuts (auto) 2.4 Absolute Lymphs (auto) 0.93 Total Counted Not Reportable Sodium 133 L Potassium 4.1 Chloride 98 Carbon Dioxide 24.0 Anion Gap 11 BUN 12 Creatinine 0.69 Estim Creat Clear Calc 81.42 Est GFR (MDRD) Af Amer 114 Est GFR (MDRD) Non-Af 94 BUN/Creatinine Ratio 17.3 Glucose 209 H Calcium 9.0 POC Glucose 222 H 04/11/18 04/11/18 04/11/18 06:15 11:32 16:41 WBC RBC Hgb Hct MCV MCH MCHC RDW RDW Differential Plt Count MPV Immature Gran % (Auto) Neut % (Auto) Lymph % (Auto) [place] % (Auto) Eos % (Auto) Baso % (Auto) Absolute Neuts (auto) Absolute Lymphs (auto) Total Counted Sodium Potassium Chloride Carbon Dioxide Anion Gap BUN Creatinine Estim Creat Clear Calc Est GFR (MDRD) Af Amer Est GFR (MDRD) Non-Af BUN/Creatinine Ratio Glucose Calcium POC Glucose 221 H 309 H 286 H Microbiology 04/08/18 19:20 Urine Catheter - Catheter Urine Culture - Final Presumptive E. coli Operations: None Procedures: None Summary of Care Provided: The patient is a 52 year old Female with below past medical history hospitalized for weakness, failure to thrive, admitted to TCU with debility, here for rehabilitation, strengthening, prior to discharge home with family. On TCU, resident had E. Coli UTI which was resolved with Cipro. Discharged home with daughter, and Home Health Services. Patient Problems: Active and Suspected Problems (Last Reviewed 04/02/18 @ 14:39 by Kevin Barnes MD) Weakness (Acute) - Physical Exam Vital Signs Temp Pulse Resp BP Pulse Ox 98.9 F 64 14 111/62 98 04/11/18 15:48 04/11/18 15:48 04/11/18 15:48 04/11/18 15:48 04/11/18 15:48 Oxygen Flow Rate (L/min) 98 Oxygen Delivery Method Room Air Weight: 73.626 kg Body Mass Index (BMI) 24.3 Finger Stick Blood Glucose 417 Intake and Output for Last 24 Hours 04/09/18 04/10/18 04/11/18 23:59 23:59 23:59 Intake Total 480 / 480 1230 / 1230 540 / 540 Output Total 1475 / 1475 1999 / 1999 1225 / 1225 Balance -995 / -995 -770 / -770 -685 / -685 Microbiology Past 72 Hours 04/08/18 19:20 Urine Culture - Final Urine Catheter - Catheter Presumptive E. coli Laboratory Tests Past 24 Hrs 04/11/18 04/11/18 05:15 05:15 WBC 4.0 L RBC 3.86 L Hgb 10.5 L Hct 31.5 L MCV 81.6 MCH 27.2 MCHC 33.3 RDW 16.0 H RDW Differential 47.1 H Plt Count 177 MPV 11.1 Immature Gran % (Auto) 1.000 H Neut % (Auto) 60.9 Lymph % (Auto) 23.3 [place] % (Auto) 13.0 H Eos % (Auto) 1.3 Baso % (Auto) 0.5 Absolute Neuts (auto) 2.4 Absolute Lymphs (auto) 0.93 Total Counted Not Reportable Sodium 133 L Potassium 4.1 Chloride 98 Carbon Dioxide 24.0 Anion Gap 11 BUN 12 Creatinine 0.69 Estim Creat Clear Calc 81.42 Est GFR (MDRD) Af Amer 114 Est GFR (MDRD) Non-Af 94 BUN/Creatinine Ratio 17.3 Glucose 209 H Calcium 9.0 POC Glucose 04/11/18 04/11/18 04/11/18 16:41 11:32 06:15 POC Glucose 286 H 309 H 221 H 04/11/18 04/10/18 04:28 21:10 POC Glucose 222 H 119 H Discharge Diet: No Restrictions Discharge Activity: Return to Normal Activity, May Shower, Use Walker Weight Bearing Status: Weight bearing as tolerated Call your doctor if you observe: Fever of 101 or Higher, Inability to urinate, Inability to have a bowel movement, Shortness of breath, Chest pain, Uncontrolled pain Home Medications: Medications to take at Discharge Ergocalciferol [Vitamin D] 50,000 unit PO FR 08/12/14 Lisinopril [Zestril] 2.5 mg PO QHS 08/12/14 Venlafaxine XR [Effexor Xr] 150 mg PO DAILY 08/12/14 Clopidogrel Bisulfate [Plavix] 75 mg PO DAILY 12/26/16 magnesium oxide 400 mg (241.3 mg magnesium) tablet 400 mg PO TID tab 10/16/17 Albuterol IH (ProAir) [Proair Hfa] 1 - 2 puff INHALATION Q4H PRN PRN 12/05/17 Acetaminophen [Tylenol] 1,000 mg PO Q8H PRN PRN tab 12/11/17 Insulin Aspart [Novolog Flexpen] 0 units SC DAILY 04/02/18 Omeprazole 20 mg PO BID 04/02/18 Carvedilol 12.5 mg PO BID #180 tab 04/04/18 Furosemide [Lasix] 20 mg PO BID@1000,1800 #180 tab 04/04/18 Aspirin [Aspirin, Baby] 81 mg PO QHS tab.chew 04/11/18 Potassium Chloride [K-Dur] 20 meq PO DAILY #30 tab 04/11/18 Pregabalin [Lyrica] 75 mg PO BID #10 cap 04/11/18 Pregabalin [Lyrica] 75 mg PO DAILY #5 cap 04/11/18 Spironolactone [Aldactone] 25 mg PO DAILY #30 tablet 04/11/18 buPROPion tablets [Wellbutrin tablets] 75 mg PO BID #30 tablet 04/11/18 Following Prescrptions Were Given to Patient: Potassium Chloride [K-Dur] 20 meq PO DAILY #30 tab Pregabalin [Lyrica] 75 mg PO DAILY #5 cap Spironolactone [Aldactone] 25 mg PO DAILY #30 tablet buPROPion tablets [Wellbutrin tablets] 75 mg PO BID #30 tablet Pregabalin [Lyrica] 75 mg PO BID #10 cap Primary Care Physician: Christopher Callahan Chi, MD [COURTESY STAFF PHYSICIAN] - Please follow up with your Primary Care Physician in: 1 week. Disposition: Home with Home Health Minutes spent on discharge:: 35 Patient Condition:: Stable Medical Necessity - Tobacco Use Smoking Status: Former smoker Tobacco Use: Non-smoker Meaningful Use Info Meaningful Use Diagnoses (Choose all that apply): None applicable
--- NOTE | 2018-04-11 20:09 | HHNOTE_ITS ---
Home Health Note - Plan Overview of reason of hospitalization: The patient is a 52 year old Female with below past medical history hospitalized for weakness, failure to thrive, admitted to TCU with debility, here for rehabilitation, strengthening, prior to discharge home with family. On TCU, resident had E. Coli UTI which was resolved with Cipro. Discharged home with daughter, and Home Health Services Problems: Patient was seen for (Last Reviewed 04/02/18 @ 14:39 by Kevin Barnes MD) Weakness (Acute) Complete List of Medical Problems (Last Reviewed 04/02/18 @ 14:39 by Kevin Barnes MD) FTT (failure to thrive) in adult (Acute) Weakness (Acute) SOB (shortness of breath) on exertion (Chronic) Diabetes mellitus (Chronic) Factor 5 Leiden mutation, heterozygous (Chronic) Sleep apnea (Chronic) Depression (Chronic) Anxiety (Chronic) Vitamin D deficiency (Chronic) GERD (gastroesophageal reflux disease) (Chronic) Coronary artery disease (Chronic) Atherosclerosis of coronary artery bypass graft without angina pectoris (Chronic ) Atherosclerosis of coronary artery of [place] heart without angina pectoris (Chronic) Abnormal chest CT (Chronic) Tobacco abuse (Chronic) HTN (hypertension) (Chronic) Depression with anxiety (Chronic) Diabetes mellitus, type II (Chronic) Randolph disease (Chronic) Chronic back pain (Chronic) History of GI bleed (Chronic) S/P CABG x 5 (Chronic ~11/14/07) Cardiomyopathy, ischemic (Chronic) HLD (hyperlipidemia) (Chronic) Diabetic neuropathy (Chronic) - Requirements and Reasons Disciplines Needed/Ordered: Physical Therapy Reason for Disciplines: Gait Training, Stair Training, Fall Prevention, Home Safety/Equipment Instruction, Balance and/or Posture Training, Transfer Training Related To: Limited/Poor Endurance, Shortness of Breath with Activity, Physical Impairments, Unsteady Gait/Balance, Fall Risk Patient is unable to leave the home: Without Aid of Supportive Devices (crut ches, cane, wheelchair, walker), Without the assistance of another person
[2018-04-11] MEDS: Aspirin 81 MG TAB.CHEW PO (20:36)
[2018-04-11] MEDS: Lisinopril 2.5 MG Tablet PO (20:37)
[2018-04-11 20:56] LABS: Bedside Glucose 416 mg/dL (70-110)
[2018-04-11 21:32] VITALS: PULSE 69; RESP 18; O2SAT 95
--- NOTE | 2018-04-12 03:40 | NURSING ---
Pt has been voiding throughout shift, bladder scan immediately afterwards all less than 50ml urine. No complaints or concerns voiced from pt. RN aware, continuing to monitor.
[2018-04-12] MEDS: buPROPion 75 MG Tablet PO ×2 (05:53→17:29)
[2018-04-12] MEDS: Clopidogrel Bisulfate 75 MG Tablet PO (05:54)
[2018-04-12] MEDS: Carvedilol 12.5 MG Tablet PO ×2 (05:54→17:29)
[2018-04-12] MEDS: Furosemide 20 MG Tablet PO ×2 (05:54→13:12)
[2018-04-12] MEDS: Venlafaxine XR 150 MG Capsule PO (05:54)
[2018-04-12] MEDS: Pantoprazole Sodium 40 MG Tablet PO (05:54)
[2018-04-12] MEDS: Ciprofloxacin 500 MG Tablet PO ×2 (05:55→17:30)
[2018-04-12] MEDS: Magnesium Oxide 400 MG Tablet PO ×3 (05:55→21:04)
[2018-04-12] MEDS: Spironolactone 25 MG Tablet PO (05:55)
--- NOTE | 2018-04-12 06:01 | NURSING ---
Pt is very concerned over tapered lyrica dose, which is currently at 75mg BID. Last night, pt visibly uncomfortable while in bed, c/o neuropathy pain in bilateral legs and feet, rating 9/10. States her hands are also affected but not as significant or painful as legs and feet. Pt asking for lyrica to be changed to 150mg BID. Stated 'for years I have been on 300mg twice a day' and said her pain management doctor will 'hit the roof' knowing certain medications have been changed. Pt did not sleep well throughout night. Asked for tylenol in attempt to 'try anything' for neuropathy, it was not effective. Pt remained awake and uncomfortable most of night. Both RNs aware, and will have Dr. Callahan address this with pt in morning. Pt made aware of this and voiced appreciation for staff care. Pt also stated she understands the reason her medications have been changed recently is because of episode of being non responsive last week, causing a trip to ER for evaluation. Pt has remained very calm, patient, understanding with staff. Continuing to monitor.
[2018-04-12] MEDS: Pregabalin 75 MG Capsule PO ×2 (06:11→17:30)
[2018-04-12 06:40] LABS: Bedside Glucose 296 mg/dL (70-110)
[2018-04-12] MEDS: Enoxaparin 40 MG/0.4 ML Syringe SC (06:55)
[2018-04-12] MEDS: Acetaminophen 500 MG Tablet 1000 MG PO ×2 (09:10→20:30)
[2018-04-12] MEDS: Insulin Lispro 100 UNIT/ML INSULN.PEN 13 UNIT SC ×3 (09:11→17:30)
[2018-04-12 10:00] VITALS: PULSE 72; RESP 18; O2SAT 94
[2018-04-12 11:15] LABS: Bedside Glucose 432 mg/dL (70-110)
[2018-04-12 15:45] VITALS: BP 126/73; PULSE 78; RESP 16; TEMP 37.3; O2SAT 98
[2018-04-12 17:01] LABS: Bedside Glucose 377 mg/dL (70-110)
[2018-04-12] MEDS: Aspirin 81 MG TAB.CHEW PO (21:03)
[2018-04-12] MEDS: Lisinopril 2.5 MG Tablet PO (21:05)
[2018-04-12] MEDS: MELATONIN 10 MG TABLET PO (21:09)
[2018-04-12 21:26] LABS: Bedside Glucose 347 mg/dL (70-110)
[2018-04-13] MEDS: Venlafaxine XR 150 MG Capsule PO (05:58)
[2018-04-13] MEDS: Ciprofloxacin 500 MG Tablet PO ×2 (05:58→18:00)
[2018-04-13] MEDS: Clopidogrel Bisulfate 75 MG Tablet PO (05:58)
[2018-04-13] MEDS: Spironolactone 25 MG Tablet PO (05:58)
[2018-04-13] MEDS: Carvedilol 12.5 MG Tablet PO ×2 (05:58→18:00)
[2018-04-13] MEDS: Magnesium Oxide 400 MG Tablet PO ×3 (05:58→20:31)
[2018-04-13] MEDS: Pantoprazole Sodium 40 MG Tablet PO (05:58)
[2018-04-13] MEDS: Enoxaparin 40 MG/0.4 ML Syringe SC (05:59)
[2018-04-13] MEDS: Furosemide 20 MG Tablet PO ×2 (06:00→13:22)
[2018-04-13] MEDS: buPROPion 75 MG Tablet PO ×2 (06:02→17:59)
[2018-04-13] MEDS: Pregabalin 75 MG Capsule PO ×2 (06:05→18:03)
[2018-04-13 07:06] LABS: Bedside Glucose 396 mg/dL (70-110)
[2018-04-13] MEDS: Insulin Lispro 100 UNIT/ML INSULN.PEN 13 UNIT SC (08:01)
[2018-04-13] MEDS: Insulin Lispro 100 UNIT/ML INSULN.PEN 20 UNIT SC ×2 (11:44→17:59)
--- NOTE | 2018-04-13 11:45 | NURSING ---
PT BLOOD SUGAR 403. REPORTED TO GENET LUNDBERG
[2018-04-13 11:50] LABS: Bedside Glucose 403 mg/dL (70-110)
[2018-04-13 13:30] VITALS: PULSE 81; RESP 18; O2SAT 96
[2018-04-13 15:31] LABS: Bedside Glucose 219 mg/dL (70-110)
[2018-04-13 16:00] VITALS: BP 94/48; PULSE 79; RESP 18; TEMP 35.7; O2SAT 91
[2018-04-13 17:00] LABS: Bedside Glucose 251 mg/dL (70-110)
[2018-04-13 18:04] VITALS: BP 105/65; PULSE 90
[2018-04-13] MEDS: Lisinopril 2.5 MG Tablet PO (20:29)
[2018-04-13] MEDS: MELATONIN 10 MG TABLET PO (20:30)
[2018-04-13] MEDS: Aspirin 81 MG TAB.CHEW PO (20:33)
[2018-04-13 21:16] LABS: Bedside Glucose 245 mg/dL (70-110)
[2018-04-14] MEDS: Venlafaxine XR 150 MG Capsule PO (05:15)
[2018-04-14] MEDS: Carvedilol 12.5 MG Tablet PO (05:15)
[2018-04-14] MEDS: Pregabalin 75 MG Capsule PO (05:15)
[2018-04-14] MEDS: Spironolactone 25 MG Tablet PO (05:15)
[2018-04-14] MEDS: Pantoprazole Sodium 40 MG Tablet PO (05:16)
[2018-04-14] MEDS: Ciprofloxacin 500 MG Tablet PO (05:16)
[2018-04-14] MEDS: Clopidogrel Bisulfate 75 MG Tablet PO (05:16)
[2018-04-14] MEDS: buPROPion 75 MG Tablet PO (05:16)
[2018-04-14] MEDS: Furosemide 20 MG Tablet PO (05:16)
[2018-04-14] MEDS: Magnesium Oxide 400 MG Tablet PO (05:16)
[2018-04-14] MEDS: Enoxaparin 40 MG/0.4 ML Syringe SC (05:17)
[2018-04-14 06:30] VITALS: PULSE 83; O2SAT 98
[2018-04-14 07:01] LABS: Bedside Glucose 307 mg/dL (70-110)
[2018-04-14] MEDS: Insulin Lispro 100 UNIT/ML INSULN.PEN 20 UNIT SC (07:46)
[2018-04-14 11:16] VITALS: BP 122/69; PULSE 77; RESP 20; TEMP 36.3; O2SAT 97
--- NOTE | 2018-04-16 08:53 | CASEMGMT ---
Insurance Notified insurance of resident discharge on 04/14/18 to home with daughter and home health. Auth#[id number] Edita SALTER, [employer]ATCH[employer] EMPLOYEE
--- NOTE | 2018-04-16 09:09 | MDS.RN ---
Information for the mds was obtained from review of the clinical record, interview of resident, staff, and direct observation of resident's care.
== END 2018-04-14 11:18 | disposition home health service (06) | DRG 948 ==
PROVIDERS: Admitting Provider Family Medicine Geriatric Medicine; Family Provider Internal Medicine; PCP Internal Medicine; Referring Provider Family Medicine Geriatric Medicine; Visit Provider Family Medicine Geriatric Medicine
DX: R53.81 Other malaise (principal); I50.22 Chronic systolic (congestive) heart failure; D68.51 Activated protein C resistance; N39.0 Urinary tract infection, site not specified; I25.10 Atherosclerotic heart disease of native coronary artery without angina pectoris; I11.0 Hypertensive heart disease with heart failure; K21.9 Gastro-esophageal reflux disease without esophagitis; F32.9 Major depressive disorder, single episode, unspecified; R33.9 Retention of urine, unspecified; E87.6 Hypokalemia; R62.7 Adult failure to thrive; G47.30 Sleep apnea, unspecified; E78.5 Hyperlipidemia, unspecified; G89.29 Other chronic pain; F41.9 Anxiety disorder, unspecified; Z95.1 Presence of aortocoronary bypass graft; E11.40 Type 2 diabetes mellitus with diabetic neuropathy, unspecified; I25.5 Ischemic cardiomyopathy; Z87.891 Personal history of nicotine dependence; B96.20 Unspecified Escherichia coli [E. coli] as the cause of diseases classified elsewhere
CPT/HCPCS: 36415; 80048; 81001; 82947; 82962; 85025; 87086; 87088; 87186; 93005; 97110; 97116; 97163; 97165; 97530; 97535; 97802; J7030

== ENCOUNTER 2018-04-05 11:35 | Emergency (ER) | payer MEDICARE, SELFPAY ==
[2018-04-05 11:38] VITALS: BP 107/83; PULSE 82; RESP 13; TEMP 36.8; O2SAT 100; BMI 31.6
--- NOTE | 2018-04-05 12:20 | RAD_ITS ---
STUDY: X-RAY CHEST REASON FOR EXAM: Female, 52 years old. Decreased level of consciousness with improvement status post Narcan. Hypotension. TECHNIQUE: Single portable frontal chest. COMPARISON: April 02, 2018. FINDINGS: The lungs are clear and expanded. There is no pleural effusion. There is no pneumothorax. The patient is status post CABG. There is no demonstrated mediastinal lymphadenopathy or mediastinal mass lesion. Normal visualized pulmonary arteries. There is atherosclerotic calcification of the aortic arch with tortuosity. There is no evident acute osseous abnormality. There is no demonstrated abnormality of the visualized soft tissue structures of the upper abdomen. RAD/Chest 1 View (Portable) IMPRESSION: Stable examination. Status post CABG. Atherosclerotic peripheral vascular disease. No evident acute cardiopulmonary disease. Electronically Signed: Christo Calle MD at 12:40 EDT , Service support ,
[2018-04-05 12:57] LABS: Absolute Lymphocyte Count 1.44 X10^3/ul (0.83-4.51); Absolute Neutrophil Count 4.7 X10^3/uL (2.0-7.7); Basophil# 0.02 X10^3/uL; Basophil% 0.3 % (0-1); Eosinophil# 0.16 X10^3/uL; Eosinophils% 2.4 % (0-5); Hematocrit 31.4 % (37-47); Hemoglobin 10.3 g/dl (12.0-15.0); Lymphocyte # 1.44 X10^3/ul (4.0); Lymphocyte % 21.6 % (19-41); Mean Corp Hgb Conc 32.8 g/gl (32-36); Mean Corpuscular Hgb 26.6 pg (27.0-32.0); Mean Corpuscular Volume 81.1 fL (81-99); Mean Platelet Vol. 10.1 fl (6.2-12.0); Monocyte# 0.31 X10^3/uL; Monocyte% 4.6 % (0-10); Neutrophil # 4.71 X10^3/uL (2.7-7.7); Neutrophil % 70.5 % (47-70); POSITIVE COUNT NO; POSITIVE DIFFERENTIAL NO; POSITIVE MORPHOLOGY NO; Platelet Count 132 K/mm3 (150-450); RBC Distribution Width CV 16.8 % (11.6-14.6); RBC Distribution Width SD 49.7 fl (35.1-43.9); Red Blood Count 3.87 M/mm3 (4.2-5.4); White Blood Count 6.7 K/mm3 (4.4-11.0)
[2018-04-05 13:16] LABS: AST(SGOT) 62 U/L (15-37); Alanine Aminotransfer ALT/SGPT 46 U/L (13-56); Albumin, Serum 2.4 g/dL (3.2-5.0); Alkaline Phosphatase 66 U/L (45-117); Anion Gap 11 (5-15); BUN 12 mg/dL (7-18); BUN/Creat Ratio 15.7 RATIO (10-20); Bilirubin, Direct 0.12 mg/dL (0.00-0.30); Calcium,Total 8.3 mg/dL (8.5-10.1); Chloride 102 mmol/L (98-107); Creatinine, Serum 0.76 mg/dL (0.55-1.02); EST Glomerular Filtration Rate 84 mL/min (>60); Est Glom Filt Rate - Afr Amer 101 mL/min (>60); Estimated Creatinine Clearance 73.92 ml/min; Globulin 3.9 g/dL (2.2-4.2); Glucose 344 mg/dL (74-106); Lipase 43 U/L (73-393); Potassium 4.3 mmol/L (3.5-5.1); Protein, Total 6.3 g/dL (6.4-8.2); Sodium Level 135 mmol/L (136-145)
[2018-04-05 13:42] VITALS: BP 121/70; PULSE 86; RESP 19; O2SAT 97
--- NOTE | 2018-04-05 13:49 | ED.DCSUM_ITS ---
- ER Visit Summary Date of Service: 04/05/18 Chief Complaint: [] Change in mental status on [facility] unit History of Present Illness: The patient is a 52 F [] diabetes CABG peripheral neuropathy trouble walking chronic pain [facility] of all the above. She was brought to the emergency department because she had an episode of change in LOC that improved after she received IV Narcan. Woke with the nurses on that unit. They report the patient woke today and her usual state of health she was walking around her room all of her daily activities were unremarkable. They indicates she is not on any narcotics currently as all of them were discontinued because of a concern for overuse. An unspecified male individual per nurses was in the room with her that person left when the nurses went back in the room to check on her they found her less responsive not able to answer questions etc. they checked her blood sugar which was in the appropriate range, then she was given Narcan and she immediately woke return to her normal mental and neurologic and health status her vital signs were always within normal range. She was sent to the emergency department On arrival she is awake and alert her vital signs are within normal range he has an old abrasion to her left upper arm but otherwise her physical exams unremarkable she has no complaints she indicates she is not taking narcotics and she is only taking medications prescribed by her physicians and she has no complaints Physical Examination: [] vs signs are within normal range head neck chest unremarkable the abrasion as above left upper extremity she has full range of motion of all major joints her head exam neck exam chest abdomen are negative her neurologic exam is entirely normal awake and alert moving all 4 extremities, she assures me she is at baseline and is nothing bothering her her mother is in the room with her who also reports she is at her baseline Test Results: [] Emergency Department Course and Treatment: [] Screening labs are obtained that are unremarkable she is does not wish to urinate now for UA is not available, discussed all the above with the patient her family at this time she is remained stable in the emergency department she be discharged back to the rehab center to continue her care and management and I have cautioned her to only take medications that are prescribed for her by her treatment providers Treatment Plan: [] Disposition: [] To rehab stable Impression: [] Transient change in LOC that responded to Narcan resolved This note was generated with Dragon dictation software. It may contain incorrect words, spelling, and punctuation that were not noted in review of the chart prior to signing ED Disposition - Plan for ED Patient: Chief Complaint: Alt LOC Referrals: Sanjuana Mckeon DO [Primary Care Provider] -
--- NOTE | 2018-04-05 13:49 | ED.DEP ---
ED Disposition - Plan for ED Patient: Chief Complaint: Alt LOC Instructions: ED Altered Loc Referrals: Sanjuana Mckeon DO [Primary Care Provider] -
[2018-04-05] MEDS: 0.9% Normal Saline 1,000 ML 125 ML IV (13:50)
[2018-04-05 14:15] VITALS: BP 115/68; PULSE 87; RESP 16; O2SAT 96
--- NOTE | 2018-04-05 14:24 | ED.RN ---
PT AMBULATED TO RESTROOM. ABLE TO REMAIN AWAKE WHILE IN RESTROOM. GAIT WAS UNSTEADY, BUT ABLE TO BEAR OWN WEIGHT. NO URINE PRODUCED. INFORMED. PT D/C BACK TO TCU.
== END 2018-04-05 15:08 | disposition home or self-care (01) ==
LOC: ED 12:51
PROVIDERS: Emergency Provider Emergency Medicine; Family Provider Internal Medicine; PCP Internal Medicine
DX: R40.4 Transient alteration of awareness (principal); E10.42 Type 1 diabetes mellitus with diabetic polyneuropathy; G89.29 Other chronic pain; Z79.02 Long term (current) use of antithrombotics/antiplatelets; Z79.82 Long term (current) use of aspirin; Z79.4 Long term (current) use of insulin; Z79.899 Other long term (current) drug therapy; Z95.1 Presence of aortocoronary bypass graft; I45.10 Unspecified right bundle-branch block
CPT/HCPCS: 71045; 80048; 80076; 83690; 84484; 85025; 96360; 99283; J7030

== ENCOUNTER 2018-04-15 10:32 | Observation (INO) | payer MEDICARE, SELFPAY ==
[2018-04-15] VITALS (12 sets, daily range): BP systolic 62–123; BP diastolic 45–68; PULSE 67–83; RESP 11–18; TEMP 36.2–37.1; O2SAT 95–99; BMI 28.3; BMI 26.9
--- NOTE | 2018-04-15 10:57 | EKG12_ITS ---
Test Reason : WEAKNESS Blood Pressure : / mmHG Vent. Rate : 067 BPM Atrial Rate : 067 BPM P-R Int : 152 ms QRS Dur : 092 ms QT Int : 464 ms P-R-T Axes : 063 023 085 degrees QTc Int : 490 ms Normal sinus rhythm T wave abnormality, consider anterior ischemia Prolonged QT Abnormal ECG Confirmed by BRANDYN GUERRA, REGGIE ([id number]), state editor ROMAIN GOODRICH ([id number] on 04/17/2018 11:22:51 AM Referred By: JENNY Confirmed By:REGGIE AHUMADA MD
[2018-04-15 11:08] LABS: Hematocrit 35.6 % (37-47); Hemoglobin 11.7 g/dl (12.0-15.0); Mean Corp Hgb Conc 32.9 g/gl (32-36); Mean Corpuscular Hgb 26.7 pg (27.0-32.0); Mean Corpuscular Volume 81.1 fL (81-99); Mean Platelet Vol. 9.8 fl (6.2-12.0); Platelet Count 252 K/mm3 (150-450); RBC Distribution Width CV 15.7 % (11.6-14.6); RBC Distribution Width SD 46.4 fl (35.1-43.9); Red Blood Count 4.39 M/mm3 (4.2-5.4); White Blood Count 7.7 K/mm3 (4.4-11.0)
[2018-04-15 11:09] LABS: Differential Indicated MANUAL DIFF; POSITIVE COUNT YES; POSITIVE DIFFERENTIAL NO; POSITIVE MORPHOLOGY YES
[2018-04-15] MEDS: 0.9% Normal Saline 1,000 ML 1000 ML IV ×2 (11:10→12:09)
[2018-04-15 11:19] LABS: Anion Gap 10 (5-15); BUN 14 mg/dL (7-18); BUN/Creat Ratio 17.1 RATIO (10-20); Calcium,Total 8.9 mg/dL (8.5-10.1); Chloride 96 mmol/L (98-107); Creatinine, Serum 0.82 mg/dL (0.55-1.02); EST Glomerular Filtration Rate 77 mL/min (>60); Est Glom Filt Rate - Afr Amer 93 mL/min (>60); Estimated Creatinine Clearance 68.51 ml/min; Glucose 89 mg/dL (74-106); Potassium 3.9 mmol/L (3.5-5.1); Sodium Level 134 mmol/L (136-145)
[2018-04-15 11:33] LABS: Lymphocyte 37 % (19-41); Metamyelocyte 5 % (0-1); Myelocyte 1 (0-0); Neutrophil-Segmented 57 % (47-70); Platelet Estimate ADEQUATE (ADEQ); Red Cell Morphology NORM C+C NORMAL (NORM C&C); Total Cells Counted 100 (MANUAL DIFF)
[2018-04-15 11:34] LABS: Absolute Neutrophil Count 4.4 X10^3/uL (2.0-7.7)
--- NOTE | 2018-04-15 11:41 | RAD_ITS ---
STUDY: X-RAY CHEST REASON FOR EXAM: Female, 52 years old. Hypotension TECHNIQUE: Single AP portable view of the chest. COMPARISON: 04/05/2018 FINDINGS: The lungs are clear and expanded. There is no demonstrated pleural abnormality. Sternal cerclage wires are present from a prior sternotomy. Mild cardiomegaly. Normal mediastinum and mirna. Normal visualized pulmonary arteries. Normal visualized aortic arch and descending thoracic aorta. Normal visualized thoracic spine. Normal visualized ribs, clavicles, and shoulders. There is no demonstrated abnormality of the visualized soft tissue structures of the upper abdomen. RAD/Chest 1 View (Portable) IMPRESSION: No acute finding Electronically Signed: Ildefonso Hill DO at 12:28 EDT Tel , Service support ,
[2018-04-15 12:07] LABS: Bacteria 0 SEEN /hpf (None Seen); Mucous, Urine 0 SEEN /hpf (<or=2+); Red Blood Cells-Urine 0 SEEN /hpf (0-5); Squamous Epithelial Cells - UA 0 SEEN /hpf (5-10); White Blood Cells 0 SEEN /hpf (0-5)
[2018-04-15 12:39] LABS: Color, Urine Yellow (Yellow); Glucose, Dipstick Normal (Normal); Ketone-Dipstick Negative (Negative); Leukocyte Esterase-Dipstick Negative /ul (Negative); Nitrite-Dipstick Negative (Negative); Occult Blood-Urine Negative /ul (Negative); Protein-Dipstick Negative (Negative); Specific Gravity, Urine 1.005 (1.002-1.030); Urine Bilirubin Dipstick Negative (Negative); Urine Clarity Clear (Clear); Urine Urobilinogen Normal (Normal)
[2018-04-15 12:51] LABS: Lactic Acid 1.9 mmol/L (0.4-2.0)
--- NOTE | 2018-04-15 15:37 | ED.VISSUMM ---
- ER Visit Summary Date of Service: 04/15/18 Chief Complaint: Syncope History of Present Illness: The patient is a [address] Mckeon and Dr. Huerta. She reports that she was admitted on April 02 for failure to thrive and went to rehab April 04. She was discharged yesterday. Patient states that this morning she had been standing in the bathroom for 5-10 minutes and began to feel diaphoretic. She denies any other symptoms. States that she woke up in the bathtub. She denies any sensation of being lightheaded, no chest pain or shortness of breath, no abdominal pain. States that she is nauseated since she woke. Patient reports that she has right shoulder pain is 5-10 severity. She denies any blow to the head. No neck, back, wrist, or hip pain. Physical Examination: Vitals: 98.7, 86/50, 67, 18, 99% on room air which is not hypoxic. General: Well-nourished and well-developed. Head: Normocephalic atraumatic. Neck: Supple, no lymphadenopathy. No JVD. Nontender. Cardiovascular: Regular rate and rhythm. No murmurs. Respiratory: No respiratory distress. Clear to auscultation bilaterally. Abdominal: Soft, nontender, nondistended, normal bowel sounds. No guarding, rebound, or peritoneal signs. Back: Nontender. Extremities: Nontender, no edema. Full range of motion of her right shoulder without any difficulty. Skin: Normal color, no rash. Neurologic: Alert and oriented ?3. Cranial nerves II through XII are intact. Normal strength and sensation. Psych: Normal affect. Test Results: EKG is sinus at 67 with deep T wave inversions in leads V1 and V2. She does have T wave inversion in lead V3 as well. This is not significantly changed since earlier this month. Her QTC is 490. Her QTC was prolonged previously. CBC is marked for an H&H 11.7 35.6, metamyelocytes of 5, myelocytes 1. Chem-7 is more for sodium 134, chloride 96. UA is normal. Chest x-ray is normal. Troponin is negative. Lactic acid is 1.9. Emergency Department Course and Treatment: Patient was given 2 L normal saline her blood pressure did improve into the 120 range transiently and is now back into the 80s. This time I do not have an explanation for her episode of syncope. Treatment Plan: Patient was discussed with Dr. Jerome. She will be admitted to the hospital for further evaluation and treatment. Disposition: Admitted in improved condition. Impression: 1. Syncope. 2. Hypertension, fluid responsive. 3. Prolonged QTC. This note was generated with [employer] dictation software. It may contain incorrect words, spelling, and punctuation that were not noted in review of the chart prior to signing ED Disposition - Plan for ED Patient: Chief Complaint: Weakness Referrals: Sanjuana Mckeon DO [Primary Care Provider] -
[2018-04-15] MEDS: 0.9% Normal Saline 1,000 ML 999 ML IV (16:40)
[2018-04-15] MEDS: oxyCODONE 5 MG Tablet 10 MG PO ×2 (17:00→23:14)
[2018-04-15] MEDS: 0.9% Normal Saline 1,000 ML 100 ML IV (18:31)
--- NOTE | 2018-04-15 19:26 | PCM.HP.STD ---
Problem List (1) Syncope Status: Acute Qualifiers: Syncope type: unspecified Qualified Code(s): R55 - Syncope and collapse (2) Hypotension Status: Acute Qualifiers: Hypotension type: orthostatic hypotension Qualified Code(s): I95.1 - Orthostatic hypotension History of Present Illness Date of Admission: 04/15/18 Chief Complaint: Syncope, hypotension The patient is a 52 year old F who was seen in the emergency room at [facility] after experiencing 2 episodes of syncope at home today. During the first episode, patient was standing in her bathroom and collapsed into her bathtub, she struck her right shoulder but otherwise did not sustain any injuries, her daughter went to get her up and she stood briefly and then passed out again. Patient was recently in TCU for rehab due to failure to thrive. Patient denies any chest pain, shortness of breath, visual disturbances, or speech disturbances. She denies any focal motor deficits. Evaluation in the ER revealed the patient's blood pressure to be low at 82/51, EKG showed a normal sinus rhythm at 67 with deep T wave inversions in leads V1 and V2, these inversions were deeper than those seen on a previous EKG done earlier this month. CBC revealed a hemoglobin of 11.7, UA was unremarkable, chest x-ray was unremarkable, there was no evidence of any humeral fracture on the patient's chest x-ray, patient's troponin was unremarkable, sodium was slightly low at 134, and chloride was 96. Patient will be placed and observation status on PCU for hypotension and syncope, she received IV fluids in the emergency room with some elevation of her blood pressure but then her blood pressure trended downward again. Patient will have a repeat EKG in the morning and cardiac enzymes will be cycled. It is my opinion that the patient was on diuretics at home and this caused a drop in her blood pressure. Past Medical History Past Medical History (Chronic Problems): Chronic Problems (Last Reviewed 04/02/18 @ 14:39 by Kevin Barnes MD) SOB (shortness of breath) on exertion (Chronic) Diabetes mellitus (Chronic) Factor 5 Leiden mutation, heterozygous (Chronic) Sleep apnea (Chronic) CPAP 9 cm water Depression (Chronic) Anxiety (Chronic) Vitamin D deficiency (Chronic) GERD (gastroesophageal reflux disease) (Chronic) Coronary artery disease (Chronic) Status post stents. 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 per Dr. 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, 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 Chronic back pain (Chronic) M54.9, G89.29 History of GI bleed (Chronic) Z87.19 Cardiomyopathy, ischemic (Chronic) I25.5 40% EF in 2016 HLD (hyperlipidemia) (Chronic) E78.5 Diabetic neuropathy (Chronic) E11.40 Allergies Lacnktp-Jvo-Ewq Reductase Inhibitor Adverse Reaction (Severe, Verified 04/15/18 10:43) Elevated liver enzymes, also Muscle cramps/pain Home Medications: Ambulatory Orders Medication Instructions Recorded Ergocalciferol [Vitamin D] 50,000 unit PO FR 08/12/14 Lisinopril [Zestril] 2.5 mg PO QHS 08/12/14 Venlafaxine XR [Effexor Xr] 150 mg PO DAILY 08/12/14 Clopidogrel Bisulfate [Plavix] 75 mg PO DAILY 12/26/16 magnesium oxide 400 mg (241.3 mg 400 mg PO TID tab 10/16/17 magnesium) tablet Albuterol IH (ProAir) [Proair Hfa] 1 - 2 puff INHALATION Q4H PRN PRN 12/05/17 Acetaminophen [Tylenol] 1,000 mg PO Q8H PRN PRN tab 12/11/17 Insulin Aspart [Novolog Flexpen] 0 units SC DAILY 04/02/18 Omeprazole 20 mg PO BID 04/02/18 Carvedilol 12.5 mg PO BID #180 tab 04/04/18 Furosemide [Lasix] 20 mg PO BID@1000,1800 #180 tab 04/04/18 Aspirin [Aspirin, Baby] 81 mg PO QHS tab.chew 04/11/18 Potassium Chloride [K-Dur] 20 meq PO DAILY #30 tab 04/11/18 Pregabalin [Lyrica] 75 mg PO BID #10 cap 04/11/18 Pregabalin [Lyrica] 75 mg PO DAILY #5 cap 04/11/18 Spironolactone [Aldactone] 25 mg PO DAILY #30 tablet 04/11/18 buPROPion tablets [Wellbutrin 75 mg PO BID #30 tablet 04/11/18 tablets] Surgical History: Surgical History (Last Reviewed 04/02/18 @ 14:39 by Kevin Barnes MD) S/P CABG x 5 (Chronic) Onset Date: ~11/14/07 Z95.1 HINTON-LAD, SVG-D1, SVG-OM1, SVG-OM 2, SVG-PDA 11/16/[address] [facility] per Dr. Neela Crum Surgical History: angioplasty, cholecystectomy, coronary bypass surgery - x 5. 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 Denies: Anorexia, Chills, Fever, Night Sweats, Malaise, Weight Change Eyes: Denies: Blurred vision, Cataracts, Conjunctivae Inflammation, Double vision, Drainage HEENT: Denies: Difficulty Swallowing, Dysphasia, Ear Pain, Eye Pain, Hearing Changes, Nasal bleeding, Nasal Congestion, Post Nasal Drip Cardiovascular: Reports: Syncope. Denies: Chest Pain, Claudication, Chest Pressure, Chest Tightness, Edema, Heaviness, Orthopnea, Palpitations, Paroxysmal Noc. Dyspnea Respiratory: Denies: Cough, Hemoptysis, Pleuritic Pain, Shortness of Breath, Shortness of breath at rest, Shortness of breath upon exertion Gastrointestinal: Denies: Abdominal Pain, Constipation, Diarrhea, Hematemesis, Hematochezia, Nausea, Melena, Vomiting Genitourinary: Denies: Dysuria, Frequency, Hematuria, Hesitancy, Urgency Gynecological: Denies: Breast symptoms Musculoskeletal: Reports: Joint Pain - Patient complains of right shoulder pain. Denies: Foot Pain, Joint stiffness, Joint swelling Skin: Denies: Dryness, Jaundice, Pruritis, Rash Neurological: Denies: Blurred vision, Double vision, Change in Speech, Slurred speech, Difficulty swallowing, Focal weakness, Headaches, Incoordination, Numbness, Tingling Psychiatric: Denies: Anxiety, Depression, Homicidal Ideations, Suicidal Ideations Endocrine: Denies: Change in Body Habitus, Heat/ Cold Intolerance, Polydipsia, Polyuria Hematologic/ Lymphatic: Denies: Adenopathy, Anemia, Easy Bruising, Easy Bleeding, Petechiae, Purpura VTE Information - Inpt Only VTE Present on Admission: No VTE Mechan Device Prophylaxis: None VTE Pharm Prophylaxis ordered?: Yes Patient Problems: Active and Suspected Problems (Last Reviewed 04/02/18 @ 14:39 by Kevin Barnes MD) Syncope (Acute) Hypotension (Acute) - Physical Exam General: Alert, Oriented x3, Cooperative, No apparent distress, Well developed, Well nourished HEENT: Atraumatic, PERRLA, EOMI, Normocephalic Oral: Moist Mucosa Neck: Supple, No JVD, Negative Carotid Bruits, No Nuchal Rigidity, Trachea Midline, Thyroid Normal Size and Texture Lungs: Clear to auscultation, Normal air movement, No rhonchi, No wheeze, No rales Cardiovascular: Regular rate, Regular Rhythm, Normal S1, Normal S2, No murmurs, No Ectopic Activity, PMI Normal, No rub noted, No Gallop Abdomen: Bowel Sounds Present, Soft, Non Tender, Non-Distended Extremities: No clubbing, No cyanosis, No edema, Capillary Refill Less than 3 Seconds Skin: No rashes, No breakdown Neurological: Cranial nerves II-XII grossly intact, Neuro grossly intact, Sensory exam intact to light touch and pain, Coordination normal Psych/Mental Status: Normal Affect, Appropriate, Alert and oriented to time, place, person, mood and affect Vital Signs Temp Pulse Resp BP Pulse Ox 98 F 79 16 118/50 L 97 04/15/18 17:25 04/15/18 17:25 04/15/18 17:25 04/15/18 17:25 04/15/18 17:25 Oxygen Delivery Method Room Air Weight: 71.5 kg Body Mass Index (BMI) 26.9 Finger Stick Blood Glucose 417 Intake and Output for Last 24 Hours 04/13/18 04/14/18 04/15/18 23:59 23:59 23:59 Intake Total 240 / 240 Balance 240 / 240 Laboratory Tests Past 24 Hrs 04/15/18 04/15/18 04/15/18 10:48 10:48 11:50 WBC 7.7 RBC 4.39 Hgb 11.7 L Hct 35.6 L MCV 81.1 MCH 26.7 L MCHC 32.9 RDW 15.7 H RDW Differential 46.4 H Plt Count 252 MPV 9.8 Neut % (Auto) Not Reportable Absolute Neuts (auto) 4.4 Absolute Lymphs (auto) 2.80 Total Counted 100 Neutrophils % (Manual) 57 Lymphocytes % (Manual) 37 Metamyelocytes % 5 H Myelocytes % 1 H Diff Path Review May foll Platelet Estimate ADEQUATE RBC Morphology NORM C+C Sodium 134 L Potassium 3.9 Chloride 96 L Carbon Dioxide 28.0 Anion Gap 10 BUN 14 Creatinine 0.82 Estim Creat Clear Calc 68.51 Est GFR (MDRD) Af Amer 93 Est GFR (MDRD) Non-Af 77 BUN/Creatinine Ratio 17.1 Glucose 89 Lactic Acid 1.9 Calcium 8.9 Troponin I < 0.015 Urine Color Urine Clarity Urine pH Ur Specific [place] Urine Protein Urine Glucose (UA) Urine Ketones Urine Occult Blood Urine Nitrite Urine Bilirubin Urine Urobilinogen Ur Leukocyte Esterase Urine RBC Urine WBC Ur Squamous Epith Cells Urine Bacteria Urine Mucus 04/15/18 04/15/18 12:05 16:37 WBC RBC Hgb Hct MCV MCH MCHC RDW RDW Differential Plt Count MPV Neut % (Auto) Absolute Neuts (auto) Absolute Lymphs (auto) Total Counted Neutrophils % (Manual) Lymphocytes % (Manual) Metamyelocytes % Myelocytes % Diff Path Review Platelet Estimate RBC Morphology Sodium Potassium Chloride Carbon Dioxide Anion Gap BUN Creatinine Estim Creat Clear Calc Est GFR (MDRD) Af Amer Est GFR (MDRD) Non-Af BUN/Creatinine Ratio Glucose Lactic Acid Calcium Troponin I < 0.015 Urine Color Yellow Urine Clarity Clear Urine pH 7.0 Ur Specific [place] 1.005 Urine Protein Negative Urine Glucose (UA) Normal Urine Ketones Negative Urine Occult Blood Negative Urine Nitrite Negative Urine Bilirubin Negative Urine Urobilinogen Normal Ur Leukocyte Esterase Negative Urine RBC 0 SEEN Urine WBC 0 SEEN Ur Squamous Epith Cells 0 SEEN Urine Bacteria 0 SEEN Urine Mucus 0 SEEN Assessment/Plan All Active Problems (Last Reviewed 04/02/18 @ 14:39 by Kevin Barnes MD) FTT (failure to thrive) in adult (Acute) Weakness (Acute) Syncope (Acute) Hypotension (Acute) Shortness of breath (Resolved) Acute respiratory failure (Resolved) Community acquired pneumonia (Resolved) Acute on chronic diastolic heart failure (Resolved) Bilateral pneumonia (Resolved) Acute on chronic respiratory failure with hypoxia (Resolved) Chest discomfort (Resolved) Chronic normocytic anemia (Resolved) #1 syncope secondary to orthostatic hypotension-from diuretic usage, patient was placed into observation status on PCU, she will receive IV fluids, her blood pressure will be monitored, cardiac enzymes will be cycled, she will be monitored on telemetry, labs will be monitored. She will need to be seen by PT and OT #2 T wave inversions over anterior precordial leads-significance is unknown, these inversions seem to be more severe than on past EKGs, EKG will be repeated tomorrow, cardiac enzymes will be cycled #3 type 2 diabetes-patient uses an insulin pump, her daughter took at home, patient will be placed on sliding scale insulin #4 coronary artery disease #5 chronic pain syndrome secondary to degenerative joint disease of the lumbar spine-patient requested that she be given oxycodone during her hospital stay, she states that during her stay on TCU the physician stopped the medication. I told her that she could receive oxycodone as long as her pressure was able to tolerate it. #6 GERD #7 history of Lamar's disease-in the patient's medical record, a serum cortisol level was obtained recently which actually was high. Patient takes no medications for Lamar's disease, it is unknown who gave her this diagnosis but it does not appear to be true. #8 ischemic cardiomyopathy-patient's last echocardiogram done this year in November 2017 showed an ejection fraction of 50%, previous echo had shown an EF of 40%. Patient had no evidence of significant valvular disease on her last echocardiogram done in November 2017 #9 hyperlipidemia Code Visit OBSV E&M: 21566 Initial observation care L3
[2018-04-15] MEDS: Carvedilol 12.5 MG Tablet PO (21:24)
[2018-04-15] MEDS: Aspirin 81 MG TAB.CHEW PO (21:24)
[2018-04-15] MEDS: Insulin Lispro 100 UNIT/ML INSULN.PEN SC (21:25)
[2018-04-15] MEDS: Heparin Injection (Vial) 5,000 UNIT/ML VIAL 5000 UNIT SC (21:25)
[2018-04-15] MEDS: Pregabalin 75 MG Capsule PO (21:25)
[2018-04-15] MEDS: buPROPion 75 MG Tablet PO (21:26)
[2018-04-15] MEDS: Pantoprazole Sodium 20 MG Tablet PO (21:26)
[2018-04-15] MEDS: Lisinopril 2.5 MG Tablet PO (21:26)
[2018-04-16 00:31] LABS: Bedside Glucose 323 mg/dL (70-110)
[2018-04-16 03:04] VITALS: PULSE 70
[2018-04-16 05:10] VITALS: BP 140/51; PULSE 70; RESP 11; TEMP 36.9; O2SAT 96
[2018-04-16] MEDS: Heparin Injection (Vial) 5,000 UNIT/ML VIAL 5000 UNIT SC (05:14)
[2018-04-16] MEDS: 0.9% Normal Saline 1,000 ML 100 ML IV (05:15)
--- NOTE | 2018-04-16 05:55 | EKG12_ITS ---
Test Reason : AM EKG Blood Pressure : / mmHG Vent. Rate : 070 BPM Atrial Rate : 070 BPM P-R Int : 150 ms QRS Dur : 098 ms QT Int : 436 ms P-R-T Axes : 060 035 055 degrees QTc Int : 470 ms Normal sinus rhythm Normal ECG Confirmed by BRANDYN GUERRA, REGGIE ([id number]), food editor YAZMIN AYON ([id number]) on 04/18/2018 1:46:16 PM Referred By: CAMILLE Confirmed By:REGGIE AHUMADA MD
[2018-04-16 07:06] LABS: Bedside Glucose 280 mg/dL (70-110)
[2018-04-16 07:23] VITALS: PULSE 74
[2018-04-16 09:28] VITALS: BP 157/61; PULSE 78; RESP 16; TEMP 37.1; O2SAT 93
[2018-04-16] MEDS: oxyCODONE 5 MG Tablet 10 MG PO (09:42)
[2018-04-16] MEDS: Pregabalin 75 MG Capsule PO (09:42)
[2018-04-16] MEDS: Clopidogrel Bisulfate 75 MG Tablet PO (09:43)
[2018-04-16] MEDS: Insulin Lispro 100 UNIT/ML INSULN.PEN SC ×2 (09:43→11:23)
[2018-04-16] MEDS: Venlafaxine XR 150 MG Capsule PO (09:43)
[2018-04-16] MEDS: Carvedilol 12.5 MG Tablet PO (09:43)
[2018-04-16] MEDS: buPROPion 75 MG Tablet PO (09:44)
[2018-04-16] MEDS: Pantoprazole Sodium 20 MG Tablet PO (09:44)
[2018-04-16 11:03] VITALS: PULSE 71
[2018-04-16 11:20] LABS: Bedside Glucose 216 mg/dL (70-110)
--- NOTE | 2018-04-16 13:25 | DCINST_ITS ---
- Discharge Diagnoses Current Active Problems: Current Active and Chronic Problems (Last Reviewed 04/02/18 @ 14:39 by Kevin Barnes MD) Syncope (Acute) Hypotension (Acute) You will use the following diet at home:: Calorie/Carbohydrate Controlled (specify 1200, 1400, etc) - 1800 libertad Your food should be the consistency of: Regular Your liquids should be the consistency of: Regular/Thin Discharge Activity: Return to Normal Activity Weight Bearing Status: Full weight bearing Allergies/Adverse Reactions: Allergies Twrbqxa-Efj-Sus Reductase Inhibitor Adverse Reaction (Severe, Verified 04/15/18 10:43) Elevated liver enzymes, also Muscle cramps/pain Medications to take at Discharge Ergocalciferol [Vitamin D] 50,000 unit PO FR 08/12/14 Lisinopril [Zestril] 2.5 mg PO QHS 08/12/14 Venlafaxine XR [Effexor Xr] 150 mg PO DAILY 08/12/14 Clopidogrel Bisulfate [Plavix] 75 mg PO DAILY 12/26/16 magnesium oxide 400 mg (241.3 mg magnesium) tablet 400 mg PO TID tab 10/16/17 Albuterol IH (ProAir) [Proair Hfa] 1 - 2 puff INHALATION Q4H PRN PRN 12/05/17 Acetaminophen [Tylenol] 1,000 mg PO Q8H PRN PRN tab 12/11/17 Insulin Aspart [Novolog Flexpen] 0 units SC DAILY 04/02/18 Omeprazole 20 mg PO BID 04/02/18 Carvedilol 12.5 mg PO BID #180 tab 04/04/18 Aspirin [Aspirin, Baby] 81 mg PO QHS tab.chew 04/11/18 Potassium Chloride [K-Dur] 20 meq PO DAILY #30 tab 04/11/18 Pregabalin [Lyrica] 75 mg PO BID #10 cap 04/11/18 buPROPion tablets [Wellbutrin tablets] 75 mg PO BID #30 tablet 04/11/18 Furosemide [Lasix] 40 mg PO DAILY #1 tablet 04/16/18 The following prescriptions were given: Furosemide [Lasix] 40 mg PO DAILY #1 tablet Primary Care Physician: Sanjuana Mckeon DO [Primary Care Provider] - Please follow up with your Primary Care Physician in: in one week Test Results: Test results from this visit will be discussed in further detail at your follow- up appointment, if applicable.
--- NOTE | 2018-04-16 13:51 | CASEMGMT ---
This RN CM to room to clarify pt's [facility] order with her at this time. Pt is still agreeable to [facility] for PT at this time. New order placed at this time as [facility] did not have a start of care prior to pt returning to hospital. Call to Betzy at [facility] at this time to notify of pt discharge, voices understanding. Ronald DE LEÓN CM
[2018-04-17 15:14] LABS: Pathologist Review Reviewed
--- NOTE | 2018-04-18 17:38 | PCM.DC.SUM ---
Discharge Date and Diagnosis Date of Admission: 04/15/18 Date of Discharge: 04/16/18 - Primary Discharge Diagnosis #1 syncope secondary to orthostatic hypotension from use of diuretics as an outpatient #2 type 2 diabetes #3 depression #4 coronary artery disease #5 ischemic cardiomyopathy #6 essential hypertension - Secondary Discharge Diagnosis Chronic Problems (Last Reviewed 04/02/18 @ 14:39 by Kevin Barnes MD) SOB (shortness of breath) on exertion (Chronic) Diabetes mellitus (Chronic) Factor 5 Leiden mutation, heterozygous (Chronic) Sleep apnea (Chronic) CPAP 9 cm water Depression (Chronic) Anxiety (Chronic) Vitamin D deficiency (Chronic) GERD (gastroesophageal reflux disease) (Chronic) Coronary artery disease (Chronic) Status post stents. 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 Neela Crum Cardiomyopathy, ischemic (Chronic) 40% EF in 2016 HLD (hyperlipidemia) (Chronic) Diabetic neuropathy (Chronic) Hospital Course and Treatment Operations: None Procedures: None Summary of Care Provided: The patient is a 52 year old F who was seen in the emergency room at [facility] after she came in for evaluation of 2 syncopal episode she had at home. Patient was standing in her bathroom and collapsed into her bathtub striking her right shoulder-there were no serious injuries noted, she was helped up by her daughter, and then she slumped to the floor again having a brief syncopal episode. On evaluation in the emergency room, patient was found to be hypotensive and was given fluids, workup including a troponin was unremarkable for cardiac issues however, patient had T wave changes on her EKG that appeared to be different than her old EKGs. Patient was placed and observation status on PCU, she received IV fluids, was seen by PT and OT, and her cardiac enzymes were cycled and they remain normal. On 04/16/18, patient was seen and examined and felt to be stable for discharge home. Physical exam: On examination she appeared in good health and spirits. Vital signs as documented. Skin warm and dry and without overt rashes. Neck without JVD. Lungs clear. Heart exam notable for regular rhythm, normal sounds and absence of murmurs, rubs or gallops. Abdomen unremarkable and without evidence of organomegaly, masses, or abdominal aortic enlargement. Extremities nonedematous. Neuro: Cranial nerves II through XII are grossly intact, no focal motor deficits were noted, sensation to pinprick and light touch was intact. Psych: Patient is alert and oriented x3 and appropriate, she does not appear anxious or depressed. On 04/16/18, patient was discharged home in stable condition - Physical Exam Vital Signs Temp Pulse Resp BP Pulse Ox 98.7 F 71 16 157/61 H 93 04/16/18 09:28 04/16/18 11:03 04/16/18 09:28 04/16/18 09:28 04/16/18 09:28 Oxygen Delivery Method Room Air Weight: 71.5 kg Body Mass Index (BMI) 26.9 Finger Stick Blood Glucose 417 Intake and Output for Last 24 Hours 04/16/18 04/17/18 04/18/18 23:59 23:59 23:59 Intake Total 1927 Balance 1927 Microbiology Past 72 Hours 04/15/18 11:55 Blood Culture - Preliminary Blood Culture (Wb) - Anticubital Right No growth in 48 hours. 04/15/18 11:50 Blood Culture - Preliminary Blood Culture (Wb) - Anticubital Left No growth in 48 hours. 04/15/18 12:05 Urine Culture - Final Urine, Clean Catch Culture exhibits no growth. Discharge Activity: Return to Normal Activity Weight Bearing Status: Full weight bearing Home Medications: Medications to take at Discharge Ergocalciferol [Vitamin D] 50,000 unit PO FR 08/12/14 Lisinopril [Zestril] 2.5 mg PO QHS 08/12/14 Venlafaxine XR [Effexor Xr] 150 mg PO DAILY 08/12/14 Clopidogrel Bisulfate [Plavix] 75 mg PO DAILY 12/26/16 magnesium oxide 400 mg (241.3 mg magnesium) tablet 400 mg PO TID tab 10/16/17 Albuterol IH (ProAir) [Proair Hfa] 1 - 2 puff INHALATION Q4H PRN PRN 12/05/17 Acetaminophen [Tylenol] 1,000 mg PO Q8H PRN PRN tab 12/11/17 Insulin Aspart [Novolog Flexpen] 0 units SC DAILY 04/02/18 Omeprazole 20 mg PO BID 04/02/18 Carvedilol 12.5 mg PO BID #180 tab 04/04/18 Aspirin [Aspirin, Baby] 81 mg PO QHS tab.chew 04/11/18 Potassium Chloride [K-Dur] 20 meq PO DAILY #30 tab 04/11/18 Pregabalin [Lyrica] 75 mg PO BID #10 cap 04/11/18 buPROPion tablets [Wellbutrin tablets] 75 mg PO BID #30 tablet 04/11/18 Furosemide [Lasix] 40 mg PO DAILY #1 tablet 04/16/18 Following Prescrptions Were Given to Patient: Furosemide [Lasix] 40 mg PO DAILY #1 tablet Primary Care Physician: Sanjuana Mckeon DO [Primary Care Provider] - Please follow up with your Primary Care Physician in: in one week Please Follow Up With: Sanjuana Mckeon DO Disposition: Home Minutes spent on discharge:: 31 Patient Condition:: Stable Medical Necessity - Tobacco Use Smoking Status: Former smoker Tobacco Use: Non-smoker Meaningful Use Info Meaningful Use Diagnoses (Choose all that apply): None applicable Code Visit OBSV E&M: 12400 Observation care discharge
== END 2018-04-16 14:33 | disposition home health service (06) ==
LOC: ED 11:22 → PCU 15:38
PROVIDERS: Admitting Provider Internal Medicine; Emergency Provider Emergency Medicine; Family Provider Internal Medicine; PCP Internal Medicine; Visit Provider Internal Medicine
DX: I95.1 Orthostatic hypotension (principal); I25.10 Atherosclerotic heart disease of native coronary artery without angina pectoris; I25.5 Ischemic cardiomyopathy; I10 Essential (primary) hypertension; D68.51 Activated protein C resistance; Z79.899 Other long term (current) drug therapy; Z79.02 Long term (current) use of antithrombotics/antiplatelets; Z79.4 Long term (current) use of insulin; F41.8 Other specified anxiety disorders; K21.9 Gastro-esophageal reflux disease without esophagitis; G47.30 Sleep apnea, unspecified; E11.40 Type 2 diabetes mellitus with diabetic neuropathy, unspecified; E78.5 Hyperlipidemia, unspecified; Z87.891 Personal history of nicotine dependence; I45.81 Long QT syndrome; E55.9 Vitamin D deficiency, unspecified; G89.4 Chronic pain syndrome
CPT/HCPCS: 36415; 71045; 80048; 81001; 82962; 83605; 84484; 85025; 87040; 87086; 93005; 96360; 96361; 96372; 99218; 99285; J7030; A4216; G0378

== ENCOUNTER → 2018-06-21 14:33 | Outpatient (CLI) | payer MEDICARE, SELFPAY ==
[2018-06-12 13:31] VITALS: BMI 28.8
--- NOTE | 2018-06-21 14:37 | RAD_ITS ---
STUDY: X-RAY - RIGHT SCAPULA REASON FOR EXAM: Female, 53 years old. Pain. TECHNIQUE: 2 view(s) of the scapula were obtained. COMPARISON: CTA chest/thorax November 29, 2017 FINDINGS: Normal scapula, including the osseous glenoid rim, acromion, scapular neck, spine, coracoid process, and visualized body. Normal glenohumeral articulation. There is widening of the AC joint, with displacement of the clavicle, consistent with a Type III acromioclavicular joint separation. There are irregular shaped fracture fragments of the distal clavicle spanning from the clavicle itself to the expected normal position of the distal clavicle relative to the acromion. Normal visualized humeral head. Normal visualized pulmonary apex. 1 cm irregular shaped calcific density consistent with chronic calcific tendinitis again seen along the posterolateral margin of the humeral head. RAD/Scapula IMPRESSION: 1. Type III AC joint separation with comminuted, displaced fracture fragments of the distal clavicle. 2. Chronic calcific tendinitis of the shoulder again noted. Electronically Signed: Philip Braxton MD at 10:58 EST , Service support ,
== END ==
PROVIDERS: Family Provider Internal Medicine; PCP Internal Medicine; Referring Provider Internal Medicine; Visit Provider Internal Medicine
DX: M89.8X1 Other specified disorders of bone, shoulder (principal)
CPT/HCPCS: 73010

== ENCOUNTER → 2018-09-18 12:39 | Outpatient (CLI) | payer MEDICARE, SELFPAY ==
[2018-06-12 13:31] VITALS: BMI 28.8
[2018-09-18 13:04] VITALS: PULSE 84; PULSE 87; PULSE 89; PULSE 90; PULSE 91; PULSE 92; PULSE 93; PULSE 94; O2SAT 92; O2SAT 93; O2SAT 94; O2SAT 95; O2SAT 96; O2SAT 97
--- NOTE | 2018-09-18 15:25 | PCM.PSN.6M ---
PSN 6 Minute Walk Test - 6 Minute Walk Test 6 Minute Walk Test: 6 Minute Walk Test PSN:6-Minute Walk Test Start: 09/18/18 13:04 Freq: Status: Active Protocol: [id number] Document 09/18/18 13:04 MARGARET (Rec: 09/18/18 13:07 MARGARET [id number]) 6 Minute Walk Test Date Performed 09/18/18 Time Performed 12:30 Height 5 ft 5 in Weight: 81.647 kg Weight in Pounds 180.[address]: Rogers Fragoso Assistive device used: None Pre-test Oxygen Delivery Method Room Air Pulse Ox (%) 97 Pulse Rate (60-100 beats/min) 84 Dyspnea Phil Scale (0-10) 0 Exertion Phil Scale (6-20) 6 1st minute Oxygen Delivery Method Room Air Pulse Ox (%) 95 Pulse Rate (60-100 beats/min) 87 2nd minute Oxygen Delivery Method Room Air Pulse Ox (%) 93 Pulse Rate (60-100 beats/min) 89 3rd minute Oxygen Delivery Method Room Air Pulse Ox (%) 94 Pulse Rate (60-100 beats/min) 91 4th minute Oxygen Delivery Method Room Air Pulse Ox (%) 94 Pulse Rate (60-100 beats/min) 92 5th minute Oxygen Delivery Method Room Air Pulse Ox (%) 93 Pulse Rate (60-100 beats/min) 93 6th minute Oxygen Delivery Method Room Air Pulse Ox (%) 92 Pulse Rate (60-100 beats/min) 94 Dyspnea Phil Scale (0-10) 1 Exertion Phil Scale (6-20) 11 Post-test Oxygen Delivery Method Room Air Pulse Ox (%) 96 Pulse Rate (60-100 beats/min) 90 Full Laps Walked 13 Partial Lap, Number of Tiles Walked 35 Total Distance Walked (ft) 802 - Interpretation Interpretation: The patient was able to ambulate 802 feet over the course of 6 minutes on room air with no assistive devices or breaks. The patient did experience significant desaturation from a baseline of 97%, to as low as 92%. These findings are consistent with a respiratory limitation exercise tolerance. - Recommendations Recommendations: No supplemental oxygen is indicated at this time, but patient should be followed closely given level of desaturation.
== END ==
PROVIDERS: Family Provider Internal Medicine; PCP Internal Medicine; Referring Provider Internal Medicine Critical Care Medicine; Visit Provider Internal Medicine Critical Care Medicine
DX: R09.02 Hypoxemia (principal)
CPT/HCPCS: 94618

== ENCOUNTER → 2018-09-19 13:00 | Outpatient (CLI) | payer MEDICARE, SELFPAY ==
[2018-06-12 13:31] VITALS: BMI 28.8
--- NOTE | 2018-09-20 09:36 | PFT ---
INTRODUCTION: The patient is a 53-year-old female that presents for pulmonary function testing secondary to a diagnosis of restrictive airway disease. Respiratory therapy reports good patient effort. Bronchodilators were used during testing. INTERPRETATION: Forced expiration spirometry demonstrates no evidence of a large airways obstructive ventilatory impairment. There was no significant response to aerosolized bronchodilators. Spirograms are of good quality and plateau normally. Body plethysmography was performed and reveals a decreased TLC to 3.52 L, 69% of predicted, indicative of a moderate restrictive ventilatory impairment. The remainder of the lung volumes are symmetrically reduced. Diffusing capacity by single breath CO is moderately reduced at 46% of predicted. When compared to previous pulmonary function studies dated December 2017 there has been improvement in the patient's TLC and DLCO. IMPRESSION: These pulmonary function studies demonstrate the presence of a moderate restrictive ventilatory impairment with a proportionate reduction in diffusing capacity. There has been improvement in the patient's pulmonary function studies since they were last completed in 2018 as noted above.
== END ==
PROVIDERS: Family Provider Internal Medicine; PCP Internal Medicine; Referring Provider Internal Medicine Critical Care Medicine; Visit Provider Internal Medicine Critical Care Medicine
DX: J98.4 Other disorders of lung (principal)
CPT/HCPCS: 94060; 94726; 94729

== ENCOUNTER 2018-10-25 13:53 | Outpatient (RCR) | payer MEDICARE, SELFPAY ==
[2018-06-12 13:31] VITALS: BMI 28.8
[2018-10-12 11:04] VITALS: BMI 30.6
--- NOTE | 2018-10-30 14:53 | HP.OTFCE.D ---
FCE D/C Summary - Discharge KAY RODNEY was seen for a one time visit for an FCE on 10/25/18 and is discharged.
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
== END 2018-10-25 19:00 | disposition home or self-care (01) ==
LOC: OT 13:53
PROVIDERS: Family Provider Internal Medicine; PCP Internal Medicine; Referring Provider Internal Medicine; Visit Provider Internal Medicine
DX: Z02.71 Encounter for disability determination (principal)
CPT/HCPCS: 97750

== ENCOUNTER → 2019-02-07 13:03 | Outpatient (CLI) | payer MEDICARE, SELFPAY ==
[2019-01-21 13:16] VITALS: BMI 30.6
--- NOTE | 2019-02-07 13:06 | ECHOCS_ITS ---
Reason For Study: S/P CABG Procedure This was a 2D Doppler, Color Flow transthoracic echocardiogram. The study was technically difficult. Exam performed in department. Left Ventricle Normal size and thickness. The estimated ejection fraction is 65 %. Normal diastology for age. No regional wall motion abnormalities noted. Right Ventricle Normal size and thickness. Normal systolic function. Atria Normal left atrium. Normal right atrium. Normal atrial septum. Mitral Valve The mitral valve is structurally normal. No prolapse or stenosis seen. Tricuspid Valve Normal tricuspid valve. Unable to estimate RV systolic pressure due to insufficient tricuspid regurgitant envelope. Aortic Valve Normal aortic valve. Trisinus/trileaflet aortic valve. Pulmonic Valve The pulmonic valve is not well visualized. Great Vessels Normal aortic root. Mild atherosclerosis of the aortic arch. Normal inferior vena cava. Inferior vena cava collapse with sniff. Pericardium/Pleural No pericardial effusion. Medication 22 gauge I.V. with prn adaptor inserted into right arm. Diluted definity 5ml given slow IV push to enhance endocardial definition. MMode/2D Measurements & Calculations LVIDd: 4.8 cm IVSd: 0.85 cm Ao root diam: 3.0 cm LVIDs: 3.3 cm LVPWd: 0.95 cm RVDd: 3.5 cm FS: 31.6 % LAV(MOD-bp): 28.8 ml LVAd ap4: 28.5 cm2 SV(MOD-sp4): 53.7 ml LAV(MOD-bp) Indexed: 15.0 ml/m2 EDV(MOD-sp4): 87.8 ml LAV(MOD-sp2): 30.6 ml EDV(sp4-el): 90.0 ml LAV(MOD-sp4): 23.5 ml LVAs ap4: 15.4 cm2 ESV(MOD-sp4): 34.1 ml ESV(sp4-el): 33.5 ml EF(MOD-sp4): 61.2 % EF(sp4-el): 62.7 % SV(sp4-el): 56.4 ml LA A4 area: 10.7 cm2 LA dimension(2D): 3.9 cm RA A4 area: 10.1 cm2 Time Measurements MV dec time: 0.16 sec Doppler Measurements & Calculations MV E max carmelo: 91.0 cm/sec Lat Peak E' Carmelo: 13.6 cm/sec Med Peak E' Carmelo: 9.2 cm/sec MV A max carmelo: 85.8 cm/sec E/E' lat: 6.7 E/E' med: 9.9 MV E/A: 1.1 Ao V2 max: 146.9 cm/sec LV V1 max: 108.6 cm/sec PA V2 max: 136.8 cm/sec Ao max P.6 mmHg LV V1 max P.7 mmHg Interpretation Summary The estimated ejection fraction is 65 %. Normal diastology for age. Unable to estimate RV systolic pressure due to insufficient tricuspid regurgitant envelope. Compared to echo report dated 11/24/2017, LV Function has improved from 50% to 65%. The study was technically difficult. Contrast injection was performed. Ordering Physician: Shayne Huerta Referring Physician: HIPOLITO PATEL Performed By: Marie Rubi RDCS
[2019-02-07 13:34] LABS: Absolute Lymphocyte Count 1.66 X10^3/uL (0.83-4.51); Basophil# 0.07 X10^3/uL; Basophil% 1.1 % (0-1); Eosinophil# 0.22 X10^3/uL; Eosinophils% 3.4 % (0-5); Hematocrit 33.6 % (37-47); Hemoglobin 10.5 g/dL (12.0-15.0); Lymphocyte # 1.66 X10^3/ul (4.0); Lymphocyte % 25.3 % (19-41); Mean Corp Hgb Conc 31.3 g/dL (32-36); Mean Corpuscular Hgb 23.6 pg (27.0-32.0); Mean Corpuscular Volume 75.5 fL (81-99); Mean Platelet Vol. 10.5 fl (6.2-12.0); Monocyte# 0.46 X10^3/uL; NRBC Flagged by Analyzer 0 % (0-5); Neutrophil # 3.99 X10^3/uL (2.7-7.7); Neutrophil % 60.8 % (47-70); Platelet Count 252 K/mm3 (150-450); RBC Distribution Width CV 18.8 % (11.6-14.6); Red Blood Count 4.45 M/mm3 (4.2-5.4); White Blood Count 6.6 K/mm3 (4.4-11.0)
[2019-02-07 13:48] LABS: Prothrombin Time (Protime)PT. 13.3 SECONDS (11.7-14.9)
[2019-02-07 14:01] LABS: AST(SGOT) 23 U/L (15-37); Alanine Aminotransfer ALT/SGPT 31 U/L (13-56); Albumin, Serum 2.9 g/dL (3.2-5.0); Alkaline Phosphatase 52 U/L (45-117); Anion Gap 7 (5-15); BUN 11 mg/dL (7-18); BUN/Creat Ratio 14.6 RATIO (10-20); Bilirubin, Direct < 0.05 mg/dL (0.00-0.30); Calcium,Total 8.8 mg/dL (8.5-10.1); Chloride 102 mmol/L (98-107); Cholesterol 223 mg/dL (200); Creatinine, Serum 0.75 mg/dL (0.55-1.02); EST Glomerular Filtration Rate 85 mL/min (>60); Est Glom Filt Rate - Afr Amer 103 mL/min (>60); Globulin 3.9 g/dL (2.2-4.2); Glucose 245 mg/dL (74-106); High Density Lipoprotein 27 mg/dL; Magnesium 1.8 mg/dL (1.6-2.6); Potassium 4.6 mmol/L (3.5-5.1); Protein, Total 6.8 g/dL (6.4-8.2); Sodium Level 135 mmol/L (136-145); Triglycerides 507 mg/dL
== END ==
PROVIDERS: Family Provider Internal Medicine; PCP Internal Medicine; Referring Provider Internal Medicine Cardiovascular Disease; Visit Provider Internal Medicine Cardiovascular Disease
DX: I25.810 Atherosclerosis of coronary artery bypass graft(s) without angina pectoris (principal); E78.5 Hyperlipidemia, unspecified; R06.02 Shortness of breath; Z95.1 Presence of aortocoronary bypass graft
CPT/HCPCS: 36415; 80048; 80061; 80076; 83735; 85025; 85610; 93306; Q9957; A4216; C8929

== ENCOUNTER → 2019-02-28 13:22 | Outpatient (CLI) | payer MEDICARE, SELFPAY ==
[2019-01-21 13:16] VITALS: BMI 30.6
--- NOTE | 2019-02-28 13:26 | STEWCON_ITS ---
Reason For Study: S/P CABG, DE LEON Stress Results Protocol: Dobutatmine Stress Echo Maximum Predicted HR: 166 bpm Target HR: 141 bpm % Maximum Predicted HR: 87 % DurationHeart Rate Stage (mm:ss) (bpm) BP Dose Comment BASELINE 84 153/78 6 CC DILUTED DEFINITY USED DSE- 10 MCG 4:29 78 182/7810.00NO SX DSE- 20 MCG 3:20 100 177/8920.00NO SX DSE- 30 MCG 3:28 122 150/8830.00ATROPINE 0.25 MG IVP GIVEN @ 1442 DSE- 40 MCG 2:47 144 143/9140.00NO SX RECOVERY 100 140/91 NO COMPLAINT Stress Duration: 14:04 mm:ss Maximum Stress HR: 144 bpm Baseline Echocardiogram Findings The estimated ejection fraction is 50 %. Stress Echo Wall motion Data Resting WM Intermediate WM Stress WM Resting Wall Motion Wall Motion Stress Lateral-Basal: Mildly No regional wall motion hypokinetic. abnormalities noted. Posterior-Basal: Mildly hypokinetic. Infero-Basal: Hypokinetic. EKG Data The baseline ECG displays normal sinus rhythm. The patient was titrated from 10 mcg to a maximum of 40 mcg of dobutamine during the stress. The maximum heart rate attained was 146 beats per minute. This was 87% of maximum predicted heart rate. At peak infusion, upsloping ST changes only were noted, which did not meet the criteria for ischemia. No clinical angina was noted. Doppler Measurements & Calculations TR max asia: 235.9 cm/sec TR max P.3 mmHg Interpretation Summary The estimated ejection fraction is 50 %. Normal, adequate, dobutamine echocardiogram. Negative for ischemia by EKG and echocardiographic criteria. Baseline inferior posterior and lateral hypokinesis which did not appear to improve or worsen with dobutamine. Final LVEF is 60%. Decreased sensitivity due to poor echo windows requiring Definity agent. Appropriate blood pressure response to dobutamine. Test terminated due to attainment target heart rate. The study was technically difficult. Contrast injection was performed. Ordering Physician: Shayne Huerta Referring Physician: Shayne Huerta Performed By: Marie Rubi RDCS
== END ==
PROVIDERS: Family Provider Internal Medicine; PCP Internal Medicine; Referring Provider Internal Medicine Cardiovascular Disease; Visit Provider Internal Medicine Cardiovascular Disease
DX: R06.02 Shortness of breath (principal); I25.810 Atherosclerosis of coronary artery bypass graft(s) without angina pectoris; I10 Essential (primary) hypertension; E78.5 Hyperlipidemia, unspecified; Z95.1 Presence of aortocoronary bypass graft
CPT/HCPCS: 93017; 93350; J7040; Q9957; A4216; C8928

== ENCOUNTER → 2019-04-15 12:16 | Outpatient (CLI) | payer MEDICARE, SELFPAY ==
[2018-10-12 11:04] VITALS: BMI 30.6
[2019-01-21 13:16] VITALS: BMI 30.6
[2019-04-15 12:30] VITALS: PULSE 89; PULSE 92; PULSE 94; PULSE 95; PULSE 96; PULSE 97; O2SAT 93; O2SAT 94; O2SAT 95; O2SAT 96; O2SAT 97
--- NOTE | 2019-04-16 08:09 | PCM.PSN.6M ---
PSN 6 Minute Walk Test - 6 Minute Walk Test 6 Minute Walk Test: 6 Minute Walk Test PSN:6-Minute Walk Test Start: 04/15/19 12:42 Freq: Status: Active Protocol: RESP.6MINW Document 04/15/19 12:30 HG (Rec: 04/15/19 12:44 HG [id number]) 6 Minute Walk Test Date Performed 04/15/19 Time Performed 12:30 Height 5 ft [address]: Rogers Fragoso Assistive device used: None Pre-test Oxygen Delivery Method Room Air Pulse Ox (%) 97 Pulse Rate (60-100 beats/min) 89 Dyspnea Phil Scale (0-10) 2 Exertion Phil Scale (6-20) 8 1st minute Oxygen Delivery Method Room Air Pulse Ox (%) 96 Pulse Rate (60-100 beats/min) 92 2nd minute Oxygen Delivery Method Room Air Pulse Ox (%) 95 Pulse Rate (60-100 beats/min) 95 3rd minute Oxygen Delivery Method Room Air Pulse Ox (%) 93 Pulse Rate (60-100 beats/min) 95 Number of Rests Taken 1 4th minute Oxygen Delivery Method Room Air Pulse Ox (%) 95 Pulse Rate (60-100 beats/min) 96 5th minute Oxygen Delivery Method Room Air Pulse Ox (%) 94 Pulse Rate (60-100 beats/min) 95 6th minute Oxygen Delivery Method Room Air Pulse Ox (%) 93 Pulse Rate (60-100 beats/min) 97 Post-test Oxygen Delivery Method Room Air Pulse Ox (%) 95 Pulse Rate (60-100 beats/min) 94 Dyspnea Phil Scale (0-10) 2 Exertion Phil Scale (6-20) 8 Full Laps Walked 14 Partial Lap, Number of Tiles Walked 0 Total Distance Walked (ft) 826 - Interpretation Interpretation: The patient ambulated 826 feet over the course of 6 minutes beginning on room air without assistive devices or breaks. Pretesting oxygen saturation was noted to be 97% on room air. With ambulation, the kasi oxygen saturation was 93%. This represents a significant exertional oxygen desaturation. - Recommendations Recommendations: There is no indication for the use of supplemental oxygen at this time.
== END ==
PROVIDERS: Family Provider Internal Medicine; PCP Internal Medicine; Referring Provider Internal Medicine Critical Care Medicine; Visit Provider Internal Medicine Critical Care Medicine
DX: J98.4 Other disorders of lung (principal)
CPT/HCPCS: 94618

== ENCOUNTER → 2019-07-11 17:40 | Outpatient (CLI) | payer MEDICARE, SELFPAY ==
[2019-04-24 12:46] VITALS: BMI 30.2
== END ==
PROVIDERS: PCP Internal Medicine; Referring Provider Podiatrist; Visit Provider Podiatrist
DX: L03.031 Cellulitis of right toe (principal)
CPT/HCPCS: 87070; 87075; 87077; 87186; 87205

== ENCOUNTER → 2019-07-16 10:26 | Outpatient (CLI) | payer MEDICARE, SELFPAY ==
[2019-04-24 12:46] VITALS: BMI 30.2
[2019-07-16 11:16] LABS: Hemoglobin A1c 7.3 % (4.2-6.3)
[2019-07-16 11:35] LABS: ALB/GLOB Ratio 0.8 RATIO (0.9-2.4); AST(SGOT) 55 U/L (15-37); Alanine Aminotransfer ALT/SGPT 38 U/L (13-56); Albumin, Serum 3.8 g/dL (3.2-5.0); Alkaline Phosphatase 69 U/L (45-117); Anion Gap 8 (5-15); BUN 13 mg/dL (7-18); BUN/Creat Ratio 18.1 RATIO (10-20); Calcium,Total 9.8 mg/dL (8.5-10.1); Chloride 95 mmol/L (98-107); Cholesterol 218 mg/dL (200); Creatinine, Serum 0.72 mg/dL (0.55-1.02); EST Glomerular Filtration Rate 90 mL/min (>60); Est Glom Filt Rate - Afr Amer 108 mL/min (>60); Globulin 4.7 g/dL (2.2-4.2); Glucose 113 mg/dL (74-106); High Density Lipoprotein 32 mg/dL; Potassium 3.9 mmol/L (3.5-5.1); Protein, Total 8.5 g/dL (6.4-8.2); Sodium Level 133 mmol/L (136-145); Thyroid Stim Hormone (TSH) 1.37 uIU/mL (0.358-3.74); Triglycerides 221 mg/dL; Very Low Density Lipoprotein 44 mg/dL (5-40)
== END ==
PROVIDERS: PCP Internal Medicine; Referring Provider Internal Medicine Endocrinology, Diabetes & Metabolism; Visit Provider Internal Medicine Endocrinology, Diabetes & Metabolism
DX: E78.5 Hyperlipidemia, unspecified (principal); E11.65 Type 2 diabetes mellitus with hyperglycemia
CPT/HCPCS: 36415; 80053; 80061; 83036; 84443

== ENCOUNTER → 2019-09-16 12:25 | Outpatient (CLI) | payer MEDICARE, SELFPAY ==
[2019-07-25 14:16] VITALS: BMI 30.2
--- NOTE | 2019-09-16 12:28 | RAD_ITS ---
STUDY: X-RAY - RIGHT FOOT CLINICAL: Female, 54 years old. SWELLING AND PAIN, NO TRAUMA TECHNIQUE: 3 view(s) of the foot. COMPARISON: None. FINDINGS: There is an enthesophyte involving the posterior superior calcaneus at the site of insertion of the Achilles tendon. Small plantar spur. There is evidence of a comminuted nondisplaced fracture of the tarsal navicular bone. Normal metatarsi. There is degenerative arthrosis of the metatarsophalangeal joint of the hallux . Normal tibial and fibular sesamoid bones. Normal interphalangeal joint of the great toe. Normal phalanges of the great toe. Normal second through fifth metatarsophalangeal joints. Normal interphalangeal joints and phalanges of the lesser toes. Diffuse soft tissue swelling. RAD/Foot min 3 Views IMPRESSION: Comminuted nondisplaced fracture of the tarsal navicular bone. Diffuse soft tissue swelling. Electronically Signed: Yousuf Vila, at 13:06 EDT , Service support ,
--- NOTE | 2019-09-16 12:29 | RAD_ITS ---
STUDY: X-RAY - RIGHT ANKLE REASON FOR EXAM: Female, 54 years old. PAIN AND SWELLING. NO TRAUMA TECHNIQUE: 3 view(s) of the ankle. COMPARISON: None. FINDINGS: Normal visualized distal tibia and fibula. Normal medial and lateral malleoli. Normal tibiotalar articulation and ankle mortise. Calcaneal spurs. Nondisplaced comminuted fracture of the tarsonavicular bone. Diffuse soft tissue swelling worse along the lateral aspect. RAD/Ankle min 3 Views IMPRESSION: Diffuse soft tissue swelling worse overlying the lateral aspect of the ankle. Nondisplaced comminuted fracture of the tarsonavicular bone. Electronically Signed: Yousuf Vila, at 13:07 EDT , Service support ,
== END ==
PROVIDERS: PCP Internal Medicine; Referring Provider Internal Medicine; Visit Provider Internal Medicine
DX: M79.671 Pain in right foot (principal)
CPT/HCPCS: 73610; 73630

== ENCOUNTER 2019-09-16 13:00 | Outpatient (RCR) | payer MEDICARE, SELFPAY ==
[2019-07-25 14:16] VITALS: BMI 30.2
--- NOTE | 2019-09-05 10:53 | HP.PTEVAL_ITS ---
Patient's Visit Information KAY RODNEY is a 54 year old F referred to Physical Therapy by Sanjuana Mckeon DO with a diagnosis of Right Ankle Sprain. Date of Evaluation: 09/05/19 Physical Therapist: Lory Padron DPT - Visit Plan Frequency: 1x/Week Duration: 6 Weeks Plan: Focus on LE strength, flex and ROM- functional mobility. - Subjective Subjective: Patient reports that she has right foot/ankle pain for about 3 weeks. Pain is located on the top of the foot wraps around to the bottom and the achilles- insidous onset. Went to [facility] diagnosed with a sprain no x-rays. Describes the pain as throbbing but does have shooting pains every once in awhile. Worst: 10 Agg: putting a shoe on it, walking Best: 07/05 Eases: laying on her side with the foot propped up. Feels a pulling sensation with plantar flexion. She reports that she has been really tired a lot but is unsure if it is related. Has a sendentary life style. She has end state cardiomyopathy and coronary artery disease. Does not radiate up the leg. Normally barefoot and it bothered her to put the shoe on today. Patient has neuropathy but does not report any changes in N/T in the foot. Does not drive- uses the van service. Normally does not use a cane but is currently using a straight cane. 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 Sleep: disturbed- normally is a belly sleeper but that has changed and now she is more on her side or back. - Objective Posture: FH, RS, increased kyphosis. Gait: antalgic-single point cane in right hand- decreased stance on the right LE with poor heel/toe pattern. HR/TR: unable standing- will perform seated but reports significant pain and limited ROM. Palpatoin: tender throughout medial and lateral ankle and into the mortise of the joint. down ther plantar and dorsum of the foot to the base of the toes. Girth:26 malls Figure 4:50 cm, Mets: 20 cm. ROM: DF: neutral, PF: 30 degrees, Inv: 30 degrees Ever: neutral- reports significant pain with eversion and plantar flexion. Strength: Ankle: 2+/5 Knee:4-/5, Hip: 4/5 Core: poor. SLS: weight shift but does not SLS due to pain and fear. Flex: Gastroc: severe, Solues: moderate, Hamstring: severe - Goals Goal 1:: Patient will be I with HEP and progression Goal Time Frame: 4-6 Weeks Goal 2:: Patient will ambulate >300 feet with a normalized gait pattern Goal Time Frame: 4-6 Weeks Goal 3:: Patient will SLS for 10 seconds Goal Time Frame: 4-6 Weeks Goal 4:: Patent will demo full AROM with 0/10 pain in the ankle Goal Time Frame: 6-8 Weeks - Rehabilitation Potential Physical Therapy Diagnosis: Patient presents with hypomobility- she has increased edema in the right ankle with decreased ROM, strength, flex and muscular endurance leading to abnormal gait and decreased ability to perform ADL's Rehabilitation Potential: Fair - Anticipated Interventions Patient/Client Instruction: Educate patient on: Benefits of Fitness Program Therapeutic Exercise to Include: Strength training, Endurance training, Balance training, Coordination, Agility training, Body mechanics, Postural training, Flexibilty training, Gait and locomotor training, Neuromotor development, Passive ROM, Active ROM, Dynamic Lumbar Stabilization, Scapular Strength/Stabil ization For the Purpose of:: To improve muscle performance and motor function TENS: Yes Cryotherapy (ice pack, ice massage): Yes Thermo therapy (hot pack): Yes Ultrasound (thermal/non thermal): Yes Thank you for the opportunity to evaluate your patient. For Medicare and Medicare HMO plans, please review the plan of care and approve it. It will need to be FAXED BACK to us at [phone] for Medicare purposes. For Medicare only, by signing this I certify the plan of care. Please let me know if there are questions or concerns regarding this plan of care. Physician Signature: Date:
--- NOTE | 2019-11-05 11:35 | HP.PT.NRP ---
KAY RODNEY was seen in my office for initial evaluation on 09/05/19. The following Plan of Care was established for this patient: Initial Frequency: 1x/Week Initial Duration: 6 Weeks Patient/Client Instruction: Educate patient on: Benefits of Fitness Program Therapeutic Exercise to Include: Strength training, Endurance training, Balance training, Coordination, Agility training, Body mechanics, Postural training, Flexibilty training, Gait and locomotor training, Neuromotor development, Passive ROM, Active ROM, Dynamic Lumbar Stabilization, Scapular Strength/Stabilization For the Purpose of:: To improve muscle performance and motor function TENS: Yes Cryotherapy (ice pack, ice massage): Yes Thermo therapy (hot pack): Yes Ultrasound (thermal/non thermal): Yes This patient was last seen in our office . Pertinent comments regarding their Physical therapy will appear below: Patient to have MRI- follow up as needed- dc from PT. At this point I will be discontinuing this patient from physical therapy. I would be happy to see this patient again in the future if found appropriate by the physician. Thank you! Lory Padron DPT
== END 2019-09-16 19:00 | disposition home or self-care (01) ==
LOC: PT 13:00
PROVIDERS: PCP Internal Medicine; Referring Provider Internal Medicine; Visit Provider Internal Medicine
DX: S93.401D Sprain of unspecified ligament of right ankle, subsequent encounter (principal)
CPT/HCPCS: 97110; 97161

== ENCOUNTER → 2019-09-25 15:17 | Outpatient (CLI) | payer MEDICARE, SELFPAY ==
[2019-07-25 14:16] VITALS: BMI 30.2
--- NOTE | 2019-09-25 15:32 | MRI_ITS ---
STUDY: MRI RIGHT ANKLE WITHOUT CONTRAST REASON FOR EXAM: Female, 54 years old. RT ANKLE CHARCOT ARTHROPATHY -- NKI, pain x 2 months entire rt ankle/tarsals, open wound plantar surface, diabetic TECHNIQUE: Standardized fat and water weighted pulse sequences were obtained in all 3 orthogonal planes. COMPARISON: X-ray of the right ankle and foot dated September 16, 2019 FINDINGS: A small wound/ulcer is present on the plantar surface of the heel on the medial side. Mild edema is present around the small bowel. No sinus tract or focal fluid collections are present. Moderate subcutaneous edema is present around the lower leg and ankle and over the dorsum of the foot. Diffuse edema is present throughout the anterior process of the calcaneus, throughout the talus, and throughout the tarsal bones in several metatarsal bases all compatible with Charcot/neuropathic signal. Some secondary chronic erosions are also present in the tarsal bones. There is an old fracture deformity of the navicular bone displaced fragments both plantarly and dorsally. Small ankle joint effusion is present. No demonstrated cortical erosion or infiltrative signal in the marrow to suggest active osteomyelitis. Minimal reactive edema is seen in the medial malleolus. Normal posterior tibialis tendon. Normal flexor digitorum longus tendon. Normal flexor hallucis longus tendon. Normal peroneus longus and brevis tendons. Normal tibialis anterior tendon. Normal extensor hallucis longus tendon. Normal extensor digitorum longus tendons. Normal Achilles tendon and teno-osseous insertion. De Leon thickening and signal abnormality is present in the medial band plantar fascia at its attachment site on the calcaneus. Normal plantar calcaneal tubercles. Normal intrinsic muscles of the rearfoot. Normal distal tibiofibular syndesmotic ligamentous complex. Normal lateral ligamentous complex. Normal subtalar ligaments and sinus tarsi. Normal deltoid ligamentous complexes. Normal plantar calcaneonavicular (spring) ligament. MRI/Lower Ext Joint Only (Routine) IMPRESSION: 1. Small subcutaneous ulcer in the plantar aspect and medial side of the heel. 2. Old fracture deformity with displacement of the navicular bone. 3. Mild patchy edema in the medial malleolus likely reactive in nature. 4. Moderate neuropathic/reactive edema due to Charcot arthropathy in the tarsal bones, talus, and anterior process of the calcaneus. Electronically Signed: Cody Hernández MD at 18:53 EDT , Service support ,
== END ==
PROVIDERS: PCP Internal Medicine; Referring Provider Podiatrist; Visit Provider Podiatrist
DX: A52.16 Charcot's arthropathy (tabetic) (principal)
CPT/HCPCS: 73721

== ENCOUNTER → 2019-11-06 08:28 | Outpatient (CLI) | payer MEDICARE, SELFPAY ==
[2019-07-25 14:16] VITALS: BMI 30.2
[2019-11-06 09:53] LABS: ALB/GLOB Ratio 0.8 RATIO (0.9-2.4); AST(SGOT) 26 U/L (15-37); Alanine Aminotransfer ALT/SGPT 23 U/L (13-56); Albumin, Serum 3.7 g/dL (3.2-5.0); Alkaline Phosphatase 62 U/L (45-117); Anion Gap 7 (5-15); BUN 35 mg/dL (7-18); BUN/Creat Ratio 32.1 RATIO (10-20); Calcium,Total 9.7 mg/dL (8.5-10.1); Chloride 97 mmol/L (98-107); Creatinine, Serum 1.09 mg/dL (0.55-1.02); EST Glomerular Filtration Rate 55 mL/min (>60); Est Glom Filt Rate - Afr Amer 67 mL/min (>60); Globulin 4.5 g/dL (2.2-4.2); Glucose 105 mg/dL (74-106); Potassium 4.3 mmol/L (3.5-5.1); Protein, Total 8.2 g/dL (6.4-8.2); Sodium Level 135 mmol/L (136-145)
[2019-11-06 09:58] LABS: Vitamin B12 343 pg/mL (211-911); Vitamin D,25 Hydroxy 83.9 ng/mL
[2019-11-07 16:07] LABS: PROEL- A/G Ratio 0.9 (0.7-1.7); PROEL- Albumin 3.6 g/dL (2.9-4.4); PROEL- Alpha-1 Globulin 0.3 g/dL (0.0-0.4); PROEL- Alpha-2 Globulin 1.3 g/dL (0.4-1.0); PROEL- Beta Globulin 1.2 g/dL (0.7-1.3); PROEL- Gamma Globulin 1.1 g/dL (0.4-1.8); PROEL- Globulin, Total 3.9 g/dL (2.2-3.9); PROEL- TOTAL PROTEIN 7.5 g/dL (6.0-8.5)
== END ==
PROVIDERS: PCP Internal Medicine; Referring Provider Internal Medicine; Visit Provider Internal Medicine
DX: R77.1 Abnormality of globulin (principal); E55.9 Vitamin D deficiency, unspecified; E53.8 Deficiency of other specified B group vitamins; Z51.81 Encounter for therapeutic drug level monitoring
CPT/HCPCS: 36415; 80053; 82306; 82607; 83735; 84165; 84166

== ENCOUNTER → 2019-11-29 13:20 | Outpatient (CLI) | payer MEDICARE, SELFPAY ==
[2019-07-25 14:16] VITALS: BMI 30.2
--- NOTE | 2019-11-29 13:24 | RAD_ITS ---
STUDY: X-RAY - RIGHT FOOT CLINICAL: Female, 54 years old. FOOT PAIN TECHNIQUE: 3 view(s) of the foot. COMPARISON: Right foot September 16, 2019 FINDINGS: Normal talus, calcaneus, and tarsal bones. Navicular fracture unchanged. Diffuse demineralization decreases sensitivity. Normal metatarsi. Normal metatarsophalangeal joint of the great toe. Normal tibial and fibular sesamoid bones. Normal interphalangeal joint of the great toe. Normal phalanges of the great toe. Normal second through fifth metatarsophalangeal joints. Normal interphalangeal joints and phalanges of the lesser toes. The soft tissue structures are unremarkable. RAD/Foot min 3 Views IMPRESSION: No change navicular fracture. Electronically Signed: Ruddy Whitten MD at 22:34 EDT , Service support ,
== END ==
PROVIDERS: PCP Internal Medicine; Referring Provider Podiatrist; Visit Provider Podiatrist
DX: M14.671 Charcot's joint, right ankle and foot (principal)
CPT/HCPCS: 73630